=== PATIENT | male | born 1950 | race Caucasian/White ===

== ENCOUNTER 2020-01-09 01:41 | Emergency (ER) | payer BC, SELFPAY ==
[2020-01-09] VITALS (8 sets, daily range): BP systolic 124–134; BP diastolic 60–80; PULSE 80–91; RESP 13–21; TEMP 36.8; O2SAT 94–100
--- NOTE | ~2020-01-09 | CT_ITS ---
EXAMINATION: CTA chest PE protocol DATE: 01/09/2020 05:32 INDICATION: Chest pain. TECHNIQUE: Computed tomography angiography (CTA) of the chest was performed with 100 mL Omnipaque-350 intravenous contrast timed to evaluate the pulmonary arteries. Coronal maximum intensity projection 3D-reconstructions were created by the technologist. Automated exposure control and iterative reconst ruction technique were employed. The dose-length product was 1013.04 mGy-cm. COMPARISON: Chest 2 views 01/09/2012 FINDINGS: The lungs demonstrate mild atelectasis. Calcified bilateral lung nodules and calcified righ t hilar lymph nodes are consistent with old granulomatous disease. There are a few scattered pulmonar y nodules measuring up to 4 mm, likely benign. No pleural effusion. The heart size is normal. No bandar cardial effusion. There is a small sliding hiatal hernia. There is no pulmonary embolus. There are br idging endplate osteophytes at multiple levels in the spine, consistent with diffuse idiopathic skele guy hyperostosis (DISH). IMPRESSION: 1. No pulmonary embolus. Reviewed, dictated and finalized at location A. IMPRESSION: 1. No pulmonary embolus.
[2020-01-09] MEDS: ASPIRIN 81 MG CHEWABLE TABLET 324 MG PO (02:05)
--- NOTE | 2020-01-09 02:05 | ECG_ITS ---
Measurements Intervals [place] Rate: 89 P: 50 MT: 167 QRS: 13 QRSD: 104 T: 27 QT: 390 QTc: 476 Interpretive Statements SINUS RHYTHM SUPRAVENTRICULAR BIGEMINY INCOMPLETE RIGHT BUNDLE BRANCH BLOCK ABNORMAL ECG Electronically Signed On 01-09-2020 7:14:08 CDT by Zay Schrader D.O.
[2020-01-09 03:37] LABS: Basophils Absolute Auto 0.1 K/mm3 (0.0-0.1); Basophils Percent Auto 0.9 % (0.2-1.2); Eosinophils Absolute Auto 0.7 K/mm3 (0-0.3); Eosinophils Percent Auto 6.5 % (0-4.4); Hematocrit 48.8 % (42.0-52.0); Hemoglobin 16.4 g/dL (14.0-18.0); Immature Granulocyte Absolute 0.09 K/mm3 (0.00-0.031); Immature Granulocyte Percent A 0.9 % (0-0.5); Lymphocytes Absolute Auto 3.48 K/mm3 (0.9-3.2); Mean Corpuscular HGB Conc 33.6 g/dl (32-36); Mean Corpuscular Hemoglobin 30.5 pg (26-34); Mean Corpuscular Volume 90.7 fl (80-100); Mean Platelet Volume 9.5 fl (7.4-10.4); Monocytes Absolute Auto 0.9 K/mm3 (0.1-0.6); Monocytes Percent Auto 8.8 % (2.6-8.5); Neutrophils Percent Auto 48.9 % (45.5-73.1); Platelet Count Result 327 k/mm3 (150-375); Red Blood Count 5.38 M/mm3 (4.6-6.20); Red Cell Distribution Width 13.2 % (11.5-14.5); White Blood Count 10.3 K/mm3 (4.5-10.0)
[2020-01-09 03:38] LABS: INR 0.9; Partial Thromboplastin Time 27.1 SECONDS (22.3-36.8); Prothrombin Time 12.1 Seconds (11.1-14.7)
[2020-01-09 03:54] LABS: Blood Urea Nitrogen 10 mg/dL (9-20); Calcium 9.1 mg/dL (8.4-10.2); Carbon Dioxide 25 mmol/L (22-30); Chloride 106 mmol/L (98-107); Estimated Glomerular Filt Rate > 60; Glucose 113 mg/dL (75-110); NT Pro B Type Natriuretic Pept 25 PG/ML (5-100); Potassium 3.8 mmol/L (3.4-5.0); Sodium 138 mmol/L (137-145); Troponin I < 0.012 ng/mL (0.000-0.034)
[2020-01-09 05:54] LABS: Troponin I < 0.012 ng/mL (0.000-0.034)
[2020-01-09 06:44] LABS: Estimated Glomerular Filt Rate > 60
== END 2020-01-09 06:10 | disposition home or self-care (01) ==
PROVIDERS: Emergency Provider Emergency Medicine; PCP Physician Assistant
DX: R07.89 Other chest pain (principal); E11.9 Type 2 diabetes mellitus without complications; G47.33 Obstructive sleep apnea (adult) (pediatric); R91.8 Other nonspecific abnormal finding of lung field
CPT/HCPCS: 36415; 71275; 80048; 83880; 84484; 85025; 85610; 85730; 93005; 99284; A9270; Q9967

== ENCOUNTER 2020-06-15 07:25 | Outpatient (CLI) | payer BC, SELFPAY ==
[2020-06-15 19:02] LABS: SARS-CoV-2 RNA PCR Negative
== END 2020-06-15 07:26 | disposition home or self-care (01) ==
LOC: ANHCOVIDDT 07:26
PROVIDERS: PCP Family Medicine; Visit Provider Internal Medicine Gastroenterology
DX: Z01.812 Encounter for preprocedural laboratory examination (principal); Z20.828 Contact with and (suspected) exposure to other viral communicable diseases
CPT/HCPCS: 87635; C9803; U0003

== ENCOUNTER 2020-06-17 00:52 | Day surgery (SDC) | payer BC, SELFPAY ==
[2020-06-10 14:24] VITALS: BMI 39.2
[2020-06-17 06:48] VITALS: BP 133/76; PULSE 84; RESP 18; TEMP 36.2; O2SAT 96; BMI 38.5
[2020-06-17] MEDS: LACTATED RINGERS 1,000 ML 150 ML IV CONT (07:03)
[2020-06-17 07:08] LABS: Glucose Point of Care 99 (65-105)
--- NOTE | 2020-06-17 07:23 | WPDANESEPPF ---
Anes - Initial Pre Proc Eval Procedure: Operation Date: 06/17/20 08:00 Proposed Procedures p Screening Colonoscopy - Jus Milton MD Date/Time: 06/17/20 07:23 Surgeon: Jus Milton MD Pre Op Diagnosis: Neoplasm Screening/ Hx Colon Polyps Patient Data Age: 69 Gender: M Height: 6 ft 2 in Weight: 136.3 kg Last Vital Signs Temp 97.1 F L 06/17/20 06:48 Pulse 84 06/17/20 06:48 Resp 18 06/17/20 06:48 BP 133/76 06/17/20 06:48 Pulse Ox 96 06/17/20 06:48 Allergies Allergy/AdvReac Type Severity Reaction Status Date / Time ciprofloxacin Allergy Severe Anaphylaxis Verified 06/17/20 06:47 chlorpheniramine Allergy Unknown Unknown Verified 06/17/20 06:47 pseudoephedrine Allergy Unknown Unknown Verified 06/17/20 06:47 [From Deconamine] Home Medications Medication Instructions Recorded Confirmed Type dulaglutide 0.75 mg/0.5 mL 0.75 mg SUB-Q WEEKLY #2 ml 03/08/20 06/10/20 Rx subcutaneous pen injector canagliflozin 100 mg tablet 100 mg PO DAILY #30 tablet 05/20/20 06/10/20 Rx metformin 1,000 mg tablet 1,000 mg PO BID #180 tablet 05/20/20 06/10/20 Rx tobramycin 0.3 % eye drops See Rx Instructions EACH EYE Q4H 05/20/20 06/10/20 Rx #5 ml atorvastatin 20 mg tablet 20 mg PO DAILY #30 tablet 05/24/20 06/10/20 Rx aspirin [Adult Aspirin] 81 mg PO DAILY 06/10/20 06/10/20 History fluocinonide applic TOPICAL 06/10/20 History Laboratory Tests 06/17/20 06:55 POC Capillary Glucose 99 mg/dl mg/dl (65-105) Patient hx anesthesia problems: none Family hx anesthesia problems: none PMFSH Past Medical History Medical History (Updated 05/24/20 @ 08:18 by Will Daniel MD) Arthritis Diabetes Diabetic peripheral neuropathy associated with type 2 diabetes mellitus Elevated PSA, less than 10 ng/ml History of colon polyps Hordeolum externum of right lower eyelid Mixed hyperlipidemia Morbid obesity Nocturia FAHAD on CPAP Osteoarthritis of knees, bilateral Prostate cancer screening Psoriasis Right medial knee pain Sleep apnea Type 2 diabetes mellitus with hyperglycemia Surgical History Surgical History (Updated 09/09/19 @ 08:17 by Mohit Joseph [facility]) Hx of appendectomy Hx of bilateral mastectomy Family History Family History (Updated 09/09/19 @ 08:19 by Mohit Joseph [facility]) Mother Patient's mother is in good health Alzheimer disease Father Patient's father is , Onset Age: 73 Malignant neoplasm of prostate Sibling Malignant neoplasm of prostate Heart disease Social History Social History (Updated 09/09/19 @ 08:19 by Mohit Joseph [facility]) Smoking status: Never smoker Alcohol intake: never Substance use: never Substance use type: does not use Living arrangements: with family Gender identity (if verbalized by the patient): Male Spiritual care concerns: No Anes - Eval Final PreProcedure Day of Procedure 06/17/20 07:23 Patient weight: obese Heart: regular rate and rhythm Lungs: clear to auscultation Airway: Mallampati scale class II Neurological: alert and oriented Last oral intake: >/= 8 hours ASA classification: III Emergent: no Anesthetic plan: proceed Anesthesia type and monitoring: general GIVS and standard monitoring Informed Consent: The patient's anesthetic plan and its attendant risks and benefits were discussed with the patient/family/POA. Questions were solicited and answers provided to the satisfaction of the patient/family/POA.
--- NOTE | 2020-06-17 07:57 | WPDGICN ---
Assessment and Plan Assessment and plan (1) History of colon polyps: Code(s): Z86.010 - Personal history of colonic polyps Status: Acute Assessment and Plan: plan is for surveillance colonoscopy at this time. GI Consult Note Consult date/time: 06/17/20 07:57 HPI: Edson Christiansen is a 69 year old male Seen in evaluation at the request of Dr. Daniel. Patient has a history of colon polyps. Had an adenomatous colon polyp 10 years ago, hyperplastic polyp 5 years ago. Patient's current weight appetite bowel movements are normal. Patient denies abdominal pain. He has had no bleeding. His family history is noncontributory. Review of Systems Review of Systems: All systems reviewed & are unremarkable except as noted in HPI and below PMFSH Past Medical History Medical History (Updated 05/24/20 @ 08:18 by Will Daniel MD) Arthritis Diabetes Diabetic peripheral neuropathy associated with type 2 diabetes mellitus Elevated PSA, less than 10 ng/ml History of colon polyps Hordeolum externum of right lower eyelid Mixed hyperlipidemia Morbid obesity Nocturia FAHAD on CPAP Osteoarthritis of knees, bilateral Prostate cancer screening Psoriasis Right medial knee pain Sleep apnea Type 2 diabetes mellitus with hyperglycemia Surgical History Surgical History (Updated 09/09/19 @ 08:17 by Mohit Joseph CMA) Hx of appendectomy Hx of bilateral mastectomy Family History Family History (Updated 09/09/19 @ 08:19 by Mohit Joseph [employer]) Mother Patient's mother is in good health Alzheimer disease Father Patient's father is , Onset Age: 73 Malignant neoplasm of prostate Sibling Malignant neoplasm of prostate Heart disease Social History Social History (Updated 09/09/19 @ 08:19 by Mohit Joseph [facility]) Smoking status: Never smoker Alcohol intake: never Substance use: never Substance use type: does not use Living arrangements: with family Gender identity (if verbalized by the patient): Male Spiritual care concerns: No Meds Home Medications and Allergies Home Medications Medication Instructions Recorded Confirmed Type dulaglutide 0.75 mg/0.5 mL 0.75 mg SUB-Q WEEKLY #2 ml 03/08/20 06/10/20 Rx subcutaneous pen injector canagliflozin 100 mg tablet 100 mg PO DAILY #30 tablet 05/20/20 06/10/20 Rx metformin 1,000 mg tablet 1,000 mg PO BID #180 tablet 05/20/20 06/10/20 Rx tobramycin 0.3 % eye drops See Rx Instructions EACH EYE Q4H 05/20/20 06/10/20 Rx #5 ml atorvastatin 20 mg tablet 20 mg PO DAILY #30 tablet 05/24/20 06/10/20 Rx aspirin [Adult Aspirin] 81 mg PO DAILY 06/10/20 06/10/20 History fluocinonide applic TOPICAL 06/10/20 History Allergies Allergy/AdvReac Type Severity Reaction Status Date / Time ciprofloxacin Allergy Severe Anaphylaxis Verified 06/17/20 06:47 chlorpheniramine Allergy Unknown Unknown Verified 06/17/20 06:47 pseudoephedrine Allergy Unknown Unknown Verified 06/17/20 06:47 [From Deconamine] Vital Signs Vital Signs - 24 hr 06/17/20 06:48 Temperature 97.1 F L Pulse Rate 84 Respiratory Rate 18 Blood Pressure 133/76 Pulse Oximetry 96 Exam Narrative: Exam Narrative: Physical exam reveals patient to be alert. Vital signs stable. HEENT exam unremarkable. Patient is anicteric. Lungs are clear to auscultation and percussion. Heart is without murmur or extra sounds. Abdominal exam bowel sounds are present soft nontender with no organomegaly. Digital external rectal exam is normal
[2020-06-17 08:30] VITALS: BP 79/41; PULSE 77; RESP 20; O2SAT 95
[2020-06-17 08:40] VITALS: BP 106/74; PULSE 74; RESP 20; O2SAT 95
[2020-06-17 08:50] VITALS: BP 124/70; PULSE 76; RESP 20; O2SAT 96
== END 2020-06-17 09:12 | disposition home or self-care (01) ==
PROVIDERS: PCP Family Medicine; Visit Provider Internal Medicine Gastroenterology
PROC: 0DJD8ZZ Inspection of Lower Intestinal Tract, Via Natural or Artificial Opening Endoscopic (ICD-10-PCS; CPT 45378; principal; 2020-06-17 08:00)
DX: Z12.11 Encounter for screening for malignant neoplasm of colon (principal); K57.30 Diverticulosis of large intestine without perforation or abscess without bleeding; K64.8 Other hemorrhoids; Z86.010 Personal history of colon polyps; E11.42 Type 2 diabetes mellitus with diabetic polyneuropathy; E78.2 Mixed hyperlipidemia; G47.33 Obstructive sleep apnea (adult) (pediatric); Z79.84 Long term (current) use of oral hypoglycemic drugs; Z79.82 Long term (current) use of aspirin
CPT/HCPCS: 45378; J2704; J7120

== ENCOUNTER 2021-10-12 08:47 | Outpatient (CLI) | payer BC, SELFPAY ==
--- NOTE | 2021-10-12 11:15 | NEURO_ITS ---
Impression: # Complains of numbness of hands. # Bilateral Carpal Tunnel Syndrome. # Right ulnar neuropathy around the elbow. # Normal needle/EMG exam. Nerve Conduction Studies Anti Sensory Summary Table Stim Site NR Peak (ms) P-T Amp (?V) Site1 Site2 Delta-P (ms) Dist (cm) Gamal (m/s) Left Median Anti Sensory (2-3nd Digit) Wrist 4.3 12.2 Wrist 2-3nd Digit 4.3 14.0 33 Wrist 4.5 17.7 Wrist 2-3nd Digit 4.3 14.0 33 Right Median Anti Sensory (2-3nd Digit) Wrist 4.3 11.5 Wrist 2-3nd Digit 4.3 14.0 33 Wrist 4.8 9.1 Wrist 2-3nd Digit 4.3 14.0 33 Left Radial Anti Sensory (Base 1st Digit) Wrist 2.1 15.5 Wrist Base 1st Digit 2.1 0.0 Right Radial Anti Sensory (Base 1st Digit) Wrist 2.7 7.7 Wrist Base 1st Digit 2.7 0.0 Left Ulnar Anti Sensory (5th Digit) Wrist 3.0 25.6 Wrist 5th Digit 3.0 14.0 47 Right Ulnar Anti Sensory (5th Digit) Wrist 2.8 38.8 Wrist 5th Digit 2.8 14.0 50 Motor Summary Table Stim Site NR Onset (ms) O-P Amp (mV) Site1 Site2 Delta-0 (ms) Dist (cm) Gamal (m/s) Left Median Motor (Abd Poll Brev) Wrist 4.4 2.4 Elbow Wrist 5.5 28.0 51 Elbow 9.9 1.9 Right Median Motor (Abd Poll Brev) Wrist 4.5 2.7 Elbow Wrist 5.6 30.0 54 Elbow 10.1 2.4 Left Ulnar Motor (Abd Dig Minimi) Wrist 3.4 4.1 A Elbow Wrist 5.5 30.0 55 A Elbow 8.9 3.5 Right Ulnar Motor (Abd Dig Minimi) Wrist 3.4 3.4 A Elbow Wrist 6.1 31.0 51 A Elbow 9.5 2.1 B Elbow Wrist 4.2 24.0 57 B Elbow 7.6 2.3 F Wave Studies NR F-Lat (ms) L-R F-Lat (ms) Left Median (Mrkrs) (Abd Poll Brev) 33.38 0.41 Right Median (Mrkrs) (Abd Poll Brev) 32.97 0.41 Left Ulnar (Mrkrs) (Abd Dig Min) 32.87 1.27 Right Ulnar (Mrkrs) (Abd Dig Min) 34.14 1.27 EMG Side Muscle Nerve Root Ins Act Fibs Amp Dur Recrt Comment Right 1stDorInt Ulnar C8-T1 Nml Nml Nml Nml Nml Right Ext Indicis Radial (Post Int) C7-8 Nml Nml Nml Nml Nml Right Ext Digitorum Radial (Post Int) C7-8 Nml Nml Nml Nml Nml Right BrachioRad Radial C5-6 Nml Nml Nml Nml Nml Right PronatorTeres Median C6-7 Nml Nml Nml Nml Nml Right Abd Poll Brev Median C8-T1 Nml Nml Nml Nml Nml Left 1stDorInt Ulnar C8-T1 Nml Nml Nml Nml Nml Left Ext Indicis Radial (Post Int) C7-8 Nml Nml Nml Nml Nml Left Ext Digitorum Radial (Post Int) C7-8 Nml Nml Nml Nml Nml Left BrachioRad Radial C5-6 Nml Nml Nml Nml Nml Left PronatorTeres Median C6-7 Nml Nml Nml Nml Nml Left Abd Poll Brev Median C8-T1 Nml Nml Nml Nml Nml Right Add Pollicis Ulnar C8-T1 Nml Nml Nml Nml Nml Right Abd Poll Long Radial (Post Int) C7-8 Nml Nml Nml Nml Nml Left Add Pollicis Ulnar C8-T1 Nml Nml Nml Nml Nml Left Abd Poll Long Radial (Post Int) C7-8 Nml Nml Nml Nml Nml MTDD
== END 2021-10-12 08:48 | disposition home or self-care (01) ==
PROVIDERS: PCP Family Medicine; Visit Provider Family Medicine
DX: G56.03 Carpal tunnel syndrome, bilateral upper limbs (principal); G56.21 Lesion of ulnar nerve, right upper limb
CPT/HCPCS: 95886; 95911

== ENCOUNTER 2022-03-03 07:58 | Outpatient (CLI) | payer BC, SELFPAY ==
--- NOTE | ~2022-03-03 | CT_ITS ---
EXAMINATION: CT diagnostic chest wo con DATE: 03/03/2022 09:12 INDICATION: Lung nodule TECHNIQUE: Computed tomography (CT) of the chest was performed without intravenous contrast. The dose -length product (DLP) was 452.66 mGy-cm. Automated exposure control and iterative reconstruction tech COSMIC COLOR were employed. COMPARISON: 01/09/2020 FINDINGS: Again noted are scattered, stable pulmonary nodules which measure up to 4 mm. No new nodule s are identified. There is mild dependent atelectasis. The lungs are free of focal airspace opacities . No pleural effusion or pneumothorax. No pathologically enlarged thoracic lymph nodes are identified . The heart size is normal. There is calcified coronary artery atherosclerosis. Bilateral gynecomasti a is noted. Stones are present in the nondistended gallbladder. There are bridging osteophytes at mul tiple levels in the spine, consistent with diffuse idiopathic skeletal hyperostosis (DISH). IMPRESSION: 1. Stable small pulmonary nodules, consistent with old granulomatous disease. Reviewed, dictated and finalized at location B.
--- NOTE | 2022-03-03 15:08 | WPDPFTINT ---
PFT Procedure Performed PFT Procedure Performed Spirometry with Pre/Post Bronchodilator Plethysmography (Lung Vol) Diffusing Cap (DLCO) Flow Vol Loop PFT Interpretation This is a pulmonary function test with pre and post-bronchodilator spirometry, plethysmography and diffusing capacity. The test was performed and results interpreted in accordance with the 2019 and 2005 ATS/ERS Task Force guidelines respectively using the Global Lung Function Initiative-2012 reference equations. Patient demonstrated good effort and cooperation. Reproducibility criteria were met. The quality of the pre bronchodilator spirometry maneuver was Grade A and post bronchodilator spirometry maneuver was Grade A. Findings: Spirometry: The contour the inspiratory expiratory flow tracing are normal. The pre bronchodilator FVC is 4.67 L, 95% predicted. The pre bronchodilator FEV1 is 3.41 L, 95% predicted. The pre bronchodilator the pre bronchodilator FEV1: FVC ratio 73%. The post bronchodilator FVC is 4.56, representing a 2% decrease. The post bronchodilator FEV1 is 3.60, representing a 6% increase. The post bronchodilator FEV1: FVC ratio 79%. Plethysmography: The total lung capacity is 7.42 L, 95% predicted. The functional residual capacity is 4.29 L, 101% predicted. The residual volume is 2.73 L, 101% predicted. Diffusion capacity: Diffusing capacity unadjusted for hemoglobin and carboxyhemoglobin is 33.4, 121% predicted. The diffusing capacity adjusted for alveolar volume is 5.21, 142% predicted. Impression: The spirometry is normal without evidence of an obstructive abnormality. There is no significant improvement after inhaling a single dose of albuterol. The lung volumes are normal. The diffusing capacity unadjusted for hemoglobin and carboxyhemoglobin is normal and is increased when adjusted for alveolar volume. There are no prior studies for comparison
== END 2022-03-03 07:59 | disposition home or self-care (01) ==
PROVIDERS: PCP Family Medicine; Visit Provider Physician Assistant
DX: R91.1 Solitary pulmonary nodule (principal); R06.02 Shortness of breath; R91.8 Other nonspecific abnormal finding of lung field
CPT/HCPCS: 71250; 94060; 94726; 94729

== ENCOUNTER 2023-05-21 14:32 | Observation (INO) | payer BC, SELFPAY ==
[2023-05-21] VITALS (10 sets, daily range): BP systolic 109–141; BP diastolic 70–92; PULSE 83–120; RESP 15–25; TEMP 36.4–36.7; O2SAT 96–100; BMI 37.9
--- NOTE | ~2023-05-21 | XR_ITS ---
XR chest 2V 05/21/2023 15:30 Indication: Low blood pressure. Shortness of breath. Procedure: 2 view chest Comparison: 01/09/2012 Findings: Heart size normal. Subtle bibasilar infiltrates may represent atelectasis or developing pne umonia. No pleural effusion, edema or pneumothorax. No acute osseous abnormality. Impression: 1: Subtle bibasilar infiltrates may represent atelectasis or developing pneumonia. Reviewed, dictated and finalized at location B. Impression: 1: Subtle bibasilar infiltrates may represent atelectasis or developing pneumon ia.
--- NOTE | ~2023-05-21 | US_ITS ---
EXAMINATION: US abdomen limited DATE: 05/23/2023 18:39 INDICATION: Elevated bilirubin TECHNIQUE: Multiple grayscale and Doppler ultrasound images of the abdomen were obtained. COMPARISON: None available FINDINGS: The head and body of the pancreas are normal. The pancreatic tail is obscured by bowel gas. The liver is normal with normal echogenicity and echotexture. No surface nodularity. Normal hepatope guy flow in the main portal vein. Stones are present in the nondistended gallbladder. No gallbladder wall thickening or pericholecystic fluid. The normal common bile duct measures 4 mm. There was no son ographic Arias sign. IMPRESSION: 1. Cholelithiasis without additional findings of cholecystitis. Reviewed, dictated and finalized at location F.
--- NOTE | 2023-05-21 15:04 | ECG_ITS ---
Measurements Intervals [place] Rate: 105 P: 23 [place]: 120 QRS: 66 QRSD: 137 T: -5 QT: 345 QTc: 457 Interpretive Statements SINUS TACHYCARDIA RIGHT BUNDLE BRANCH BLOCK BASELINE ARTIFACT- I, II, III, AVR, AVL, AVF ABNORMAL ECG COMPARED TO ECG 01/09/2020 01:49:57 SINUS TACHYCARDIA NOW PRESENT RIGHT BUNDLE-BRANCH BLOCK NOW PRESENT Electronically Signed On 05-21-2023 18:44:33 CDT by Zay Schrader D.O.
[2023-05-21 15:20] LABS: Basophils Absolute Auto 0.1 K/mm3 (0.0-0.1); Basophils Percent Auto 0.9 % (0.2-1.2); Eosinophils Absolute Auto 0.4 K/mm3 (0-0.3); Eosinophils Percent Auto 2.6 % (0-4.4); Hematocrit 52.2 % (42.0-52.0); Hemoglobin 17.3 g/dL (14.0-18.0); Immature Granulocyte Absolute 0.24 K/mm3 (0.00-0.031); Immature Granulocyte Percent A 1.6 % (0-0.5); Lymphocytes Percent Auto 18.2 % (18.3-44.2); Mean Corpuscular HGB Conc 33.1 g/dl (32-36); Mean Corpuscular Hemoglobin 30.9 pg (26-34); Mean Corpuscular Volume 93.4 fl (80-100); Mean Platelet Volume 9.4 fl (7.4-10.4); Monocytes Absolute Auto 1.5 K/mm3 (0.1-0.6); Monocytes Percent Auto 9.8 % (2.6-8.5); Neutrophils Absolute Auto 9.9 K/mm3 (1.3-6.7); Neutrophils Percent Auto 66.9 % (45.5-73.1); Platelet Count Result 382 k/mm3 (150-375); Red Blood Count 5.59 M/mm3 (4.6-6.20); Red Cell Distribution Width 13.1 % (11.5-14.5); White Blood Count 14.9 K/mm3 (4.5-10.0)
[2023-05-21 15:29] LABS: Alanine Aminotransferase 24 U/L (6-50); Albumin Level 4.5 g/dL (3.5-5.1); Alkaline Phosphatase 92 U/L (38-126); Anion Gap 12 mmol/L (8-16); Aspartate Amino Transferase 24 U/L (17-59); Bilirubin,Total 1.4 mg/dL (0.2-1.3); Blood Urea Nitrogen 23 mg/dL (9-20); Calcium 9.3 mg/dL (8.4-10.2); Carbon Dioxide 22 mmol/L (22-30); Chloride 99 mmol/L (98-107); Estimated CRCL calculation 94 ml/min; Estimated Glomerular Filt Rate > 60; Glucose 133 mg/dL (65-110); Sodium 133 mmol/L (137-145)
[2023-05-21 18:28] LABS: Lactic Acid Reflex 1.3 mmol/L (0.7-2.0)
[2023-05-21 18:40] LABS: Appearance Urine Clear (Clear); Bilirubin Urine Negative (Negative); Blood Urine Negative (Negative); Color Urine Yellow (Yellow); Glucose Urine UA 3+ mg/dL (Negative); Ketones Urine Negative (Negative); Leukocyte Esterase Ur Negative LEU/UL (Negative); Nitrate Urine Negative (Negative); Protein Urine Negative (Negative); Urobilinogen Urine 0.2 mg/dL (<2.0)
[2023-05-21 18:44] LABS: SARS-CoV-2 RNA PCR Negative (Negative)
[2023-05-21 18:53] LABS: Specific Grav Ur 1.037 (1.001-1.035)
[2023-05-21 18:54] LABS: Add Urine Microscopic? NO
[2023-05-21 19:10] LABS: Magnesium 2.3 mg/dL (1.6-2.3)
--- NOTE | 2023-05-21 19:10 | ED.DIZZY ---
HPI - Dizziness General Chief Complaint: Dizziness Stated Complaint: dizziness Time Seen by Provider: 05/21/23 17:25 Source: patient and RN notes reviewed Mode of arrival: ambulatory Limitations: no limitations History of Present Illness HPI Narrative: This is a 72 year male with history of hyperlipidemia, DM, hypertension who presents for evaluation of dizziness. PAtient states yestesrday he developed dizziness . He states his dizziness is mostly with standing but he has felt dizzy at time with sitting. His family member checked his blood pressure and it was low in systolic 80s and heart rate 110s. He states he felt shows of breath at times. He denies chest pain, abdominal pain, nausea, vomiting. He reports chronic abdominal pain. He states he had intermittent pain behind his left eye that would last a minute. He denies pain now. He denies blurred vision. He did not take his lisinopril today and he drank gatorade which improved his blood pressure. Related Data Home Medications Medication Instructions Recorded Confirmed aspirin 81 mg chewable tablet 81 mg PO DAILY 06/10/20 05/21/23 cyanocobalamin (vitamin B-12) 1,000 mcg PO DAILY 09/01/21 05/21/23 1,000 mcg tablet isosorbide mononitrate 30 mg 30 mg PO QAM 09/25/22 05/21/23 tablet,extended release 24 hr ibuprofen 800 mg tablet 800 mg PO TID PRN Pain (Scale 05/21/23 05/21/23 Score 1-3) Allergies Allergy/AdvReac Type Severity Reaction Status Date / Time ciprofloxacin Allergy Severe Anaphylaxis Verified 05/21/23 15:58 chlorpheniramine Allergy Unknown Unknown Verified 05/21/23 15:58 pseudoephedrine Allergy Unknown Unknown Verified 05/21/23 15:58 [From Deconamine] Review of Systems Constitutional: Constitutional: Denies fever(s) and Denies weakness Eyes: Eyes: Denies change in vision and Denies photophobia ENT: Reports dizziness Cardiovascular: Cardiovascular: Denies syncope, Denies rapid heart rate, Denies irregular heart rhythm, Denies leg edema and Reports dyspnea Respiratory: Respiratory: Denies chest congestion, Denies hemoptysis, Denies excessive phlegm production and Reports dyspnea Gastrointestinal: Gastrointestinal: Denies abdominal pain, Denies hematochezia, Reports diarrhea (chronic) and Denies vomiting Genitourinary: Genitourinary: Denies hematuria, Denies dysuria, Denies penile discharge and Denies testicular pain Musculoskeletal: Musculoskeletal: Denies joint swelling, Denies loss of height and Denies muscle weakness Neurologic: Reports dizziness, Denies syncope, Denies focal weakness and Denies weakness PMFSH Past Medical History Medical History Acute non-recurrent maxillary sinusitis Arthritis Bilateral carpal tunnel syndrome (10/12/21) bilateral carpal tunnel syndrome documented on EMG and nerve conduction study 10/12/2021 BMI 38.0-38.9,adult BMI 39.0-39.9,adult Chest heaviness Chronic left shoulder pain COVID-19 (02/14/22) tested positive for COVID 02/18/2022. Diabetes Diabetic peripheral neuropathy associated with type 2 diabetes mellitus Dyspnea on exertion (~2021) Elevated PSA, less than 10 ng/ml PSA slightly elevated at 4.9 on 05/21/2020. PSA level of 4.92 on 09/27/2022. Essential hypertension History of colon polyps colonoscopy 2019 with recheck in 5 years Hordeolum externum of right lower eyelid Mixed hyperlipidemia total cholesterol 144, triglycerides 154, HDL 53 and LDL 67 on 08/31/2021. Total cholesterol 169, triglycerides 150, HDL 58 and LDL 86 on 01/31/2022. Total cholesterol 165, HDL 58, triglycerides 128, LDL 85 with ratio 2.4 on 04/07/2023. Morbid obesity Nocturia Obesity Obesity (BMI 30-39.9) FAHAD on CPAP 10 cm of water pressure with fullface mask. Osteoarthritis of knees, bilateral Paresthesia of upper limb (~05/2021) Polycythemia (09/27/22) hemoglobin slightly elevated at 17.3 on 09/27/2022. Hemoglobin 16.6 on 04/07/2023. Prostate cancer screening PSA 4
[2023-05-21] MEDS: SODIUM CHLORIDE 0.9% IV 1,000 ML 999 ML IV CONT (19:19)
[2023-05-21 19:23] LABS: NT Pro B Type Natriuretic Pept < 20 pg/mL (19.9-100); Troponin I < 0.012 ng/mL (0.000-0.034)
[2023-05-21 19:42] LABS: INR 0.9; Prothrombin Time 12.8 Seconds (11.1-14.7)
[2023-05-21 19:43] LABS: Partial Thromboplastin Time 24.9 SECONDS (22.3-36.8)
[2023-05-21 19:49] LABS: D Dimer 0.29 ug/mL (<0.48)
--- NOTE | 2023-05-21 20:21 | ECG_ITS ---
Measurements Intervals [place] Rate: 84 P: 39 RI: 142 QRS: 36 QRSD: 143 T: 2 QT: 391 QTc: 464 Interpretive Statements SINUS RHYTHM RIGHT BUNDLE BRANCH BLOCK ABNORMAL ECG COMPARED TO ECG 05/21/2023 15:06:02 SINUS RHYTHM NOW PRESENT Electronically Signed On 05-21-2023 21:48:25 CDT by Zay Schrader D.O.
--- NOTE | 2023-05-21 21:22 | PC.NURSE ---
Spoke with pt letting her know that pt is still awaiting a bed at [place].
[2023-05-21 21:41] LABS: Troponin I < 0.012 ng/mL (0.000-0.034)
[2023-05-21] MEDS: AZITHROMYCIN 500 MG/NS 250 ML 500 MG/250 ML BAG 250 MG IVPB (21:49)
--- NOTE | 2023-05-21 22:50 | ADMGEN ---
This patient, Edson Naylor, was admitted to Medical Room 248-. Patient/family oriented to hospital policies and general routines including ID bracelet, bed and alarms, visiting hours, pain management, procedures, bathroom and other care routines, personal items, smoking policy, room service/diet, and visiting hours. Information on how to activate the Rapid Response Team has been discussed. Patient/Family are encouraged to report perceived risks to care and to ask questions if they do not understand what they are told or what they should do.
[2023-05-21] MEDS: SODIUM CHLORIDE 0.9% IV 1,000 ML 125 ML IV CONT (23:55)
[2023-05-22] VITALS (13 sets, daily range): BP systolic 112–128; BP diastolic 63–68; PULSE 77–93; RESP 16–20; TEMP 36.3–37; O2SAT 93–100
[2023-05-22 06:20] LABS: Basophils Absolute Auto 0.1 K/mm3 (0.0-0.1); Basophils Percent Auto 1.2 % (0.2-1.2); Eosinophils Absolute Auto 0.5 K/mm3 (0-0.3); Eosinophils Percent Auto 3.9 % (0-4.4); Hematocrit 48.6 % (42.0-52.0); Hemoglobin 15.9 g/dL (14.0-18.0); Immature Granulocyte Absolute 0.27 K/mm3 (0.00-0.031); Immature Granulocyte Percent A 2.3 % (0-0.5); Lymphocytes Absolute Auto 2.53 K/mm3 (0.9-3.2); Lymphocytes Percent Auto 21.6 % (18.3-44.2); Mean Corpuscular HGB Conc 32.7 g/dl (32-36); Mean Corpuscular Hemoglobin 30.9 pg (26-34); Mean Corpuscular Volume 94.6 fl (80-100); Mean Platelet Volume 9.3 fl (7.4-10.4); Monocytes Absolute Auto 1.2 K/mm3 (0.1-0.6); Monocytes Percent Auto 10.2 % (2.6-8.5); Neutrophils Absolute Auto 7.1 K/mm3 (1.3-6.7); Neutrophils Percent Auto 60.8 % (45.5-73.1); Platelet Count Result 323 k/mm3 (150-375); Red Blood Count 5.14 M/mm3 (4.6-6.20); Red Cell Distribution Width 12.9 % (11.5-14.5); White Blood Count 11.7 K/mm3 (4.5-10.0)
[2023-05-22 06:31] LABS: Alanine Aminotransferase 20 U/L (6-50); Albumin Level 3.9 g/dL (3.5-5.1); Alkaline Phosphatase 85 U/L (38-126); Anion Gap 7 mmol/L (8-16); Aspartate Amino Transferase 20 U/L (17-59); Bilirubin,Total 1.6 mg/dL (0.2-1.3); Blood Urea Nitrogen 18 mg/dL (9-20); Calcium 8.5 mg/dL (8.4-10.2); Carbon Dioxide 29 mmol/L (22-30); Chloride 100 mmol/L (98-107); Estimated CRCL calculation 86 ml/min; Estimated Glomerular Filt Rate > 60; Glucose 89 mg/dL (65-110); Potassium 3.9 mmol/L (3.4-5.0); Sodium 136 mmol/L (137-145)
--- NOTE | 2023-05-22 07:19 | PM.IMHP ---
H&P: HPI History of Present Illness Date/Time: 05/22/23 07:19 Chief Complaint: Dizziness Narrative: This is a 72-year-old man with a past medical history diabetes, hyperlipidemia, hypertension, and chronic angina for which he follows with Dr. Kendall blackmon Cardiology. He came to the ER on 05/21 with complaints of dizziness. He says that on Sunday he was having some morning dizziness with position changes. He checked his blood glucose but was normal and he checked his blood pressure in found to be 85/69. He called his son who is a nurse practitioner who told him to drink some salt water and that improved his blood pressure to 109/60. The following day he again experienced dizziness and so his told him it was time to go to the hospital. He also has complaints of having a headache with left eye sharp pains lasting 1 minute or loss and occurring on and off all day on Sunday. He denies history of ocular migraine. He also is experiencing some inspiratory chest pain. He states that he chronically has left-sided chest heaviness for which he follows with his payable representative was started on Imdur. 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 The pain goes away with rest. He denies shortness of breath, cough, chills, fever, nausea, vomiting. He has chronic loose stools related to his metformin. He has been eating and drinking without difficulty. He also reports chronic knee pain. He recently saw his orthopedist on 05/07 for left knee pain. He received steroid injection to his left knee that same day but he states it was not helping like before. He contacted the orthopedist who prescribed him a Medrol Dosepak which he completed on Sunday. He also reports that his primary care doctor Dr. Daniel recently started him on lisinopril in the middle of March. He has been taking this nightly and up until this past weekend has had no issues with his blood pressure. In the ER his labs were essentially unremarkable slight leukocytosis of 14. Troponins have been trending and have all been negative. Chest x-ray shows a subtle bibasilar infiltrates which may represent atelectasis or pneumonia. Clinically though he has no cough, fatigue, malaise, fever, or chills that would indicate concerns for pneumonia. Blood cultures were drawn in the ER. Suspected his white count is slightly elevated from his recent steroids. He is being admitted for 23 hour observation. Will obtain echocardiogram and assess a.m. cortisol level. Continue to hold lisinopril while inpatient. Expect patient will likely be discharged tomorrow. Review of Systems Review of Systems: All systems reviewed & are unremarkable except as noted in HPI and below PMFSH Past Medical History Medical History (Updated 05/22/23 @ 15:25 by Dodie Andino, VIVIAN) Acute non-recurrent maxillary sinusitis Arthritis Bilateral carpal tunnel syndrome (10/12/21) bilateral carpal tunnel syndrome documented on EMG and nerve conduction study 10/12/2021 BMI 38.0-38.9,adult BMI 39.0-39.9,adult Chest heaviness Chronic left shoulder pain COVID-19 (02/14/22) tested positive for COVID 02/18/2022. Diabetes Diabetic peripheral neuropathy associated with type 2 diabetes mellitus Dyspnea on exertion (~2021) Elevated PSA, less than 10 ng/ml PSA slightly elevated at 4.9 on 05/21/2020. PSA level of 4.92 on 09/27/2022. Essential hypertension History of colon polyps colonoscopy 2019 with recheck in 5 years Hordeolum externum of right lower eyelid Mixed hyperlipidemia total cholesterol 144, triglycerides 154, HDL 53 and LDL 67 on 08/31/2021. Total cholesterol 169, triglycerides 150, HDL 58 and LDL 86 on 01/31/2022. Total cholesterol 165, HDL 58, triglycerides 128, LDL 85 with ratio 2.4 on 04/07/2023. Morbid obesity Nocturia Obesity Obesity (BMI 30-39.9) FAHAD on CPAP 10 cm of water pressure with fullface mask. Osteoarthritis of knees, bi
--- NOTE | 2023-05-22 07:39 | ECHO_ITS ---
Patient Info Name: Edson Naylor Age: 72 years : 1950 Gender: Male Ht: 74 in Wt: 305 lbs BSA: 2.74 m2 HR: 78 bpm BP: 128 / 66 mmHg Heart Rhythm: Sinus Rhythm Exam Date: 05/22/2023 2:50 PM Exam Location: [facility] Patient Status: Inpatient Admit Date: 05/21/2023 Staff Ordering Physician: Dodie Andino APRN Attending Provider: Annette Ledbetter DO Referring Physician: Sina MARION; Exam Type: CA echo doppler color flow Study Info Indications - chest pain Summary 1. Technically difficult study. Definity contrast administered. 2. Left ventricular chamber dimension is normal. 3. Left ventricular systolic function is normal, estimated at 65-70%. 4. There is no increased left ventricular wall thickness. 5. The left ventricular diastolic function is grade I diastolic dysfunction. 6. There is no aortic valve stenosis. 7. There is trace mitral valve regurgitation. 8. There is trace tricuspid valve regurgitation. 9. No pulmonary hypertension, estimated pulmonary arterial systolic pressure is 23 mmHg. Left Ventricle Left ventricular chamber dimension is normal. Left ventricular systolic function is normal, estimated at 65-70%. There is no increased left ventricular wall thickness. The left ventricular diastolic function is grade I diastolic dysfunction. Technically difficult study. Definity contrast administered. Right Ventricle Right ventricular chamber dimension is normal. Right ventricular systolic function is normal. Left Atria Left atrial chamber dimension is normal. Right Atria Right atrial chamber dimension is normal. Aortic Valve The aortic valve is not well visualized. There is no aortic valve stenosis. There is trace aortic valve regurgitation. Pulmonic Valve The pulmonic valve is not well visualized. There is trace pulmonic regurgitation. Mitral Valve The mitral valve has normal leaflets. There is trace mitral valve regurgitation. The mitral valve annulus is mildly calcified. Tricuspid Valve The tricuspid valve leaflets are normal. There is trace tricuspid valve regurgitation. No pulmonary hypertension, estimated pulmonary arterial systolic pressure is 23 mmHg. Pericardium/Pleural The pericardium appears normal. There is small pericardial effusion. Inferior Vena Cava Normal inferior vena cava with >50% collapse upon inspiration consistent with normal right atrial pressure, 5 mmHg. Aorta The aortic root size at the sinus of Valsalva is normal. There is mild aortic atherosclerosis. Left Ventricular Outflow Tract Name Value Normal LVOT 2D LVOT Diameter 2.0 cm LVOT Doppler LVOT Peak Gradient 3 mmHg LVOT Mean Gradient 2 mmHg LVOT VTI 20 cm LVOT VTI/AV VTI Ratio 0.8 LVOT Stroke Volume 66 ml LVOT CO 5.0 l/min LVOT CI 1.8 l/min/m2 Pulmonic Valve Name Value Normal
[2023-05-22 07:52] LABS: Glucose Point of Care 98 mg/dl (65-105)
[2023-05-22] MEDS: ASPIRIN 81 MG CHEWABLE TABLET PO (10:51)
[2023-05-22] MEDS: ENOXAPARIN 40 MG/0.4 ML SYRINGE SUB-Q (10:51)
[2023-05-22] MEDS: EMPAGLIFLOZIN 25 MG TABLET PO (10:51)
[2023-05-22] MEDS: ISOSORBIDE MONONITRATE 30 MG TAB.ER.24H PO (10:52)
[2023-05-22] MEDS: CYANOCOBALAMIN 1,000 MCG TABLET 1000 MCG PO (10:52)
[2023-05-22] MEDS: ATORVASTATIN 20 MG TABLET PO (10:52)
[2023-05-22 12:08] LABS: Glucose Point of Care 107 mg/dl (65-105)
[2023-05-22 13:28] LABS: Cortisol Random 5.04 ug/dL
[2023-05-22 13:42] LABS: Troponin I < 0.012 ng/mL (0.000-0.034)
--- NOTE | 2023-05-22 13:49 | PC.NURSE ---
On 05/22/23, the student, [Warner Etienne], provided care and completed [facility] documentation on this patient. I have reviewed the student's documentation and agree with the findings.
[2023-05-22] MEDS: PERFLUTREN LIPID MICROSPHERES 1.5 ML VIAL DILUTED TO 10 ML TOTAL VOLUME IV PUSH (16:00)
--- NOTE | 2023-05-22 16:40 | IVDEFINITY ---
Prior to administration of IV Definity the patient was educated on the risks and benefits of the imaging enhancing agent including potential adverse side effects. The patient verbalized understanding. Allergies were verified. No exclusion criteria were identified and at least one of the following inclusion criteria were met: 1) physician request, 2) patient technically difficult to image (per the [place] [employer]ocardi[employer] guidelines of two or more segments not discernable within the apical view), or 3) questionable left ventricular function. ?
[2023-05-22 16:43] LABS: Troponin I < 0.012 ng/mL (0.000-0.034)
[2023-05-22 17:23] LABS: Glucose Point of Care 122 mg/dl (65-105)
[2023-05-22] MEDS: ACETAMINOPHEN 325 MG TABLET 650 MG PO (19:32)
[2023-05-22] MEDS: AZITHROMYCIN 250 MG TABLET 500 MG PO (19:33)
[2023-05-22 19:50] LABS: Troponin I < 0.012 ng/mL (0.000-0.034)
[2023-05-22 20:54] LABS: Glucose Point of Care 121 mg/dl (65-105)
[2023-05-23] VITALS (12 sets, daily range): BP systolic 111–136; BP diastolic 75–78; PULSE 78–102; RESP 18–20; TEMP 36.1–36.7; O2SAT 95–98
[2023-05-23 06:45] LABS: Basophils Absolute Auto 0.1 K/mm3 (0.0-0.1); Basophils Percent Auto 1.1 % (0.2-1.2); Eosinophils Absolute Auto 0.4 K/mm3 (0-0.3); Eosinophils Percent Auto 4.3 % (0-4.4); Hematocrit 48.4 % (42.0-52.0); Hemoglobin 16.2 g/dL (14.0-18.0); Immature Granulocyte Absolute 0.19 K/mm3 (0.00-0.031); Immature Granulocyte Percent A 1.9 % (0-0.5); Lymphocytes Absolute Auto 2.39 K/mm3 (0.9-3.2); Lymphocytes Percent Auto 23.4 % (18.3-44.2); Mean Corpuscular HGB Conc 33.5 g/dl (32-36); Mean Corpuscular Hemoglobin 31.4 pg (26-34); Mean Corpuscular Volume 93.8 fl (80-100); Mean Platelet Volume 9.3 fl (7.4-10.4); Monocytes Percent Auto 9.7 % (2.6-8.5); Neutrophils Absolute Auto 6.1 K/mm3 (1.3-6.7); Neutrophils Percent Auto 59.6 % (45.5-73.1); Platelet Count Result 314 k/mm3 (150-375); Red Blood Count 5.16 M/mm3 (4.6-6.20); Red Cell Distribution Width 12.7 % (11.5-14.5); White Blood Count 10.2 K/mm3 (4.5-10.0)
[2023-05-23 06:54] LABS: Cholesterol 170 mg/dL (0-200); HDL Direct 51 mg/dL; Triglycerides 166 mg/dL (<150)
[2023-05-23 07:03] LABS: Alanine Aminotransferase 21 U/L (6-50); Albumin Level 4.1 g/dL (3.5-5.1); Alkaline Phosphatase 87 U/L (38-126); Anion Gap 5 mmol/L (8-16); Aspartate Amino Transferase 21 U/L (17-59); Bilirubin,Total 1.5 mg/dL (0.2-1.3); Blood Urea Nitrogen 15 mg/dL (9-20); Calcium 8.8 mg/dL (8.4-10.2); Carbon Dioxide 29 mmol/L (22-30); Chloride 100 mmol/L (98-107); Estimated CRCL calculation 86 ml/min; Estimated Glomerular Filt Rate > 60; Glucose 106 mg/dL (65-110); Potassium 4.1 mmol/L (3.4-5.0); Sodium 134 mmol/L (137-145)
[2023-05-23 07:05] LABS: LDL Cholesterol Direct 73 mg/dL
[2023-05-23 07:24] LABS: Cortisol Random 9.04 ug/dL
[2023-05-23 07:47] LABS: Hemoglobin A1C 6.2 % (<5.7)
[2023-05-23 08:35] LABS: Glucose Point of Care 110 mg/dl (65-105)
[2023-05-23] MEDS: ISOSORBIDE MONONITRATE 30 MG TAB.ER.24H PO (09:13)
[2023-05-23] MEDS: EMPAGLIFLOZIN 25 MG TABLET PO (09:13)
[2023-05-23] MEDS: ATORVASTATIN 20 MG TABLET PO (09:13)
[2023-05-23] MEDS: CYANOCOBALAMIN 1,000 MCG TABLET 1000 MCG PO (09:13)
[2023-05-23] MEDS: ASPIRIN 81 MG CHEWABLE TABLET PO (09:13)
[2023-05-23] MEDS: ENOXAPARIN 40 MG/0.4 ML SYRINGE SUB-Q (09:14)
[2023-05-23 12:15] LABS: Glucose Point of Care 158 mg/dl (65-105)
--- NOTE | 2023-05-23 15:41 | P.PNIM_ITS ---
Progress Note: A&P Assessment and Plan (1) Dizziness: Code(s): R42 - Dizziness and giddiness Status: Acute Assessment and Plan: Two episodes of dizziness at home related to position changes and documented low blood pressures at home. * Order orthostatics * Telemetry to monitor for arrhythmias * ECHO ordered and reveals EF of 65-70%, grade 1 diastolic dysfunction, no pulmonary hypertension trace valve disease * Troponin have been negative for CP. * No recurrence thus far * Recently finished steroids for his left knee pain. Check am cortisol (2) Acute dehydration: Code(s): E86.0 - Dehydration Status: Acute Assessment and Plan: Slightly dehydrated on labs although patient says he has been eating and drinking fine. * received IV fluids in the ED. * Labs normalizing * Heart healthy diet (3) Essential hypertension: Code(s): I10 - Essential (primary) hypertension Status: Acute Assessment and Plan: On home agents of lisinopril started 03/2023 * was taking nightly up until his last dose on Sunday * Continue to hold * Blood pressures reviewed (4) FAHAD on CPAP: Code(s): G47.33 - Obstructive sleep apnea (adult) (pediatric); Z99.89 - Dependence on other enabling machines and devices Status: Acute Assessment and Plan: FAHAD. Wears CPAP. Auto titrate home settings ordered. (5) Diabetes: Code(s): E11.9 - Type 2 diabetes mellitus without complications Status: Acute Assessment and Plan: Takes metformin 1000 mg BID, Empagliflozin 25 mg daily and Dulaglutide weekly * Continue empagliflozin, hold metformin * accu checks ac/hs with hypoglycemia protocol * Monitor blood glucose. No insulin order at this time. * Hgb A1c 6.2 (6) Mixed hyperlipidemia: Code(s): E78.2 - Mixed hyperlipidemia Status: Acute Assessment and Plan: On Atorvastatin 20 mg at home * continue here * lipid panel with elevated triglycerides (7) Pneumonia: Code(s): J18.9 - Pneumonia, unspecified organism Status: Acute Assessment and Plan: Chest xray shows subtle bibasilar infiltrates may represent atelectasis or developing pneumonia. * ED gave him rocephin and azithromycin * Clinically he has no complaints of cough, shortness of breath, runny nose, congestion, fatigue, or malaise to make me think he has pneumonia. His lungs are clear on exam. * He did have a slight WBC increase, however, the ED doc was not aware that he had just finished a medrol dose jose. I suspect the increase is related to this. I do not feel strongly about starting abx at this time. * 05/23 patient does not have any signs or symptoms of pneumonia and antibiotics will be discontinued at this time. (8) Hyperbilirubinemia: Code(s): E80.6 - Other disorders of bilirubin metabolism Status: Acute Assessment and Plan: Patient on presentation had a total bilirubin of 1.6. This decreased to 1.4 after fluid hydration and the next day it was back up to 1.5. * Patient does not have any history of liver disease. * Right upper quadrant ultrasound ordered. * A.m. labs ordered * Hepatitis panel ordered Subjective Date/time seen: 05/23/23 15:41 Interval history: patient doing well today and denies any symptoms of dizziness, lightheadedness, visual changes, nausea vomiting. Patient states he is getting around his room pretty well without any reoccurrence of his dizziness. Most likely patient's dizziness came from hypo
--- NOTE | 2023-05-23 15:41 | PM.IMPN ---
Progress Note: A&P Assessment and Plan (1) Dizziness: Code(s): R42 - Dizziness and giddiness Status: Acute Assessment and Plan: Two episodes of dizziness at home related to position changes and documented low blood pressures at home. Order orthostatics Telemetry to monitor for arrhythmias ECHO ordered and reveals EF of 65-70%, grade 1 diastolic dysfunction, no pulmonary hypertension trace valve disease Troponin have been negative for CP. No recurrence thus far Recently finished steroids for his left knee pain. Check am cortisol (2) Acute dehydration: Code(s): E86.0 - Dehydration Status: Acute Assessment and Plan: Slightly dehydrated on labs although patient says he has been eating and drinking fine. received IV fluids in the ED. Labs normalizing Heart healthy diet (3) Essential hypertension: Code(s): I10 - Essential (primary) hypertension Status: Acute Assessment and Plan: On home agents of lisinopril started 03/2023 was taking nightly up until his last dose on Sunday Continue to hold Blood pressures reviewed (4) FAHAD on CPAP: Code(s): G47.33 - Obstructive sleep apnea (adult) (pediatric); Z99.89 - Dependence on other enabling machines and devices Status: Acute Assessment and Plan: FAHAD. Wears CPAP. Auto titrate home settings ordered. (5) Diabetes: Code(s): E11.9 - Type 2 diabetes mellitus without complications Status: Acute Assessment and Plan: Takes metformin 1000 mg BID, Empagliflozin 25 mg daily and Dulaglutide weekly Continue empagliflozin, hold metformin accu checks ac/hs with hypoglycemia protocol Monitor blood glucose. No insulin order at this time. Hgb A1c 6.2 (6) Mixed hyperlipidemia: Code(s): E78.2 - Mixed hyperlipidemia Status: Acute Assessment and Plan: On Atorvastatin 20 mg at home continue here lipid panel with elevated triglycerides (7) Pneumonia: Code(s): J18.9 - Pneumonia, unspecified organism Status: Acute Assessment and Plan: Chest xray shows subtle bibasilar infiltrates may represent atelectasis or developing pneumonia. ED gave him rocephin and azithromycin Clinically he has no complaints of cough, shortness of breath, runny nose, congestion, fatigue, or malaise to make me think he has pneumonia. His lungs are clear on exam. He did have a slight WBC increase, however, the ED doc was not aware that he had just finished a medrol dose jose. I suspect the increase is related to this. I do not feel strongly about starting abx at this time. 05/23 patient does not have any signs or symptoms of pneumonia and antibiotics will be discontinued at this time. (8) Hyperbilirubinemia: Code(s): E80.6 - Other disorders of bilirubin metabolism Status: Acute Assessment and Plan: Patient on presentation had a total bilirubin of 1.6. This decreased to 1.4 after fluid hydration and the next day it was back up to 1.5. Patient does not have any history of liver disease. Right upper quadrant ultrasound ordered. A.m. labs ordered Hepatitis panel ordered Subjective Date/time seen: 05/23/23 15:41 Interval history: patient doing well today and denies any symptoms of dizziness, lightheadedness, visual changes, nausea vomiting. Patient states he is getting around his room pretty well without any reoccurrence of his dizziness. Most likely patient's dizziness came from hypotension. Recently started on lisinopril that is being held at this time. Working reason for patient's elevated bilirubin. Patient will likely be able to discharge tomorrow after right upper quadrant ultrasound performed and hepatic labs completed. No abdominal tenderness to palpation. Exam Narrative: GENERAL: Comfortable, no acute distress HENMT: moist mucous membranes EYES: EOM intact b/l NECK: no lymphadenopathy RESPIRATORY: clear t
[2023-05-23 16:44] LABS: Glucose Point of Care 110 mg/dl (65-105)
[2023-05-23 20:56] LABS: Glucose Point of Care 191 mg/dl (65-105)
[2023-05-24] VITALS: PULSE 92
[2023-05-24] MEDS: ACETAMINOPHEN 325 MG TABLET 650 MG PO (00:24)
[2023-05-24 04:00] VITALS: PULSE 83
[2023-05-24 05:35] LABS: Basophils Absolute Auto 0.1 K/mm3 (0.0-0.1); Basophils Percent Auto 0.9 % (0.2-1.2); Eosinophils Absolute Auto 0.4 K/mm3 (0-0.3); Eosinophils Percent Auto 3.7 % (0-4.4); Hematocrit 48.5 % (42.0-52.0); Hemoglobin 16.1 g/dL (14.0-18.0); Immature Granulocyte Absolute 0.14 K/mm3 (0.00-0.031); Immature Granulocyte Percent A 1.3 % (0-0.5); Lymphocytes Absolute Auto 2.73 K/mm3 (0.9-3.2); Lymphocytes Percent Auto 24.8 % (18.3-44.2); Mean Corpuscular HGB Conc 33.2 g/dl (32-36); Mean Corpuscular Hemoglobin 30.9 pg (26-34); Mean Corpuscular Volume 93.1 fl (80-100); Mean Platelet Volume 9.4 fl (7.4-10.4); Monocytes Percent Auto 8.6 % (2.6-8.5); Neutrophils Absolute Auto 6.7 K/mm3 (1.3-6.7); Neutrophils Percent Auto 60.7 % (45.5-73.1); Platelet Count Result 312 k/mm3 (150-375); Red Blood Count 5.21 M/mm3 (4.6-6.20); Red Cell Distribution Width 12.7 % (11.5-14.5)
[2023-05-24 05:48] LABS: Alanine Aminotransferase 24 U/L (6-50); Albumin Level 4.2 g/dL (3.5-5.1); Alkaline Phosphatase 89 U/L (38-126); Anion Gap 7 mmol/L (8-16); Aspartate Amino Transferase 26 U/L (17-59); Bilirubin,Total 1.4 mg/dL (0.2-1.3); Blood Urea Nitrogen 16 mg/dL (9-20); Carbon Dioxide 27 mmol/L (22-30); Chloride 101 mmol/L (98-107); Estimated CRCL calculation 86 ml/min; Estimated Glomerular Filt Rate > 60; Glucose 110 mg/dL (65-110); Sodium 135 mmol/L (137-145)
[2023-05-24 06:00] VITALS: BP 124/73; PULSE 87; RESP 18; TEMP 36.1; O2SAT 97
[2023-05-24 06:37] LABS: Hepatitis B Surface Antigen Negative (Negative)
[2023-05-24 06:43] LABS: HAV RESULT Negative (Negative); Hepatitis B Core IgM Result Negative (Negative)
[2023-05-24 06:55] LABS: Hepatitis C Virus Antibody Negative (Negative)
[2023-05-24 08:14] LABS: Glucose Point of Care 116 mg/dl (65-105)
[2023-05-24] MEDS: ATORVASTATIN 20 MG TABLET PO (08:21)
[2023-05-24] MEDS: ASPIRIN 81 MG CHEWABLE TABLET PO (08:21)
[2023-05-24] MEDS: ISOSORBIDE MONONITRATE 30 MG TAB.ER.24H PO (08:21)
[2023-05-24] MEDS: EMPAGLIFLOZIN 25 MG TABLET PO (08:21)
[2023-05-24] MEDS: CYANOCOBALAMIN 1,000 MCG TABLET 1000 MCG PO (08:22)
--- NOTE | 2023-05-24 10:59 | PM.DS ---
DS: Admitting Diagnosis Discharge Date 05/24/23 Admitting Diagnosis Dizziness DS: Discharge Diagnosis Discharge Diagnosis (1) Dizziness: Code(s): R42 - Dizziness and giddiness Status: Acute (2) Acute dehydration: Code(s): E86.0 - Dehydration Status: Acute (3) Essential hypertension: Code(s): I10 - Essential (primary) hypertension Status: Acute (4) FAHAD on CPAP: Code(s): G47.33 - Obstructive sleep apnea (adult) (pediatric); Z99.89 - Dependence on other enabling machines and devices Status: Acute (5) Diabetes: Code(s): E11.9 - Type 2 diabetes mellitus without complications Status: Acute (6) Mixed hyperlipidemia: Code(s): E78.2 - Mixed hyperlipidemia Status: Acute (7) Pneumonia: Code(s): J18.9 - Pneumonia, unspecified organism Status: Acute (8) Hyperbilirubinemia: Code(s): E80.6 - Other disorders of bilirubin metabolism Status: Acute DS: Summary Hospital Course Hospital Course: this is a 72-year-old male with past medical history of diabetes, hyperlipidemia, hypertension and 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 Patient was having some dizziness when he changed positions. He was checking his blood pressures which were found to be 85/69. After this was found he called his nurse practitioner and was advised to drink some salt water which improved his blood pressure to 100/60. His dizziness continued and he ended up being seen in the ED. he had recently been on steroids due to left knee pain. case found to have a slightly elevated white count of 14. Troponins were negative x3. Chest x-ray shows subtle infiltrates that may represent atelectasis or pneumonia although patient did not have any pneumonia symptoms including cough, fever or fatigue. Blood cultures were drawn but have remained negative. White count could of been slightly elevated due to recent steroids. Echocardiogram ordered. Head CT and MRI negative For acute intracranial finding. He was recently started on lisinopril which could contribute to his hypotension. Echocardiogram was non revealing. Patient's symptoms resolved. He was found to have a slightly elevated bilirubin that remained stable around 1.4. Right upper quadrant ultrasound revealed cholelithiasis. Advised him to have labs rechecked in approximately 1 week with a follow-up with his primary care provider. His labs and vital signs are stable and he is medically clear for discharge at this time. Time Spent with Patient Time attestation: Total time spent providing and/or coordinating discharge services: Exam Narrative: GENERAL: Comfortable, no acute distress HENMT: moist mucous membranes EYES: EOM intact b/l NECK: no lymphadenopathy RESPIRATORY: clear to auscultation CARDIO: RRR GI: soft, nontender, bowel sounds present SKIN: no rashes EXTREMITIES: no edema, redness or tenderness DS: Data Data Completed and Pending Labs on day of discharge: Labs from last 24 hours 05/24/23 05/24/23 05/23/23 08:11 05:10 20:54 WBC 11.0 H RBC 5.21 Hgb 16.1 Hct 48.5 MCV 93.1 MCH 30.9 MCHC 33.2 RDW 12.7 Plt Count 312 MPV 9.4 Immature Gran % (Auto) 1.3 H Neut % (Auto) 60.7 Lymph % (Auto) 24.8 [place] % (Auto) 8.6 H Eos % (Auto) 3.7 Baso % (Auto) 0.9 Lymph # (Auto) 2.73 [place] # (Auto) 1.0 H Eos # (Auto) 0.4 H Baso # (Auto) 0.1 Abs Immat Gran (auto) 0.14 H Absolute Neuts (auto) 6.7 Absolute Nucleated RBC 0.0 Nucleated RBC % 0.0 Sodium 135 L Potassium 4.0 Chloride 101 Carbon Dioxide 27 Anion Gap 7 L BUN 16 Creatinine 1.00 Estim Creat Clear Calc 86 Estimated GFR > 60 Glucose 110 POC Capillary Glucose 116 H 191 H Calcium 9.0 Total Bilirubin 1.4 H Direct Bilirubin 0.0 AST 26 ALT 24 Alkaline Laila
[2023-05-24 11:49] LABS: Glucose Point of Care 118 mg/dl (65-105)
--- NOTE | 2023-05-24 11:59 | PC.NURSE ---
On 05/24/23, the student, [Danika Naranjo], provided care and completed [facility] documentation on this patient. I have reviewed the student's documentation and agree with the findings.
== END 2023-05-24 12:25 | disposition home or self-care (01) ==
LOC: ANHED 17:25 → ANH2MED 22:33
PROVIDERS: Emergency Medicine; Nurse Practitioner Acute Care; Admitting Provider Internal Medicine; Emergency Provider General Practice; PCP Family Medicine; Visit Provider Internal Medicine Critical Care Medicine
DX: E86.0 Dehydration (principal); J18.9 Pneumonia, unspecified organism; Z20.822 Contact with and (suspected) exposure to COVID-19; E11.42 Type 2 diabetes mellitus with diabetic polyneuropathy; K80.20 Calculus of gallbladder without cholecystitis without obstruction; I11.9 Hypertensive heart disease without heart failure; E80.6 Other disorders of bilirubin metabolism; K52.1 Toxic gastroenteritis and colitis; T38.3X5A Adverse effect of insulin and oral hypoglycemic [antidiabetic] drugs, initial encounter; E66.01 Morbid (severe) obesity due to excess calories; Z68.37 Body mass index [BMI] 37.0-37.9, adult; D51.9 Vitamin B12 deficiency anemia, unspecified; E78.2 Mixed hyperlipidemia; G47.33 Obstructive sleep apnea (adult) (pediatric); R94.31 Abnormal electrocardiogram [ECG] [EKG]; Z99.89 Dependence on other enabling machines and devices; Z86.16 Personal history of COVID-19; Z79.84 Long term (current) use of oral hypoglycemic drugs; Z79.82 Long term (current) use of aspirin; Z79.1 Long term (current) use of non-steroidal anti-inflammatories (NSAID); Z79.85 Long-term (current) use of injectable non-insulin antidiabetic drugs; Z79.899 Other long term (current) drug therapy
CPT/HCPCS: 36415; 71046; 76705; 80053; 80061; 80074; 81003; 82248; 82533; 82948; 83036; 83605; 83735; 83880; 84443; 84484; 85025; 85380; 85610; 85730; 87040; 87635; 93005; 93306; 96361; 96365; 96366; 96367; 96372; 96375; 99285; A9270; G0378; J0456; J0696; J1650; J7030; Q9957

== ENCOUNTER 2023-06-27 09:13 | Outpatient (CLI) | payer BC, SELFPAY ==
--- NOTE | 2023-06-27 11:00 | NEURO_ITS ---
Impression: # Complains of pins and needle sensation in upper extremities. Diabetic for over 5 years. # Bilateral axonal neuropathy with prolonged F-waves,as well suggesting proximal involvement as well. # Superimposed Carpal Tunnel Syndrome bilaterally. # Needle/EMG exam abnormal with neurogenic change in first dorsal interossei bilaterally. Nerve Conduction Studies Anti Sensory Summary Table Stim Site NR Peak (ms) P-T Amp (?V) Site1 Site2 Delta-P (ms) Dist (cm) Gamal (m/s) Left Median Anti Sensory (2-3nd Digit) Wrist 4.9 22.5 Wrist 2-3nd Digit 4.9 14.0 29 Wrist 4.7 20.7 Wrist 2-3nd Digit 4.9 14.0 29 Right Median Anti Sensory (2-3nd Digit) Wrist 5.2 14.3 Wrist 2-3nd Digit 5.2 14.0 27 Wrist 5.3 19.5 Wrist 2-3nd Digit 5.2 14.0 27 Left Radial Anti Sensory (Base 1st Digit) Wrist 2.3 20.0 Wrist Base 1st Digit 2.3 0.0 Right Radial Anti Sensory (Base 1st Digit) Wrist 3.0 23.7 Wrist Base 1st Digit 3.0 0.0 Left Ulnar Anti Sensory (5th Digit) Wrist 3.3 40.3 Wrist 5th Digit 3.3 14.0 42 Right Ulnar Anti Sensory (5th Digit) Wrist 3.8 24.2 Wrist 5th Digit 3.8 14.0 37 Motor Summary Table Stim Site NR Onset (ms) O-P Amp (mV) Site1 Site2 Delta-0 (ms) Dist (cm) Gamal (m/s) Left Median Motor (Abd Poll Brev) Wrist 4.9 3.6 Elbow Wrist 6.1 30.0 49 Elbow 11.0 1.9 Right Median Motor (Abd Poll Brev) Wrist 5.1 3.8 Elbow Wrist 6.6 33.0 50 Elbow 11.7 4.0 Left Ulnar Motor (Abd Dig Minimi) Wrist 3.0 5.0 A Elbow Wrist 6.5 33.0 51 A Elbow 9.5 4.1 Right Ulnar Motor (Abd Dig Minimi) Wrist 3.0 4.1 A Elbow Wrist 6.4 33.0 52 A Elbow 9.4 3.4 F Wave Studies NR F-Lat (ms) L-R F-Lat (ms) Left Median (Mrkrs) (Abd Poll Brev) 36.32 0.64 Right Median (Mrkrs) (Abd Poll Brev) 36.96 0.64 Left Ulnar (Mrkrs) (Abd Dig Min) 37.19 1.11 Right Ulnar (Mrkrs) (Abd Dig Min) 38.30 1.11 EMG Side Muscle Nerve Root Ins Act Fibs Amp Dur Recrt Comment Right 1stDorInt Ulnar C8-T1 Nml Nml Nml >12ms Reduced Right Ext Indicis Radial (Post Int) C7-8 Nml Nml Nml Nml Nml Right Ext Digitorum Radial (Post Int) C7-8 Nml Nml Nml Nml Nml Right BrachioRad Radial C5-6 Nml Nml Nml Nml Nml Right PronatorTeres Median C6-7 Nml Nml Nml Nml Nml Right Abd Poll Brev Median C8-T1 Nml Nml Nml >12ms Nml Left 1stDorInt Ulnar C8-T1 Nml Nml Nml >12ms Reduced Left Ext Indicis Radial (Post Int) C7-8 Nml Nml Nml Nml Nml Left Ext Digitorum Radial (Post Int) C7-8 Nml Nml Nml Nml Nml Left BrachioRad Radial C5-6 Nml Nml Nml Nml Nml Left PronatorTeres Median C6-7 Nml Nml Nml Nml Nml Left Abd Poll Brev Median C8-T1 Nml Nml Nml >12ms Nml Right ABD Dig Min Ulnar C8-T1 Nml Nml Nml >12ms Nml Left ABD Dig Min Ulnar C8-T1 Nml Nml Nml >12ms Nml MTDD
== END 2023-06-27 09:14 | disposition home or self-care (01) ==
LOC: ANHNEURO 09:14
PROVIDERS: PCP Family Medicine; Visit Provider Family Medicine
DX: G56.20 Lesion of ulnar nerve, unspecified upper limb (principal); G56.03 Carpal tunnel syndrome, bilateral upper limbs
CPT/HCPCS: 95886; 95911

== ENCOUNTER 2024-01-18 03:18 | Emergency (ER) | payer BC, SELFPAY ==
[2024-01-18] VITALS (12 sets, daily range): BP systolic 108–151; BP diastolic 78–94; PULSE 79–87; RESP 12–23; TEMP 36.3; O2SAT 95–100
--- NOTE | ~2024-01-18 | XR_ITS ---
Portable chest x-ray Comparison: 05/21/2023 Clinical History: Chest pain Findings: Lungs are clear, without focal consolidation or pleural effusion. Cardiomediastinal silho uette is stable. Bones and soft tissues are unremarkable. Impression: Clear lungs. Reviewed, dictated and finalized at location . Impression: Clear lungs.
--- NOTE | 2024-01-18 03:19 | ECG_ITS ---
SEE SCANNED COPY FOR CONFIRMED REPORT MTDD
[2024-01-18] MEDS: ASPIRIN 81 MG CHEWABLE TABLET 324 MG PO (03:30)
--- NOTE | 2024-01-18 03:33 | PC.NURSE ---
Once patient was taken into room he states that he is in no more pain.
[2024-01-18 03:56] LABS: Basophils Absolute Auto 0.1 K/mm3 (0.0-0.1); Basophils Percent Auto 1.1 % (0.2-1.2); Eosinophils Absolute Auto 0.5 K/mm3 (0-0.3); Eosinophils Percent Auto 5.5 % (0-4.4); Hematocrit 48.5 % (42.0-52.0); Hemoglobin 16.3 g/dL (14.0-18.0); Immature Granulocyte Absolute 0.12 K/mm3 (0.00-0.031); Immature Granulocyte Percent A 1.2 % (0-0.5); Lymphocytes Absolute Auto 3.36 K/mm3 (0.9-3.2); Mean Corpuscular HGB Conc 33.6 g/dl (32-36); Mean Corpuscular Volume 92.4 fl (80-100); Mean Platelet Volume 9.7 fl (7.4-10.4); Monocytes Absolute Auto 0.8 K/mm3 (0.1-0.6); Monocytes Percent Auto 8.5 % (2.6-8.5); Neutrophils Absolute Auto 4.7 K/mm3 (1.3-6.7); Neutrophils Percent Auto 48.7 % (45.5-73.1); Platelet Count Result 321 k/mm3 (150-375); Red Blood Count 5.25 M/mm3 (4.6-6.20); Red Cell Distribution Width 13.1 % (11.5-14.5); White Blood Count 9.6 K/mm3 (4.5-10.0)
[2024-01-18 04:07] LABS: Alanine Aminotransferase 17 U/L (6-50); Albumin Level 4.2 g/dL (3.5-5.1); Alkaline Phosphatase 88 U/L (38-126); Anion Gap 10 mmol/L (4-12); Aspartate Amino Transferase 25 U/L (17-59); Bilirubin,Total 0.9 mg/dL (0.2-1.3); Blood Urea Nitrogen 15 mg/dL (9-20); Calcium 8.8 mg/dL (8.4-10.2); Carbon Dioxide 22 mmol/L (22-30); Chloride 108 mmol/L (98-107); Estimated CRCL calculation 95 ml/min; Estimated Glomerular Filt Rate > 60; Glucose 132 mg/dL (65-110); INR 0.9; Lipase 86 U/L (23-300); Potassium 3.8 mmol/L (3.4-5.0); Prothrombin Time 12.7 Seconds (11.1-14.7); Sodium 140 mmol/L (137-145)
[2024-01-18 04:08] LABS: Partial Thromboplastin Time 27.9 Seconds (22.3-36.8)
[2024-01-18 04:18] LABS: Troponin I < 0.012 ng/mL (0.000-0.034)
[2024-01-18] MEDS: SODIUM CHLORIDE 0.9% IV 1,000 ML 999 ML IV CONT (04:30)
[2024-01-18 04:45] LABS: NT Pro B Type Natriuretic Pept 68 pg/mL (19.9-100)
--- NOTE | 2024-01-18 05:28 | ED.GENADULT ---
HPI - General Adult General Chief complaint: Chest Pain Stated complaint: chest pain Time Seen by Provider: 01/18/24 03:37 History of Present Illness HPI narrative: This is a 73-year-old male presenting ED with chief complaint chest pain. Patient got up to use the restroom at 3:00 a.m.. When he got back to bed he started to feel a pressure in the center of his chest. It is nonradiating 8 out 10 intensity and resolved after approximately 1 hour without intervention. Patient says he has experienced chest pain in the past from anxiety although he states this is different Although he cannot explain why. No exacerbating or alleviating symptoms. Chest pain was associated with shortness of breath. There is no vomiting diaphoresis or exertional component. Patient is currently asymptomatic Related Data Home Medications Medication Instructions Recorded Confirmed aspirin 81 mg chewable tablet 81 mg PO DAILY 06/10/20 10/24/23 cyanocobalamin (vitamin B-12) 1,000 mcg PO DAILY 09/01/21 10/24/23 1,000 mcg tablet isosorbide mononitrate 30 mg 30 mg PO QAM 09/25/22 10/24/23 tablet,extended release 24 hr Allergies Allergy/AdvReac Type Severity Reaction Status Date / Time ciprofloxacin Allergy Severe Anaphylaxis Verified 09/05/23 10:08 chlorpheniramine Allergy Unknown Unknown Verified 09/05/23 10:08 pseudoephedrine Allergy Unknown Unknown Verified 09/05/23 10:08 [From Deconamine] [facility] Past Medical History Medical History Acute dehydration Acute non-recurrent maxillary sinusitis Arthritis Bilateral carpal tunnel syndrome (10/12/21) bilateral carpal tunnel syndrome documented on EMG and nerve conduction study 10/12/2021. EMG and nerve conduction study on 06/27/2023 with bilateral carpal tunnel syndrome as well as proximal neuropathy. BMI 38.0-38.9,adult BMI 39.0-39.9,adult Chest heaviness Cholelithiasis (05/21/23) cholelithiasis noted on ultrasound of the abdomen 05/21/2023 with no obstruction. Chronic left shoulder pain COVID-19 (02/14/22) tested positive for COVID 02/18/2022. Diabetic peripheral neuropathy associated with type 2 diabetes mellitus Diastolic dysfunction without heart failure (05/21/23) grade 1 diastolic dysfunction with ejection fraction 65-70%, trace mitral valve regurgitation, trace tricuspid valve regurgitation, no pulmonary hypertension on echo on 05/21/2023. Dizziness Dyspnea on exertion (~2021) Elevated PSA, less than 10 ng/ml PSA slightly elevated at 4.9 on 05/21/2020. PSA level of 4.92 on 09/27/2022. PSA 6.3 with 17% free PSA on 10/30/2023. Essential hypertension History of colon polyps colonoscopy 2019 with recheck in 5 years Hordeolum externum of right lower eyelid Hyperbilirubinemia Mixed hyperlipidemia total cholesterol 144, triglycerides 154, HDL 53 and LDL 67 on 08/31/2021. Total cholesterol 169, triglycerides 150, HDL 58 and LDL 86 on 01/31/2022. Total cholesterol 165, HDL 58, triglycerides 128, LDL 85 with ratio 2.4 on 04/07/2023. Cholesterol 193, triglycerides 140, HDL 55, LDL 113 with ratio 3.5 on 10/30/2023. Morbid obesity Nocturia Obesity Obesity (BMI 30-39.9) FAHAD on CPAP 10 cm of water pressure with fullface mask. Osteoarthritis of knees, bilateral Paresthesia of upper limb (~05/2021) Pneumonia Polycythemia (09/27/22) hemoglobin slightly elevated at 17.3 on 09/27/2022. Hemoglobin 16.6 on 04/07/2023. Hemoglobin normal at 16.0 on 10/30/2023. Prostate cancer screening PSA 4.9 on 10/21/2019. PSA 4.92 on 09/27/2022. Psoriasis Right medial knee pain Screening for diabetic retinopathy no diabetic retinopathy or macular degeneration on 05/30/2022. Shortness of breath PFT on 03/03/2022 was normal. Sleep apnea Type 2 diabetes mellitus with hyperglycemia fasting glucose 98 with hemoglobin A1c 6.2 on 08/31/2021 urine microalbumin ratio was 7. Glucose 91 with hemoglobin A1c 5.9 on 01/31/2022. Glucose 113 with hemoglobin A1c 6.3
--- NOTE | 2024-01-18 05:55 | ECG_ITS ---
SEE SCANNED COPY FOR CONFIRMED REPORT MTDD
[2024-01-18 06:33] LABS: Troponin I < 0.012 ng/mL (0.000-0.034)
== END 2024-01-18 06:48 | disposition home or self-care (01) ==
PROVIDERS: Emergency Provider Emergency Medicine; PCP Family Medicine
DX: R07.89 Other chest pain (principal); I11.9 Hypertensive heart disease without heart failure; E11.42 Type 2 diabetes mellitus with diabetic polyneuropathy; E78.2 Mixed hyperlipidemia; E66.9 Obesity, unspecified; Z68.39 Body mass index [BMI] 39.0-39.9, adult; G47.33 Obstructive sleep apnea (adult) (pediatric); L40.9 Psoriasis, unspecified; D51.9 Vitamin B12 deficiency anemia, unspecified; M17.0 Bilateral primary osteoarthritis of knee; F41.9 Anxiety disorder, unspecified; Z86.010 Personal history of colon polyps; Z87.01 Personal history of pneumonia (recurrent); Z86.16 Personal history of COVID-19; Z90.13 Acquired absence of bilateral breasts and nipples; Z77.22 Contact with and (suspected) exposure to environmental tobacco smoke (acute) (chronic); I45.10 Unspecified right bundle-branch block; Z79.82 Long term (current) use of aspirin; Z79.84 Long term (current) use of oral hypoglycemic drugs; Z79.85 Long-term (current) use of injectable non-insulin antidiabetic drugs
CPT/HCPCS: 36415; 71045; 80053; 83690; 83880; 84484; 85025; 85610; 85730; 93005; 99284; A9270; J7030

== ENCOUNTER 2024-01-18 08:27 | Outpatient (CLI) | payer BC, SELFPAY ==
--- NOTE | ~2024-01-18 | CT_ITS ---
CT of the Abdomen and Pelvis: Indication: Prostate cancer Technique: 2.5 mm axial scans were obtained through the abdomen and pelvis following intravenous adm inistration of 100 cc of Omnipaque 350. Dose reduction technique was used on this scan by utilizing a utomated exposure control and iterative reconstruction technique. The dose-length product (DLP) was 1 639.53 mGy-cm. Findings: Scans through the lung bases are unremarkable. The liver, spleen, pancreas, adrenals and kidneys are within normal limits. Multiple gallstones are p resent. No evidence of aortic aneurysm. No lymphadenopathy. No bowel obstruction or bowel wall thickening. There is no evidence to suggest acute appendicitis. Images through the pelvis were performed. Urinary bladder unremarkable. Questionable asymmetric promi nence at the left side of the prostate gland. No enlarged pelvic lymphadenopathy seen. No ascites. Sm all fat-containing left inguinal hernia noted. Impression: No definite evidence for metastatic disease. Consider PSMA PET scan to evaluate for subcentimeter nod al metastatic disease, as indicated. Questionable asymmetric prominence or mass at the left side of the prostate gland. Correlate with karri or workup given history of prostate cancer. Cholelithiasis. Reviewed, dictated and finalized at location . Impression: No definite evidence for metastatic disease. Consider PSMA PET scan to evaluate for subcentimeter sissy metastatic disease, as indicated. Questionable asymmetric prominence or mass at the left side of the prostate gla nd. Correlate with prior workup given history of prostate cancer. Cholelithiasis.
--- NOTE | ~2024-01-18 | NM_ITS ---
EXAMINATION: NM bone scan whole body DATE: 01/18/2024 12:19 INDICATION: Prostate cancer TECHNIQUE: 25 mCi Tc-99m HDP was administered intravenously. Delayed whole-body scintigrams were obt ained. COMPARISON: CT dated 01/18/2024 FINDINGS: Likely degenerative joint centered uptake most prominent at the medial compartment of the left knee w ith additional joints or uptake at the right knee, bilateral acromioclavicular joints and several cristina nts of the bilateral hands, wrists and feet. Additional likely degenerative uptake at the left-sided facet joints in the mid to upper cervical spine and discogenic uptake at the lower cervical spine. No other suspicious foci of abnormal bone uptake to suggest metastatic disease. IMPRESSION: 1. Typical pattern of scattered degenerative disc and joint centered uptake. No lesion suspicious for metastatic disease. Reviewed, dictated and finalized at location A.
== END 2024-01-18 08:28 | disposition home or self-care (01) ==
PROVIDERS: PCP Family Medicine; Visit Provider Urology
DX: C61 Malignant neoplasm of prostate (principal); M17.0 Bilateral primary osteoarthritis of knee; K80.20 Calculus of gallbladder without cholecystitis without obstruction
CPT/HCPCS: 74177; 78306; A9503; Q9967

== ENCOUNTER 2024-03-18 10:01 | Outpatient (CLI) | payer BC, SELFPAY ==
--- NOTE | ~2024-03-18 | XR_ITS ---
EXAMINATION: XR chest 2V 03/18/2024 11:34 INDICATION: Malignant neoplasm of the prostate gland PROCEDURE: 2 view chest COMPARISON: Comparison to multiple prior studies sequentially, with oldest reviewed study dated 07/28. FINDINGS: The lungs are clear. The cardiomediastinal silhouette is within normal limits. There are no pleural effusions. There is no pneumothorax suspected. IMPRESSION: 1: NO ACUTE CARDIOPULMONARY DISEASE. Reviewed, dictated and finalized at location B.
[2024-03-18 11:39] LABS: Basophils Absolute Auto 0.1 K/mm3 (0.0-0.1); Basophils Percent Auto 1.3 % (0.2-1.2); Eosinophils Absolute Auto 0.5 K/mm3 (0-0.3); Eosinophils Percent Auto 5.2 % (0-4.4); Hematocrit 52.1 % (42.0-52.0); Hemoglobin 16.9 g/dL (14.0-18.0); Immature Granulocyte Absolute 0.05 K/mm3 (0.00-0.031); Immature Granulocyte Percent A 0.6 % (0-0.5); Lymphocytes Absolute Auto 2.59 K/mm3 (0.9-3.2); Lymphocytes Percent Auto 29.4 % (18.3-44.2); Mean Corpuscular HGB Conc 32.4 g/dl (32-36); Mean Corpuscular Hemoglobin 30.6 pg (26-34); Mean Corpuscular Volume 94.4 fl (80-100); Mean Platelet Volume 9.5 fl (7.4-10.4); Monocytes Absolute Auto 0.7 K/mm3 (0.1-0.6); Monocytes Percent Auto 7.5 % (2.6-8.5); Neutrophils Absolute Auto 4.9 K/mm3 (1.3-6.7); Platelet Count Result 327 k/mm3 (150-375); Red Blood Count 5.52 M/mm3 (4.6-6.20); Red Cell Distribution Width 13.2 % (11.5-14.5); White Blood Count 8.8 K/mm3 (4.5-10.0)
[2024-03-18 11:45] LABS: Anion Gap 10 mmol/L (4-12); Blood Urea Nitrogen 13 mg/dL (9-20); Carbon Dioxide 26 mmol/L (22-30); Chloride 104 mmol/L (98-107); Sodium 140 mmol/L (137-145)
[2024-03-18 11:46] LABS: Alanine Aminotransferase 25 U/L (6-50); Albumin Level 4.7 g/dL (3.5-5.1); Alkaline Phosphatase 92 U/L (38-126); Aspartate Amino Transferase 25 U/L (17-59); Bilirubin,Total 1.3 mg/dL (0.2-1.3); Calcium 9.4 mg/dL (8.4-10.2); Estimated Glomerular Filt Rate > 60; Glucose 108 mg/dL (65-110)
[2024-03-18 11:54] LABS: Partial Thromboplastin Time 26.1 Seconds (22.3-36.8)
[2024-03-18 11:58] LABS: Appearance Urine Clear (Clear); Bilirubin Urine Negative (Negative); Blood Urine Negative (Negative); Color Urine Yellow (Yellow); Glucose Urine UA 3+ mg/dL (Negative); Ketones Urine Negative (Negative); Leukocyte Esterase Ur Negative LEU/UL (Negative); Nitrate Urine Negative (Negative); Protein Urine Negative (Negative); Specific Grav Ur 1.037 (1.001-1.035); Urobilinogen Urine 0.2 mg/dL (<2.0)
[2024-03-18 12:01] LABS: Add Urine Microscopic? NO
== END 2024-03-18 10:02 | disposition home or self-care (01) ==
LOC: ANHSURGERY 10:06
PROVIDERS: PCP Family Medicine; Visit Provider Urology
DX: C61 Malignant neoplasm of prostate (principal); Z01.818 Encounter for other preprocedural examination
CPT/HCPCS: 36415; 71046; 80053; 81003; 85025; 85610; 85730; 86850; 86900; 86901

== ENCOUNTER 2024-03-28 15:10 | Inpatient (IN) | payer BC, MEDICARE, SELFPAY ==
--- NOTE | 2024-03-11 07:41 | PM.IMHP ---
H&P: [facility] History of Present Illness Date/Time: 03/11/24 07:41 Chief Complaint: Prostate cancer Narrative: pleasant 73-year-old gentleman found in December 2023 to have a PSA of 5.7. Prostate biopsy revealed 7 of 12 cores ( including all cores from the left side) with Joe 4+3=7 adenocarcinoma. This represents an unfavorable intermediate risk prostate cancer. Prostate volume was 37.8 g. On biopsy there was evidence of neurovascular invasion but no extracapsular extension. His calculated risk of sissy involvement was 4%. Staging CT abd/pelvis w/ contrast and bone scan showed no evidence of metastatic disease. After careful discussion of options patient has elected for robotic prostatectomy with bilateral pelvic lymphadenectomy. He has prior erectile dysfunction. He is aware of the risk of this procedure including, but not limited to, adverse cardiopulmonary events, urinary incontinence, rectal injury, erectile dysfunction. Review of Systems Review of Systems: All systems reviewed & are unremarkable except as noted in HPI and below PMFSH Past Medical History Medical History Acute dehydration Acute non-recurrent maxillary sinusitis Arthritis Bilateral carpal tunnel syndrome (10/12/21) bilateral carpal tunnel syndrome documented on EMG and nerve conduction study 10/12/2021. EMG and nerve conduction study on 06/27/2023 with bilateral carpal tunnel syndrome as well as proximal neuropathy. BMI 38.0-38.9,adult BMI 39.0-39.9,adult Chest heaviness Cholelithiasis (05/21/23) cholelithiasis noted on ultrasound of the abdomen 05/21/2023 with no obstruction. Chronic left shoulder pain COVID-19 (02/14/22) tested positive for COVID 02/18/2022. Diabetic peripheral neuropathy associated with type 2 diabetes mellitus Diastolic dysfunction without heart failure (05/21/23) grade 1 diastolic dysfunction with ejection fraction 65-70%, trace mitral valve regurgitation, trace tricuspid valve regurgitation, no pulmonary hypertension on echo on 05/21/2023. Dizziness Dyspnea on exertion (~2021) Elevated PSA, less than 10 ng/ml PSA slightly elevated at 4.9 on 05/21/2020. PSA level of 4.92 on 09/27/2022. PSA 6.3 with 17% free PSA on 10/30/2023. Essential hypertension History of colon polyps colonoscopy 2019 with recheck in 5 years Hordeolum externum of right lower eyelid Hyperbilirubinemia Mixed hyperlipidemia total cholesterol 144, triglycerides 154, HDL 53 and LDL 67 on 08/31/2021. Total cholesterol 169, triglycerides 150, HDL 58 and LDL 86 on 01/31/2022. Total cholesterol 165, HDL 58, triglycerides 128, LDL 85 with ratio 2.4 on 04/07/2023. Cholesterol 193, triglycerides 140, HDL 55, LDL 113 with ratio 3.5 on 10/30/2023. Morbid obesity Nocturia Obesity Obesity (BMI 30-39.9) FAHAD on CPAP 10 cm of water pressure with fullface mask. Osteoarthritis of knees, bilateral Paresthesia of upper limb (~05/2021) Pneumonia Polycythemia (09/27/22) hemoglobin slightly elevated at 17.3 on 09/27/2022. Hemoglobin 16.6 on 04/07/2023. Hemoglobin normal at 16.0 on 10/30/2023. Prostate cancer screening PSA 4.9 on 10/21/2019. PSA 4.92 on 09/27/2022. Psoriasis Right medial knee pain Screening for diabetic retinopathy no diabetic retinopathy or macular degeneration on 05/30/2022. Shortness of breath PFT on 03/03/2022 was normal. Sleep apnea Type 2 diabetes mellitus with hyperglycemia fasting glucose 98 with hemoglobin A1c 6.2 on 08/31/2021 urine microalbumin ratio was 7. Glucose 91 with hemoglobin A1c 5.9 on 01/31/2022. Glucose 113 with hemoglobin A1c 6.3 on 09/27/2022. Glucose 105 with hemoglobin A1c 6.2 on 04/07/2023. Glucose 120 with hemoglobin A1c 6.4 and microalbumin ratio of 3 on 10/30/2023. Ulnar neuropathy at elbow of right upper extremity (10/12/21) documented on EMG and nerve conduction study 10/12/2021 Vitamin B12 deficiency anemia (08/31/21) level slightly low at 390 with goal greater than 400
[2024-03-18 10:11] VITALS: BMI 38.4
[2024-03-18 10:23] VITALS: BP 135/72; PULSE 80; RESP 16; TEMP 36.6; O2SAT 96
--- NOTE | 2024-03-18 10:44 | PC.NURSE ---
Report to the Outpatient Waiting Room, entrance under the green pavilion located off [facility], at time ____06:00am___ on date __03/27/24 . Planned Procedure Time: _07:30am . Time changes happen often and if your time is changed the preop area will call you the afternoon before. - You and your visitor will be asked to self-screen and do not enter if you have any COVID symptoms. - A mask is optional within the hospital at this time. Patients may have clear liquids (water, carbonated beverages, clear teas, apple juice) until 3 hours prior to surgery with a maximum of 20 ounces. - No food from midnight until time of surgery - Infants may have breast milk until 4 hours before surgery, infant formula 6 hours prior to surgery. Take the following medications with a SIP of water the morning of surgery: Isosorbide DO NOT STOP ANY OF YOUR OTHER PRESCRIPTION MEDICATIONS PRIOR TO SURGERY ?EXCEPT THE FOLLOWING Medications to discontinue per physician Hold all vitamins, supplements, NSAIDS and Aspirin [address] Contreras____ Date to take last dose 03/19/24 Please no make-up, nail kinyarwanda, hairspray, perfume, deodorant, or body powder the day of surgery. No jewelry (including any body piercings) or valuables the day of surgery, leave them at home. Please take a shower or bath the night before, or the morning of, surgery with an antibacterial soap. Wear comfortable, loose fitting clothing. - Jewelry must be removed prior to entering the operating room. Rings and piercings that are not removed may be cut off. - The hospital will not accept responsibility for valuables. - Please leave all valuables, including medications, at home the day of surgery. If you are going home after surgery, a licensed route relief driver must drive you home. - NO public transportation without another adult if you receive anesthesia. - We recommend that an adult stay with you for 24 hours following discharge. - We also recommend that you do not drive, make important decision, drink alcoholic beverages, or take any drugs that were not prescribed by your health care provider for at least 24 hours after your discharge time. Follow any additional instructions given to you from your surgeon.( Bowel Prep per DR Contreras) If you or anyone in your household have experienced Covid symptoms in the past week, please notify your surgeon or the nurse liaison at the phone number below for possible testing. Telephone instructions given to ___patient and asked if any additional questions and then verbalized understanding. Patient advised to call surgeon office or pre surgery nurse liaison [phone] if any additional questions.
[2024-03-27] VITALS (13 sets, daily range): BP systolic 106–154; BP diastolic 62–89; PULSE 77–112; RESP 10–17; TEMP 35.1–37.1; O2SAT 94–100
--- NOTE | 2024-03-27 05:32 | WPDHPUPDATE1 ---
History and Physical Update Update Date/Time: 03/27/24 05:32 History and Physical has been reviewed, including an updated exam of the patient. There are NO changes in the patient's condition. Risks, benefits, and alternatives have been discussed and questions answered. Patient agrees to proceed with procedure.
[2024-03-27] MEDS: LACTATED RINGERS 1,000 ML 30 ML IV CONT ×2 (06:45→11:47)
--- NOTE | 2024-03-27 07:02 | WPDANESEPPF ---
Anes - Initial Pre Proc Eval Procedure: Operation Date: 03/27/24 07:30 Proposed Procedures p Robotic Assisted Laparoscopic Radical Prostatectomy with Bilateral Pelvic Lymph Node Dissection - Terrance Contreras MD Date/Time: 03/27/24 07:02 Surgeon: Terrance Contreras MD Pre Op Diagnosis: prostate cancer Patient Data Age: 73 Gender: M Height: 1.88 m Weight: 135.8 kg Last Vital Signs Temp 36.6 C 03/18/24 10:23 Pulse 80 03/18/24 10:23 Resp 16 03/18/24 10:23 BP 135/72 03/18/24 10:23 Pulse Ox 96 03/18/24 10:23 O2 Del Method Room Air 03/18/24 10:23 Allergies Allergy/AdvReac Type Severity Reaction Status Date / Time ciprofloxacin Allergy Intermediate Anaphylaxis Verified 03/18/24 10:15 chlorpheniramine Allergy Unknown Confusion Verified 03/18/24 10:15 Home Medications Medication Instructions Recorded Confirmed Type cyanocobalamin (vitamin B-12) 1,000 mcg PO DAILY 09/01/21 03/18/24 History 1,000 mcg tablet isosorbide mononitrate 30 mg 30 mg PO QAM 09/25/22 03/18/24 History tablet,extended release 24 hr ibuprofen 800 mg tablet 800 mg PO TID PRN pain #90 tabs 05/31/23 03/18/24 Rx metformin 1,000 mg tablet 1,000 mg PO BID #180 tabs 08/07/23 03/18/24 Rx dulaglutide 0.75 mg/0.5 mL 0.75 mg (0.5 mL) subcut WEEKLY #2 02/12/24 03/18/24 Rx subcutaneous pen injector mL (Trulicity) empagliflozin 25 mg tablet 25 mg PO DAILY #90 tabs 03/17/24 03/18/24 Rx (Jardiance) aspirin 81 mg tablet,delayed 81 mg PO DAILY 03/18/24 03/18/24 History release (Adult Low Dose Aspirin) atorvastatin 40 mg tablet 40 mg PO DAILY 03/18/24 03/18/24 History lisinopril 10 mg tablet 10 mg PO QAM 03/18/24 03/18/24 History Patient hx anesthesia problems: none Family hx anesthesia problems: none Results Review: All pre-operative results and documents have been reviewed as part of the pre-operative evaluation. [facility] Past Medical History Medical History Acute dehydration Acute non-recurrent maxillary sinusitis Arthritis Bilateral carpal tunnel syndrome (10/12/21) bilateral carpal tunnel syndrome documented on EMG and nerve conduction study 10/12/2021. EMG and nerve conduction study on 06/27/2023 with bilateral carpal tunnel syndrome as well as proximal neuropathy. BMI 38.0-38.9,adult BMI 39.0-39.9,adult Chest heaviness Cholelithiasis (05/21/23) cholelithiasis noted on ultrasound of the abdomen 05/21/2023 with no obstruction. Chronic left shoulder pain COVID-19 (02/14/22) tested positive for COVID 02/18/2022. Diabetic peripheral neuropathy associated with type 2 diabetes mellitus Diastolic dysfunction without heart failure (05/21/23) grade 1 diastolic dysfunction with ejection fraction 65-70%, trace mitral valve regurgitation, trace tricuspid valve regurgitation, no pulmonary hypertension on echo on 05/21/2023. Dizziness Dyspnea on exertion (~2021) Elevated PSA, less than 10 ng/ml PSA slightly elevated at 4.9 on 05/21/2020. PSA level of 4.92 on 09/27/2022. PSA 6.3 with 17% free PSA on 10/30/2023. Essential hypertension History of colon polyps colonoscopy 2019 with recheck in 5 years Hordeolum externum of right lower eyelid Hyperbilirubinemia Mixed hyperlipidemia total cholesterol 144, triglycerides 154, HDL 53 and LDL 67 on 08/31/2021. Total cholesterol 169, triglycerides 150, HDL 58 and LDL 86 on 01/31/2022. Total cholesterol 165, HDL 58, triglycerides 128, LDL 85 with ratio 2.4 on 04/07/2023. Cholesterol 193, triglycerides 140, HDL 55, LDL 113 with ratio 3.5 on 10/30/2023. Morbid obesity Nocturia Obesity Obesity (BMI 30-39.9) FAHAD on CPAP 10 cm of water pressure with fullface mask. Osteoarthritis of knees, bilateral Paresthesia of upper limb (~05/2021) Pneumonia Polycythemia (09/27/22) hemoglobin slightly elevated at 17.3 on 09/27/2022. Hemoglobin 16.6 on 04/07/2023. Hemoglobin normal at 16.0 on 10/30/2023. Prostate cancer screening
[2024-03-27 07:03] LABS: Glucose Point of Care 122 mg/dl (65-105)
[2024-03-27] MEDS: ceFAZolin 3 GM/D5W 100 ML 100 ML IVPB (07:30)
--- NOTE | 2024-03-27 11:46 | W.PM.PROC2 ---
Procedure Note - Detailed Date of Procedure 03/27/24 Pre-op Diagnosis prostate cancer Post-op Diagnosis Same Procedure Performed Robotic assisted radical prostatectomy and bilateral pelvic lymphadenectomy Surgeon Terrance Contreras MD Anesthesia General Description of Procedure The patient was brought to the operative suite, where he was prepped and draped in routine sterile fashion while in a dorsal lithotomy, deep Trendelenburg position. A supraumbilical 10 mm trocar was placed after insufflation of the abdomen with a Veress needle. Three robotic ports were then placed under direct vision. Two of these were placed in the right lower quadrant - 10 cm and 20 cm lateral to, and in line with, the umbilicus. A third robotic trocar was placed 10 cm to the left of the umbilicus, and 20 cm to the left of the umbilicus, a 12 mm standard laparoscopic trocar was placed to be used as an psychiatric assistant port. Lastly, a 5 mm trocar was placed in the left upper quadrant midway between the umbilicus and the left robotic trocar. Attention was then turned to the prostatectomy. I opted for a posterior approach in this patient. An incision was made in the parietal peritoneum along the posterior bladder/posterior prostate about 2 cm above the reflection of the peritoneum over the anterior rectum. The seminal vesicles and vas deferens were immediately identified. Dissection is undertaken in a fashion so as to avoid electrocautery as much as possible, particularly near the tips of the seminal vesicles. Dissection was also carried out in the midline so as to avoid any encounters with the ureters. The vas deferens and the seminal vesicles were dissected in their entirety to the base of the prostate. The plane anterior to Denoviller's fascia, anterior to the rectum and posterior to the prostate was then developed. I then dropped the bladder by incising the anterior parietal peritoneum just lateral to the median umbilical ligaments bilaterally. The bladder was dropped from the anterior abdominal and pelvic wall. The endopelvic fascia was identified and incised bilaterally, allowing for dissection of the posterior-lateral aspect of the prostate. The puboprostatic ligaments were transected near their origin from the posterior pubic ramus. This posterior lateral dissection of the prostate is also undertaken in a fashion so as to avoid electrocautery as much as possible. The dorsal vein of the penis is then secured with an 0 -Vicryl ligature. Attention is then turned to the bladder neck. The anterior bladder neck is incised at the vesico-prostatic junction. The previously placed urethral catheter was drawn through the urethrotomy. A very small bladder neck was maintained throughout the remainder of this dissection. The posterior bladder neck was incised in a fashion so as to avoid any injury to the ureteral orifices. Again, the small aperture of the bladder neck was maintained. The previously dissected vas deferens and the seminal vesicles were brought through the posterior bladder neck incision. The lateral prostatic pedicles were then carefully dissected from the lateral aspect of the prostate bilaterally. The prostatic pedicles were secured with Weck clips and transected. The neurovascular bundles were carefully dissected from the posterior-lateral aspect of the prostate. The dorsal vein of the penis was incised with electrocautery. Using cold scissors, the urethra was incised. After withdrawing the previously placed urethral catheter, the posterior urethra was sharply incised, as was the rectalurethralis muscle. Attention was then turned to an extended bilateral pelvic lymphadenectomy. The limits of this dissection were similar bilaterally. Specifically, the limits were the bifurcation of the common iliac vein proximally, the inguinal ligament distally, the obturator nerve posteriorly and the anterior aspect to the external iliac artery laterally. This dissection was undert
[2024-03-27] MEDS: fentaNYL CITRATE INJ (*CRX) 100 MCG/2 ML VIAL 25 MCG IV PUSH ×4 (11:50→12:11)
[2024-03-27 12:06] LABS: Glucose Point of Care 174 mg/dl (65-105)
--- NOTE | 2024-03-27 12:19 | SUR.PHASEI ---
1218 - dr. dawson at bedside assessing pt.
[2024-03-27] MEDS: LACTATED RINGERS 1,000 ML 125 ML IV CONT (14:22)
[2024-03-27] MEDS: KETOROLAC 15 MG/ML VIAL (*BKC) IV PUSH ×2 (14:24→19:58)
[2024-03-27] MEDS: ceFAZolin 2 GM/D5W 50 ML 2 GM/50 ML BAG IVPB ×2 (14:33→23:38)
[2024-03-27 17:33] LABS: Glucose Point of Care 205 mg/dl (65-105)
[2024-03-27] MEDS: SODIUM CHLORIDE 0.9% IV 1000 ML BAG IVPB (17:59)
[2024-03-27] MEDS: INSULIN ASPART (*BKC) 100 UNITS/ML SUB-Q (18:00)
[2024-03-27 23:53] LABS: Glucose Point of Care 207 mg/dl (65-105)
[2024-03-28] VITALS (8 sets, daily range): BP systolic 92–138; BP diastolic 43–80; PULSE 94–110; RESP 16–18; TEMP 36.1–37.4; O2SAT 92–97
--- NOTE | ~2024-03-28 | XR_ITS ---
XR abdomen obstructive series 04/03/2024 08:12 Indication: Abdominal distention Procedure: Supine and upright views of abdomen Comparison: 03/31/2024 Findings: There is free intraperitoneal air beneath the right diaphragm. There is dilated small bowel and colon. Consider perforation in the appropriate clinical setting. No abnormal calcifications. Mod erate lumbar spondylosis. Impression: 1: Free intraperitoneal air, suspicious for bowel perforation. 2: Gas-filled dilated small bowel and colon, obstruction versus ileus. Reviewed, dictated and finalized at location B. Impression: 1: Free intraperitoneal air, suspicious for bowel perforation. 2: Gas-filled dilated small bowel and colon, obstruction versus ileus.
--- NOTE | ~2024-03-28 | XR_ITS ---
Supine and upright views of the abdomen Clinical history: Small bowel obstruction COMPARISON: 04/03/2024 Findings: NG tube in satisfactory position. Dilated small bowel loops are present. There is extensive subcutis emphysema at the left midabdomen to left lower quadrant. No definite pneumoperitoneum evide nt. No abnormal mass lesion or calcification is seen. Osseous structures are intact. Impression: Dilated small bowel loops suggest small bowel obstruction, versus ileus, with NG tube in place. Soft tissue emphysema at the left midabdomen and left lower quadrant. Correlate for recent surgery or other iatrogenic air. Reviewed, dictated and finalized at location . Impression: Dilated small bowel loops suggest small bowel obstruction, versus ileus, with N G tube in place. Soft tissue emphysema at the left midabdomen and left lower quadrant. Correlate for recent surgery or other iatrogenic air.
--- NOTE | ~2024-03-28 | CT_ITS ---
CT abdomen pelvis wo con Ordering provider: Terrance Contreras MD History: 73 years Male with . SHEA, n/v . Comparison: March 29, 2024 Technique: CT abdomen and pelvis without IV and without oral contrast. Automated exposure control and iterative reconstruction technique were employed. The dose-length product was 1959.68 mGy-cm. Findings: VISUALIZED LOWER CHEST: Bilateral basal atelectatic changes. Bilateral minimal effusion. Trace of per icardial effusion seen posteriorly. Calcified right hilar lymph nodes. UPPER ABDOMINAL ORGANS: Liver: Normal. Gallbladder: Cholelithiasis. Spleen: Normal. Stomach/duodenum: Small sliding hiatus hernia. Pancreas: Normal. Adrenals: Normal. Kidneys: Minimal fullness of the renal pelvis bilaterally. No definite ureteric stones. PELVIC ORGANS: The bladder is normal. BOWEL AND MESENTERY: Colon: Mild sigmoid diverticulosis without diverticulitis. Normal appendix. Small Bowel: Normal. No obstruction. Peritoneum/mesentery: Minimal free air seen anteriorly.. Moderate Free fluid seen around the liver an d paracolic gutters and also in the pelvis.. No mesenteric lymphadenopathy. RETROPERITONEUM: Mild atheromatous disease of the abdominal aorta. No retroperitoneal lymphadenopat hy. Small para-aortic lymph nodes are noted. MUSCULOSKELETAL: Superficial soft tissues: Air seen in the subcutaneous tissues of the abdominal wall and lower chest. Bilateral fat containing inguinal hernias. Otherwise, The superficial soft tissues are normal. Bones: Age appropriate degenerative changes of the spine. Dextroscoliosis. Bilateral sacroiliitis wit h fusion. IMPRESSION: 1. Bilateral mild fullness of the renal pelvis more on the right side. No definite ureteric stones. 2. Cholelithiasis. 3. Pneumoperitoneum and ascites. Perforation cannot be excluded although cannot be demonstrated spec ifically. Clinical correlation and Follow-up advised. 4. Air is seen in the abdominal wall. Clinical correlation advised. 5. Bilateral basal atelectatic changes with minimal effusion. 6. Small sliding hiatus hernia. Reviewed, dictated and finalized at location A. IMPRESSION: 1. Bilateral mild fullness of the renal pelvis more on the right side. No defi nite ureteric stones. 2. Cholelithiasis. 3. Pneumoperitoneum and ascites. Perforation cannot be excluded although canno t be demonstrated specifically. Clinical correlation and Follow-up advised. 4. Air is seen in the abdominal wall. Clinical correlation advised. 5. Bilateral basal atelectatic changes with minimal effusion. 6. Small sliding hiatus hernia.
--- NOTE | ~2024-03-28 | CT_ITS ---
EXAMINATION: CT drain retroperitoneal DATE: 04/04/2024 13:23 INDICATION: Urinoma. TECHNIQUE: The procedure including the risks, benefits, and alternatives was discussed with the patie nt. Risks discussed included bleeding and infection. The patient understood the risks and benefits an d agreed to proceed. The skin overlying the right abdomen was prepped and draped in usual sterile fa shion. Anesthetic was administered with 1% lidocaine subcutaneously. An 18 gauge trochar needle was inserted into the ascites with CT guidance. The needle was exchanged over a wire for 5 Welsh, 7 Fren ch, and 9 Welsh dilators and then for an 8.5 Welsh pigtail catheter. The catheter was stitched to t skin, and a sterile dressing was applied. Automated exposure control and iterative reconstruction technique were employed. The dose-length product was 166.02 mGy-cm. There were no immediate complicat ions. FINDINGS: CT images demonstrate the catheter within the urinoma. IMPRESSION: 1. Successful CT-guided abdominal urinoma drainage. Reviewed, dictated and finalized at location A.
--- NOTE | ~2024-03-28 | XR_ITS ---
Supine and upright views of the abdomen Clinical history: Postoperative nausea Findings: Probably distended large and small bowel loops. No definite free air seen. There is soft ti ssue emphysema at the right abdomen. No abnormal mass lesion or calcification is seen. Osseous struct ures are intact. Impression: Air distended large and small bowel loops, suggestive of ileus. Correlate for obstruction. Soft tissue emphysema at the right abdominal wall. Reviewed, dictated and finalized at location . Impression: Air distended large and small bowel loops, suggestive of ileus. Correlate for o bstruction. Soft tissue emphysema at the right abdominal wall.
--- NOTE | ~2024-03-28 | US_ITS ---
EXAMINATION: US venous doppler [facility] DATE: 04/08/2024 14:38 INDICATION: Lower limb swelling. TECHNIQUE: Grayscale ultrasound images without and with compression and Doppler ultrasound images of the bilateral lower extremity veins were obtained. COMPARISON: None. FINDINGS: The visualized portions of right common femoral vein, profunda (deep) femoral vein, femoral vein, pop liteal vein, peroneal veins, and greater saphenous vein outflow are patent. There is thrombus in righ t posterior tibial vein. The visualized portions of left common femoral vein, profunda femoral vein, femoral vein, popliteal v ein, peroneal veins, posterior tibial veins, and greater saphenous vein outflow are patent. IMPRESSION: 1. Deep vein thrombosis involving right posterior tibial vein. I called this result to Dodie Andino. Reviewed, dictated and finalized at location A. IMPRESSION: 1. Deep vein thrombosis involving right posterior tibial vein. I called this r esult to Dodie Andino.
--- NOTE | ~2024-03-28 | CT_ITS ---
EXAMINATION: CTA chest PE abdomen pel DATE: 04/07/2024 23:38 INDICATION: TACHYCARDIA, D-DIMER ELEVATION TECHNIQUE: Computed tomography angiography (CTA) of the chest was performed with 100 mL Omnipaque-350 intravenous contrast timed to evaluate the pulmonary arteries, followed by portal venous phase imagi ng of the abdomen and pelvis. Coronal maximum intensity projection 3D-reconstructions were created by the technologist. The dose-length product (DLP) was 2729.21 mGy-cm. Automated exposure control and i terative reconstruction technique were employed. COMPARISON: CTPA, same date; cystogram and CT abdomen pelvis 04/04/2024. FINDINGS: CHEST: Lung parenchyma and airways: Mild motion artifact. Minimal dependent atelectasis. The lungs are other wisdom clear. Patent airways. Pleura: Unremarkable. Thoracic inlet, axillae and chest wall: Right upper extremity PICC terminating in the SVC. Symmetric bilateral gynecomastia. Thoracic aorta: No significant dilation. No dissection. Mild arch calcification. Mediastinum: Calcified right hilar nodes. Small hiatal hernia. Heart and pericardium: Normal. Coronary artery calcifications: Mild. Thoracic bones: No acute osseous finding. Pulmonary arteries: Study quality: Mild motion artifact is present, the study is overall diagnostic. No pulmonary emboli detected. ABDOMEN/PELVIS: Liver: Enlarged. Biliary/Gallbladder: Gallbladder is contracted around several stones. There is mild surrounding fat s tranding. No bile duct dilation. Pancreas: Mild fatty atrophy. Spleen: Normal. Adrenals:No mass. Kidneys: No suspicious mass, obstructing stone, or hydronephrosis. GI tract: No small or large bowel dilation. Normal appendix. Diverticulosis without diverticulitis. Mesentery/Peritoneum: Decreased right paracolic gutter fluid. Irregular, multifocal fluid collections in the lower abdominal mesentery with mild rim enhancement. The largest collection measures 6.4 x 12 .7 x 11.3 cm and appears to be in communication with multiple additional smaller collections. Retroperitoneum: No mass. Atherosclerotic abdominal aortic and/or arterial calcifications. Pelvis: Salazar catheter in place. Contrast and gas in the mostly empty urinary bladder. Extravasation of contrast into the deep pelvis, likely from the prostatic urethra. Soft Tissues: Extensive subcutaneous gas over the lower anterior abdomen and right flank. Right-sided pigtail drain in the mid right paracolic gutter. Abdominopelvic bones: No acute osseous finding. IMPRESSION: No CT evidence of acute pulmonary embolus. No acute process detected in the chest. Hepatomegaly. Contracted gallbladder containing multiple stones, with mild surrounding fat stranding which may be r eactive, although early cholecystitis could appear similarly. Correlate with biliary labs and right u pper quadrant pain. Irregular rim-enhancing fluid collections in the lower abdominal mesentery, concerning for abscess. T he largest portion measures up to 12.7 cm and appears to be in communication with multiple additional smaller focal collections. Persistent, somewhat decreased anterior abdominal and right flank subcutaneous gas. Contrast extravasation at the prostatic urethra. Reviewed, dictated and finalized at location K. IMPRESSION: No CT evidence of acute pulmonary embolus. No acute process detected in the osorio st. Hepatomegaly. Contracted gallbladder containing multiple stones, with mild surrounding fat st randing which may be reactive, although early cholecystitis could appear simila rly. Correlate with biliary labs and right upper quadrant pain. Irregular rim-enhancing fluid collections in the lower abdominal mesentery, con cerning for abscess. The largest portion measures up to
--- NOTE | ~2024-03-28 | CT_ITS ---
EXAMINATION: CT abdomen pelvis wo con DATE: 03/29/2024 08:21 INDICATION: Postoperative lower abdominal pain. Recent prostatectomy. TECHNIQUE: Computed tomography (CT) of the abdomen and pelvis was performed without intravenous contr ast. Automated exposure control and iterative reconstruction technique were employed. The dose-length product was 1861.89 mGy-cm. COMPARISON: CT abdomen and pelvis 01/18/2024 FINDINGS: The visualized portions of the lung bases demonstrate small pleural effusions and dependent atelectasis. There is peripheral septal thickening bilaterally, consistent with mild chronic interst itial lung disease. Calcified right lung nodules and calcified right hilar lymph nodes are consistent with old granulomatous disease. There is left atrial enlargement of the heart. There are coronary ar gumaro calcifications. No pericardial effusion. The liver and spleen are normal. There are gallstones i n the gallbladder, which is distended. The pancreas and adrenal glands are normal. There is mild bila teral hydronephrosis. There is no urolithiasis. The bladder is decompressed by a Salazar catheter. Ther e are no dilated loops of bowel. The appendix is not visualized. There is a small volume of ascites p rimarily adjacent to the liver and spleen and in the right paracolic gutter. There are bilateral ingu inal hernias containing fat. There is a small sliding hiatal hernia. There are no pathologically enla rged lymph nodes. There is extensive subcutaneous gas bilaterally, consistent with recent surgery. Th ere is a small volume of intraperitoneal gas, consistent with recent surgery. There are bridging endp late osteophytes at multiple levels in the spine, consistent with diffuse idiopathic skeletal hyperos tosis (DISH). There is mild lumbar spondylosis. IMPRESSION: 1. Mild bilateral hydronephrosis. 2. Small volume of ascites. 3. Cholelithiasis. Gallbladder distention may be secondary to fasting. Correlate with physical exam t o exclude acute cholecystitis. Reviewed, dictated and finalized at location A. IMPRESSION: 1. Mild bilateral hydronephrosis. 2. Small volume of ascites. 3. Cholelithiasis. Gallbladder distention may be secondary to fasting. Correlat e with physical exam to exclude acute cholecystitis.
--- NOTE | ~2024-03-28 | XR_ITS ---
XR chest 1V portable DATE: 03/30/2024 17:38 INDICATION: Shortness of breath, acute renal insufficiency TECHNIQUE: Portable AP chest on 03/30/2024 at 1732 hours COMPARISON: 03/18/2024 PA and lateral chest FINDINGS: Small lung volumes compared to 03/18/2024. Heart size is likely within normal range but not optimally evaluated on AP projection because of magn ification. There is pulmonary vascular congestion. There are bilateral pulmonary infiltrates, primarily in the m id and lower lung zones, right greater than left. Small pleural effusions aren't excluded. No pneumot horax. Osteoarthritis of the glenohumeral joints. Degenerative spurring of the thoracic spine. IMPRESSION: Interval onset of pulmonary vascular congestion and mid and lower lung infiltrates, right greater than left, since 03/19/2024 Reviewed, dictated and finalized at location J. IMPRESSION: Interval onset of pulmonary vascular congestion and mid and lower l jarret infiltrates, right greater than left, since 03/19/2024
--- NOTE | ~2024-03-28 | NM_ITS ---
EXAMINATION: NM lung vent and perfusion DATE: 04/08/2024 14:11 INDICATION: Tachycardia and elevated d-dimer. Nondiagnostic CT for pulmonary embolism. TECHNIQUE: 8.9 mCi xenon-133 by inhalation and 1.5 mCi Tc-99m MAA by intravenous route. Scintigraphi c images of the chest were obtained. COMPARISON: Chest CT dated 04/07/2024 FINDINGS: There is homogeneous radiotracer activity throughout the lungs on the single breath ventilation seque nce. There is elevation of the right hemidiaphragm. A couple small perfusion defects along the basila r right lower lobe. Otherwise relatively homogeneous perfusion throughout the lungs. No discrete chioma tilation and perfusion mismatch is identified. IMPRESSION: 1. Low probability for pulmonary embolism. Reviewed, dictated and finalized at location A.
--- NOTE | ~2024-03-28 | XR_ITS ---
Upright portable view of the abdomen Clinical history: NG tube placement Findings: NG tube in satisfactory position. Dilated small bowel suggesting small bowel obstruction. N o definite free air. No abnormal mass lesion or calcification is seen. Osseous structures are intact. Impression: NG tube in satisfactory position. Suspected small bowel obstruction. Reviewed, dictated and finalized at location . Impression: NG tube in satisfactory position. Suspected small bowel obstruction.
--- NOTE | ~2024-03-28 | XR_ITS ---
XR chest 2V Ordering provider: MARLIN Rosa History: 73 years Male with . for lung scan . Comparison: April 04, 2024 FINDINGS: MEDIASTINUM: The cardiac silhouette is not enlarged. Right PICC line with the tip directed to the right IJV superiorly. Repositioning is advised. LUNGS: No effusions or pneumothorax. Prominent markings in the lower lobes more on the left suggestiv e of atelectasis versus pneumonia. OTHER: No free air under the diaphragm. IMPRESSION: Left basilar atelectasis versus pneumonia. Right PICC line needs to be repositioned. Reviewed, dictated and finalized at location A.
--- NOTE | ~2024-03-28 | XR_ITS ---
EXAMINATION: XR abdomen/kub 1V DATE: 04/07/2024 08:53 INDICATION: Small bowel obstruction TECHNIQUE: A supine view of the abdomen on 2 radiographs was obtained. COMPARISON: 04/06/2024 FINDINGS: Nonspecific bowel gas pattern with scattered gas within the colon and a few scattered nondilated loop s of small bowel. IMPRESSION: 1. Nonspecific bowel gas pattern which could be seen with an ileus. Reviewed, dictated and finalized at location A.
--- NOTE | ~2024-03-28 | US_ITS ---
Renal-Bladder ultrasound Clinical History: Mild bilateral hydronephrosis Technique: Real-time sonographic imaging of the kidneys and urinary bladder was performed. Findings: The right kidney obscured by bowel gas shadowing. The left kidney measures 14.9 cm. There i s no left hydronephrosis or left renal stone. Left renal cortical echogenicity is within normal limit s. No left renal mass lesion is identified. The urinary bladder is collapsed around a Salazar catheter. Impression: Unremarkable left kidney. Right kidney not visualized due to bowel gas shadowing/body habitus. Reviewed, dictated and finalized at location . Impression: Unremarkable left kidney. Right kidney not visualized due to bowel gas shadowing/body habitus.
--- NOTE | ~2024-03-28 | XR_ITS ---
XR chest 1V portable 04/04/2024 09:49 Indication: Shortness of breath Procedure: AP portable chest Comparison: Comparison to multiple prior studies sequentially, with oldest reviewed study dated 03/18. Findings: There is patchy bilateral airspace disease, compatible with pneumonia. PICC line tip in the SVC. NG tube in the stomach. Small right pleural effusion. No pneumothorax. Impression: 1: Patchy bilateral airspace disease, compatible with pneumonia. Reviewed, dictated and finalized at location B. Impression: 1: Patchy bilateral airspace disease, compatible with pneumonia.
--- NOTE | ~2024-03-28 | XR_ITS ---
EXAMINATION: XR abdomen/kub 1V DATE: 04/06/2024 08:31 INDICATION: Small bowel obstruction. TECHNIQUE: A supine view of the abdomen on 2 radiographs was obtained. COMPARISON: Abdomen radiograph 04/05/2024 FINDINGS: There are dilated loops of small bowel. The colon is normal in caliber. There is gas in the body wall from recent surgery. IMPRESSION: 1. Dilated small bowel, consistent with adynamic ileus. Reviewed, dictated and finalized at location E.
--- NOTE | ~2024-03-28 | XR_ITS ---
EXAMINATION: XR abdomen/kub 1V DATE: 04/05/2024 08:53 INDICATION: Small bowel obstruction. TECHNIQUE: A supine view of the abdomen on 3 radiographs was obtained. COMPARISON: CT abdomen and pelvis 04/04/2024 FINDINGS: The nasogastric tube tip is in the stomach. There are multiple dilated loops of small bowel . The colon is normal in caliber. There is mild atelectasis at right lung base. There is gas in the b sveta wall, consistent with recent surgery. IMPRESSION: 1. Dilated small bowel, likely adynamic ileus. Reviewed, dictated and finalized at location A.
--- NOTE | ~2024-03-28 | XR_ITS ---
EXAMINATION: XR chest 1V portable DATE: 04/03/2024 07:16 INDICATION: Shortness of breath. TECHNIQUE: A single frontal view of the chest was obtained. COMPARISON: Chest single view 03/30/2024, CT abdomen and pelvis 03/31/2024 FINDINGS: The lung volumes are small. There are stable airspace opacities in the lower lung zones. No pleural effusion or pneumothorax. The heart size is normal. Again seen is gas in the chest wall, con sistent with recent surgery. IMPRESSION: 1. Small lung volumes with airspace opacities in the lower lung zones, likely atelectasis. Reviewed, dictated and finalized at location A. IMPRESSION: 1. Small lung volumes with airspace opacities in the lower lung zones, likely a telectasis.
--- NOTE | ~2024-03-28 | XR_ITS ---
XR abdomen gastric tube insert Ordering provider: Arian Finley MD History: . NG tube placement . Comparison: None. FINDINGS: BOWEL: Nasogastric tube tip at the gastroesophageal junction. Advancement by about 5 cm is advised. Distended large bowel loops is seen. Follow-up advised. ORGANOMEGALY: None. SIGNIFICANT PATHOLOGIC CALCIFICATIONS: None. OTHER: No free air is seen under the diaphragm. IMPRESSION: NG tube to be advised. Distended large bowel loops. Follow-up advised. Reviewed, dictated and finalized at location A.
--- NOTE | ~2024-03-28 | CT_ITS ---
EXAMINATION: CTA chest PE protocol DATE: 04/07/2024 22:50 INDICATION: tachycardia, D-dimer elevation TECHNIQUE: Computed tomography angiography (CTA) of the chest was performed with 100 mL Omnipaque-350 intravenous contrast timed to evaluate the pulmonary arteries. Coronal maximum intensity projection 3D-reconstructions were created by the technologist. The dose-length product (DLP) was 867.91 mGy-cm. Automated exposure control and iterative reconstruction technique were employed. COMPARISON: None. FINDINGS: Motion artifact throughout the scan, severe at the level of the bilateral lower lobes. Lung parenchyma and airways: Clear, but evaluation limited by motion. Pleura: Unremarkable. Thoracic inlet, axillae and chest wall: Right upper extremity PICC terminating in the SVC. Symmetric bilateral gynecomastia. Thoracic aorta: No significant dilation. No dissection. Mediastinum: Calcified right hilar nodes. Small hiatal hernia. Heart and pericardium: Normal. Coronary artery calcifications: Mild. Upper abdomen: Cholelithiasis. Bones: No acute osseous finding. Pulmonary arteries: Study quality: Severe motion artifact obscures the bilateral lower lobe pulmonary arteries. No pulmonary emboli detected in the adequately visualized pulmonary arteries. IMPRESSION: Motion artifact prevents adequate visualization of the segmental and subsegmental pulmonary arterial branches of the bilateral lower lobes. No CT evidence of acute central, bilateral upper lobe, or right middle lobe pulmonary embolus. No acute process detected in the chest. Reviewed, dictated and finalized at location K. IMPRESSION: Motion artifact prevents adequate visualization of the segmental and subsegment al pulmonary arterial branches of the bilateral lower lobes. No CT evidence of acute central, bilateral upper lobe, or right middle lobe pul monary embolus. No acute process detected in the chest.
--- NOTE | ~2024-03-28 | XR_ITS ---
EXAMINATION: XR cystogram DATE: 04/04/2024 14:04 INDICATION: Prostate cancer status post prostatectomy. Ascites. TECHNIQUE: Water-soluble contrast was gravity-infused through the patient's Salazar catheter. Multiple fluoroscopic images were obtained. Fluoroscopy exposure time was 0.1 minutes. The total number of torres ges was 5. COMPARISON: CT abdomen and pelvis 04/04/2024 FINDINGS: Salazar catheter is in expected position. There is extraluminal leakage of contrast at the pr ostatic urethra. IMPRESSION: 1. Extraluminal leakage of contrast at the prostatic urethra. Reviewed, dictated and finalized at location A.
--- NOTE | ~2024-03-28 | XR_ITS ---
XR chest PICC line 04/03/2024 14:33 Indication: PICC line placed Procedure: AP portable chest Comparison: Comparison to multiple prior studies sequentially, with oldest reviewed study dated 01/17. Findings: Shallow inspiration. Bibasilar infiltrates. PICC line tip in the SVC. Cardiomegaly. Possibl e small right effusion. No pneumothorax. Impression: 1: Bibasilar airspace disease may represent pneumonia or atelectasis. Reviewed, dictated and finalized at location B. Impression: 1: Bibasilar airspace disease may represent pneumonia or atelectasis.
--- NOTE | ~2024-03-28 | CT_ITS ---
Non-contrast CT scan of the Abdomen and Pelvis Clinical indication: Acute kidney injury Technique: 2.5 mm axial scans were obtained through the abdomen and pelvis without intravenous or or al contrast. Dose reduction technique was used on this scan by utilizing automated exposure control a nd iterative reconstruction technique. The dose-length product (DLP) was 1874.45 mGy-cm. COMPARISON: 03/31/2024 Findings: Images through the lung bases reveal mild bibasilar atelectatic change and calcified right lower lobe granulomas. There is no evidence of renal or ureteral calculi. The kidneys and the ureters are nondilated. Questionable micronodular contour of the liver. No hepatic mass or biliary dilatation evident. Multip le calcified gallstones are present. The spleen, pancreas, and adrenals appear normal. There are athe rosclerotic calcifications of the aorta. . There is no evidence of bowel obstruction. There is extensive subcutaneous soft tissue emphysema. The re is tiny bubbles of pneumoperitoneum. Images through the pelvis were performed. There is moderate abdominopelvic ascites. Urinary bladder c ollapsed around a Salazar catheter. No pelvic mass evident. Possible fluid collections, less likely mas ses, in the pelvis, largest of these measuring approximately 4.7 cm in diameter (axial image 185). Impression: Extensive subcutaneous soft tissue emphysema with tiny bubbles of pneumoperitoneum. These findings co uld be postoperative/postprocedural nature. Correlate for any possibility of bowel perforation. Corre late with recent surgical/procedural history. Moderate abdominopelvic ascites. Possible loculated fluid collections or abscesses, less likely marcie s, in the pelvis, as detailed above. Consider contrast enhanced exam to better assess for abscesses, as indicated. Cholelithiasis. Questionable micronodular contour of liver. Correlate with LFTs and history related to cirrhosis. Reviewed, dictated and finalized at location . Impression: Extensive subcutaneous soft tissue emphysema with tiny bubbles of pneumoperiton eum. These findings could be postoperative/postprocedural nature. Correlate for any possibility of bowel perforation. Correlate with recent surgical/procedura l history. Moderate abdominopelvic ascites. Possible loculated fluid collections or absces ses, less likely masses, in the pelvis, as detailed above. Consider contrast en hanced exam to better assess for abscesses, as indicated. Cholelithiasis. Questionable micronodular contour of liver. Correlate with LFTs and history rel ated to cirrhosis.
[2024-03-28] MEDS: LACTATED RINGERS 1,000 ML 125 ML IV CONT ×3 (04:48→20:20)
[2024-03-28] MEDS: KETOROLAC 15 MG/ML VIAL (*BKC) IV PUSH (04:59)
--- NOTE | 2024-03-28 06:10 | WPDUROPN2 ---
Progress Note: A&P Assessment and Plan (1) Prostate cancer: Code(s): C61 - Malignant neoplasm of prostate Status: Acute Assessment and Plan: Urine output improved with fluid bolus overnight Increase diet/ambulation Subjective Subjective Date/Time Seen: 03/28/24 06:10 Interval history: Comfortable, no sig. complaints Review of Systems Cardiovascular: Cardiovascular: Denies chest pain, Denies lightheadedness, Denies palpitations and Denies dyspnea Respiratory: Respiratory: Denies dyspnea Gastrointestinal: Gastrointestinal: Denies diarrhea, Denies nausea and Denies vomiting Genitourinary: Genitourinary: Denies hematuria and Denies dysuria Endocrine: Endocrine: Denies palpitations Exam Const: General: no acute distress Resp: Effort & Inspection: normal respiratory effort GI: Inspection: non-distended GI Palp: No abdominal tenderness and No Guarding due to palpation present (GI) Auscultation: normal bowel sounds Other: Abd. soft, incisions clean and dry Urinary Catheter: Urinary Catheter: patent and draining and urine clear Objective Data Vital Signs Vital Signs: Vital Signs - 24 hr 03/27/24 07:56 03/27/24 11:47 03/27/24 12:00 Temperature 97.6 F 97.0 F L Pulse Rate 88 83 79 Respiratory Rate 16 10 L 12 Blood Pressure 106/72 130/83 133/89 Pulse Oximetry 95 99 100 Oxygen Delivery Room Air Simple Face Mask Simple Face Mask Oxygen Flow Rate 8 8 03/27/24 12:15 03/27/24 12:30 03/27/24 12:45 Temperature Pulse Rate 78 77 77 Respiratory Rate 12 12 12 Blood Pressure 133/89 131/85 137/81 Pulse Oximetry 95 95 95 Oxygen Delivery Room Air Room Air Room Air Oxygen Flow Rate 03/27/24 13:00 03/27/24 13:25 03/27/24 13:40 Temperature 97.5 F L 96.8 F L Pulse Rate 80 87 83 Respiratory Rate 14 16 17 Blood Pressure 140/83 112/83 118/62 Pulse Oximetry 95 100 98 Oxygen Delivery Room Air Oxygen Flow Rate 03/27/24 14:15 03/27/24 15:07 03/27/24 18:10 Temperature 95.1 F L 98.3 F 98.6 F Pulse Rate 92 90 110 H Respiratory Rate 17 16 16 Blood Pressure 154/87 H 128/79 129/68 Pulse Oximetry 98 94 95 Oxygen Delivery Oxygen Flow Rate 03/27/24 20:00 03/27/24 22:02 03/28/24 02:45 Temperature 98.7 F 97.7 F Pulse Rate 112 H 94 Respiratory Rate 16 16 Blood Pressure 119/64 138/80 Pulse Oximetry 96 97 Oxygen Delivery Room Air Oxygen Flow Rate 03/28/24 02:05 Temperature Pulse Rate 96 Respiratory Rate Blood Pressure Pulse Oximetry 96 Oxygen Delivery Oxygen Flow Rate Intake/Output Intake/Output: Intake & Output 03/25/24 03/26/24 03/27/24 03/28/24 23:59 23:59 23:59 23:59 Intake Total 1710 Output Total 60 Balance 1650 Meds/Results Medications: Active Medications Generic Name Dose Route Start Last Admin Trade Name Freq PRN Reason Stop Dose Admin Atorvastatin Calcium 40 mg 03/28/24 09:00 Atorvastatin 40 Mg Tablet PO DAILY RANDY Cyanocobalamin 1,000 mcg 03/28/24 09:00 Cyanocobalamin 1,000 Mcg Tablet PO DAILY RANDY Dextrose 12.5 gm 03/27/24 11:53 Dextrose 50% 25 Gm/50 Ml Syringe IV PUSH PRN PRN Hypoglycemia Protocol Fentanyl Citrate 25 mcg 03/27/24 07:15 03/27/24 12:11 Fentanyl Citrate Inj (*Crx) 100 Mcg/2 Ml Vial IV PUSH 25 mcg Q2M PRN Administration Pain Glucagon 1 mg 03/27/24 11:53 Glucagon For Inj 1 Mg Vial IM PRN PRN Hypoglycemia Protocol Glucose 15 gm 03/27/24 11:53 Glucose Oral Gel 15 Gm Of Glucse In 37.5 Gm Tube PO PRN PRN Hypoglycemia Protocol Hyoscyamine 0.125 mg 03/27/24 13:00 Hyoscyamine Sulfate 0.125 Mg Tablet SUBLINGUAL Q4H PRN Bladder Spasm Lactated Ringer's 1,000 mls @ 30 mls/hr 03/27/24 07:15 03/27/24 11:47 Lr - Lactated Ringers Iv IV CONT Infused .Q24H RANDY Infusion Lactated Ringer's 1,000 mls @ 30 mls/hr 03/27/24 07:15 03/27/24 13:00 Lr - Lactated Ringers I
[2024-03-28] MEDS: ceFAZolin 2 GM/D5W 50 ML 2 GM/50 ML BAG IVPB (06:21)
[2024-03-28 06:24] LABS: Basophils Absolute Auto 0.1 K/mm3 (0.0-0.1); Basophils Percent Auto 0.4 % (0.2-1.2); Eosinophils Percent Auto 0.2 % (0-4.4); Hematocrit 43.8 % (42.0-52.0); Hemoglobin 14.8 g/dL (14.0-18.0); Immature Granulocyte Absolute 0.06 K/mm3 (0.00-0.031); Immature Granulocyte Percent A 0.5 % (0-0.5); Lymphocytes Absolute Auto 1.39 K/mm3 (0.9-3.2); Lymphocytes Percent Auto 10.8 % (18.3-44.2); Mean Corpuscular HGB Conc 33.8 g/dl (32-36); Mean Corpuscular Hemoglobin 31.6 pg (26-34); Mean Corpuscular Volume 93.6 fl (80-100); Mean Platelet Volume 9.5 fl (7.4-10.4); Monocytes Absolute Auto 1.3 K/mm3 (0.1-0.6); Monocytes Percent Auto 10.3 % (2.6-8.5); Neutrophils Percent Auto 77.8 % (45.5-73.1); Platelet Count Result 275 k/mm3 (150-375); Red Blood Count 4.68 M/mm3 (4.6-6.20); Red Cell Distribution Width 13.2 % (11.5-14.5); White Blood Count 12.8 K/mm3 (4.5-10.0)
[2024-03-28 06:37] LABS: Anion Gap 10 mmol/L (4-12); Blood Urea Nitrogen 19 mg/dL (9-20); Carbon Dioxide 22 mmol/L (22-30); Chloride 101 mmol/L (98-107); Estimated CRCL calculation 51 ml/min; Estimated Glomerular Filt Rate 40; Glucose 151 mg/dL (65-110); Potassium 3.6 mmol/L (3.4-5.0); Sodium 133 mmol/L (137-145)
[2024-03-28] MEDS: CYANOCOBALAMIN 1,000 MCG TABLET 1000 MCG PO (08:06)
[2024-03-28] MEDS: ISOSORBIDE MONONITRATE 30 MG TAB.ER.24H PO (08:06)
[2024-03-28] MEDS: ATORVASTATIN 40 MG TABLET PO (08:06)
[2024-03-28] MEDS: lisinopriL 10 MG TABLET PO (08:06)
[2024-03-28 08:19] LABS: Glucose Point of Care 150 mg/dl (65-105)
--- NOTE | 2024-03-28 11:28 | P.PNAN_ITS ---
Anes - Prog Note Post-Op Date/Time: 03/28/24 11:28 Cardiovascular status: normal Respiratory status: normal Airway patency: baseline Mental status: baseline Post-Op hydration status: normal Vital Signs: Last Vital Signs Temp 37.3 C 03/28/24 08:56 Pulse 98 03/28/24 08:56 Resp 16 03/28/24 08:56 BP 120/59 L 03/28/24 08:56 Pulse Ox 96 03/28/24 08:56 O2 Del Method Room Air 03/28/24 08:00 O2 Flow Rate 8 03/27/24 12:00 Pain Score (VAS): 0 I/O: Intake & Output 03/27/24 03/28/24 03/28/24 23:59 07:59 15:59 Intake Total 1360 325 360 Output Total 550 Balance 1360 -225 360 Laboratory Tests 03/28/24 06:11 03/28/24 06:11 03/27/24 03/27/24 03/27/24 12:02 17:26 19:57 WBC RBC Hgb Hct MCV MCH MCHC RDW Plt Count MPV Immature Gran % (Auto) Neut % (Auto) Lymph % (Auto) [place] % (Auto) Eos % (Auto) Baso % (Auto) Lymph # (Auto) [place] # (Auto) Eos # (Auto) Baso # (Auto) Abs Immat Gran (auto) Absolute Neuts (auto) Absolute Nucleated RBC Nucleated RBC % Sodium Potassium Chloride Carbon Dioxide Anion Gap BUN Creatinine Estim Creat Clear Calc Estimated GFR Glucose POC Capillary Glucose 174 H 205 H 207 H Calcium 03/28/24 03/28/24 06:11 07:59 WBC 12.8 H RBC 4.68 Hgb 14.8 Hct 43.8 MCV 93.6 MCH 31.6 MCHC 33.8 RDW 13.2 Plt Count 275 MPV 9.5 Immature Gran % (Auto) 0.5 Neut % (Auto) 77.8 H Lymph % (Auto) 10.8 L [place] % (Auto) 10.3 H Eos % (Auto) 0.2 Baso % (Auto) 0.4 Lymph # (Auto) 1.39 [place] # (Auto) 1.3 H Eos # (Auto) 0.0 Baso # (Auto) 0.1 Abs Immat Gran (auto) 0.06 H Absolute Neuts (auto) 10.0 H Absolute Nucleated RBC 0.000 Nucleated RBC % 0.0 Sodium 133 L Potassium 3.6 Chloride 101 Carbon Dioxide 22 Anion Gap 10 BUN 19 Creatinine 1.70 H Estim Creat Clear Calc 51 Estimated GFR 40 L Glucose 151 H POC Capillary Glucose 150 H Calcium 8.0 L Post-procedural complaints: none Patient Feedback: Patient satisfied with anesthetic care.
[2024-03-28 11:55] LABS: Glucose Point of Care 182 mg/dl (65-105)
[2024-03-28] MEDS: ONDANSETRON INJ 4 MG/2 ML VIAL IV PUSH (11:58)
[2024-03-28] MEDS: HYDROcodone/acetaminophen (*CRX) 5-325 MG TABLET 1 TAB PO ×2 (14:10→20:17)
[2024-03-28 16:52] LABS: Glucose Point of Care 184 mg/dl (65-105)
[2024-03-28 18:42] LABS: Anion Gap 8 mmol/L (4-12); Blood Urea Nitrogen 21 mg/dL (9-20); Calcium 8.2 mg/dL (8.4-10.2); Carbon Dioxide 25 mmol/L (22-30); Chloride 98 mmol/L (98-107); Estimated CRCL calculation 37 ml/min; Estimated Glomerular Filt Rate 27; Glucose 162 mg/dL (65-110); Potassium 3.9 mmol/L (3.4-5.0); Sodium 131 mmol/L (137-145)
[2024-03-28 20:13] LABS: Glucose Point of Care 175 mg/dl (65-105)
[2024-03-28 21:06] LABS: Hematocrit 41.9 % (42.0-52.0); Hemoglobin 14.2 g/dL (14.0-18.0); Mean Corpuscular HGB Conc 33.9 g/dl (32-36); Mean Corpuscular Hemoglobin 31.3 pg (26-34); Mean Corpuscular Volume 92.5 fl (80-100); Mean Platelet Volume 9.3 fl (7.4-10.4); Platelet Count Result 252 k/mm3 (150-375); Red Blood Count 4.53 M/mm3 (4.6-6.20); Red Cell Distribution Width 13.4 % (11.5-14.5)
[2024-03-28 21:20] LABS: Anion Gap 11 mmol/L (4-12); Blood Urea Nitrogen 22 mg/dL (9-20); Carbon Dioxide 21 mmol/L (22-30); Chloride 98 mmol/L (98-107); Estimated CRCL calculation 35 ml/min; Estimated Glomerular Filt Rate 25; Glucose 160 mg/dL (65-110); Potassium 3.6 mmol/L (3.4-5.0); Sodium 130 mmol/L (137-145)
[2024-03-29] MEDS: traMADol HCL (*CRX) 50 MG TABLET PO (04:34)
[2024-03-29] MEDS: LACTATED RINGERS 1,000 ML 125 ML IV CONT (04:43)
[2024-03-29 06:00] VITALS: BP 109/68; PULSE 101; RESP 18; TEMP 36.3; O2SAT 95
[2024-03-29 06:04] LABS: Hematocrit 40.8 % (42.0-52.0); Hemoglobin 13.8 g/dL (14.0-18.0); Mean Corpuscular HGB Conc 33.8 g/dl (32-36); Mean Corpuscular Hemoglobin 31.2 pg (26-34); Mean Corpuscular Volume 92.1 fl (80-100); Mean Platelet Volume 9.3 fl (7.4-10.4); Platelet Count Result 250 k/mm3 (150-375); Red Blood Count 4.43 M/mm3 (4.6-6.20); Red Cell Distribution Width 13.4 % (11.5-14.5); White Blood Count 13.6 K/mm3 (4.5-10.0)
[2024-03-29 06:16] LABS: Anion Gap 9 mmol/L (4-12); Blood Urea Nitrogen 24 mg/dL (9-20); Calcium 8.1 mg/dL (8.4-10.2); Carbon Dioxide 24 mmol/L (22-30); Chloride 97 mmol/L (98-107); Estimated CRCL calculation 34 ml/min; Estimated Glomerular Filt Rate 24; Glucose 144 mg/dL (65-110); Potassium 3.7 mmol/L (3.4-5.0); Sodium 130 mmol/L (137-145)
[2024-03-29 06:50] LABS: Sodium Urine Random 11 meq/L
[2024-03-29] MEDS: SODIUM CHLORIDE 0.9% IV 1,000 ML 125 ML IV CONT ×3 (06:53→20:20)
[2024-03-29 07:02] LABS: Creatinine Urine 104.4 mg/dL
[2024-03-29] MEDS: ATORVASTATIN 40 MG TABLET PO (08:26)
[2024-03-29] MEDS: CYANOCOBALAMIN 1,000 MCG TABLET 1000 MCG PO (08:26)
[2024-03-29 08:34] LABS: Glucose Point of Care 144 mg/dl (65-105)
--- NOTE | 2024-03-29 08:46 | WPDUROPN2 ---
Progress Note: A&P Assessment and Plan (1) Prostate cancer: Code(s): C61 - Malignant neoplasm of prostate Status: Acute Assessment and Plan: Post-op SHEA appears to be pre-renal. Fractional extrecton Na+ c/w dehydration. CT-abd/pelvis without apparent pelvic urine leak or ureteral obstructon. Scant bilat. hydro. likely d/t catheter balloon on traction in trigone (traction released). Will support supportive hydration pending improved po intake. Subjective Subjective Date/Time Seen: 03/29/24 08:46 Interval history: Mild abd. discomfort, tolerting diet today Review of Systems Cardiovascular: Cardiovascular: Denies chest pain, Denies lightheadedness, Denies palpitations and Denies dyspnea Respiratory: Respiratory: Denies dyspnea Gastrointestinal: Gastrointestinal: Denies diarrhea, Denies nausea and Denies vomiting Genitourinary: Genitourinary: Denies hematuria and Denies dysuria Endocrine: Endocrine: Denies palpitations Exam Const: General: no acute distress Resp: Effort & Inspection: normal respiratory effort GI: Inspection: non-distended GI Palp: No abdominal tenderness and No Guarding due to palpation present (GI) Auscultation: normal bowel sounds Urinary Catheter: Urinary Catheter: patent and draining and urine clear Objective Data Vital Signs Vital Signs: Vital Signs - 24 hr 03/28/24 08:56 03/28/24 12:30 03/28/24 17:35 Temperature 99.2 F 99.3 F 97.0 F L Pulse Rate 98 106 H 103 H Respiratory Rate 16 16 17 Blood Pressure 120/59 L 117/63 92/54 L Pulse Oximetry 96 93 94 Oxygen Delivery 03/28/24 18:48 03/28/24 20:45 03/28/24 20:00 Temperature 97.1 F L Pulse Rate 110 H 108 H Respiratory Rate 18 Blood Pressure 99/43 L 93/54 L Pulse Oximetry 92 Oxygen Delivery Room Air 03/29/24 06:00 Temperature 97.4 F L Pulse Rate 101 H Respiratory Rate 18 Blood Pressure 109/68 Pulse Oximetry 95 Oxygen Delivery Intake/Output Intake/Output: Intake & Output 03/26/24 03/27/24 03/28/24 03/29/24 23:59 23:59 23:59 23:59 Intake Total 1710 3050.8 1240 Output Total 60 800 400 Balance 1650 2250.8 840 Meds/Results Medications: Active Medications Generic Name Dose Route Start Last Admin Trade Name Freq PRN Reason Stop Dose Admin Acetaminophen 650 mg 03/28/24 13:09 Acetaminophen 325 Mg Tablet PO Q4H PRN Mild pain 1-3 Hydrocodone Bitart/Acetaminophen 1 tab 03/28/24 13:09 03/28/24 20:17 Hydrocodone/Acetaminophen (*Crx) 5-325 Mg Tablet PO 1 tab Q6H PRN Administration Pain Rated 4-6 Atorvastatin Calcium 40 mg 03/28/24 09:00 03/29/24 08:26 Atorvastatin 40 Mg Tablet PO 40 mg DAILY RANDY Administration Cyanocobalamin 1,000 mcg 03/28/24 09:00 03/29/24 08:26 Cyanocobalamin 1,000 Mcg Tablet PO 1,000 mcg DAILY RANDY Administration Dextrose 12.5 gm 03/27/24 11:53 Dextrose 50% 25 Gm/50 Ml Syringe IV PUSH PRN PRN Hypoglycemia Protocol Glucagon 1 mg 03/27/24 11:53 Glucagon For Inj 1 Mg Vial IM PRN PRN Hypoglycemia Protocol Glucose 15 gm 03/27/24 11:53 Glucose Oral Gel 15 Gm Of Glucse In 37.5 Gm Tube PO PRN PRN Hypoglycemia Protocol Hyoscyamine 0.125 mg 03/27/24 13:00 Hyoscyamine Sulfate 0.125 Mg Tablet SUBLINGUAL Q4H PRN Bladder Spasm Dextrose 1,000 mls @ 100 mls/hr 03/27/24 11:53 Dextrose 5% 1,000 Ml IVPB PRN PRN Hypoglycemia Protocol Sodium Chloride 1,000 mls @ 125 mls/hr 03/29/24 06:50 03/29/24 06:53 Normal Saline Iv IV CONT 125 mls/hr .Q8H RANDY Administration Insulin Aspart 2 - 5 units 03/27/24 12:00 03/29/24 08:26 Insulin Aspart (*Bkc) 100 Units/Ml SUB-Q Not Given TIDWM [facility] Protocol Isosorbide Mononitrate 30 mg 03/28/24 09:00 03/28/24 08:06 Isosorbide Mononitrate 30 Mg Tab.Er.24h PO 30 mg QAM RANDY Administration Lisinopril 10 mg 03/28/24 09:00 03/28/24 08:06 Phoebe
[2024-03-29 08:59] VITALS: O2SAT 94
[2024-03-29 11:46] LABS: Glucose Point of Care 154 mg/dl (65-105)
[2024-03-29] MEDS: HYDROcodone/acetaminophen (*CRX) 5-325 MG TABLET 1 TAB PO ×2 (11:54→20:19)
[2024-03-29 14:00] VITALS: BP 123/65; PULSE 103; RESP 18; TEMP 36.8; O2SAT 94
[2024-03-29 17:00] LABS: Glucose Point of Care 143 mg/dl (65-105)
[2024-03-29 20:00] VITALS: O2SAT 95
[2024-03-29 20:29] LABS: Glucose Point of Care 159 mg/dl (65-105)
[2024-03-29 20:51] VITALS: BP 117/52; PULSE 107; RESP 18; TEMP 36.9; O2SAT 93
[2024-03-29 22:25] VITALS: PULSE 104; O2SAT 93
[2024-03-30] MEDS: HYDROcodone/acetaminophen (*CRX) 5-325 MG TABLET 1 TAB PO ×2 (01:49→10:34)
[2024-03-30 05:54] VITALS: BP 127/60; PULSE 94; RESP 20; TEMP 36.3; O2SAT 93
[2024-03-30 06:07] LABS: Basophils Absolute Auto 0.1 K/mm3 (0.0-0.1); Basophils Percent Auto 0.5 % (0.2-1.2); Eosinophils Absolute Auto 0.1 K/mm3 (0-0.3); Eosinophils Percent Auto 0.5 % (0-4.4); Hematocrit 42.5 % (42.0-52.0); Immature Granulocyte Absolute 0.14 K/mm3 (0.00-0.031); Immature Granulocyte Percent A 1.1 % (0-0.5); Lymphocytes Absolute Auto 0.95 K/mm3 (0.9-3.2); Lymphocytes Percent Auto 7.2 % (18.3-44.2); Mean Corpuscular HGB Conc 32.9 g/dl (32-36); Mean Corpuscular Volume 94.2 fl (80-100); Mean Platelet Volume 9.9 fl (7.4-10.4); Monocytes Absolute Auto 1.4 K/mm3 (0.1-0.6); Monocytes Percent Auto 10.5 % (2.6-8.5); Neutrophils Absolute Auto 10.6 K/mm3 (1.3-6.7); Neutrophils Percent Auto 80.2 % (45.5-73.1); Platelet Count Result 262 k/mm3 (150-375); Red Blood Count 4.51 M/mm3 (4.6-6.20); Red Cell Distribution Width 13.6 % (11.5-14.5); White Blood Count 13.2 K/mm3 (4.5-10.0)
[2024-03-30 06:23] LABS: Anion Gap 10 mmol/L (4-12); Blood Urea Nitrogen 31 mg/dL (9-20); Calcium 7.9 mg/dL (8.4-10.2); Carbon Dioxide 20 mmol/L (22-30); Chloride 99 mmol/L (98-107); Estimated CRCL calculation 25 ml/min; Estimated Glomerular Filt Rate 17; Glucose 145 mg/dL (65-110); Potassium 3.8 mmol/L (3.4-5.0); Sodium 129 mmol/L (137-145)
[2024-03-30 07:39] LABS: Glucose Point of Care 129 mg/dl (65-105)
[2024-03-30 08:00] VITALS: PULSE 94; RESP 20; O2SAT 93
[2024-03-30] MEDS: ATORVASTATIN 40 MG TABLET PO (08:18)
[2024-03-30] MEDS: SODIUM CHLORIDE 0.9% IV 1,000 ML 500 ML IV CONT (08:18)
[2024-03-30] MEDS: CYANOCOBALAMIN 1,000 MCG TABLET 1000 MCG PO (08:18)
--- NOTE | 2024-03-30 08:21 | WPDUROPN2 ---
Progress Note: A&P Assessment and Plan (1) Prostate cancer: Code(s): C61 - Malignant neoplasm of prostate Status: Acute Assessment and Plan: Maintain catheter Regular diet Postop pain control with PRNs Ambulate TID BALDEV/SCD ppx (2) SHEA (acute kidney injury): Code(s): N17.9 - Acute kidney failure, unspecified Status: Acute Assessment and Plan: Suspect ATN, Consult nephrology. Subjective Subjective Date/Time Seen: 03/30/24 08:21 Interval history: NAEO, SCr has worsened to 3.60 from 2.60 mg/dL, with some slight hyponatremia, suspect postop ATN. Will consult Nephrology. Denies significant pain and reports nausea from yesterday has resolved. Exam Narrative: NAD, A&Ox3 RRR eWOB S/NT/ND, obese, incisions c/d, midline incision with slight separation of wound edges, remain port sites intact, no sign of infection or oozing/bleeding. Catheter in place with clear yellow urine draining. Urinary Catheter: Urinary Catheter: patent and draining and urine clear Objective Data Vital Signs Vital Signs: Vital Signs - 24 hr 03/29/24 08:59 03/29/24 14:00 03/29/24 20:51 Temperature 98.2 F 98.4 F Pulse Rate 103 H 107 H Respiratory Rate 18 18 Blood Pressure 123/65 117/52 L Pulse Oximetry 94 94 93 Oxygen Delivery Room Air Oxygen Flow Rate 03/29/24 20:00 03/29/24 22:25 03/30/24 05:54 Temperature 97.3 F L Pulse Rate 104 H 94 Respiratory Rate 20 Blood Pressure 127/60 Pulse Oximetry 95 93 93 Oxygen Delivery Nasal Cannula Oxygen Flow Rate 2 Intake/Output Intake/Output: Intake & Output 03/27/24 03/28/24 03/29/24 03/30/24 23:59 23:59 23:59 23:59 Intake Total 1710 3050.8 3619.2 1240 Output Total 60 800 1000 300 Balance 1650 2250.8 2619.2 940 Meds/Results Medications: Active Medications Generic Name Dose Route Start Last Admin Trade Name Freq PRN Reason Stop Dose Admin Acetaminophen 650 mg 03/28/24 13:09 Acetaminophen 325 Mg Tablet PO Q4H PRN Mild pain 1-3 Hydrocodone Bitart/Acetaminophen 1 tab 03/28/24 13:09 03/30/24 01:49 Hydrocodone/Acetaminophen (*Crx) 5-325 Mg Tablet PO 1 tab Q6H PRN Administration Pain Rated 4-6 Atorvastatin Calcium 40 mg 03/28/24 09:00 03/30/24 08:18 Atorvastatin 40 Mg Tablet PO 40 mg DAILY RANDY Administration Cyanocobalamin 1,000 mcg 03/28/24 09:00 03/30/24 08:18 Cyanocobalamin 1,000 Mcg Tablet PO 1,000 mcg DAILY RANDY Administration Dextrose 12.5 gm 03/27/24 11:53 Dextrose 50% 25 Gm/50 Ml Syringe IV PUSH PRN PRN Hypoglycemia Protocol Glucagon 1 mg 03/27/24 11:53 Glucagon For Inj 1 Mg Vial IM PRN PRN Hypoglycemia Protocol Glucose 15 gm 03/27/24 11:53 Glucose Oral Gel 15 Gm Of Glucse In 37.5 Gm Tube PO PRN PRN Hypoglycemia Protocol Hyoscyamine 0.125 mg 03/27/24 13:00 Hyoscyamine Sulfate 0.125 Mg Tablet SUBLINGUAL Q4H PRN Bladder Spasm Dextrose 1,000 mls @ 100 mls/hr 03/27/24 11:53 Dextrose 5% 1,000 Ml IVPB PRN PRN Hypoglycemia Protocol Sodium Chloride 1,000 mls @ 125 mls/hr 03/29/24 06:50 03/30/24 04:20 Normal Saline Iv IV CONT Infused .Q8H RANDY Infusion Sodium Chloride 1,000 mls @ 500 mls/hr 03/30/24 07:31 03/30/24 08:18 Normal Saline Iv IV CONT 03/30/24 09:30 500 mls/hr .Q2H ONE Administration Insulin Aspart 2 - 5 units 03/27/24 12:00 03/29/24 17:16 Insulin Aspart (*Bkc) 100 Units/Ml SUB-Q Not Given TIDWM RANDY Protocol Isosorbide Mononitrate 30 mg 03/28/24 09:00 03/28/24 08:06 Isosorbide Mononitrate 30 Mg Tab.Er.24h PO 30 mg QAM RANDY Administration Lisinopril 10 mg 03/28/24 09:00 03/28/24 08:06 Lisinopril 10 Mg Tablet PO 10 mg QAM RANDY Administration Morphine Sulfate 1 mg 03/27/24 13:00 Morphine Sulfate (*Crx) 2 Mg/Ml Inj IV PUSH Q2H PRN Pain Rated 7-10 Naloxone HCl 0.1 mg 03/27/24 1
[2024-03-30 11:47] LABS: Glucose Point of Care 152 mg/dl (65-105)
[2024-03-30 12:37] LABS: Add Urine Microscopic? YES; Appearance Urine Cloudy (Clear); Bacteria Urine None Seen /hpf; Bilirubin Urine Negative (Negative); Blood Urine 3+ (Negative); Color Urine Yellow (Yellow); Glucose Urine UA Negative (Negative); Ketones Urine Trace mg/dL (Negative); Leukocyte Esterase Ur 2+ LEU/UL (Negative); Nitrate Urine Negative (Negative); Non Pathogenic Casts 0-2; Protein Urine 2+ mg/dL (Negative); RBC Urine 21-50 /hpf (0-2); Specific Grav Ur 1.013 (1.001-1.035); Squamous Epithelial Cell Urine Occasional /hpf (Few); WBC Urine 21-50 /hpf (0-3); pH Urine 5.5 (5.0-9.0)
[2024-03-30] MEDS: SIMETHICONE 125 MG CHEW TAB PO ×2 (12:48→17:42)
[2024-03-30] MEDS: BISACODYL 5 MG TABLET EC 10 MG PO (12:48)
[2024-03-30] MEDS: SODIUM CHLORIDE 0.9% IV 1,000 ML 125 ML IV CONT ×2 (12:50→17:42)
[2024-03-30 14:00] VITALS: BP 114/65; PULSE 104; RESP 16; TEMP 36.2; O2SAT 94
--- NOTE | 2024-03-30 15:09 | PM.CNNEP ---
Assessment and Plan Assessment and plan (1) SHEA (acute kidney injury): Code(s): N17.9 - Acute kidney failure, unspecified Status: Acute Assessment and Plan: etiology not entirely clear due to relative hypotension? did have intra-operative hypotension briefly (80s systolic) evaluation to date noted: mild hydro by CT of abd/pelvis however, renal ultrasound negative urine electrolytes pre-renal making some urine check UA, further urine studies, and CPK cautious IVFs follow trend of repeat labs and UOP (2) Prostate cancer: Code(s): C61 - Malignant neoplasm of prostate Status: Acute Assessment and Plan: s/p robotic assisted prostatectomy with bilateral pelvic lymphadenectomy Urology following (3) Hypertension: Code(s): I10 - Essential (primary) hypertension Status: Chronic Assessment and Plan: well controlled holding BRITTANY- I and BP medications give #1 follow trend of hemodynamics (4) Diabetes: Code(s): E11.9 - Type 2 diabetes mellitus without complications Status: Inactive Assessment and Plan: follow accu-cheks on SSI I will continue follow the patient with you while he remains hospitalized and make further recommendations as deemed necessary. Thank you for allowing me to participate in care of this patient. History of Present Illness Reason for Consult Consult date: 03/30/24 Reason for consult: acute renal failure Chief Complaint Chief complaint: prostate cancer History of Present Illness Narrative: The patient is a 73-year-old male with a past medical history as outlined below who was admitted to the hospital following his recent surgical procedure regarding his known history of prostate cancer. Patient was noted to have an elevated PSA in December of this year. Subsequent prostate biopsy demonstrated evidence of prostate adenocarcinoma. By prostate biopsy, there was evidence of neurovascular invasion but no extracapsular extension/involvement. Subsequent CT scan of the abdomen pelvis along with bone scan showed no evidence of metastatic disease. After careful discussion with regard to the options in terms of treatment, the patient elected to proceed with robotic prostatectomy and bilateral pelvic lymphadenectomy. The patient presented to the [facility] on 03/27/2024 and underwent the aforementioned procedure of robotic prostatectomy and bilateral pelvic lymphadenectomy. He tolerated the procedure reasonably well and was subsequently admitted to the hospital post procedure. Unfortunately, since his surgical intervention, his renal function has been steadily worsening. On postop day 1, his creatinine was up to 1.7 mg/dL and a progressively increased over the next few days until it is most current rating of 3.6 mg/dL. Imaging done during this hospitalization included a CT scan of his abdomen pelvis which did demonstrate mild hydronephrosis but no other intra-abdominal pathology. Urine testing suggested prerenal azotemia and he was been initiated on IV fluids in an attempt to get his kidney function back to baseline. Renal consultation was requested due to his acute kidney injury/acute renal failure. As mentioned, the patient's kidney function at baseline is well within normal limits. His renal function has been deteriorating since his operative intervention and throughout this hospitalization. He does appear to be making some urine but seems to fluctuate since his initiation on IV fluids. His major complaint has been the fact he feels that his abdomen is distended and is related to the air that was placed during his surgical intervention. He does also report some mild shortness of breath and has been on off supplemental oxygen given this complaint. In spite of his rising creatinine, he has no critical electrolyte abnormalities aside from mild hyponatremia. His blood pressure has been running a little bit on the so
[2024-03-30 16:39] LABS: Glucose Point of Care 146 mg/dl (65-105)
--- NOTE | 2024-03-30 18:10 | PC.NURSE ---
JEREMÍAS Stopped iv Fluids per Dr. Church
[2024-03-30 18:25] LABS: Eosinophil Urine None Seen % (None Seen); Urine Eos QC 2nd Tech Confirmed
[2024-03-30] MEDS: ONDANSETRON INJ 4 MG/2 ML VIAL IV PUSH (20:27)
[2024-03-30] MEDS: MAGNESIUM CITRATE 300 ML BTL 150 ML PO (20:28)
[2024-03-30 20:34] LABS: Glucose Point of Care 161 mg/dl (65-105)
[2024-03-30 21:06] VITALS: BP 132/69; PULSE 111; RESP 22; TEMP 36.9; O2SAT 96
[2024-03-30 23:00] VITALS: PULSE 97; O2SAT 94
[2024-03-31] MEDS: ONDANSETRON INJ 4 MG/2 ML VIAL IV PUSH ×2 (00:40→12:36)
[2024-03-31 05:44] VITALS: BP 125/69; PULSE 112; RESP 22; TEMP 36.6; O2SAT 96
[2024-03-31 06:00] LABS: Basophils Absolute Auto 0.1 K/mm3 (0.0-0.1); Basophils Percent Auto 0.4 % (0.2-1.2); Eosinophils Percent Auto 0.1 % (0-4.4); Hematocrit 42.1 % (42.0-52.0); Hemoglobin 14.2 g/dL (14.0-18.0); Immature Granulocyte Absolute 0.21 K/mm3 (0.00-0.031); Immature Granulocyte Percent A 1.5 % (0-0.5); Lymphocytes Absolute Auto 0.64 K/mm3 (0.9-3.2); Lymphocytes Percent Auto 4.6 % (18.3-44.2); Mean Corpuscular HGB Conc 33.7 g/dl (32-36); Mean Corpuscular Hemoglobin 31.2 pg (26-34); Mean Corpuscular Volume 92.5 fl (80-100); Mean Platelet Volume 9.8 fl (7.4-10.4); Monocytes Absolute Auto 1.6 K/mm3 (0.1-0.6); Neutrophils Absolute Auto 11.6 K/mm3 (1.3-6.7); Neutrophils Percent Auto 82.4 % (45.5-73.1); Platelet Count Result 349 k/mm3 (150-375); Red Blood Count 4.55 M/mm3 (4.6-6.20); Red Cell Distribution Width 13.6 % (11.5-14.5); White Blood Count 14.1 K/mm3 (4.5-10.0)
--- NOTE | 2024-03-31 06:04 | WPDUROPN2 ---
Progress Note: A&P Assessment and Plan (1) Prostate cancer: Code(s): C61 - Malignant neoplasm of prostate Status: Acute (2) SHEA (acute kidney injury): Code(s): N17.9 - Acute kidney failure, unspecified Status: Acute (3) Adynamic ileus: Code(s): K56.0 - Paralytic ileus Status: Acute Assessment and Plan: N/V overnight / abd. films c/w adynamic ileus U/O remains good / await morning labs. Appreciate Dr. Church's input Renal u/s yesterday: left kidney: normal / no hydronephrosis right kidney: not well visualized d/t bowel gas Subjective Subjective Date/Time Seen: 03/31/24 06:04 Interval history: n/v overnight, resting now Review of Systems Cardiovascular: Cardiovascular: Denies chest pain, Denies lightheadedness, Denies palpitations and Denies dyspnea Respiratory: Respiratory: Denies dyspnea Gastrointestinal: Gastrointestinal: Denies diarrhea, Reports nausea, Reports vomiting and Reports other Genitourinary: Genitourinary: Denies hematuria and Denies dysuria Endocrine: Endocrine: Denies palpitations Exam Const: General: no acute distress Resp: Effort & Inspection: normal respiratory effort GI: Inspection: distended GI Palp: No abdominal tenderness and No Guarding due to palpation present (GI) Percussion: Yes normal to percussion Auscultation: normal bowel sounds and Hypoactive bowel sounds present Urinary Catheter: Urinary Catheter: patent and draining and urine clear Objective Data Vital Signs Vital Signs: Vital Signs - 24 hr 03/30/24 08:00 03/30/24 14:00 03/30/24 21:06 Temperature 97.1 F L 98.5 F Pulse Rate 94 104 H 111 H Respiratory Rate 20 16 22 H Blood Pressure 114/65 132/69 Pulse Oximetry 93 94 96 Oxygen Delivery Room Air 03/31/24 05:44 Temperature 97.9 F Pulse Rate 112 H Respiratory Rate 22 H Blood Pressure 125/69 Pulse Oximetry 96 Oxygen Delivery Intake/Output Intake/Output: Intake & Output 03/28/24 03/29/24 03/30/24 03/31/24 23:59 23:59 23:59 23:59 Intake Total 3050.8 3619.2 3064.2 300 Output Total 800 8353 590 4440 Balance 2250.8 2619.2 2714.2 -1950 Meds/Results Medications: Active Medications Generic Name Dose Route Start Last Admin Trade Name Freq PRN Reason Stop Dose Admin Acetaminophen 650 mg 03/28/24 13:09 Acetaminophen 325 Mg Tablet PO Q4H PRN Mild pain 1-3 Hydrocodone Bitart/Acetaminophen 1 tab 03/28/24 13:09 03/30/24 10:34 Hydrocodone/Acetaminophen (*Crx) 5-325 Mg Tablet PO 1 tab Q6H PRN Administration Pain Rated 4-6 Atorvastatin Calcium 40 mg 03/28/24 09:00 03/30/24 08:18 Atorvastatin 40 Mg Tablet PO 40 mg DAILY RANDY Administration Cyanocobalamin 1,000 mcg 03/28/24 09:00 03/30/24 08:18 Cyanocobalamin 1,000 Mcg Tablet PO 1,000 mcg DAILY RANDY Administration Dextrose 12.5 gm 03/27/24 11:53 Dextrose 50% 25 Gm/50 Ml Syringe IV PUSH PRN PRN Hypoglycemia Protocol Glucagon 1 mg 03/27/24 11:53 Glucagon For Inj 1 Mg Vial IM PRN PRN Hypoglycemia Protocol Glucose 15 gm 03/27/24 11:53 Glucose Oral Gel 15 Gm Of Glucse In 37.5 Gm Tube PO PRN PRN Hypoglycemia Protocol Hyoscyamine 0.125 mg 03/27/24 13:00 Hyoscyamine Sulfate 0.125 Mg Tablet SUBLINGUAL Q4H PRN Bladder Spasm Dextrose 1,000 mls @ 100 mls/hr 03/27/24 11:53 Dextrose 5% 1,000 Ml IVPB PRN PRN Hypoglycemia Protocol Sodium Chloride 1,000 mls @ 75 mls/hr 03/29/24 06:50 03/30/24 18:29 Normal Saline Iv IV CONT 0 mls/hr .[id number] RANDY Infusion Insulin Aspart 2 - 5 units 03/27/24 12:00 03/30/24 17:15 Insulin Aspart (*Bkc) 100 Units/Ml SUB-Q Not Given TIDWM RANDY Protocol Isosorbide Mononitrate 30 mg 03/28/24 09:00 03/28/24 08:06 Isosorbide Mononitrate 30 Mg Tab.Er.24h PO 30 mg QAM RANDY Administration Lisinopril 10 mg 03/28/24 09:00 03/28/24 08:06 Lisinop
[2024-03-31 06:11] LABS: Anion Gap 15 mmol/L (4-12); Blood Urea Nitrogen 42 mg/dL (9-20); Calcium 8.1 mg/dL (8.4-10.2); Carbon Dioxide 18 mmol/L (22-30); Chloride 96 mmol/L (98-107); Creatine Kinase 243 U/L (55-170); Estimated CRCL calculation 20 ml/min; Estimated Glomerular Filt Rate 13; Glucose 168 mg/dL (65-110); Potassium 3.6 mmol/L (3.4-5.0); Sodium 129 mmol/L (137-145)
[2024-03-31] MEDS: PHENOL/SOD PHENO SPRAY CHERRY (*BKC) 1 SPRAY MUCOUS MEM (06:30)
[2024-03-31 08:31] LABS: Glucose Point of Care 170 mg/dl (65-105)
[2024-03-31 09:00] VITALS: O2SAT 98
--- NOTE | 2024-03-31 11:26 | P.PNNP_ITS ---
Progress Note: A&P Assessment and Plan (1) SHEA (acute kidney injury): Code(s): N17.9 - Acute kidney failure, unspecified Status: Acute Assessment and Plan: * etiology not entirely clear * due to relative hypotension? * did have intra-operative hypotension briefly (80s systolic) * evaluation to date noted: * mild hydro by CT of abd/pelvis * however, renal ultrasound negative * urine electrolytes pre-renal * UA noted * urine eosinophils negative * CPK mildly elevated (but not enought to affect kidney function) * making some urine * holding IVFs due to pulmonary edema * follow trend of repeat labs and UOP (2) Prostate cancer: Code(s): C61 - Malignant neoplasm of prostate Status: Acute Assessment and Plan: * s/p robotic assisted prostatectomy with bilateral pelvic lymphadenectomy * Urology following (3) Hypertension: Code(s): I10 - Essential (primary) hypertension Status: Chronic Assessment and Plan: * well controlled * holding BRITTAYN- I and BP medications give #1 * follow trend of hemodynamics (4) Diabetes: Code(s): E11.9 - Type 2 diabetes mellitus without complications Status: Inactive Assessment and Plan: * follow accu-cheks * on SSI Long and extensive discussion (> 20 minutes) with patient regarding his worsening renal dysfunction. I voiced my concerns that if his renal function contineus to deteriorate or if he runs into volume overload unresponsive to diuretics, hyperkalemia, refractory acidosis, or uremia, he may require renl replacement therapy/dialysis. The patient appeared to voice understanding. Will continue to follow. Subjective Date/time seen: 03/31/24 11:26 Interval history: Follow-up for acute kidney injury/acute renal failure. Events noted overnight -- persistent nausea and vomiting; abdominal x-ray suggestive of ileus/SBO so NG tube placed for decompression (however, CT scan of abdomen without evidence of small bowel obstruction); IVFs discontinued due to increased work of breathing along with CXR findings of pulmonary vascular congestion; renal function/creatinine worse today but still appears to be making urine. Exam Narrative: General: elderly but WD/WN male in NAD Heart: tachycardic, normal S1 and S2; no rub Lungs: coarse and decreased at bases Abdomen: mild distension noted; hypoactive bowel sounds Extremities: no cyanosis or clubbing; no edema Skin: warm and dry Objective Data Vital Signs Vital Signs: Vital Signs Temp Pulse Resp BP Pulse Ox 03/31/24 05:44 97.9 F 112 H 22 H 125/69 96 03/30/24 21:06 98.5 F 111 H 22 H 132/69 96 03/30/24 14:00 97.1 F L 104 H 16 114/65 94 Intake/Output Intake/Output: Intake & Output 03/28/24 03/29/24 03/30/24 03/31/24 23:59 23:59 23:59 23:59 Intake Total 3050.8 3619.2 3064.2 300 Output Total 800 6064 557 9621 Balance 2250.8 2619.2 2714.2 -1950 Meds/Results Medications: Active Medications Generic Name Dose Route Start Last Admin Trade Name Freq PRN Reason Stop Dose Admin Acetaminophen 650 mg 03/28/24 13:09 Acetaminophen 325 Mg Tablet PO Q4H PRN Mild pain 1-3 Hydrocodone B
--- NOTE | 2024-03-31 11:26 | PM.PNNEP ---
Progress Note: A&P Assessment and Plan (1) SHEA (acute kidney injury): Code(s): N17.9 - Acute kidney failure, unspecified Status: Acute Assessment and Plan: etiology not entirely clear due to relative hypotension? did have intra-operative hypotension briefly (80s systolic) evaluation to date noted: mild hydro by CT of abd/pelvis however, renal ultrasound negative urine electrolytes pre-renal UA noted urine eosinophils negative CPK mildly elevated (but not enought to affect kidney function) making some urine holding IVFs due to pulmonary edema follow trend of repeat labs and UOP (2) Prostate cancer: Code(s): C61 - Malignant neoplasm of prostate Status: Acute Assessment and Plan: s/p robotic assisted prostatectomy with bilateral pelvic lymphadenectomy Urology following (3) Hypertension: Code(s): I10 - Essential (primary) hypertension Status: Chronic Assessment and Plan: well controlled holding BRITTANY- I and BP medications give #1 follow trend of hemodynamics (4) Diabetes: Code(s): E11.9 - Type 2 diabetes mellitus without complications Status: Inactive Assessment and Plan: follow accu-cheks on SSI Long and extensive discussion (> 20 minutes) with patient regarding his worsening renal dysfunction. I voiced my concerns that if his renal function contineus to deteriorate or if he runs into volume overload unresponsive to diuretics, hyperkalemia, refractory acidosis, or uremia, he may require renl replacement therapy/dialysis. The patient appeared to voice understanding. Will continue to follow. Subjective Date/time seen: 03/31/24 11:26 Interval history: Follow-up for acute kidney injury/acute renal failure. Events noted overnight -- persistent nausea and vomiting; abdominal x-ray suggestive of ileus/SBO so NG tube placed for decompression (however, CT scan of abdomen without evidence of small bowel obstruction); IVFs discontinued due to increased work of breathing along with CXR findings of pulmonary vascular congestion; renal function/creatinine worse today but still appears to be making urine. Exam Narrative: General: elderly but WD/WN male in NAD Heart: tachycardic, normal S1 and S2; no rub Lungs: coarse and decreased at bases Abdomen: mild distension noted; hypoactive bowel sounds Extremities: no cyanosis or clubbing; no edema Skin: warm and dry Objective Data Vital Signs Vital Signs: Vital Signs Temp Pulse Resp BP Pulse Ox 03/31/24 05:44 97.9 F 112 H 22 H 125/69 96 03/30/24 21:06 98.5 F 111 H 22 H 132/69 96 03/30/24 14:00 97.1 F L 104 H 16 114/65 94 Intake/Output Intake/Output: Intake & Output 03/28/24 03/29/24 03/30/24 03/31/24 23:59 23:59 23:59 23:59 Intake Total 3050.8 3619.2 3064.2 300 Output Total 800 4980 355 0419 Balance 2250.8 2619.2 2714.2 -1950 Meds/Results Medications: Active Medications Generic Name Dose Route Start Last Admin Trade Name Freq PRN Reason Stop Dose Admin Acetaminophen 650 mg 03/28/24 13:09 Acetaminophen 325 Mg Tablet PO Q4H PRN Mild pain 1-3 Hydrocodone Bitart/Acetaminophen 1 tab 03/28/24 13:09 03/30/24 10:34 Hydrocodone/Acetaminophen (*Crx) 5-325 Mg Tablet PO 1 tab Q6H PRN Administration Pain Rated 4-6 Atorvastatin Calcium 40 mg 03/28/24 09:00 03/31/24 09:02 Atorvastatin 40 Mg Tablet PO Not Given DAILY R[facility]Y Cyanocobalamin 1,000 mcg 03/28/24 09:00 03/31/24 09:02 Cyanocobalamin 1,000 Mcg Tablet PO Not Given DAILY [facility]Y Dextrose 12.5 gm 03/27/24 11:53 Dextrose 50% 25 Gm/50 Ml Syringe IV PUSH PRN PRN Hypoglycemia Protocol Glucagon 1 mg 03/27/24 11:53 Glucagon For Inj 1 Mg Vial IM PRN PRN Hypoglycemia Protocol Glucose 15 gm 03/27/24 11:53 Glucose Oral Gel 15 Gm Of Glucse In 37.5 Gm Tube PO PRN PRN Hypog
[2024-03-31 11:46] LABS: Glucose Point of Care 148 mg/dl (65-105)
[2024-03-31 14:00] VITALS: BP 128/71; PULSE 105; RESP 20; TEMP 36.1; O2SAT 98
[2024-03-31 16:46] LABS: Glucose Point of Care 138 mg/dl (65-105)
[2024-03-31 20:01] LABS: Glucose Point of Care 137 mg/dl (65-105)
[2024-03-31 20:23] VITALS: BP 119/72; PULSE 106; RESP 22; TEMP 36.6; O2SAT 96
[2024-04-01 05:37] VITALS: BP 143/62; PULSE 99; RESP 22; TEMP 36.1; O2SAT 95
--- NOTE | 2024-04-01 06:19 | WPDUROPN2 ---
Progress Note: A&P Assessment and Plan (1) Adynamic ileus: Code(s): K56.0 - Paralytic ileus Status: Acute Assessment and Plan: Bowel sounds present but still hypoactive Pt. regularly passing flatus Will take NG off suction (straight drainage) (2) SHEA (acute kidney injury): Code(s): N17.9 - Acute kidney failure, unspecified Status: Acute Assessment and Plan: Excellent u/o last 24-hours. Await morning labs No significant findings on repeat CT-abd./pelvis yesterday (3) Prostate cancer: Code(s): C61 - Malignant neoplasm of prostate Status: Acute Assessment and Plan: Pathology: pT3a with focal extracapsular extension / neg. margins, nodes and seminal vesicle involvement Subjective Subjective Date/Time Seen: 04/01/24 06:19 Interval history: No complaints, no acute events overnight Review of Systems Review of Systems: All systems reviewed & are unremarkable except as noted in HPI and below Exam Const: General: no acute distress Resp: Effort & Inspection: normal respiratory effort GI: Inspection: normal to inspection (1cm superficial midline incision seperation) and non-distended GI Palp: No abdominal tenderness and No Guarding due to palpation present (GI) Percussion: Yes normal to percussion Auscultation: Hypoactive bowel sounds present and other (passing flatus regularly) Urinary Catheter: Urinary Catheter: patent and draining and urine clear Objective Data Vital Signs Vital Signs: Vital Signs - 24 hr 03/31/24 09:00 03/31/24 14:00 03/31/24 20:23 Temperature 96.9 F L 97.8 F Pulse Rate 105 H 106 H Respiratory Rate 20 22 H Blood Pressure 128/71 119/72 Pulse Oximetry 98 98 96 Oxygen Delivery Room Air 04/01/24 05:37 Temperature 97.0 F L Pulse Rate 99 Respiratory Rate 22 H Blood Pressure 143/62 H Pulse Oximetry 95 Oxygen Delivery Intake/Output Intake/Output: Intake & Output 03/29/24 03/30/24 03/31/24 04/01/24 23:59 23:59 23:59 23:59 Intake Total 3619.2 3064.2 300 Output Total 0572 246 6200 675 Balance 2619.2 2714.2 -6298 -585 Meds/Results Medications: Active Medications Generic Name Dose Route Start Last Admin Trade Name Freq PRN Reason Stop Dose Admin Acetaminophen 650 mg 03/28/24 13:09 Acetaminophen 325 Mg Tablet PO Q4H PRN Mild pain 1-3 Hydrocodone Bitart/Acetaminophen 1 tab 03/28/24 13:09 03/30/24 10:34 Hydrocodone/Acetaminophen (*Crx) 5-325 Mg Tablet PO 1 tab Q6H PRN Administration Pain Rated 4-6 Atorvastatin Calcium 40 mg 03/28/24 09:00 03/31/24 09:02 Atorvastatin 40 Mg Tablet PO Not Given DAILY RANDY Cyanocobalamin 1,000 mcg 03/28/24 09:00 03/31/24 09:02 Cyanocobalamin 1,000 Mcg Tablet PO Not Given DAILY R[facility]Y Dextrose 12.5 gm 03/27/24 11:53 Dextrose 50% 25 Gm/50 Ml Syringe IV PUSH PRN PRN Hypoglycemia Protocol Glucagon 1 mg 03/27/24 11:53 Glucagon For Inj 1 Mg Vial IM PRN PRN Hypoglycemia Protocol Glucose 15 gm 03/27/24 11:53 Glucose Oral Gel 15 Gm Of Glucse In 37.5 Gm Tube PO PRN PRN Hypoglycemia Protocol Hyoscyamine 0.125 mg 03/27/24 13:00 Hyoscyamine Sulfate 0.125 Mg Tablet SUBLINGUAL Q4H PRN Bladder Spasm Dextrose 1,000 mls @ 100 mls/hr 03/27/24 11:53 Dextrose 5% 1,000 Ml IVPB PRN PRN Hypoglycemia Protocol Sodium Chloride 1,000 mls @ 75 mls/hr 03/29/24 06:50 03/30/24 18:29 Normal Saline Iv IV CONT 0 mls/hr .[id number] [facility] Infusion Insulin Aspart 2 - 5 units 03/27/24 12:00 03/31/24 12:23 Insulin Aspart (*Bkc) 100 Units/Ml SUB-Q Not Given TIDWM [facility] Protocol Isosorbide Mononitrate 30 mg 03/28/24 09:00 03/28/24 08:06 Isosorbide Mononitrate 30 Mg Tab.Er.24h PO 30 mg QAM RANDY Administration Lisinopril 10 mg 03/28/24 09:00 03/28/24 08:06 Lisinopril 10 Mg Tablet PO 10 mg QAM [facility] Administratio
[2024-04-01 06:25] LABS: Basophils Absolute Auto 0.1 K/mm3 (0.0-0.1); Basophils Percent Auto 0.6 % (0.2-1.2); Eosinophils Absolute Auto 0.4 K/mm3 (0-0.3); Eosinophils Percent Auto 3.5 % (0-4.4); Hematocrit 42.8 % (42.0-52.0); Hemoglobin 13.8 g/dL (14.0-18.0); Immature Granulocyte Absolute 0.13 K/mm3 (0.00-0.031); Immature Granulocyte Percent A 1.1 % (0-0.5); Lymphocytes Absolute Auto 0.91 K/mm3 (0.9-3.2); Lymphocytes Percent Auto 7.8 % (18.3-44.2); Mean Corpuscular HGB Conc 32.2 g/dl (32-36); Mean Corpuscular Hemoglobin 30.3 pg (26-34); Mean Corpuscular Volume 94.1 fl (80-100); Mean Platelet Volume 9.5 fl (7.4-10.4); Monocytes Absolute Auto 1.6 K/mm3 (0.1-0.6); Monocytes Percent Auto 14.1 % (2.6-8.5); Neutrophils Absolute Auto 8.4 K/mm3 (1.3-6.7); Neutrophils Percent Auto 72.9 % (45.5-73.1); Platelet Count Result 381 k/mm3 (150-375); Red Blood Count 4.55 M/mm3 (4.6-6.20); Red Cell Distribution Width 13.9 % (11.5-14.5); White Blood Count 11.6 K/mm3 (4.5-10.0)
[2024-04-01 06:49] LABS: Anion Gap 11 mmol/L (4-12); Blood Urea Nitrogen 55 mg/dL (9-20); Calcium 8.6 mg/dL (8.4-10.2); Carbon Dioxide 25 mmol/L (22-30); Chloride 96 mmol/L (98-107); Estimated CRCL calculation 19 ml/min; Estimated Glomerular Filt Rate 12; Glucose 135 mg/dL (65-110); Potassium 4.2 mmol/L (3.4-5.0); Sodium 132 mmol/L (137-145)
[2024-04-01 08:11] LABS: Glucose Point of Care 117 mg/dl (65-105)
--- NOTE | 2024-04-01 11:17 | PM.PNNEP ---
Progress Note: A&P Assessment and Plan (1) SHEA (acute kidney injury): Code(s): N17.9 - Acute kidney failure, unspecified Status: Acute Assessment and Plan: etiology not entirely clear due to relative hypotension? did have intra-operative hypotension briefly (80s systolic) evaluation to date noted: mild hydro by CT of abd/pelvis however, renal ultrasound negative urine electrolytes pre-renal UA noted urine eosinophils negative CPK mildly elevated (but not enough to affect kidney function) making some urine creatinine rising but rate of rise has lessened holding IVFs due to pulmonary edema follow trend of repeat labs and UOP (2) Prostate cancer: Code(s): C61 - Malignant neoplasm of prostate Status: Acute Assessment and Plan: s/p robotic assisted prostatectomy with bilateral pelvic lymphadenectomy Urology following (3) Hypertension: Code(s): I10 - Essential (primary) hypertension Status: Chronic Assessment and Plan: well controlled holding BRITTANY- I and BP medications given #1 follow trend of hemodynamics (4) Diabetes: Code(s): E11.9 - Type 2 diabetes mellitus without complications Status: Inactive Assessment and Plan: follow accu-cheks on SSI Will continue to follow. Subjective Date/time seen: 04/01/24 11:17 Interval history: Follow-up for acute kidney injury/acute renal failure. States that he feels somewhat better at the time of my visit; renal function/creatinine a bit worse but continues to make reasonable urine output; NG tube still in place and is hopeful that he might be able to drink something; no other issues/events overnight. Exam Narrative: General: elderly but WD/WN male in NAD Heart: tachycardic, normal S1 and S2; no rub Lungs: coarse and decreased at bases Abdomen: mild distension noted; hypoactive bowel sounds Extremities: no cyanosis or clubbing; no edema Skin: warm and intact Objective Data Vital Signs Vital Signs: Vital Signs Temp Pulse Resp BP Pulse Ox 04/01/24 05:37 97.0 F L 99 22 H 143/62 H 95 03/31/24 20:23 97.8 F 106 H 22 H 119/72 96 Intake/Output Intake/Output: Intake & Output 03/29/24 03/30/24 03/31/24 04/01/24 23:59 23:59 23:59 23:59 Intake Total 3619.2 3064.2 300 120 Output Total 9235 097 3308 2825 Balance 2619.2 2714.2 -8910 -3301 Meds/Results Medications: Active Medications Generic Name Dose Route Start Last Admin Trade Name Freq PRN Reason Stop Dose Admin Acetaminophen 650 mg 03/28/24 13:09 Acetaminophen 325 Mg Tablet PO Q4H PRN Mild pain 1-3 Hydrocodone Bitart/Acetaminophen 1 tab 03/28/24 13:09 03/30/24 10:34 Hydrocodone/Acetaminophen (*Crx) 5-325 Mg Tablet PO 1 tab Q6H PRN Administration Pain Rated 4-6 Atorvastatin Calcium 40 mg 03/28/24 09:00 04/01/24 09:22 Atorvastatin 40 Mg Tablet PO Not Given DAILY RANDY Cyanocobalamin 1,000 mcg 03/28/24 09:00 04/01/24 09:22 Cyanocobalamin 1,000 Mcg Tablet PO Not Given DAILY RANDY Dextrose 12.5 gm 03/27/24 11:53 Dextrose 50% 25 Gm/50 Ml Syringe IV PUSH PRN PRN Hypoglycemia Protocol Glucagon 1 mg 03/27/24 11:53 Glucagon For Inj 1 Mg Vial IM PRN PRN Hypoglycemia Protocol Glucose 15 gm 03/27/24 11:53 Glucose Oral Gel 15 Gm Of Glucse In 37.5 Gm Tube PO PRN PRN Hypoglycemia Protocol Hyoscyamine 0.125 mg 03/27/24 13:00 Hyoscyamine Sulfate 0.125 Mg Tablet SUBLINGUAL Q4H PRN Bladder Spasm Dextrose 1,000 mls @ 100 mls/hr 03/27/24 11:53 Dextrose 5% 1,000 Ml IVPB PRN PRN Hypoglycemia Protocol Sodium Chloride 1,000 mls @ 75 mls/hr 03/29/24 06:50 03/30/24 18:29 Normal Saline Iv IV CONT 0 mls/hr .[id number] [facility] Infusion Insulin Aspart 2 - 5 units 03/27/24 12:00 04/01/24 12:00 Insulin Aspart (*Bkc) 100 Units/Ml [facility]ODRIGUE[facility]
--- NOTE | 2024-04-01 11:17 | P.PNNP_ITS ---
Progress Note: A&P Assessment and Plan (1) SHEA (acute kidney injury): Code(s): N17.9 - Acute kidney failure, unspecified Status: Acute Assessment and Plan: * etiology not entirely clear * due to relative hypotension? * did have intra-operative hypotension briefly (80s systolic) * evaluation to date noted: * mild hydro by CT of abd/pelvis * however, renal ultrasound negative * urine electrolytes pre-renal * UA noted * urine eosinophils negative * CPK mildly elevated (but not enough to affect kidney function) * making some urine * creatinine rising but rate of rise has lessened * holding IVFs due to pulmonary edema * follow trend of repeat labs and UOP (2) Prostate cancer: Code(s): C61 - Malignant neoplasm of prostate Status: Acute Assessment and Plan: * s/p robotic assisted prostatectomy with bilateral pelvic lymphadenectomy * Urology following (3) Hypertension: Code(s): I10 - Essential (primary) hypertension Status: Chronic Assessment and Plan: * well controlled * holding BRITTANY- I and BP medications given #1 * follow trend of hemodynamics (4) Diabetes: Code(s): E11.9 - Type 2 diabetes mellitus without complications Status: Inactive Assessment and Plan: * follow accu-cheks * on SSI Will continue to follow. Subjective Date/time seen: 04/01/24 11:17 Interval history: Follow-up for acute kidney injury/acute renal failure. States that he feels somewhat better at the time of my visit; renal function/creatinine a bit worse but continues to make reasonable urine output; NG tube still in place and is hopeful that he might be able to drink something; no other issues/events overnight. Exam Narrative: General: elderly but WD/WN male in NAD Heart: tachycardic, normal S1 and S2; no rub Lungs: coarse and decreased at bases Abdomen: mild distension noted; hypoactive bowel sounds Extremities: no cyanosis or clubbing; no edema Skin: warm and intact Objective Data Vital Signs Vital Signs: Vital Signs Temp Pulse Resp BP Pulse Ox 04/01/24 05:37 97.0 F L 99 22 H 143/62 H 95 03/31/24 20:23 97.8 F 106 H 22 H 119/72 96 Intake/Output Intake/Output: Intake & Output 03/29/24 03/30/24 03/31/24 04/01/24 23:59 23:59 23:59 23:59 Intake Total 3619.2 3064.2 300 120 Output Total 8110 463 0958 9080 Balance 2619.2 4304.2 -7380 -7988 Meds/Results Medications: Active Medications Generic Name Dose Route Start Last Admin Trade Name Freq PRN Reason Stop Dose Admin Acetaminophen 650 mg 03/28/24 13:09 Acetaminophen 325 Mg Tablet PO Q4H PRN Mild pain 1-3 Hydrocodone Bitart/Acetaminophen 1 tab 03/28/24 13:09 03/30/24 10:34 Hydrocodone/Acetaminophen (*Crx) 5-325 Mg Tablet PO 1 tab Q6H PRN Administration Pain Rated 4-6 Atorvastatin Calcium 40 mg 03/28/24 09:00 04/01/24 09:22 Atorvastatin 40 Mg Tablet PO Not Given DAILY RANDY Cyanocobalamin 1,000 mcg 03/28/24 09:00 04/01/24 09:22 Cyanocobalamin 1,000 Mcg Tablet PO Not Given DAILY RANDY Dextrose 12.5 gm 03/27/24 11:
[2024-04-01 12:09] LABS: Glucose Point of Care 131 mg/dl (65-105)
--- NOTE | 2024-04-01 12:30 | PC.NURSE ---
This RN spoke with . States the patient is okay to have some ice chips and sips of water at this time. states that he will be up shortly to speak to the patient.
[2024-04-01 14:55] VITALS: BP 130/73; PULSE 98; RESP 12; TEMP 36.2; O2SAT 97
[2024-04-01 17:01] LABS: Glucose Point of Care 133 mg/dl (65-105)
[2024-04-01] MEDS: SIMETHICONE 125 MG CHEW TAB PO (18:10)
[2024-04-01 20:00] VITALS: O2SAT 97
[2024-04-01] MEDS: HYDROcodone/acetaminophen (*CRX) 5-325 MG TABLET 1 TAB PO (21:23)
[2024-04-01 21:42] VITALS: BP 120/67; PULSE 100; RESP 22; TEMP 36.8; O2SAT 97
[2024-04-02 00:55] LABS: Glucose Point of Care 158 mg/dl (65-105)
[2024-04-02 06:00] VITALS: BP 129/71; PULSE 93; RESP 20; TEMP 37; O2SAT 99
[2024-04-02 06:22] LABS: Basophils Absolute Auto 0.1 K/mm3 (0.0-0.1); Basophils Percent Auto 0.7 % (0.2-1.2); Eosinophils Absolute Auto 0.7 K/mm3 (0-0.3); Eosinophils Percent Auto 5.9 % (0-4.4); Hematocrit 42.5 % (42.0-52.0); Hemoglobin 13.8 g/dL (14.0-18.0); Immature Granulocyte Absolute 0.21 K/mm3 (0.00-0.031); Immature Granulocyte Percent A 1.8 % (0-0.5); Lymphocytes Percent Auto 5.9 % (18.3-44.2); Mean Corpuscular HGB Conc 32.5 g/dl (32-36); Mean Corpuscular Hemoglobin 31.2 pg (26-34); Mean Corpuscular Volume 95.9 fl (80-100); Mean Platelet Volume 9.4 fl (7.4-10.4); Monocytes Absolute Auto 1.6 K/mm3 (0.1-0.6); Monocytes Percent Auto 13.2 % (2.6-8.5); Neutrophils Absolute Auto 8.6 K/mm3 (1.3-6.7); Neutrophils Percent Auto 72.5 % (45.5-73.1); Platelet Count Result 392 k/mm3 (150-375); Red Blood Count 4.43 M/mm3 (4.6-6.20); Red Cell Distribution Width 14.1 % (11.5-14.5); White Blood Count 11.8 K/mm3 (4.5-10.0)
--- NOTE | 2024-04-02 06:37 | WPDUROPN2 ---
Progress Note: A&P Assessment and Plan (1) SHEA (acute kidney injury): Code(s): N17.9 - Acute kidney failure, unspecified Status: Acute Assessment and Plan: U/O remains good. Tolerating clear liquids. Off IV fluids. Await morning labs. (2) Prostate cancer: Code(s): C61 - Malignant neoplasm of prostate Status: Acute (3) Adynamic ileus: Code(s): K56.0 - Paralytic ileus Status: Acute Assessment and Plan: No n/v following NG removal / moderate flatus continues Subjective Subjective Date/Time Seen: 04/02/24 06:37 Interval history: Comfortable, no n/v after NG removal Review of Systems Review of Systems: All systems reviewed & are unremarkable except as noted in HPI and below Gastrointestinal: Gastrointestinal: Reports abdominal pain (mild), Denies belching, Denies bloating and Denies vomiting Exam Const: General: no acute distress Resp: Effort & Inspection: normal respiratory effort GI: Inspection: normal to inspection (1cm superficial midline incision seperation) and non-distended GI Palp: No abdominal tenderness and No Guarding due to palpation present (GI) Percussion: Yes normal to percussion Auscultation: Hypoactive bowel sounds present and other (passing flatus regularly) Urinary Catheter: Urinary Catheter: patent and draining and urine clear Objective Data Vital Signs Vital Signs: Vital Signs - 24 hr 04/01/24 14:55 04/01/24 21:42 04/01/24 20:00 Temperature 97.1 F L 98.2 F Pulse Rate 98 100 Respiratory Rate 12 22 H Blood Pressure 130/73 120/67 Pulse Oximetry 97 97 97 Oxygen Delivery Nasal Cannula Oxygen Flow Rate 2 04/02/24 06:00 Temperature 98.6 F Pulse Rate 93 Respiratory Rate 20 Blood Pressure 129/71 Pulse Oximetry 99 Oxygen Delivery Oxygen Flow Rate Intake/Output Intake/Output: Intake & Output 03/30/24 03/31/24 04/01/24 04/02/24 23:59 23:59 23:59 23:59 Intake Total 3064.2 255 530 1186 Output Total 350 3150 2825 850 Balance 2714.2 -5231 -0325 150 Meds/Results Medications: Active Medications Generic Name Dose Route Start Last Admin Trade Name Freq PRN Reason Stop Dose Admin Acetaminophen 650 mg 03/28/24 13:09 Acetaminophen 325 Mg Tablet PO Q4H PRN Mild pain 1-3 Hydrocodone Bitart/Acetaminophen 1 tab 03/28/24 13:09 04/01/24 21:23 Hydrocodone/Acetaminophen (*Crx) 5-325 Mg Tablet PO 1 tab Q6H PRN Administration Pain Rated 4-6 Atorvastatin Calcium 40 mg 03/28/24 09:00 04/01/24 09:22 Atorvastatin 40 Mg Tablet PO Not Given DAILY RANDY Cyanocobalamin 1,000 mcg 03/28/24 09:00 04/01/24 09:22 Cyanocobalamin 1,000 Mcg Tablet PO Not Given DAILY RANDY Dextrose 12.5 gm 03/27/24 11:53 Dextrose 50% 25 Gm/50 Ml Syringe IV PUSH PRN PRN Hypoglycemia Protocol Glucagon 1 mg 03/27/24 11:53 Glucagon For Inj 1 Mg Vial IM PRN PRN Hypoglycemia Protocol Glucose 15 gm 03/27/24 11:53 Glucose Oral Gel 15 Gm Of Glucse In 37.5 Gm Tube PO PRN PRN Hypoglycemia Protocol Hyoscyamine 0.125 mg 03/27/24 13:00 Hyoscyamine Sulfate 0.125 Mg Tablet SUBLINGUAL Q4H PRN Bladder Spasm Dextrose 1,000 mls @ 100 mls/hr 03/27/24 11:53 Dextrose 5% 1,000 Ml IVPB PRN PRN Hypoglycemia Protocol Sodium Chloride 1,000 mls @ 75 mls/hr 03/29/24 06:50 03/30/24 18:29 Normal Saline Iv IV CONT 0 mls/hr .[id number] [facility] Infusion Insulin Aspart 2 - 5 units 03/27/24 12:00 04/01/24 18:09 Insulin Aspart (*Bkc) 100 Units/Ml SUB-Q Not Given TIDWM [facility] Protocol Isosorbide Mononitrate 30 mg 03/28/24 09:00 03/28/24 08:06 Isosorbide Mononitrate 30 Mg Tab.Er.24h PO 30 mg QAM [facility] Administration Lisinopril 10 mg 03/28/24 09:00 03/28/24 08:06 Lisinopril 10 Mg Tablet PO 10 mg QAM [facility] Administration Morphine Sulfate 1 mg 03/27/24 13:00 Morphine Sulfate (*Crx) 2
[2024-04-02 06:40] LABS: Anion Gap 12 mmol/L (4-12); Blood Urea Nitrogen 63 mg/dL (9-20); Calcium 8.3 mg/dL (8.4-10.2); Carbon Dioxide 26 mmol/L (22-30); Chloride 94 mmol/L (98-107); Estimated CRCL calculation 19 ml/min; Estimated Glomerular Filt Rate 12; Glucose 148 mg/dL (65-110); Potassium 3.7 mmol/L (3.4-5.0); Sodium 132 mmol/L (137-145)
[2024-04-02 08:05] LABS: Glucose Point of Care 140 mg/dl (65-105)
[2024-04-02 09:25] VITALS: O2SAT 92
[2024-04-02] MEDS: ATORVASTATIN 40 MG TABLET PO (09:28)
[2024-04-02] MEDS: CYANOCOBALAMIN 1,000 MCG TABLET 1000 MCG PO (09:28)
[2024-04-02] MEDS: BISACODYL 10 MG SUPPOSITORY RECTAL (09:28)
[2024-04-02] MEDS: SIMETHICONE 125 MG CHEW TAB PO ×2 (09:28→16:48)
[2024-04-02 11:23] VITALS: O2SAT 91
[2024-04-02 12:07] LABS: Glucose Point of Care 153 mg/dl (65-105)
--- NOTE | 2024-04-02 13:24 | PM.PNNEP ---
Progress Note: A&P Assessment and Plan (1) SHEA (acute kidney injury): Code(s): N17.9 - Acute kidney failure, unspecified Status: Acute Assessment and Plan: etiology not entirely clear suspect due to relative hypotension?) did have intra-operative hypotension briefly (80s systolic) evaluation to date noted: mild hydro by CT of abd/pelvis however, renal ultrasound negative urine electrolytes pre-renal UA noted urine eosinophils negative CPK mildly elevated (but not enough to affect kidney function) better urine output noted possible plateau/creatinine at 4.8mg/dl... holding IVFs due to pulmonary edema by last CXR -- will recheck since still requiring on/off oxygen follow trend of repeat labs and UOP (2) Prostate cancer: Code(s): C61 - Malignant neoplasm of prostate Status: Acute Assessment and Plan: s/p robotic assisted prostatectomy with bilateral pelvic lymphadenectomy Urology following (3) Hypertension: Code(s): I10 - Essential (primary) hypertension Status: Chronic Assessment and Plan: well controlled holding BRITTANY- I and BP medications given #1 follow trend of hemodynamics (4) Diabetes: Code(s): E11.9 - Type 2 diabetes mellitus without complications Status: Inactive Assessment and Plan: follow accu-cheks on SSI Will continue to follow. Subjective Date/time seen: 04/02/24 13:24 Interval history: Follow-up for acute kidney injury/acute renal failure. Renal function/creatinine slightly better by recent labs in association with better urine output in the last 24 hours; he is happy the NG tube is out; still not eating and drinking very much per family at bedside. Exam Narrative: General: elderly but WD/WN male in NAD Heart: tachycardic, normal S1 and S2; no rub Lungs: coarse and decreased at bases Abdomen: mild distension noted; hypoactive bowel sounds Extremities: no cyanosis or clubbing; no edema Skin: no rash Objective Data Vital Signs Vital Signs: Vital Signs Temp Pulse Resp BP Pulse Ox O2 Del Method O2 Flow Rate 04/02/24 13:10 97.7 F 107 H 20 144/75 H 98 04/02/24 11:23 91 Nasal Cannula 2 04/02/24 09:25 92 Nasal Cannula 2 04/02/24 06:00 98.6 F 93 20 129/71 99 04/01/24 20:00 97 Nasal Cannula 2 04/01/24 21:42 98.2 F 100 22 H 120/67 97 Intake/Output Intake/Output: Intake & Output 03/30/24 03/31/24 04/01/24 04/02/24 23:59 23:59 23:59 23:59 Intake Total 3064.2 454 746 0233 Output Total 350 3150 6095 850 Balance 7364.5 -5572 -5879 504 Meds/Results Medications: Active Medications Generic Name Dose Route Start Last Admin Trade Name Freq PRN Reason Stop Dose Admin Acetaminophen 650 mg 03/28/24 13:09 Acetaminophen 325 Mg Tablet PO Q4H PRN Mild pain 1-3 Hydrocodone Bitart/Acetaminophen 1 tab 03/28/24 13:09 04/01/24 21:23 Hydrocodone/Acetaminophen (*Crx) 5-325 Mg Tablet PO 1 tab Q6H PRN Administration Pain Rated 4-6 Atorvastatin Calcium 40 mg 03/28/24 09:00 04/02/24 09:28 Atorvastatin 40 Mg Tablet PO 40 mg DAILY RANDY Administration Cyanocobalamin 1,000 mcg 03/28/24 09:00 04/02/24 09:28 Cyanocobalamin 1,000 Mcg Tablet PO 1,000 mcg DAILY RANDY Administration Dextrose 12.5 gm 03/27/24 11:53 Dextrose 50% 25 Gm/50 Ml Syringe IV PUSH PRN PRN Hypoglycemia Protocol Glucagon 1 mg 03/27/24 11:53 Glucagon For Inj 1 Mg Vial IM PRN PRN Hypoglycemia Protocol Glucose 15 gm 03/27/24 11:53 Glucose Oral Gel 15 Gm Of Glucse In 37.5 Gm Tube PO PRN PRN Hypoglycemia Protocol Hyoscyamine 0.125 mg 03/27/24 13:00 Hyoscyamine Sulfate 0.125 Mg Tablet SUBLINGUAL Q4H PRN Bladder Spasm Dextrose 1,000 mls @ 100 mls/hr 03/27/24 11:53 Dextrose 5% 1,000 Ml IVPB PRN PRN Hypoglycemia Protocol
--- NOTE | 2024-04-02 13:24 | P.PNNP_ITS ---
Progress Note: A&P Assessment and Plan (1) SHEA (acute kidney injury): Code(s): N17.9 - Acute kidney failure, unspecified Status: Acute Assessment and Plan: * etiology not entirely clear * suspect due to relative hypotension?) * did have intra-operative hypotension briefly (80s systolic) * evaluation to date noted: * mild hydro by CT of abd/pelvis * however, renal ultrasound negative * urine electrolytes pre-renal * UA noted * urine eosinophils negative * CPK mildly elevated (but not enough to affect kidney function) * better urine output noted * possible plateau/creatinine at 4.8mg/dl... * holding IVFs due to pulmonary edema by last CXR -- will recheck since still requiring on/off oxygen * follow trend of repeat labs and UOP (2) Prostate cancer: Code(s): C61 - Malignant neoplasm of prostate Status: Acute Assessment and Plan: * s/p robotic assisted prostatectomy with bilateral pelvic lymphadenectomy * Urology following (3) Hypertension: Code(s): I10 - Essential (primary) hypertension Status: Chronic Assessment and Plan: * well controlled * holding BRITTANY- I and BP medications given #1 * follow trend of hemodynamics (4) Diabetes: Code(s): E11.9 - Type 2 diabetes mellitus without complications Status: Inactive Assessment and Plan: * follow accu-cheks * on SSI Will continue to follow. Subjective Date/time seen: 04/02/24 13:24 Interval history: Follow-up for acute kidney injury/acute renal failure. Renal function/creatinine slightly better by recent labs in association with better urine output in the last 24 hours; he is happy the NG tube is out; still not eating and drinking very much per family at bedside. Exam Narrative: General: elderly but WD/WN male in NAD Heart: tachycardic, normal S1 and S2; no rub Lungs: coarse and decreased at bases Abdomen: mild distension noted; hypoactive bowel sounds Extremities: no cyanosis or clubbing; no edema Skin: no rash Objective Data Vital Signs Vital Signs: Vital Signs Temp Pulse Resp BP Pulse Ox O2 Del Method O2 Flow Rate 04/02/24 13:10 97.7 F 107 H 20 144/75 H 98 04/02/24 11:23 91 Nasal Cannula 2 04/02/24 09:25 92 Nasal Cannula 2 04/02/24 06:00 98.6 F 93 20 129/71 99 04/01/24 20:00 97 Nasal Cannula 2 04/01/24 21:42 98.2 F 100 22 H 120/67 97 Intake/Output Intake/Output: Intake & Output 03/30/24 03/31/24 04/01/24 04/02/24 23:59 23:59 23:59 23:59 Intake Total 3064.2 489 589 4731 Output Total 350 3150 2095 850 Balance 3544.2 -6902 -7166 504 Meds/Results Medications: Active Medications Generic Name Dose Route Start Last Admin Trade Name Freq PRN Reason Stop Dose Admin Acetaminophen 650 mg 03/28/24 13:09 Acetaminophen 325 Mg Tablet PO Q4H PRN Mild pain 1-3 Hydrocodone Bitart/Acetaminophen 1 tab 03/28/24 13:09 04/01/24 21:23 Hydrocodone/Acetaminophen (*Crx) 5-325 Mg Tablet PO 1 tab Q6H PRN Administration Pain Rated 4-6 Atorvastatin Calcium 40 mg 03/28/24 09:00 04/02/24 09:28 Ator
[2024-04-02 14:00] VITALS: BP 144/75; PULSE 107; RESP 20; TEMP 36.5; O2SAT 98
[2024-04-02 16:34] LABS: Glucose Point of Care 185 mg/dl (65-105)
[2024-04-02 19:47] LABS: Glucose Point of Care 158 mg/dl (65-105)
[2024-04-02 19:50] VITALS: BP 135/73; PULSE 108; RESP 22; TEMP 36.9; O2SAT 93
[2024-04-03 03:00] VITALS: PULSE 100; O2SAT 95
[2024-04-03 06:00] VITALS: BP 118/65; PULSE 108; RESP 22; TEMP 36.5; O2SAT 97
[2024-04-03 06:31] LABS: Basophils Absolute Auto 0.1 K/mm3 (0.0-0.1); Basophils Percent Auto 1.1 % (0.2-1.2); Eosinophils Absolute Auto 0.2 K/mm3 (0-0.3); Eosinophils Percent Auto 1.3 % (0-4.4); Hematocrit 43.6 % (42.0-52.0); Hemoglobin 14.2 g/dL (14.0-18.0); Immature Granulocyte Absolute 0.46 K/mm3 (0.00-0.031); Immature Granulocyte Percent A 3.8 % (0-0.5); Lymphocytes Absolute Auto 0.73 K/mm3 (0.9-3.2); Mean Corpuscular HGB Conc 32.6 g/dl (32-36); Mean Corpuscular Hemoglobin 30.5 pg (26-34); Mean Corpuscular Volume 93.6 fl (80-100); Mean Platelet Volume 9.5 fl (7.4-10.4); Monocytes Absolute Auto 1.2 K/mm3 (0.1-0.6); Neutrophils Absolute Auto 9.5 K/mm3 (1.3-6.7); Neutrophils Percent Auto 77.8 % (45.5-73.1); Platelet Count Result 467 k/mm3 (150-375); Red Blood Count 4.66 M/mm3 (4.6-6.20); Red Cell Distribution Width 14.3 % (11.5-14.5); White Blood Count 12.2 K/mm3 (4.5-10.0)
[2024-04-03 06:48] LABS: Anion Gap 15 mmol/L (4-12); Blood Urea Nitrogen 76 mg/dL (9-20); Calcium 8.1 mg/dL (8.4-10.2); Carbon Dioxide 21 mmol/L (22-30); Chloride 92 mmol/L (98-107); Estimated CRCL calculation 15 ml/min; Estimated Glomerular Filt Rate 10; Glucose 168 mg/dL (65-110); Potassium 3.9 mmol/L (3.4-5.0); Sodium 128 mmol/L (137-145)
--- NOTE | 2024-04-03 07:15 | WPDUROPN2 ---
Progress Note: A&P Assessment and Plan (1) Adynamic ileus: Code(s): K56.0 - Paralytic ileus Status: Acute (2) SHEA (acute kidney injury): Code(s): N17.9 - Acute kidney failure, unspecified Status: Acute (3) Prostate cancer: Code(s): C61 - Malignant neoplasm of prostate Status: Acute Assessment and Plan: Persistent ileus although seems to be improving slowly. U/O remains good but creat. regressed this morning. Will leave decsion re: IV fluids to Dr. Church. Subjective Subjective Date/Time Seen: 04/03/24 07:15 Interval history: Small bowel movement yesterday and persistent flatus but abdominal bloating and distension persist. No n/v. Review of Systems Cardiovascular: Cardiovascular: Denies chest pain, Denies lightheadedness, Denies palpitations and Denies dyspnea Respiratory: Respiratory: Denies dyspnea Gastrointestinal: Gastrointestinal: Reports bloating, Denies diarrhea, Denies nausea and Denies vomiting Genitourinary: Genitourinary: Denies hematuria and Denies dysuria Endocrine: Endocrine: Denies palpitations Exam Const: General: no acute distress Resp: Effort & Inspection: normal respiratory effort GI: Inspection: non-distended GI Palp: No abdominal tenderness and No Guarding due to palpation present (GI) Auscultation: normal bowel sounds and Hypoactive bowel sounds present (bowel sounds slightly improved today) Objective Data Vital Signs Vital Signs: Vital Signs - 24 hr 04/02/24 09:25 04/02/24 11:23 04/02/24 14:00 Temperature 97.7 F Pulse Rate 107 H Respiratory Rate 20 Blood Pressure 144/75 H Pulse Oximetry 92 91 98 Oxygen Delivery Nasal Cannula Nasal Cannula Oxygen Flow Rate 2 2 04/02/24 19:50 04/03/24 03:00 04/03/24 06:00 Temperature 98.5 F 97.7 F Pulse Rate 108 H 100 108 H Respiratory Rate 22 H 22 H Blood Pressure 135/73 118/65 Pulse Oximetry 93 95 97 Oxygen Delivery Oxygen Flow Rate Intake/Output Intake/Output: Intake & Output 03/31/24 04/01/24 04/02/24 04/03/24 23:59 23:59 23:59 23:59 Intake Total 892 118 4070 1240 Output Total 3155 3883 1000 Balance -3364 -0414 354 1240 Meds/Results Medications: Active Medications Generic Name Dose Route Start Last Admin Trade Name Freq PRN Reason Stop Dose Admin Acetaminophen 650 mg 03/28/24 13:09 Acetaminophen 325 Mg Tablet PO Q4H PRN Mild pain 1-3 Hydrocodone Bitart/Acetaminophen 1 tab 03/28/24 13:09 04/01/24 21:23 Hydrocodone/Acetaminophen (*Crx) 5-325 Mg Tablet PO 1 tab Q6H PRN Administration Pain Rated 4-6 Atorvastatin Calcium 40 mg 03/28/24 09:00 04/02/24 09:28 Atorvastatin 40 Mg Tablet PO 40 mg DAILY RANDY Administration Cyanocobalamin 1,000 mcg 03/28/24 09:00 04/02/24 09:28 Cyanocobalamin 1,000 Mcg Tablet PO 1,000 mcg DAILY RANDY Administration Dextrose 12.5 gm 03/27/24 11:53 Dextrose 50% 25 Gm/50 Ml Syringe IV PUSH PRN PRN Hypoglycemia Protocol Glucagon 1 mg 03/27/24 11:53 Glucagon For Inj 1 Mg Vial IM PRN PRN Hypoglycemia Protocol Glucose 15 gm 03/27/24 11:53 Glucose Oral Gel 15 Gm Of Glucse In 37.5 Gm Tube PO PRN PRN Hypoglycemia Protocol Hyoscyamine 0.125 mg 03/27/24 13:00 Hyoscyamine Sulfate 0.125 Mg Tablet SUBLINGUAL Q4H PRN Bladder Spasm Dextrose 1,000 mls @ 100 mls/hr 03/27/24 11:53 Dextrose 5% 1,000 Ml IVPB PRN PRN Hypoglycemia Protocol Sodium Chloride 1,000 mls @ 75 mls/hr 03/29/24 06:50 03/30/24 18:29 Normal Saline Iv IV CONT 0 mls/hr .[id number] RANDY Infusion Insulin Aspart 2 - 5 units 03/27/24 12:00 04/02/24 17:10 Insulin Aspart (*Bkc) 100 Units/Ml SUB-Q Not Given TIDWM [facility] Protocol Isosorbide Mononitrate 30 mg 03/28/24 09:00 03/28/24 08:06 Isosorbide Mononitrate 30 Mg Tab.Er.24h PO 30 mg QAM RANDY Administration Lisinopril 10 mg 0
[2024-04-03 08:16] LABS: Glucose Point of Care 234 mg/dl (65-105)
[2024-04-03 08:49] VITALS: O2SAT 94
[2024-04-03 09:20] VITALS: O2SAT 94
[2024-04-03] MEDS: ATORVASTATIN 40 MG TABLET PO (09:20)
[2024-04-03] MEDS: SIMETHICONE 125 MG CHEW TAB PO (09:20)
[2024-04-03] MEDS: CYANOCOBALAMIN 1,000 MCG TABLET 1000 MCG PO (09:20)
[2024-04-03] MEDS: INSULIN ASPART (*BKC) 100 UNITS/ML SUB-Q ×2 (09:20→17:47)
[2024-04-03] MEDS: SODIUM CHLORIDE 0.9% IV 1,000 ML 100 ML IV CONT (09:21)
--- NOTE | 2024-04-03 10:50 | PM.CNGS ---
Assessment and Plan Assessment and plan (1) Adynamic ileus: Code(s): K56.0 - Paralytic ileus Status: Acute Assessment and Plan: Patient appears to most likely have a prolonged ileus following robotic assisted radical prostatectomy, less likely a small bowel obstruction. He has been passing flatus and had one small BM. He continues to have persistent abdominal distention with very hypoactive bowel sounds. No peritoneal signs on exam. We would recommend replacing the NG tube for decompression and making him NPO. Will order a PICC line and start TPN for nutrition. Will continue to monitor with serial abdominal exams. Once he starts improving, could also consider some bowel stimulation. Thank you for allowing us to see the patient in consultation and we will continue to follow along with you. 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 Finley. History of Present Illness Consult details Consult date: 04/03/24 Reason for consult: other (Small-bowel obstruction versus ileus) Requesting physician: Terrance Contreras MD Narrative: This is a 73-year-old man with prostate cancer who presented for robotic assisted radical prostatectomy and bilateral pelvic lymphadenectomy on 03/27/2024. His postoperative hospitalization has been complicated by acute kidney injury and an ileus. Nephrology has been consulted in his creatinine has been climbing up to 5.8 today with low urine output. He has also had progressive abdominal distension. He has had 2 CT scans of the abdomen and pelvis since his surgery, on 03/29/2024 and 03/31/2024. His for CT scan showed mild bilateral hydronephrosis, small volume ascites, and cholelithiasis with gallbladder distension that may be secondary to fasting. He was complaining of some lower abdominal pain, but never any upper abdominal pain. He had a KUB due to nausea on 03/31/2024 that showed air distended large and small bowel loops suggestive of an ileus. He then had a Repeat CT scan abdomen pelvis on 03/31 that showed again cholelithiasis, bilateral basal atelectatic changes with minimal effusion, small sliding hiatal hernia, and pneumoperitoneum and ascites with minimal free air seen anteriorly and moderate free fluid seen around the liver and pericolic gutters. He had an NG tube placed that was removed within the next day or 2. He had been passing flatus, but bowel function still had not returned. He reports intermittent nausea, but no vomiting. His abdomen has become more distended and he had an obstructive series today that showed free intraperitoneal air, and gas-filled dilated small bowel and colon, c/w obstruction vs ileus. Our service has been consulted for ileus vs SBO. He is now seen on the medical floor. He is on 2 liters O2 and visibly tachypneic. He states he cannot take in good deep breaths due to his abdominal distention. He does not feel this is improving at all, but instead worse. He did take in some clear liquids and has not been vomiting, but still has some nausea. He has not been getting up and walking much due to his shortness of breath and abdominal distention. He was up to the bedside commode today and had one liquid BM, and reports this was his first bowel movement since clemente
[2024-04-03 12:17] LABS: Glucose Point of Care 175 mg/dl (65-105)
[2024-04-03 13:14] VITALS: BMI 38.5
--- NOTE | 2024-04-03 13:45 | PM.PNNEP ---
Progress Note: A&P Assessment and Plan (1) SHEA (acute kidney injury): Code(s): N17.9 - Acute kidney failure, unspecified Status: Acute Assessment and Plan: etiology not entirely clear suspect due to relative hypotension?) did have intra-operative hypotension briefly (80s systolic) evaluation to date noted: mild hydro by CT of abd/pelvis however, renal ultrasound negative urine electrolytes pre-renal UA noted urine eosinophils negative CPK mildly elevated (but not enough to affect kidney function) better urine output noted HOWEVER, creatinine much worse today(!) recheck UA and urine electrolytes given poor oral intake, restart IVFs Surgery considering parenteral nutrition follow trend of repeat labs and UOP (2) Adynamic ileus: Code(s): K56.0 - Paralytic ileus Status: Acute Assessment and Plan: persistent General Surgery recommendations noted continue supportive therapy (3) Prostate cancer: Code(s): C61 - Malignant neoplasm of prostate Status: Acute Assessment and Plan: s/p robotic assisted prostatectomy with bilateral pelvic lymphadenectomy Urology following (4) Hypertension: Code(s): I10 - Essential (primary) hypertension Status: Chronic Assessment and Plan: well controlled holding BRITTANY- I and BP medications given #1 follow trend of hemodynamics (5) Diabetes: Code(s): E11.9 - Type 2 diabetes mellitus without complications Status: Inactive Assessment and Plan: follow accu-cheks on SSI Will continue to follow. Subjective Date/time seen: 04/03/24 13:45 Interval history: Follow-up for acute kidney injury/acute renal failure. Renal function/creatinine has worsened as noted by recent labs; starting to have worsening abdominal distension again in association with poor oral intake; Surgery consulted with recommendations noted; started back on IVFs. Exam Narrative: General: elderly but WD/WN male in NAD Heart: tachycardic, normal S1 and S2; no rub Lungs: coarse and decreased at bases Abdomen: mild distension noted; hypoactive bowel sounds Extremities: no cyanosis or clubbing; no edema Skin: no nodules Objective Data Vital Signs Vital Signs: Vital Signs Temp Pulse Resp BP Pulse Ox O2 Del Method O2 Flow Rate 04/03/24 13:00 97.7 F 105 H 20 105/69 97 04/03/24 09:20 94 Nasal Cannula 2 04/03/24 08:49 94 Nasal Cannula 2 04/03/24 06:00 97.7 F 108 H 22 H 118/65 97 04/03/24 03:00 100 95 04/02/24 19:50 98.5 F 108 H 22 H 135/73 93 Intake/Output Intake/Output: Intake & Output 03/31/24 04/01/24 04/02/24 04/03/24 23:59 23:59 23:59 23:59 Intake Total 067 996 7029 1358 Output Total 3150 5085 1000 Balance -2850 -2465 354 1358 Meds/Results Medications: Active Medications Generic Name Dose Route Start Last Admin Trade Name Freq PRN Reason Stop Dose Admin Acetaminophen 650 mg 03/28/24 13:09 Acetaminophen 325 Mg Tablet PO Q4H PRN Mild pain 1-3 Hydrocodone Bitart/Acetaminophen 1 tab 03/28/24 13:09 04/01/24 21:23 Hydrocodone/Acetaminophen (*Crx) 5-325 Mg Tablet PO 1 tab Q6H PRN Administration Pain Rated 4-6 Atorvastatin Calcium 40 mg 03/28/24 09:00 04/03/24 09:20 Atorvastatin 40 Mg Tablet PO 40 mg DAILY RANDY Administration Cyanocobalamin 1,000 mcg 03/28/24 09:00 04/03/24 09:20 Cyanocobalamin 1,000 Mcg Tablet PO 1,000 mcg DAILY RANDY Administration Dextrose 12.5 gm 03/27/24 11:53 Dextrose 50% 25 Gm/50 Ml Syringe IV PUSH PRN PRN Hypoglycemia Protocol Glucagon 1 mg 03/27/24 11:53 Glucagon For Inj 1 Mg Vial IM PRN PRN Hypoglycemia Protocol Glucose 15 gm 03/27/24 11:53 Glucose Oral Gel 15 Gm Of Glucse In 37.5 Gm Tube PO PRN PRN Hypoglycemia Protocol Hyoscyamine 0.125 mg 03/27/24 13:00
--- NOTE | 2024-04-03 13:45 | P.PNNP_ITS ---
Progress Note: A&P Assessment and Plan (1) SHEA (acute kidney injury): Code(s): N17.9 - Acute kidney failure, unspecified Status: Acute Assessment and Plan: * etiology not entirely clear * suspect due to relative hypotension?) * did have intra-operative hypotension briefly (80s systolic) * evaluation to date noted: * mild hydro by CT of abd/pelvis * however, renal ultrasound negative * urine electrolytes pre-renal * UA noted * urine eosinophils negative * CPK mildly elevated (but not enough to affect kidney function) * better urine output noted * HOWEVER, creatinine much worse today(!) * recheck UA and urine electrolytes * given poor oral intake, restart IVFs * Surgery considering parenteral nutrition * follow trend of repeat labs and UOP (2) Adynamic ileus: Code(s): K56.0 - Paralytic ileus Status: Acute Assessment and Plan: * persistent * General Surgery recommendations noted * continue supportive therapy (3) Prostate cancer: Code(s): C61 - Malignant neoplasm of prostate Status: Acute Assessment and Plan: * s/p robotic assisted prostatectomy with bilateral pelvic lymphadenectomy * Urology following (4) Hypertension: Code(s): I10 - Essential (primary) hypertension Status: Chronic Assessment and Plan: * well controlled * holding BRITTANY- I and BP medications given #1 * follow trend of hemodynamics (5) Diabetes: Code(s): E11.9 - Type 2 diabetes mellitus without complications Status: Inactive Assessment and Plan: * follow accu-cheks * on SSI Will continue to follow. Subjective Date/time seen: 04/03/24 13:45 Interval history: Follow-up for acute kidney injury/acute renal failure. Renal function/creatinine has worsened as noted by recent labs; starting to have worsening abdominal distension again in association with poor oral intake; Surgery consulted with recommendations noted; started back on IVFs. Exam Narrative: General: elderly but WD/WN male in NAD Heart: tachycardic, normal S1 and S2; no rub Lungs: coarse and decreased at bases Abdomen: mild distension noted; hypoactive bowel sounds Extremities: no cyanosis or clubbing; no edema Skin: no nodules Objective Data Vital Signs Vital Signs: Vital Signs Temp Pulse Resp BP Pulse Ox O2 Del Method O2 Flow Rate 04/03/24 13:00 97.7 F 105 H 20 105/69 97 08/08/24 09:20 94 Nasal Cannula 2 04/03/24 08:49 94 Nasal Cannula 2 04/03/24 06:00 97.7 F 108 H 22 H 118/65 97 04/03/24 03:00 100 95 04/02/24 19:50 98.5 F 108 H 22 H 135/73 93 Intake/Output Intake/Output: Intake & Output 03/31/24 04/01/24 04/02/24 04/03/24 23:59 23:59 23:59 23:59 Intake Total 304 679 8397 1358 Output Total 3150 2825 1000 Balance -2850 -1715 354 1358 Meds/Results Medications: Active Medications Generic Name Dose Route Start Last Admin Trade Name Freq PRN Reason Stop Dose Admin Acetaminophen 650 mg 03/28/24 13:09 Acetaminophen 325 Mg Tablet PO Q4H PRN Mild pain 1-3 Hydrocodone Bitart/Acetaminophen 1 tab
[2024-04-03 13:49] LABS: Partial Thromboplastin Time 28.2 Seconds (22.3-36.8)
[2024-04-03 14:00] VITALS: BP 105/69; PULSE 105; RESP 20; TEMP 36.5; O2SAT 97
[2024-04-03] MEDS: LIDOCAINE HCL 1% PF INJ 5 ML VIAL INFILTRATE (14:38)
[2024-04-03 14:52] LABS: Transferrin 129 mg/dL (206-381)
[2024-04-03] MEDS: FAT EMULSIONS IV 20% 250 ML 20.83 ML IVPB (15:21)
[2024-04-03] MEDS: AMINO ACIDS 5%/DEXTROSE 15% 2,000 ML with MULTIVITAMINS-12 INJ VIAL 1 2.5 ML, MULTIVITA... 40 ML IV CONT (15:22)
[2024-04-03] MEDS: LORazepam INJ (*CRX) 2 MG/ML VIAL 1 MG IV PUSH (16:40)
[2024-04-03 16:42] LABS: Glucose Point of Care 204 mg/dl (65-105)
[2024-04-03] MEDS: AMINO ACIDS 5%/D15W/E-LYTES/CA 2,000 ML with MULTIVITAMINS-12 INJ VIAL 1 2.5 ML, MULTIV... 40 ML IV CONT (17:44)
[2024-04-03] MEDS: ENOXAPARIN 30 MG/0.3 ML SYRINGE SUB-Q (18:02)
[2024-04-03 18:25] LABS: Anion Gap 14 mmol/L (4-12); Blood Urea Nitrogen 82 mg/dL (9-20); Calcium 8.1 mg/dL (8.4-10.2); Carbon Dioxide 23 mmol/L (22-30); Chloride 91 mmol/L (98-107); Estimated CRCL calculation 15 ml/min; Estimated Glomerular Filt Rate 9; Glucose 185 mg/dL (65-110); Potassium 3.9 mmol/L (3.4-5.0); Sodium 128 mmol/L (137-145)
--- NOTE | 2024-04-03 18:45 | PC.NURSE ---
On 04/03/24, the OUTPATIENT FACILITY PHYSICAL THERAPIST, Alyssa Solares, provided care and completed [facility] documentation on this patient. I have reviewed the OUTPATIENT FACILITY PHYSICAL THERAPIST's documentation and agree with the findings.
[2024-04-03 20:00] VITALS: BP 120/70; PULSE 107; RESP 20; TEMP 36.4; O2SAT 97
[2024-04-03 20:19] LABS: Glucose Point of Care 188 mg/dl (65-105)
[2024-04-03] MEDS: CENTRAL LINE FLUSH 10 ML IV PUSH (21:13)
[2024-04-03 23:22] LABS: Add Urine Microscopic? YES; Appearance Urine Cloudy (Clear); Bacteria Urine None Seen /hpf; Bilirubin Urine 2+ (Negative); Blood Urine 3+ (Negative); Color Urine Dark Yellow (Yellow); Glucose Urine UA 1+ mg/dL (Negative); Ketones Urine Negative (Negative); Leukocyte Esterase Ur 2+ LEU/UL (Negative); Nitrate Urine Negative (Negative); Non Pathogenic Casts 0-2; Protein Urine 4+ mg/dL (Negative); RBC Urine >100 /hpf (0-2); Specific Grav Ur 1.017 (1.001-1.035); Squamous Epithelial Cell Urine None Seen /hpf (Few); WBC Urine >100 /hpf (0-3)
[2024-04-03 23:56] LABS: Creatinine Urine 68.4 mg/dL
[2024-04-04] VITALS (9 sets, daily range): BP systolic 92–130; BP diastolic 49–78; PULSE 99–120; RESP 14–22; TEMP 36.1–36.8; O2SAT 94–98
[2024-04-04 00:44] LABS: Total Protein Urine Random > 600 mg/dL; Ur Ttl Prot Creatinine Ratio > 8.77 mg/mg (0-0.20)
--- NOTE | 2024-04-04 00:54 | PC.NURSE ---
Notified Dr Hinds earlier in this shift, due to pt popping up as a sepsis bulls eye on [employer]. Pt has elevated creatine level of 6. Pt has had a slight elevation of HR. No new orders at this time. Will continue to monitor for any changes.
[2024-04-04 01:04] LABS: Urea Random Urine 509 MG/DL
[2024-04-04 01:10] LABS: Sodium Urine Random 102 meq/L
[2024-04-04 01:21] LABS: Total Protein Urine Random > 600 mg/dL
[2024-04-04] MEDS: CENTRAL LINE FLUSH 10 ML IV PUSH ×2 (05:30→14:55)
[2024-04-04 06:36] LABS: Albumin Level 2.8 g/dL (3.5-5.1); Anion Gap 10 mmol/L (4-12); Blood Urea Nitrogen 75 mg/dL (9-20); Calcium 7.4 mg/dL (8.4-10.2); Carbon Dioxide 26 mmol/L (22-30); Chloride 95 mmol/L (98-107); Estimated CRCL calculation 21 ml/min; Estimated Glomerular Filt Rate 14; Glucose 179 mg/dL (65-110); Phosphorus 3.5 mg/dL (2.5-4.5); Potassium 3.3 mmol/L (3.4-5.0); Sodium 131 mmol/L (137-145)
[2024-04-04 06:56] LABS: Basophils Absolute Auto 0.1 K/mm3 (0.0-0.1); Basophils Percent Auto 0.5 % (0.2-1.2); Eosinophils Absolute Auto 0.3 K/mm3 (0-0.3); Eosinophils Percent Auto 2.6 % (0-4.4); Hematocrit 38.1 % (42.0-52.0); Hemoglobin 12.8 g/dL (14.0-18.0); Immature Granulocyte Absolute 0.76 K/mm3 (0.00-0.031); Immature Granulocyte Percent A 5.9 % (0-0.5); Lymphocytes Absolute Auto 0.72 K/mm3 (0.9-3.2); Lymphocytes Percent Auto 5.6 % (18.3-44.2); Mean Corpuscular HGB Conc 33.6 g/dl (32-36); Mean Corpuscular Hemoglobin 30.8 pg (26-34); Mean Corpuscular Volume 91.6 fl (80-100); Mean Platelet Volume 9.7 fl (7.4-10.4); Monocytes Absolute Auto 1.1 K/mm3 (0.1-0.6); Monocytes Percent Auto 8.6 % (2.6-8.5); Neutrophils Percent Auto 76.8 % (45.5-73.1); Platelet Count Result 430 k/mm3 (150-375); Red Blood Count 4.16 M/mm3 (4.6-6.20); Red Cell Distribution Width 14.2 % (11.5-14.5)
[2024-04-04 07:21] LABS: Glucose Point of Care 202 mg/dl (65-105)
--- NOTE | 2024-04-04 08:04 | WPDUROPN2 ---
Progress Note: A&P Assessment and Plan (1) Prostate cancer: Code(s): C61 - Malignant neoplasm of prostate Status: Acute (2) SHEA (acute kidney injury): Code(s): N17.9 - Acute kidney failure, unspecified Status: Acute (3) Adynamic ileus: Code(s): K56.0 - Paralytic ileus Status: Acute Assessment and Plan: Appreciate Bonnie Webb, SANDBLASTING SUPERVISOR and Dr. Finley regarding ileus and management of TPN. Abd. less distended and abd. films today improved (by my review) Serum creat. imporved this morning. Fluid support via TPN. Will start Ancef (renal dose) for possible UTI. Subjective Subjective Date/Time Seen: 04/04/24 08:04 Interval history: Fatigued, abd. less bloated and no n/v Review of Systems Cardiovascular: Cardiovascular: Denies chest pain, Denies lightheadedness, Denies palpitations and Denies dyspnea Respiratory: Respiratory: Denies dyspnea Gastrointestinal: Gastrointestinal: Denies diarrhea, Denies nausea (abd. less bloated ) and Denies vomiting Genitourinary: Genitourinary: Denies hematuria and Denies dysuria Endocrine: Endocrine: Denies palpitations Objective Data Vital Signs Vital Signs: Vital Signs - 24 hr 04/03/24 08:49 04/03/24 09:20 04/03/24 14:00 Temperature 97.7 F Pulse Rate 105 H Respiratory Rate 20 Blood Pressure 105/69 Pulse Oximetry 94 94 97 Oxygen Delivery Nasal Cannula Nasal Cannula Oxygen Flow Rate 2 2 Fraction of Inspired Oxygen 28 04/03/24 20:00 04/03/24 20:00 04/04/24 06:00 Temperature 97.5 F L 98.1 F Pulse Rate 107 H 110 H Respiratory Rate 20 22 H Blood Pressure 120/70 130/66 Pulse Oximetry 97 97 97 Oxygen Delivery Nasal Cannula Oxygen Flow Rate 2 Fraction of Inspired Oxygen Intake/Output Intake/Output: Intake & Output 04/01/24 04/02/24 04/03/24 04/04/24 23:59 23:59 23:59 23:59 Intake Total 360 1354 1358 240 Output Total 2825 1000 1000 2100 Balance -2465 354 358 -1860 Meds/Results Medications: Active Medications Generic Name Dose Route Start Last Admin Trade Name Freq PRN Reason Stop Dose Admin Acetaminophen 650 mg 03/28/24 13:09 Acetaminophen 325 Mg Tablet PO Q4H PRN Mild pain 1-3 Hydrocodone Bitart/Acetaminophen 1 tab 03/28/24 13:09 04/01/24 21:23 Hydrocodone/Acetaminophen (*Crx) 5-325 Mg Tablet PO 1 tab Q6H PRN Administration Pain Rated 4-6 Atorvastatin Calcium 40 mg 03/28/24 09:00 04/03/24 09:20 Atorvastatin 40 Mg Tablet PO 40 mg DAILY RANDY Administration Cyanocobalamin 1,000 mcg 03/28/24 09:00 04/03/24 09:20 Cyanocobalamin 1,000 Mcg Tablet PO 1,000 mcg DAILY RANDY Administration Dextrose 12.5 gm 03/27/24 11:53 Dextrose 50% 25 Gm/50 Ml Syringe IV PUSH PRN PRN Hypoglycemia Protocol Enoxaparin Sodium 30 mg 04/04/24 09:00 Enoxaparin 30 Mg/0.3 Ml Syringe SUB-Q DAILY RANDY Glucagon 1 mg 03/27/24 11:53 Glucagon For Inj 1 Mg Vial IM PRN PRN Hypoglycemia Protocol Glucose 15 gm 03/27/24 11:53 Glucose Oral Gel 15 Gm Of Glucse In 37.5 Gm Tube PO PRN PRN Hypoglycemia Protocol Hyoscyamine 0.125 mg 03/27/24 13:00 Hyoscyamine Sulfate 0.125 Mg Tablet SUBLINGUAL Q4H PRN Bladder Spasm Dextrose 1,000 mls @ 100 mls/hr 03/27/24 11:53 Dextrose 5% 1,000 Ml IVPB PRN PRN Hypoglycemia Protocol Sodium Chloride 1,000 mls @ 60 mls/hr 04/03/24 09:00 04/03/24 21:13 Normal Saline Iv IV CONT Not Given .[id number] RANDY Dextrose 1,000 mls @ 50 mls/hr 04/03/24 12:55 Dextrose 10% IV CONT .Q20H PRN if PN is interrupted Fat Emulsion Intravenous 250 mls @ 20.833 mls/hr 04/03/24 12:55 04/03/24 15:21 Lipids 20% IVPB 20.83 mls/hr Q24H RANDY Administration Multivitamins 2.5 ml/ 2,005 mls @ 40 mls/hr 04/03/24 16:15 04/03/24 17:44 Multivitamins 2.5 ml/ Amino IV CONT 40 mls/hr Acids/Electrolytes/Dextrose .Q24H RANDY Administra
--- NOTE | 2024-04-04 08:13 | P.PNNP_ITS ---
Progress Note: A&P Assessment and Plan (1) SHEA (acute kidney injury): Code(s): N17.9 - Acute kidney failure, unspecified Status: Acute Assessment and Plan: * etiology not entirely clear * suspect due to relative hypotension?) * did have intra-operative hypotension briefly (80s systolic) * there is a question of leakage of urine into the belly. Discussed with Dr. Contreras. * however CT of the abdomen does not show much peritoneal fluid. So I doubt this. it does not show hydronephrosis. A * evaluation to date noted: * urine electrolytes pre-renal * UA noted * urine eosinophils negative * CPK mildly elevated (but not enough to affect kidney function) * better urine output noted * creatinine is improved today. * Urine does show white cells. He has started ancef. * cxr shows possible pneumonia. he is a little sob. * will have hospitalists see to help with the lungs. * pt is getting TPN so doesn't need more fluids. he has slight edema but cxr does not show fluid so he will not need diuretics at this point. he may be thirds spacing. * follow trend of repeat labs and UOP (2) Adynamic ileus: Code(s): K56.0 - Paralytic ileus Status: Acute Assessment and Plan: * persistent * General Surgery recommendations noted * continue supportive therapy (3) Prostate cancer: Code(s): C61 - Malignant neoplasm of prostate Status: Acute Assessment and Plan: * s/p robotic assisted prostatectomy with bilateral pelvic lymphadenectomy * Urology following (4) Hypertension: Code(s): I10 - Essential (primary) hypertension Status: Chronic Assessment and Plan: * well controlled * holding BRITTANY- I and BP medications given #1 * follow trend of hemodynamics (5) Diabetes: Code(s): E11.9 - Type 2 diabetes mellitus without complications Status: Inactive Assessment and Plan: * follow accu-cheks * on SSI Will continue to follow. Subjective Date/time seen: 04/04/24 08:13 Interval history: patient is lying in bed. He was about to go to CT scan when I visited him. His NG tube is in place and attached to wall suction. Exam Narrative: General: elderly but WD/WN male in NAD Heart: tachycardic, normal S1 and S2; no rub Or gallop Lungs: coarse and decreased at bases Abdomen: mild distension noted; hypoactive bowel sounds . Mild discomfort. Extremities: no cyanosis or clubbing; no edema Skin: no nodules Objective Data Vital Signs Vital Signs: Vital Signs - 24 hr 04/03/24 08:49 04/03/24 09:20 04/03/24 14:00 Temperature 97.7 F Pulse Rate 105 H Respiratory Rate 20 Blood Pressure 105/69 Pulse Oximetry 94 94 97 Oxygen Delivery Nasal Cannula Nasal Cannula Oxygen Flow Rate 2 2 Fraction of Inspired Oxygen 28 04/03/24 20:00 04/03/24 20:00 04/04/24 06:00 Temperature 97.5 F L 98.1 F Pulse Rate 107 H 110 H Respiratory Rate 20 22 H Blood Pressure 120/70 130/66 Pulse Oximetry 97 97 97 Oxygen Delivery Nasal Cannula Oxygen Flow Rate 2 Fraction of Inspired Oxygen Intake/Output Intake/Output: Intake & Output 04/01/24 04/02/24 04/03/24
--- NOTE | 2024-04-04 08:13 | PM.PNNEP ---
Progress Note: A&P Assessment and Plan (1) SHEA (acute kidney injury): Code(s): N17.9 - Acute kidney failure, unspecified Status: Acute Assessment and Plan: etiology not entirely clear suspect due to relative hypotension?) did have intra-operative hypotension briefly (80s systolic) there is a question of leakage of urine into the belly. Discussed with Dr. Contreras. however CT of the abdomen does not show much peritoneal fluid. So I doubt this. it does not show hydronephrosis. A evaluation to date noted: urine electrolytes pre-renal UA noted urine eosinophils negative CPK mildly elevated (but not enough to affect kidney function) better urine output noted creatinine is improved today. Urine does show white cells. He has started ancef. cxr shows possible pneumonia. he is a little sob. will have hospitalists see to help with the lungs. pt is getting TPN so doesn't need more fluids. he has slight edema but cxr does not show fluid so he will not need diuretics at this point. he may be thirds spacing. follow trend of repeat labs and UOP (2) Adynamic ileus: Code(s): K56.0 - Paralytic ileus Status: Acute Assessment and Plan: persistent General Surgery recommendations noted continue supportive therapy (3) Prostate cancer: Code(s): C61 - Malignant neoplasm of prostate Status: Acute Assessment and Plan: s/p robotic assisted prostatectomy with bilateral pelvic lymphadenectomy Urology following (4) Hypertension: Code(s): I10 - Essential (primary) hypertension Status: Chronic Assessment and Plan: well controlled holding BRITTANY- I and BP medications given #1 follow trend of hemodynamics (5) Diabetes: Code(s): E11.9 - Type 2 diabetes mellitus without complications Status: Inactive Assessment and Plan: follow accu-cheks on SSI Will continue to follow. Subjective Date/time seen: 04/04/24 08:13 Interval history: patient is lying in bed. He was about to go to CT scan when I visited him. His NG tube is in place and attached to wall suction. Exam Narrative: General: elderly but WD/WN male in NAD Heart: tachycardic, normal S1 and S2; no rub Or gallop Lungs: coarse and decreased at bases Abdomen: mild distension noted; hypoactive bowel sounds . Mild discomfort. Extremities: no cyanosis or clubbing; no edema Skin: no nodules Objective Data Vital Signs Vital Signs: Vital Signs - 24 hr 04/03/24 08:49 04/03/24 09:20 04/03/24 14:00 Temperature 97.7 F Pulse Rate 105 H Respiratory Rate 20 Blood Pressure 105/69 Pulse Oximetry 94 94 97 Oxygen Delivery Nasal Cannula Nasal Cannula Oxygen Flow Rate 2 2 Fraction of Inspired Oxygen 28 04/03/24 20:00 04/03/24 20:00 04/04/24 06:00 Temperature 97.5 F L 98.1 F Pulse Rate 107 H 110 H Respiratory Rate 20 22 H Blood Pressure 120/70 130/66 Pulse Oximetry 97 97 97 Oxygen Delivery Nasal Cannula Oxygen Flow Rate 2 Fraction of Inspired Oxygen Intake/Output Intake/Output: Intake & Output 04/01/24 04/02/24 04/03/24 04/04/24 23:59 23:59 23:59 23:59 Intake Total 360 1354 1358 240 Output Total 2825 1000 1000 2100 Balance -2465 354 358 1860 Meds/Results Medications: Active Medications Generic Name Dose Route Start Last Admin Trade Name Freq PRN Reason Stop Dose Admin Acetaminophen 650 mg 03/28/24 13:09 Acetaminophen 325 Mg Tablet PO Q4H PRN Mild pain 1-3 Hydrocodone Bitart/Acetaminophen 1 tab 03/28/24 13:09 04/01/24 21:23 Hydrocodone/Acetaminophen (*Crx) 5-325 Mg Tablet PO 1 tab Q6H PRN Administration Pain Rated 4-6 Atorvastatin Calcium 40 mg 03/28/24 09:00 04/03/24 09:20 Atorvastatin 40 Mg Tablet PO 40 mg DAILY RANDY Administration Cyanocobalamin 1,000 mcg 03/28/24 09:00 04/03/24 09:20 Cyanocobalamin 1,000 Mcg Tablet PO
[2024-04-04] MEDS: INSULIN ASPART (*BKC) 100 UNITS/ML SUB-Q ×2 (09:21→18:47)
[2024-04-04] MEDS: ENOXAPARIN 30 MG/0.3 ML SYRINGE SUB-Q (09:21)
[2024-04-04] MEDS: ISOSORBIDE MONONITRATE 30 MG TAB.ER.24H PO (09:21)
[2024-04-04] MEDS: CYANOCOBALAMIN 1,000 MCG TABLET 1000 MCG PO (09:21)
[2024-04-04] MEDS: ATORVASTATIN 40 MG TABLET PO (09:21)
[2024-04-04 09:27] LABS: Alanine Aminotransferase 24 U/L (6-50); Albumin Level 2.8 g/dL (3.5-5.1); Alkaline Phosphatase 203 U/L (38-126); Aspartate Amino Transferase 58 U/L (17-59); Bilirubin,Total 3.4 mg/dL (0.2-1.3); Triglycerides 115 mg/dL (<150)
--- NOTE | 2024-04-04 09:29 | PCNFU ---
Nutrition Follow-Up Complete: Inadequate energy intake related to inability to meet estimated needs PO as evidenced by need for partial PN Goal: Meet estimated nutrition needs - Meeting about 50% EER with TPN Pt current nutrition is TPN Clinmix 5/15 plain, @ 40 ml/h: 1182 kcal, 48 g protein, 1210 ml total volume. Nutrition recommendation: Continue TPN at current rate per MD. Discontinue TPN when pt able to meet about 50% estimated needs with PO diet. Replenish electrolytes rather than switch to E formula Last recorded weight is 135.9 kg. Bowel Motility: Last BM 04/03/24 Labs Reviewed: Hgb 12.8, Hct 38.1, Alb 2.8, K+ 3.3, BUN 75, Cre 4.3, Glu 202 Meds Noted: Lovenox, Zofran, Novolog Skin: No skin issues Additional Notes: Cre down from 5.8 yesterday. Potassium dropped but still recommending plain formula because of high mag. Agree with current orders. Monitoring labs, weights, intakes, TPN tolerance, plan of care Follow up Tuesdays and Fridays
--- NOTE | 2024-04-04 10:13 | PM.PNGS ---
Progress Note: A&P Assessment and Plan (1) Adynamic ileus: Code(s): K56.0 - Paralytic ileus Status: Acute Assessment and Plan: slowly improving, cont NG decompression, bowel rest, TPN, encourage OOB/IS Subjective Subjective Date/Time Seen: 04/04/24 10:13 Interval history: feels a little better today, no N/V, +flatus Review of Systems Review of Systems: All systems reviewed & are unremarkable except as noted in HPI and below Exam Const: General: cooperative, no acute distress, ill appearing and uncomfortable Resp: Auscultation: diminished lung sounds Cardio: Rate: regular rate Rhythm: regular rhythm GI: Inspection: normal to inspection, distended and incision GI Palp: No abdominal tenderness, Yes Soft to palpation, No Tenderness to palpation present (GI), No Guarding due to palpation present (GI) and No Rigid due to palpation Objective Data Vital Signs Vital Signs: Vital Signs - 24 hr 04/03/24 14:00 04/03/24 20:00 04/03/24 20:00 Temperature 36.5 C 36.4 C L Pulse Rate 105 H 107 H Respiratory Rate 20 20 Blood Pressure 105/69 120/70 Pulse Oximetry 97 97 97 Oxygen Delivery Nasal Cannula Oxygen Flow Rate 2 04/04/24 06:00 Temperature 36.7 C Pulse Rate 110 H Respiratory Rate 22 H Blood Pressure 130/66 Pulse Oximetry 97 Oxygen Delivery Oxygen Flow Rate Intake/Output Intake/Output: Intake & Output 04/01/24 04/02/24 04/03/24 04/04/24 23:59 23:59 23:59 23:59 Intake Total 360 1354 1358 490 Output Total 2825 1000 1000 2100 Balance -2465 354 358 -1610 Meds/Results Medications: Active Medications Generic Name Dose Route Start Last Admin Trade Name Freq PRN Reason Stop Dose Admin Acetaminophen 650 mg 03/28/24 13:09 Acetaminophen 325 Mg Tablet PO Q4H PRN Mild pain 1-3 Hydrocodone Bitart/Acetaminophen 1 tab 03/28/24 13:09 04/01/24 21:23 Hydrocodone/Acetaminophen (*Crx) 5-325 Mg Tablet PO 1 tab Q6H PRN Administration Pain Rated 4-6 Atorvastatin Calcium 40 mg 03/28/24 09:00 04/04/24 09:21 Atorvastatin 40 Mg Tablet PO 40 mg DAILY RANDY Administration Cyanocobalamin 1,000 mcg 03/28/24 09:00 04/04/24 09:21 Cyanocobalamin 1,000 Mcg Tablet PO 1,000 mcg DAILY RANDY Administration Dextrose 12.5 gm 03/27/24 11:53 Dextrose 50% 25 Gm/50 Ml Syringe IV PUSH PRN PRN Hypoglycemia Protocol Enoxaparin Sodium 30 mg 04/04/24 09:00 04/04/24 09:21 Enoxaparin 30 Mg/0.3 Ml Syringe SUB-Q 30 mg DAILY RANDY Administration Glucagon 1 mg 03/27/24 11:53 Glucagon For Inj 1 Mg Vial IM PRN PRN Hypoglycemia Protocol Glucose 15 gm 03/27/24 11:53 Glucose Oral Gel 15 Gm Of Glucse In 37.5 Gm Tube PO PRN PRN Hypoglycemia Protocol Hyoscyamine 0.125 mg 03/27/24 13:00 Hyoscyamine Sulfate 0.125 Mg Tablet SUBLINGUAL Q4H PRN Bladder Spasm Dextrose 1,000 mls @ 100 mls/hr 03/27/24 11:53 Dextrose 5% 1,000 Ml IVPB PRN PRN Hypoglycemia Protocol Sodium Chloride 1,000 mls @ 60 mls/hr 04/03/24 09:00 04/04/24 09:33 Normal Saline Iv IV CONT 60 mls/hr .[id number] RANDY Infusion Dextrose 1,000 mls @ 50 mls/hr 04/03/24 12:55 Dextrose 10% IV CONT .Q20H PRN if PN is interrupted Fat Emulsion Intravenous 250 mls @ 20.833 mls/hr 04/03/24 12:55 04/04/24 07:00 Lipids 20% IVPB Infused Q24H RANDY Infusion Multivitamins 2.5 ml/ 2,005 mls @ 40 mls/hr 04/03/24 16:15 04/03/24 17:44 Multivitamins 2.5 ml/ Amino IV CONT 40 mls/hr Acids/Electrolytes/Dextrose .Q24H RANDY Administration Protocol Cefazolin Sodium 500 mg/ 50 mls @ 100 mls/hr 04/04/24 10:00 Dextrose IVPB Q24H RANDY Insulin Aspart 2 - 5 units 03/27/24 12:00 04/04/24 09:21 Insulin Aspart (*Bkc) 100 Units/Ml SUB-Q 2 units TIDWM RANDY Administration Protocol Isosorbide Mononitrate 30 mg 03/28/24 09:00 04/04/24 09:21 Isosorbide Mononitr
[2024-04-04] MEDS: ceFAZolin 500 MG in DEXTROSE 5% IN WATER 50 ML 100 MG IVPB (10:49)
[2024-04-04] MEDS: ONDANSETRON INJ 4 MG/2 ML VIAL IV PUSH (11:03)
[2024-04-04 11:06] LABS: INR 1.1; Prothrombin Time 14.9 Seconds (11.1-14.7)
[2024-04-04 11:07] LABS: Partial Thromboplastin Time 32.5 Seconds (22.3-36.8)
[2024-04-04 11:32] LABS: Glucose Point of Care 200 mg/dl (65-105)
--- NOTE | 2024-04-04 13:09 | PM.IMCN ---
Assessment and Plan Assessment and plan (1) Pneumonia: Qualifiers: Laterality: bilateral Lung location: lower lobe of lung Pneumonia type: due to unspecified organism Qualified Code(s): J18.9 - Pneumonia, unspecified organism Code(s): J18.9 - Pneumonia, unspecified organism Status: Acute Assessment and Plan: - CXR: patchy bilateral airspace disease compatible with pneumonia - start HAP coverage, discussed case with ID pharmacist given significant SHEA and concurrent UTI. Based off discussion, Ancef discontinued. Patient started on cefepime and linezolid. If MRSA screening is negative, linezolid may be discontinued. - MRSA PCR and sputum culture if obtainable - new supplemental O2 requirement starting on 04/01, wean as tolerated - supportive care (2) SHEA (acute kidney injury): Code(s): N17.9 - Acute kidney failure, unspecified Status: Acute Assessment and Plan: - nephrology on case - suspected to be secondary to relative hypotension intraoperatively, however etiology remains unclear - current plan to recheck UA and urine electrolytes, fluid support via TPN. - trend renal function, monitor urine output, and monitor I&Os (3) Adynamic ileus: Code(s): K56.0 - Paralytic ileus Status: Acute Assessment and Plan: - developed adynamic ileus postop from robotic prostatectomy done on 03/27 - general surgery consulted, recommended PICC line and TPN initiation - per chart review, abdominal distension decreased and films improved post-TPN initiation - monitor I&Os (4) Prostate cancer: Code(s): C61 - Malignant neoplasm of prostate Status: Acute Assessment and Plan: - robotic prostatectomy done on 03/27 - urology following - plan for cystogram and retroperitoneal drain today (5) Type 2 diabetes mellitus with hyperglycemia: Qualifiers: Diabetes mellitus jail insulin use: without long term care phlebotomist use Qualified Code(s): E11.65 - Type 2 diabetes mellitus with hyperglycemia Code(s): E11.65 - Type 2 diabetes mellitus with hyperglycemia Status: Acute Assessment and Plan: - hypoglycemia protocol - POC blood glucose ACHS - home medication: Trulicity, metformin, Jardiance held - correct regimen ordered - low dose TIDWM (6) FAHAD on CPAP: Code(s): G47.33 - Obstructive sleep apnea (adult) (pediatric); Z99.89 - Dependence on other enabling machines and devices Status: Acute Assessment and Plan: - continue home CPAP (7) Hypertension: Code(s): I10 - Essential (primary) hypertension Status: Chronic Assessment and Plan: - chronic, currently 130/66 - home medications: Lisinopril 10 mg held given current SHEA - monitor Plan Patient is s/p robotic prostatectomy for prostate cancer. Subsequently developed SHEA and adynamic ileus. Nephrology and General surgery consulted. Patient now on TPN/NG tube placed with improvement in abdominal distension. Plan for cystogram and retroperitoneal drain placement today. New supplemental O2 requirement over the past few days, CXR concerning for pneumonia. Placed on Ancef today for possible UTI. After discussion with ID pharmacist, opted to discontinue Ancef and start cefepime and linezolid. If MRSA is negative, low nasal it may be discontinued. Diet: NPO GI Prophylaxis: Not currently indicated DVT Prophylaxis: Lovenox Lines: Peripheral Code Status: Full code HPI Date of Consult Consult date: 04/04/24 Requesting Physician: Terrance Contreras MD Primary Care Provider: Will Daniel MD Consult Narrative Reason for consult: Medical management, pneumonia Narrative: Edson Naylor is a 73 year old male who originally presented to [place] on 03/27/24 for a robotic assisted radical prostatectomy and bilateral pelvic lymphadenectomy. Surgical management did not present any immediate complications. Developed pos
[2024-04-04] MEDS: SODIUM CHLORIDE 0.9% IV 1,000 ML 60 ML IV CONT (15:04)
[2024-04-04] MEDS: CEFEPIME 1 GM/NS 50 ML 1 GM/50 ML BAG IVPB (15:05)
[2024-04-04] MEDS: LINEZOLID 600 MG/300 ML 600 MG/300 ML SOLN 300 MG IVPB (16:12)
[2024-04-04] MEDS: FAT EMULSIONS IV 20% 250 ML 20.83 ML IVPB (16:22)
[2024-04-04] MEDS: AMINO ACIDS 5%/D15W/E-LYTES/CA 2,000 ML with MULTIVITAMINS-12 INJ VIAL 1 2.5 ML, MULTIV... 40 ML IV CONT (16:25)
[2024-04-04 16:27] LABS: MRSA (PCR) NOT DETECTED (NOT DETECTE)
[2024-04-04 16:50] LABS: Glucose Point of Care 196 mg/dl (65-105)
[2024-04-04 18:26] LABS: Glucose Point of Care 211 mg/dl (65-105)
[2024-04-04] MEDS: HYDROmorphone HCL INJ (*CRX) 1 MG/ML SYR 0.5 MG IV PUSH (20:28)
[2024-04-04 23:50] LABS: Glucose Point of Care 188 mg/dl (65-105)
[2024-04-05] MEDS: HYDROmorphone HCL INJ (*CRX) 1 MG/ML SYR 0.5 MG IV PUSH ×2 (00:10→05:05)
[2024-04-05] MEDS: CEFEPIME 1 GM/NS 50 ML 1 GM/50 ML BAG IVPB ×3 (00:11→23:19)
[2024-04-05] MEDS: CENTRAL LINE FLUSH 10 ML IV PUSH ×4 (00:11→23:19)
[2024-04-05] MEDS: LINEZOLID 600 MG/300 ML 600 MG/300 ML SOLN 300 MG IVPB ×3 (02:11→23:20)
[2024-04-05 05:28] LABS: Glucose Point of Care 211 mg/dl (65-105)
[2024-04-05 05:42] VITALS: BP 108/58; PULSE 108; RESP 16; TEMP 36.1; O2SAT 98
[2024-04-05 05:59] LABS: Hematocrit 41.6 % (42.0-52.0); Hemoglobin 13.8 g/dL (14.0-18.0); Mean Corpuscular HGB Conc 33.2 g/dl (32-36); Mean Corpuscular Hemoglobin 31.4 pg (26-34); Mean Corpuscular Volume 94.5 fl (80-100); Mean Platelet Volume 9.4 fl (7.4-10.4); Platelet Count Result 426 k/mm3 (150-375); Red Cell Distribution Width 14.2 % (11.5-14.5)
[2024-04-05 06:15] LABS: Alanine Aminotransferase 23 U/L (6-50); Alkaline Phosphatase 209 U/L (38-126); Anion Gap 7 mmol/L (4-12); Aspartate Amino Transferase 63 U/L (17-59); Bilirubin,Total 3.1 mg/dL (0.2-1.3); Blood Urea Nitrogen 70 mg/dL (9-20); Calcium 7.6 mg/dL (8.4-10.2); Carbon Dioxide 27 mmol/L (22-30); Chloride 93 mmol/L (98-107); Estimated CRCL calculation 30 ml/min; Estimated Glomerular Filt Rate 21; Glucose 211 mg/dL (65-110); Potassium 4.1 mmol/L (3.4-5.0); Sodium 127 mmol/L (137-145)
--- NOTE | 2024-04-05 07:42 | WPDUROPN2 ---
Progress Note: A&P Assessment and Plan (1) SHEA (acute kidney injury): Code(s): N17.9 - Acute kidney failure, unspecified Status: Acute (2) Prostate cancer: Code(s): C61 - Malignant neoplasm of prostate Status: Acute (3) Adynamic ileus: Code(s): K56.0 - Paralytic ileus Status: Acute Assessment and Plan: Repeat CT-abd/pelvis showed moderate increase in abdominal fluid. Drain placement shows fluid, at least in part, urine (creat. 13) Cystogram: urine leak at bladder neck -> not unusual following radical prostatectomy and should heal with ongoing catheter drainage. I suspect the urinary ascites was contributing significantly to SHEA and adynamic ileus. Renal function much better today. GI mgmt. per general surgery. Subjective Subjective Date/Time Seen: 04/05/24 07:42 Interval history: Subjectively better following drainage abdominal fluid Review of Systems Cardiovascular: Cardiovascular: Denies chest pain, Denies lightheadedness, Denies palpitations and Denies dyspnea Respiratory: Respiratory: Denies dyspnea Gastrointestinal: Gastrointestinal: Denies diarrhea, Denies nausea and Denies vomiting Genitourinary: Genitourinary: Denies hematuria and Denies dysuria Endocrine: Endocrine: Denies palpitations Exam Const: General: no acute distress Resp: Effort & Inspection: normal respiratory effort GI: Inspection: non-distended GI Palp: No abdominal tenderness and No Guarding due to palpation present (GI) Auscultation: normal bowel sounds Objective Data Vital Signs Vital Signs: Vital Signs - 24 hr 04/04/24 08:15 04/04/24 14:00 04/04/24 14:40 Temperature 98.2 F 97.1 F L Pulse Rate 99 107 H Respiratory Rate 18 22 H Blood Pressure 107/66 123/73 Pulse Oximetry 97 98 94 Oxygen Delivery Nasal Cannula Oxygen Flow Rate 2 Fraction of Inspired Oxygen 04/04/24 13:19 04/04/24 18:26 04/04/24 21:19 Temperature 98.2 F 98.1 F Pulse Rate 102 H 120 H Respiratory Rate 20 14 Blood Pressure 126/78 118/58 L 92/49 L Pulse Oximetry 95 94 Oxygen Delivery Oxygen Flow Rate Fraction of Inspired Oxygen 04/04/24 20:00 04/04/24 22:30 04/05/24 05:42 Temperature 97.0 F L 96.9 F L Pulse Rate 120 H 104 H 108 H Respiratory Rate 14 19 16 Blood Pressure 120/59 L 108/58 L Pulse Oximetry 94 95 98 Oxygen Delivery Nasal Cannula Oxygen Flow Rate 2 Fraction of Inspired Oxygen 28 Intake/Output Intake/Output: Intake & Output 04/02/24 04/03/24 04/04/24 04/05/24 23:59 23:59 23:59 23:59 Intake Total 1354 1358 2946.7 350 Output Total 1000 1000 7575 900 Balance 354 358 -4628.3 -550 Meds/Results Medications: Active Medications Generic Name Dose Route Start Last Admin Trade Name Freq PRN Reason Stop Dose Admin Acetaminophen 650 mg 03/28/24 13:09 Acetaminophen 325 Mg Tablet PO Q4H PRN Mild pain 1-3 Hydrocodone Bitart/Acetaminophen 1 tab 03/28/24 13:09 04/01/24 21:23 Hydrocodone/Acetaminophen (*Crx) 5-325 Mg Tablet PO 1 tab Q6H PRN Administration Pain Rated 4-6 Atorvastatin Calcium 40 mg 03/28/24 09:00 04/04/24 09:21 Atorvastatin 40 Mg Tablet PO 40 mg DAILY RANDY Administration Cyanocobalamin 1,000 mcg 03/28/24 09:00 04/04/24 09:21 Cyanocobalamin 1,000 Mcg Tablet PO 1,000 mcg DAILY RANDY Administration Dextrose 12.5 gm 03/27/24 11:53 Dextrose 50% 25 Gm/50 Ml Syringe IV PUSH PRN PRN Hypoglycemia Protocol Enoxaparin Sodium 30 mg 04/04/24 09:00 04/04/24 09:21 Enoxaparin 30 Mg/0.3 Ml Syringe SUB-Q 30 mg DAILY RANDY Administration Glucagon 1 mg 03/27/24 11:53 Glucagon For Inj 1 Mg Vial IM PRN PRN Hypoglycemia Protocol Glucose 15 gm 03/27/24 11:53 Glucose Oral Gel 15 Gm Of Glucse In 37.5 Gm Tube PO PRN PRN Hypoglycemia Protocol Hydromorphone HCl 0.25 mg 04/04/24 13:52 Hydromorphone Hcl Inj (*Crx) 1 Mg/Ml Syr
[2024-04-05 08:00] VITALS: PULSE 108; RESP 16; O2SAT 94
[2024-04-05 08:13] VITALS: O2SAT 92
--- NOTE | 2024-04-05 08:54 | PM.PNGS ---
Progress Note: A&P Assessment and Plan (1) Adynamic ileus: Code(s): K56.0 - Paralytic ileus Status: Acute Assessment and Plan: improving, will clamp NG and hopefully remove later today, start clears once NG out, dc TPN, encourage OOB/IS (2) SHEA (acute kidney injury): Code(s): N17.9 - Acute kidney failure, unspecified Status: Acute Assessment and Plan: markedly improved, cont to follow closely (3) Prostate cancer: Code(s): C61 - Malignant neoplasm of prostate Status: Acute Assessment and Plan: cont routine postop care/drain per urology Subjective Subjective Date/Time Seen: 04/05/24 08:54 Interval history: feels better today, +bowel fxn Review of Systems Review of Systems: All systems reviewed & are unremarkable except as noted in HPI and below Exam Const: General: cooperative, comfortable and no acute distress Resp: Auscultation: diminished lung sounds Cardio: Rate: regular rate Rhythm: regular rhythm GI: Inspection: normal to inspection and distended GI Palp: Yes abdominal tenderness, Yes Soft to palpation, Yes Tenderness to palpation present (GI), No Guarding due to palpation present (GI) and No Rigid due to palpation Objective Data Vital Signs Vital Signs: Vital Signs - 24 hr 04/04/24 14:00 04/04/24 14:40 04/04/24 13:19 Temperature 36.8 C 36.2 C L Pulse Rate 99 107 H Respiratory Rate 18 22 H Blood Pressure 107/66 123/73 126/78 Pulse Oximetry 98 94 Oxygen Delivery Oxygen Flow Rate Fraction of Inspired Oxygen 04/04/24 18:26 04/04/24 21:19 04/04/24 20:00 Temperature 36.8 C 36.7 C Pulse Rate 102 H 120 H 120 H Respiratory Rate 20 14 14 Blood Pressure 118/58 L 92/49 L Pulse Oximetry 95 94 94 Oxygen Delivery Nasal Cannula Oxygen Flow Rate 2 Fraction of Inspired Oxygen 28 04/04/24 22:30 04/05/24 05:42 04/05/24 08:13 Temperature 36.1 C L 36.1 C L Pulse Rate 104 H 108 H Respiratory Rate 19 16 Blood Pressure 120/59 L 108/58 L Pulse Oximetry 95 98 92 Oxygen Delivery Room Air Oxygen Flow Rate Fraction of Inspired Oxygen 21 Intake/Output Intake/Output: Intake & Output 04/02/24 04/03/24 04/04/24 04/05/24 23:59 23:59 23:59 23:59 Intake Total 1354 1358 2946.7 350 Output Total 1000 1000 7575 900 Balance 354 358 -4628.3 -550 Meds/Results Medications: Active Medications Generic Name Dose Route Start Last Admin Trade Name Freq PRN Reason Stop Dose Admin Acetaminophen 650 mg 03/28/24 13:09 Acetaminophen 325 Mg Tablet PO Q4H PRN Mild pain 1-3 Hydrocodone Bitart/Acetaminophen 1 tab 03/28/24 13:09 04/01/24 21:23 Hydrocodone/Acetaminophen (*Crx) 5-325 Mg Tablet PO 1 tab Q6H PRN Administration Pain Rated 4-6 Atorvastatin Calcium 40 mg 03/28/24 09:00 04/04/24 09:21 Atorvastatin 40 Mg Tablet PO 40 mg DAILY RANDY Administration Cyanocobalamin 1,000 mcg 03/28/24 09:00 04/04/24 09:21 Cyanocobalamin 1,000 Mcg Tablet PO 1,000 mcg DAILY RANDY Administration Dextrose 12.5 gm 03/27/24 11:53 Dextrose 50% 25 Gm/50 Ml Syringe IV PUSH PRN PRN Hypoglycemia Protocol Enoxaparin Sodium 30 mg 04/04/24 09:00 04/04/24 09:21 Enoxaparin 30 Mg/0.3 Ml Syringe SUB-Q 30 mg DAILY RANDY Administration Glucagon 1 mg 03/27/24 11:53 Glucagon For Inj 1 Mg Vial IM PRN PRN Hypoglycemia Protocol Glucose 15 gm 03/27/24 11:53 Glucose Oral Gel 15 Gm Of Glucse In 37.5 Gm Tube PO PRN PRN Hypoglycemia Protocol Hydromorphone HCl 0.25 mg 04/04/24 13:52 Hydromorphone Hcl Inj (*Crx) 1 Mg/Ml Syr IV PUSH Q3H PRN Pain Rated 4-6 Hydromorphone HCl 0.5 mg 04/04/24 13:52 04/05/24 05:05 Hydromorphone Hcl Inj (*Crx) 1 Mg/Ml Syr IV PUSH 0.5 mg Q3H PRN Administration Pain Rated 7-10 Hyoscyamine 0.125 mg 03/27/24 13:00 Hyoscyamine Sulfate 0.125 Mg Tablet SUBLINGUAL Q4H PRN
--- NOTE | 2024-04-05 09:05 | P.PNNP_ITS ---
Progress Note: A&P Assessment and Plan (1) SHEA (acute kidney injury): Code(s): N17.9 - Acute kidney failure, unspecified Status: Acute Assessment and Plan: * etiology not entirely clear * suspect due to relative hypotension?) * did have intra-operative hypotension briefly (80s systolic) * there is a question of leakage of urine into the belly. Discussed with Dr. Contreras. * however CT of the abdomen does not show much peritoneal fluid. So I doubt this. it does not show hydronephrosis. A * evaluation to date noted: * urine electrolytes pre-renal * UA noted * urine eosinophils negative * CPK mildly elevated (but not enough to affect kidney function) * Drain placed into fluid pocket in the peritoneal cavity. * The fluid obtained showed a creatinine value of 13. (this was labeled as urine but actually was FER drainage) * Discussed with Dr. Johnston. It is likely the has a transient leak in this anastomosis of the ureter which will heal itself. * creatinine is improved today again. * Urine does show white cells. Urine culture was negative. * cxr shows possible pneumonia. He was short of breath yesterday but is better today. He is getting cefepime * Hospitalists on board. * pt is getting TPN * Will reassess tomorrow (2) Adynamic ileus: Code(s): K56.0 - Paralytic ileus Status: Acute Assessment and Plan: * Bowel sounds a little more active and he had a bowel movement yesterday. * General Surgery following * continue supportive therapy (3) Prostate cancer: Code(s): C61 - Malignant neoplasm of prostate Status: Acute Assessment and Plan: * s/p robotic assisted prostatectomy with bilateral pelvic lymphadenectomy * Urology following (4) Hypertension: Code(s): I10 - Essential (primary) hypertension Status: Chronic Assessment and Plan: * well controlled * Blood pressure ranging from 92-123. 108/58 this morning (5) Diabetes: Code(s): E11.9 - Type 2 diabetes mellitus without complications Status: Inactive Assessment and Plan: * follow accu-cheks * on SSI Subjective Date/time seen: 04/05/24 09:05 Interval history: Patient feels better today. He had a small bowel movement yesterday. He is passing a little bit of gas Exam Narrative: General: elderly but WD/WN male in NAD Heart: tachycardic, normal S1 and S2; no rub or gallop Lungs: coarse and decreased at bases Abdomen: mild distension. Her bowel sounds are hypoactive but seem a little bit better than yesterday. Extremities:no edema Skin: no nodules or rash Objective Data Vital Signs Vital Signs: Vital Signs - 24 hr 04/04/24 14:00 04/04/24 14:40 04/04/24 13:19 Temperature 98.2 F 97.1 F L Pulse Rate 99 107 H Respiratory Rate 18 22 H Blood Pressure 107/66 123/73 126/78 Pulse Oximetry 98 94 Oxygen Delivery Oxygen Flow Rate Fraction of Inspired Oxygen 04/04/24 18:26 04/04/24 21:19 04/04/24 20:00 Temperature 98.2 F 98.1 F Pulse Rate 102 H 120 H 120 H Respiratory Rate 20 14 14 Blood Pressure 118/58 L 92/49 L Pulse Oximetry 95 94 94 Oxygen Delivery Nasal Cannula Oxygen Flow Rate 2 Fraction of Inspired Oxygen 28
--- NOTE | 2024-04-05 09:05 | PM.PNNEP ---
Progress Note: A&P Assessment and Plan (1) SHEA (acute kidney injury): Code(s): N17.9 - Acute kidney failure, unspecified Status: Acute Assessment and Plan: etiology not entirely clear suspect due to relative hypotension?) did have intra-operative hypotension briefly (80s systolic) there is a question of leakage of urine into the belly. Discussed with Dr. Contreras. however CT of the abdomen does not show much peritoneal fluid. So I doubt this. it does not show hydronephrosis. A evaluation to date noted: urine electrolytes pre-renal UA noted urine eosinophils negative CPK mildly elevated (but not enough to affect kidney function) Drain placed into fluid pocket in the peritoneal cavity. The fluid obtained showed a creatinine value of 13. (this was labeled as urine but actually was FER drainage) Discussed with Dr. Johnston. It is likely the has a transient leak in this anastomosis of the ureter which will heal itself. creatinine is improved today again. Urine does show white cells. Urine culture was negative. cxr shows possible pneumonia. He was short of breath yesterday but is better today. He is getting cefepime Hospitalists on board. pt is getting TPN Will reassess tomorrow (2) Adynamic ileus: Code(s): K56.0 - Paralytic ileus Status: Acute Assessment and Plan: Bowel sounds a little more active and he had a bowel movement yesterday. General Surgery following continue supportive therapy (3) Prostate cancer: Code(s): C61 - Malignant neoplasm of prostate Status: Acute Assessment and Plan: s/p robotic assisted prostatectomy with bilateral pelvic lymphadenectomy Urology following (4) Hypertension: Code(s): I10 - Essential (primary) hypertension Status: Chronic Assessment and Plan: well controlled Blood pressure ranging from 92-123. 108/58 this morning (5) Diabetes: Code(s): E11.9 - Type 2 diabetes mellitus without complications Status: Inactive Assessment and Plan: follow accu-cheks on SSI Subjective Date/time seen: 04/05/24 09:05 Interval history: Patient feels better today. He had a small bowel movement yesterday. He is passing a little bit of gas Exam Narrative: General: elderly but WD/WN male in NAD Heart: tachycardic, normal S1 and S2; no rub or gallop Lungs: coarse and decreased at bases Abdomen: mild distension. Her bowel sounds are hypoactive but seem a little bit better than yesterday. Extremities:no edema Skin: no nodules or rash Objective Data Vital Signs Vital Signs: Vital Signs - 24 hr 04/04/24 14:00 04/04/24 14:40 04/04/24 13:19 Temperature 98.2 F 97.1 F L Pulse Rate 99 107 H Respiratory Rate 18 22 H Blood Pressure 107/66 123/73 126/78 Pulse Oximetry 98 94 Oxygen Delivery Oxygen Flow Rate Fraction of Inspired Oxygen 04/04/24 18:26 04/04/24 21:19 04/04/24 20:00 Temperature 98.2 F 98.1 F Pulse Rate 102 H 120 H 120 H Respiratory Rate 20 14 14 Blood Pressure 118/58 L 92/49 L Pulse Oximetry 95 94 94 Oxygen Delivery Nasal Cannula Oxygen Flow Rate 2 Fraction of Inspired Oxygen 28 04/04/24 22:30 04/05/24 05:42 04/05/24 08:13 Temperature 97.0 F L 96.9 F L Pulse Rate 104 H 108 H Respiratory Rate 19 16 Blood Pressure 120/59 L 108/58 L Pulse Oximetry 95 98 92 Oxygen Delivery Room Air Oxygen Flow Rate Fraction of Inspired Oxygen 21 Intake/Output Intake/Output: Intake & Output 04/02/24 04/03/24 04/04/24 04/05/24 23:59 23:59 23:59 23:59 Intake Total 1354 1358 2946.7 350 Output Total 1000 1000 7575 900 Balance 354 358 -4628.3 -550 Meds/Results Medications: Active Medications Generic Name Dose Route Start Last Admin Trade Name Freq PRN Reason Stop Dose Admin Acetaminophen 650 mg 03/28/24 13:09 Acetaminophen 325 Mg Tablet PO Q4H PRN Mild pain 1-3 H
[2024-04-05 09:11] VITALS: BP 132/66; RESP 16; O2SAT 94
[2024-04-05] MEDS: ISOSORBIDE MONONITRATE 30 MG TAB.ER.24H PO (09:14)
[2024-04-05] MEDS: CYANOCOBALAMIN 1,000 MCG TABLET 1000 MCG PO (09:15)
[2024-04-05] MEDS: ATORVASTATIN 40 MG TABLET PO (09:15)
[2024-04-05] MEDS: ENOXAPARIN 30 MG/0.3 ML SYRINGE SUB-Q (09:15)
--- NOTE | 2024-04-05 10:55 | PM.IMPN ---
Progress Note: A&P Assessment and Plan (1) Adynamic ileus: Code(s): K56.0 - Paralytic ileus Status: Acute Assessment and Plan: - developed adynamic ileus postop from robotic prostatectomy done on 03/27 - general surgery following. - TPN discontinued and to be tried on clears later today per surgery team. - N-G tube intact to R. nare. - Continue mgt per surgery team. - Continue to monitor I&Os closely. (2) SHEA (acute kidney injury): Code(s): N17.9 - Acute kidney failure, unspecified Status: Acute Assessment and Plan: - etiology remains unclear - nephrology following. - Patient had intra-operative hypotension briefly (80s systolic) - Continue mgt per quality control lab tech. - Continue to monitor renal panel closely. - Avoid nephrotoxins. - Strict I&O's monitoring. (3) HAP (hospital-acquired pneumonia): Code(s): J18.9 - Pneumonia, unspecified organism; Y95 - Nosocomial condition Status: Acute Assessment and Plan: CXR 04/04; Patchy bilateral airspace disease, compatible with pneumonia - Currently on Ancef, linezolid and cefepime. - Preliminary blood cultures negative. - No coughs or SOB. - Currently good O2 sats > 90 % on RA. - Continue to follow cultures. (4) Prostate cancer: Code(s): C61 - Malignant neoplasm of prostate Status: Acute Assessment and Plan: - s/p robotic prostatectomy on 03/27 and cystogram 04/04. - s/p successful CT-guided urinoma drainage. - urology following. - Drain to Right-lower abdomen with large amounts of tea colored drainage. - Further mgt per urology. 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 use: without halfway use Qualified Code(s): E11.65 - Type 2 diabetes mellitus with hyperglycemia Code(s): E11.65 - Type 2 diabetes mellitus with hyperglycemia Status: Acute Assessment and Plan: - hypoglycemia protocol - POC blood glucose ACHS - home medication: Trulicity, metformin, Jardiance held - continue low dose SSI TIDWM (6) FAHAD on CPAP: Code(s): G47.33 - Obstructive sleep apnea (adult) (pediatric); Z99.89 - Dependence on other enabling machines and devices Status: Acute Assessment and Plan: - continue home CPAP (7) Hypertension: Code(s): I10 - Essential (primary) hypertension Status: Chronic Assessment and Plan: - Appears well controlled. - home Lisinopril held given current SHEA Plan Patient is s/p robotic prostatectomy for prostate cancer. Subsequently developed SHEA and adynamic ileus. Nephrology and General surgery following. TPN discontinued and patient to be tried on clears. Cystogram done yesterday and showed Extraluminal leakage of contrast at the prostatic urethra, s/p successful CT-guided abdominal urinoma drainage. Pt currently with drain to Right-lower abdomen, modearate tea-colored drainage. CXR concerning for pneumonia and pt continued on Linelozid and Cefepime. Preliminary blood-cultures negative. Possible UTI covered by Cefepime and Linezolid. If MRSA is negative, Linezolid may be discontinued. Diet: NPO GI Prophylaxis: Protonix. DVT Prophylaxis: Lovenox Lines: Peripheral Code Status: Full code Subjective Date/time seen: 04/05/24 10:05 Interval history: Patient is s/p Robotic assisted prostatectomy with bilateral pelvic lymphadenectomy complicated by adynamic ileus. Patient currently NPO on TPN for nutrition and N-G tube to LIS. Patient currently calm on bedrest and denies any acute distress. Review of Systems Review of Systems: All systems reviewed & are unremarkable except as noted in HPI and below Exam Const: General: comfortable and no acute distress Other: male, comfortable, nontoxic appearance HENMT: Face/Nose/Sinus: Normal nares present Mouth: Yes moist mucous membranes Other: NG tube to Right nare intact. Eyes
[2024-04-05 12:00] LABS: Glucose Point of Care 202 mg/dl (65-105)
[2024-04-05] MEDS: INSULIN ASPART (*BKC) 100 UNITS/ML SUB-Q (13:14)
[2024-04-05 14:00] VITALS: BP 130/68; PULSE 100; RESP 16; TEMP 36.5; O2SAT 95
[2024-04-05 18:43] LABS: Glucose Point of Care 166 mg/dl (65-105)
[2024-04-05 20:28] LABS: Glucose Point of Care 172 mg/dl (65-105)
[2024-04-05 21:08] VITALS: BP 100/68; PULSE 116; RESP 16; TEMP 36.4; O2SAT 93
[2024-04-06] MEDS: CENTRAL LINE FLUSH 10 ML IV PUSH ×3 (05:04→21:00)
[2024-04-06 05:19] LABS: Hematocrit 38.5 % (42.0-52.0); Hemoglobin 12.7 g/dL (14.0-18.0); Mean Corpuscular Hemoglobin 30.8 pg (26-34); Mean Corpuscular Volume 93.2 fl (80-100); Mean Platelet Volume 9.5 fl (7.4-10.4); Platelet Count Result 445 k/mm3 (150-375); Red Blood Count 4.13 M/mm3 (4.6-6.20); Red Cell Distribution Width 13.9 % (11.5-14.5); White Blood Count 13.6 K/mm3 (4.5-10.0)
[2024-04-06 05:24] VITALS: BP 105/66; PULSE 101; RESP 17; TEMP 36.2; O2SAT 95
[2024-04-06 05:42] LABS: Alanine Aminotransferase 24 U/L (6-50); Albumin Level 2.7 g/dL (3.5-5.1); Alkaline Phosphatase 214 U/L (38-126); Anion Gap 5 mmol/L (4-12); Aspartate Amino Transferase 67 U/L (17-59); Bilirubin,Total 1.9 mg/dL (0.2-1.3); Blood Urea Nitrogen 51 mg/dL (9-20); Calcium 7.5 mg/dL (8.4-10.2); Carbon Dioxide 33 mmol/L (22-30); Chloride 92 mmol/L (98-107); Estimated CRCL calculation 54 ml/min; Estimated Glomerular Filt Rate 43; Glucose 165 mg/dL (65-110); Phosphorus 3.1 mg/dL (2.5-4.5); Potassium 3.6 mmol/L (3.4-5.0); Sodium 130 mmol/L (137-145)
[2024-04-06 07:32] LABS: Glucose Point of Care 162 mg/dl (65-105)
[2024-04-06 08:00] VITALS: O2SAT 95
--- NOTE | 2024-04-06 08:35 | PM.PNGS ---
Progress Note: A&P Assessment and Plan (1) Adynamic ileus: Code(s): K56.0 - Paralytic ileus Status: Acute Assessment and Plan: resolving, will advance to diabetic diet, encourage OOB/IS Subjective Subjective Date/Time Seen: 04/06/24 08:35 Interval history: feels much better today, chela clears, +bowel fxn Review of Systems Review of Systems: All systems reviewed & are unremarkable except as noted in HPI and below Exam Const: General: cooperative, comfortable and no acute distress Resp: Auscultation: diminished lung sounds Cardio: Rate: regular rate Rhythm: regular rhythm GI: Inspection: normal to inspection and distended GI Palp: Yes abdominal tenderness, Yes Soft to palpation, Yes Tenderness to palpation present (GI), No Guarding due to palpation present (GI) and No Rigid due to palpation Objective Data Vital Signs Vital Signs: Vital Signs - 24 hr 04/05/24 09:11 04/05/24 14:00 04/05/24 21:08 Temperature 36.5 C 36.4 C Pulse Rate 100 116 H Respiratory Rate 16 16 16 Blood Pressure 132/66 130/68 100/68 Pulse Oximetry 94 95 93 Oxygen Delivery 04/05/24 21:00 04/06/24 05:24 Temperature 36.2 C L Pulse Rate 101 H Respiratory Rate 17 Blood Pressure 105/66 Pulse Oximetry 95 Oxygen Delivery Room Air Intake/Output Intake/Output: Intake & Output 04/03/24 04/04/24 04/05/24 04/06/24 23:59 23:59 23:59 23:59 Intake Total 1358 2946.7 1235 300 Output Total 1000 7575 2950 1050 Balance 453 -4512.3 -1712 -386 Meds/Results Medications: Active Medications Generic Name Dose Route Start Last Admin Trade Name Freq PRN Reason Stop Dose Admin Acetaminophen 650 mg 03/28/24 13:09 Acetaminophen 325 Mg Tablet PO Q4H PRN Mild pain 1-3 Hydrocodone Bitart/Acetaminophen 1 tab 03/28/24 13:09 04/01/24 21:23 Hydrocodone/Acetaminophen (*Crx) 5-325 Mg Tablet PO 1 tab Q6H PRN Administration Pain Rated 4-6 Atorvastatin Calcium 40 mg 03/28/24 09:00 04/05/24 09:15 Atorvastatin 40 Mg Tablet PO 40 mg DAILY RANDY Administration Cyanocobalamin 1,000 mcg 03/28/24 09:00 04/05/24 09:15 Cyanocobalamin 1,000 Mcg Tablet PO 1,000 mcg DAILY RANDY Administration Dextrose 12.5 gm 03/27/24 11:53 Dextrose 50% 25 Gm/50 Ml Syringe IV PUSH PRN PRN Hypoglycemia Protocol Enoxaparin Sodium 40 mg 04/06/24 09:00 Enoxaparin 40 Mg/0.4 Ml Syringe SUB-Q DAILY RANDY Glucagon 1 mg 03/27/24 11:53 Glucagon For Inj 1 Mg Vial IM PRN PRN Hypoglycemia Protocol Glucose 15 gm 03/27/24 11:53 Glucose Oral Gel 15 Gm Of Glucse In 37.5 Gm Tube PO PRN PRN Hypoglycemia Protocol Hydromorphone HCl 0.25 mg 04/04/24 13:52 Hydromorphone Hcl Inj (*Crx) 1 Mg/Ml Syr IV PUSH Q3H PRN Pain Rated 4-6 Hydromorphone HCl 0.5 mg 04/04/24 13:52 04/05/24 05:05 Hydromorphone Hcl Inj (*Crx) 1 Mg/Ml Syr IV PUSH 0.5 mg Q3H PRN Administration Pain Rated 7-10 Hyoscyamine 0.125 mg 03/27/24 13:00 Hyoscyamine Sulfate 0.125 Mg Tablet SUBLINGUAL Q4H PRN Bladder Spasm Dextrose 1,000 mls @ 100 mls/hr 03/27/24 11:53 Dextrose 5% 1,000 Ml IVPB PRN PRN Hypoglycemia Protocol Dextrose 1,000 mls @ 50 mls/hr 04/03/24 12:55 Dextrose 10% IV CONT .Q20H PRN if PN is interrupted Cefepime HCl 1 gm in 50 mls @ 100 mls/hr 04/04/24 14:00 04/05/24 23:53 Maxipime 1 Gm/Ns 50 Ml IVPB Infused BID@1200,0000 [facility] Infusion Linezolid 600 mg in 300 mls @ 300 mls/hr 04/04/24 14:00 04/05/24 23:53 Zyvox IVPB 300 mls/hr BID@1200,0000 [facility] Infusion Insulin Aspart 2 - 5 units 03/27/24 12:00 04/05/24 17:43 Insulin Aspart (*Bkc) 100 Units/Ml SUB-Q Not Given TIDWM [facility] Protocol Isosorbide Mononitrate 30 mg 03/28/24 09:00 04/05/24 09:14 Isosorbide Mononitrate 30 Mg Tab.Er.24h PO 30 mg QAM RANDY Administration Lisinopril 10 mg
--- NOTE | 2024-04-06 08:49 | P.PNNP_ITS ---
Progress Note: A&P Assessment and Plan (1) SHEA (acute kidney injury): Code(s): N17.9 - Acute kidney failure, unspecified Status: Acute Assessment and Plan: * etiology not entirely clear * suspect due to relative hypotension?) * did have intra-operative hypotension briefly (80s systolic) * there is a question of leakage of urine into the belly. Discussed with Dr. Contreras. * however CT of the abdomen does not show much peritoneal fluid. So I doubt this. it does not show hydronephrosis. A * evaluation to date noted: * urine electrolytes pre-renal * UA noted * urine eosinophils negative * CPK mildly elevated (but not enough to affect kidney function) * Drain placed into fluid pocket in the peritoneal cavity. * The fluid obtained showed a creatinine value of 13. (this was labeled as urine but actually was FER drainage) * Discussed with Dr. Johnston. It is likely the has a transient leak in this anastomosis of the ureter which will heal itself. * creatinine is improved today again, it has fallen from 6 to 4.3 to 3 to 1.6 today. * Urine does show white cells. Urine culture was negative. * cxr shows possible pneumonia. He was short of breath yesterday but is better today. He is getting cefepime * Hospitalists on board. * pt is getting TPN * Electrolytes look okay. (2) Adynamic ileus: Code(s): K56.0 - Paralytic ileus Status: Acute Assessment and Plan: * Bowel sounds a little more active and he had a bowel movement yesterday. * General Surgery following * Improved. NG out. Tolerating clear liquids. (3) Prostate cancer: Code(s): C61 - Malignant neoplasm of prostate Status: Acute Assessment and Plan: * s/p robotic assisted prostatectomy with bilateral pelvic lymphadenectomy * Urology following (4) Hypertension: Code(s): I10 - Essential (primary) hypertension Status: Chronic Assessment and Plan: * well controlled * Blood pressure ranging from 100-132 (5) Diabetes: Code(s): E11.9 - Type 2 diabetes mellitus without complications Status: Inactive Assessment and Plan: * follow accu-cheks * on SSI Subjective Date/time seen: 04/06/24 08:49 Interval history: Edson is feeling better today. NG tube is out. He is passing gas and had another bowel movement yesterday. He is taking clear liquids in. He is tolerating this well. He is excited about advancing the diet whenever it happens. Exam Narrative: General: elderly but WD/WN male in NAD Heart: tachycardic, normal S1 and S2; no rub or gallop Lungs: Breath sounds fairly clear Abdomen: mild distension. His bowel sounds are improved. Extremities:no edema or cyanosis Skin: no rash Objective Data Vital Signs Vital Signs: Vital Signs - 24 hr 04/05/24 09:11 04/05/24 14:00 04/05/24 21:08 Temperature 97.7 F 97.6 F Pulse Rate 100 116 H Respiratory Rate 16 16 16 Blood Pressure 132/66 130/68 100/68 Pulse Oximetry 94 95 93 Oxygen Delivery 04/05/24 21:00 04/06/24 05:24 Temperature 97.1 F L Pulse Rate 101 H Respiratory Rate 17 Blood Pressure 105/66 Pulse Oximetry 95 Oxygen Delivery Room Air Intake/Output Intake/Output:
--- NOTE | 2024-04-06 08:49 | PM.PNNEP ---
Progress Note: A&P Assessment and Plan (1) SHEA (acute kidney injury): Code(s): N17.9 - Acute kidney failure, unspecified Status: Acute Assessment and Plan: etiology not entirely clear suspect due to relative hypotension?) did have intra-operative hypotension briefly (80s systolic) there is a question of leakage of urine into the belly. Discussed with Dr. Contreras. however CT of the abdomen does not show much peritoneal fluid. So I doubt this. it does not show hydronephrosis. A evaluation to date noted: urine electrolytes pre-renal UA noted urine eosinophils negative CPK mildly elevated (but not enough to affect kidney function) Drain placed into fluid pocket in the peritoneal cavity. The fluid obtained showed a creatinine value of 13. (this was labeled as urine but actually was FER drainage) Discussed with Dr. Johnston. It is likely the has a transient leak in this anastomosis of the ureter which will heal itself. creatinine is improved today again, it has fallen from 6 to 4.3 to 3 to 1.6 today. Urine does show white cells. Urine culture was negative. cxr shows possible pneumonia. He was short of breath yesterday but is better today. He is getting cefepime Hospitalists on board. pt is getting TPN Electrolytes look okay. (2) Adynamic ileus: Code(s): K56.0 - Paralytic ileus Status: Acute Assessment and Plan: Bowel sounds a little more active and he had a bowel movement yesterday. General Surgery following Improved. NG out. Tolerating clear liquids. (3) Prostate cancer: Code(s): C61 - Malignant neoplasm of prostate Status: Acute Assessment and Plan: s/p robotic assisted prostatectomy with bilateral pelvic lymphadenectomy Urology following (4) Hypertension: Code(s): I10 - Essential (primary) hypertension Status: Chronic Assessment and Plan: well controlled Blood pressure ranging from 100-132 (5) Diabetes: Code(s): E11.9 - Type 2 diabetes mellitus without complications Status: Inactive Assessment and Plan: follow accu-cheks on SSI Subjective Date/time seen: 04/06/24 08:49 Interval history: Edson is feeling better today. NG tube is out. He is passing gas and had another bowel movement yesterday. He is taking clear liquids in. He is tolerating this well. He is excited about advancing the diet whenever it happens. Exam Narrative: General: elderly but WD/WN male in NAD Heart: tachycardic, normal S1 and S2; no rub or gallop Lungs: Breath sounds fairly clear Abdomen: mild distension. His bowel sounds are improved. Extremities:no edema or cyanosis Skin: no rash Objective Data Vital Signs Vital Signs: Vital Signs - 24 hr 04/05/24 09:11 04/05/24 14:00 04/05/24 21:08 Temperature 97.7 F 97.6 F Pulse Rate 100 116 H Respiratory Rate 16 16 16 Blood Pressure 132/66 130/68 100/68 Pulse Oximetry 94 95 93 Oxygen Delivery 04/05/24 21:00 04/06/24 05:24 Temperature 97.1 F L Pulse Rate 101 H Respiratory Rate 17 Blood Pressure 105/66 Pulse Oximetry 95 Oxygen Delivery Room Air Intake/Output Intake/Output: Intake & Output 04/03/24 04/04/24 04/05/24 04/06/24 23:59 23:59 23:59 23:59 Intake Total 1358 2946.7 1235 300 Output Total 1000 7575 2950 1050 Balance 358 -4628.3 -1715 -750 Meds/Results Medications: Active Medications Generic Name Dose Route Start Last Admin Trade Name Freq PRN Reason Stop Dose Admin Acetaminophen 650 mg 03/28/24 13:09 Acetaminophen 325 Mg Tablet PO Q4H PRN Mild pain 1-3 Hydrocodone Bitart/Acetaminophen 1 tab 03/28/24 13:09 04/01/24 21:23 Hydrocodone/Acetaminophen (*Crx) 5-325 Mg Tablet PO 1 tab Q6H PRN Administration Pain Rated 4-6 Atorvastatin Calcium 40 mg 03/28/24 09:00 04/05/24 09:15 Atorvastatin 40 Mg Tablet PO 40 mg DAILY RANDY Administra
--- NOTE | 2024-04-06 08:50 | PM.IMPN ---
Progress Note: A&P Assessment and Plan (1) Adynamic ileus: Code(s): K56.0 - Paralytic ileus Status: Acute Assessment and Plan: - developed adynamic ileus postop from robotic prostatectomy done on 03/27 - general surgery following. - TPN discontinued and to be tried on clears later today per surgery team. - N-G tube intact to R. nare. - Continue mgt per surgery team. - Continue to monitor I&Os closely. 04/06- resolving- advanced ot diabetic diet today per surgery (2) SHEA (acute kidney injury): Code(s): N17.9 - Acute kidney failure, unspecified Status: Acute Assessment and Plan: - etiology remains unclear - nephrology following. - Patient had intra-operative hypotension briefly (80s systolic) - Continue mgt per news editor. - Continue to monitor renal panel closely. - Avoid nephrotoxins. - Strict I&O's monitoring. 04/06- nephrology and urology following (3) HAP (hospital-acquired pneumonia): Code(s): J18.9 - Pneumonia, unspecified organism; Y95 - Nosocomial condition Status: Acute Assessment and Plan: CXR 04/04; Patchy bilateral airspace disease, compatible with pneumonia - Currently on Ancef, linezolid and cefepime. - Preliminary blood cultures negative. - No coughs or SOB. - Currently good O2 sats > 90 % on RA. - Continue to follow cultures. (4) Prostate cancer: Code(s): C61 - Malignant neoplasm of prostate Status: Acute Assessment and Plan: - s/p robotic prostatectomy on 03/27 and cystogram 04/04. - s/p successful CT-guided urinoma drainage. - urology following. - Drain to Right-lower abdomen with large amounts of tea colored drainage. - Further mgt per urology. (5) Type 2 diabetes mellitus with hyperglycemia: Qualifiers: Diabetes mellitus ferry terminal agent insulin use: without ferry terminal agent use Qualified Code(s): E11.65 - Type 2 diabetes mellitus with hyperglycemia Code(s): E11.65 - Type 2 diabetes mellitus with hyperglycemia Status: Acute Assessment and Plan: - hypoglycemia protocol - POC blood glucose ACHS - home medication: Trulicity, metformin, Jardiance held - continue low dose SSI TIDWM (6) FAHAD on CPAP: Code(s): G47.33 - Obstructive sleep apnea (adult) (pediatric); Z99.89 - Dependence on other enabling machines and devices Status: Acute Assessment and Plan: - continue home CPAP (7) Hypertension: Code(s): I10 - Essential (primary) hypertension Status: Chronic Assessment and Plan: - Appears well controlled. - home Lisinopril held given current SHEA Plan Patient is s/p robotic prostatectomy for prostate cancer. Subsequently developed SHEA and adynamic ileus. Nephrology and General surgery following. TPN discontinued and patient to be tried on clears. Cystogram done yesterday and showed Extraluminal leakage of contrast at the prostatic urethra, s/p successful CT-guided abdominal urinoma drainage. Pt currently with drain to Right-lower abdomen, modearate tea-colored drainage. CXR concerning for pneumonia and pt continued on Linelozid and Cefepime. Preliminary blood-cultures negative. Possible UTI covered by Cefepime and Linezolid. If MRSA is negative, Linezolid may be discontinued. Diet: NPO GI Prophylaxis: Protonix. DVT Prophylaxis: Lovenox Lines: Peripheral Code Status: Full code Time Spent With Patient Time with patient: Greater than 35 minutes Subjective Date/time seen: 04/06/24 08:50 Interval history: Patient is s/p Robotic assisted prostatectomy with bilateral pelvic lymphadenectomy complicated by adynamic ileus. Patient was on TPN for nutrition and N-G tube to LIS. 04/06- tolerated clear liquid well- will be advanced to diabetic diet per general surgery, encourage OOB/IS. Reports some bloating but overall feeling well. Passing gas, ambulating in the room. Review of Systems Review of Systems: All systems reviewed & are unremarkable exce
--- NOTE | 2024-04-06 09:11 | WPDUROPN2 ---
Progress Note: A&P Assessment and Plan (1) SHEA (acute kidney injury): Code(s): N17.9 - Acute kidney failure, unspecified Status: Acute Assessment and Plan: suspect likely due to urine leak with urinary absorption, creatinine down trending (2) Prostate cancer: Code(s): C61 - Malignant neoplasm of prostate Status: Acute (3) Adynamic ileus: Code(s): K56.0 - Paralytic ileus Status: Acute Assessment and Plan: Repeat CT-abd/pelvis showed moderate increase in abdominal fluid. Drain placement shows fluid, at least in part, urine (creat. 13) Cystogram: urine leak at bladder neck -> not unusual following radical prostatectomy and should heal with ongoing catheter drainage. I suspect the urinary ascites was contributing significantly to SHEA and adynamic ileus. seems to be improving, creatinine is better today 11, tolerating diet Renal function continues to improve after drain placement GI mgmt. per general surgery, okay to advance diet as tolerated Subjective Subjective Date/Time Seen: 04/06/24 09:11 Interval history: Patient is s/p Robotic assisted prostatectomy with bilateral pelvic lymphadenectomy complicated by adynamic ileus. Patient was on TPN for nutrition and N-G tube to LIS. 04/06- Patient states he is feeling somewhat better today, had consistent flatus and small bowel movement yesterday, was to a commode, but otherwise not much ambulation yesterday, tolerating clear liquids with some early satiety, but no nausea, no vomiting. Salazar and drain continued to put out, creatinine continues to downtrend Review of Systems Review of Systems: All systems reviewed & are unremarkable except as noted in HPI and below Cardiovascular: Cardiovascular: Denies chest pain, Denies lightheadedness, Denies palpitations and Denies dyspnea Respiratory: Respiratory: Denies dyspnea Gastrointestinal: Gastrointestinal: Reports abdominal pain (mild), Denies belching, Reports bloating, Denies diarrhea, Denies nausea, Denies vomiting and Reports other Genitourinary: Genitourinary: Denies hematuria and Denies dysuria Endocrine: Endocrine: Denies palpitations Exam Narrative: NAD, A&Ox3 RRR eWOB S/NT/ND, obese, incisions c/d, midline incision with slight separation of wound edges, remain port sites intact, no sign of infection or oozing/bleeding. Catheter in place with clear yellow urine draining. right lower quadrant drain with serous yellow fluid Const: General: no acute distress Resp: Effort & Inspection: normal respiratory effort GI: Inspection: normal to inspection (1cm superficial midline incision seperation) and non-distended Auscultation: normal bowel sounds, Hypoactive bowel sounds present (bowel sounds slightly improved today) and other (passing flatus regularly) Other: Abd. soft, incisions clean and dry Urinary Catheter: Urinary Catheter: patent and draining and urine clear Objective Data Vital Signs Vital Signs: Vital Signs - 24 hr 04/05/24 14:00 04/05/24 21:08 04/05/24 21:00 Temperature 36.5 C 36.4 C Pulse Rate 100 116 H Respiratory Rate 16 16 Blood Pressure 130/68 100/68 Pulse Oximetry 95 93 Oxygen Delivery Room Air 04/06/24 05:24 Temperature 36.2 C L Pulse Rate 101 H Respiratory Rate 17 Blood Pressure 105/66 Pulse Oximetry 95 Oxygen Delivery Intake/Output Intake/Output: Intake & Output 04/03/24 04/04/24 04/05/24 04/06/24 23:59 23:59 23:59 23:59 Intake Total 1358 2946.7 1235 300 Output Total 1000 7575 2950 1050 Balance 432 -9428.3 -1715 -750 Meds/Results Medications: Active Medications Generic Name Dose Route Start Last Admin Trade Name Freq PRN Reason Stop Dose Admin Acetaminophen 650 mg 03/28/24 13:09 Acetaminophen 325 Mg Tablet PO Q4H PRN Mild pain 1-3 Hydrocodone Bitart/Acetaminophen 1 tab 03/28/24 13:09 04/01/24 21:23 Hydrocodone/Acetaminophen (*Crx) 5-325 Mg Tablet PO 1 tab
[2024-04-06] MEDS: PANTOPRAZOLE 40 MG TABLET PO (09:40)
[2024-04-06] MEDS: ISOSORBIDE MONONITRATE 30 MG TAB.ER.24H PO (09:40)
[2024-04-06] MEDS: CYANOCOBALAMIN 1,000 MCG TABLET 1000 MCG PO (09:40)
[2024-04-06] MEDS: ATORVASTATIN 40 MG TABLET PO (09:40)
[2024-04-06] MEDS: SIMETHICONE 80 MG TAB.CHEW PO ×2 (09:42→20:55)
[2024-04-06 11:24] LABS: Triglycerides 102 mg/dL (<150)
[2024-04-06 11:24] LABS: Glucose Point of Care 137 mg/dl (65-105)
[2024-04-06] MEDS: ENOXAPARIN 40 MG/0.4 ML SYRINGE SUB-Q (13:19)
[2024-04-06] MEDS: LINEZOLID 600 MG/300 ML 600 MG/300 ML SOLN 300 MG IVPB ×2 (13:19→20:57)
[2024-04-06] MEDS: CEFEPIME 1 GM/NS 50 ML 1 GM/50 ML BAG IVPB ×2 (13:19→20:59)
--- NOTE | 2024-04-06 13:42 | PC.NURSE ---
Pt c/o discomfort and bloating in upper abdomen. Does not feel firm or distended. Last PO intake was over an hour ago. Simethicone given with minimal relief. Pt states he is not passing gas. FINANCE OFFICER Jelly El and MD Milligan notified of this, Srini advised to decrease diet back to clear liquids. Will continue to monitor.
[2024-04-06 13:59] VITALS: BP 106/62; PULSE 100; RESP 18; TEMP 36.3; O2SAT 96
[2024-04-06 16:23] LABS: Glucose Point of Care 187 mg/dl (65-105)
[2024-04-06 20:30] VITALS: BP 137/68; PULSE 104; RESP 20; TEMP 37.1; O2SAT 96
[2024-04-06 20:44] LABS: Glucose Point of Care 148 mg/dl (65-105)
[2024-04-06 23:45] VITALS: PULSE 101; O2SAT 96
[2024-04-07] VITALS (8 sets, daily range): BP systolic 91–129; BP diastolic 51–71; PULSE 99–140; RESP 15–20; TEMP 36.2–37.3; O2SAT 94–99
[2024-04-07] MEDS: CENTRAL LINE FLUSH 10 ML IV PUSH ×3 (05:02→20:30)
[2024-04-07 05:19] LABS: Basophils Absolute Auto 0.1 K/mm3 (0.0-0.1); Basophils Percent Auto 0.8 % (0.2-1.2); Eosinophils Absolute Auto 0.7 K/mm3 (0-0.3); Eosinophils Percent Auto 5.8 % (0-4.4); Hematocrit 37.7 % (42.0-52.0); Hemoglobin 12.6 g/dL (14.0-18.0); Immature Granulocyte Absolute 0.66 K/mm3 (0.00-0.031); Immature Granulocyte Percent A 5.3 % (0-0.5); Lymphocytes Absolute Auto 1.07 K/mm3 (0.9-3.2); Lymphocytes Percent Auto 8.6 % (18.3-44.2); Mean Corpuscular HGB Conc 33.4 g/dl (32-36); Mean Corpuscular Hemoglobin 31.2 pg (26-34); Mean Corpuscular Volume 93.3 fl (80-100); Mean Platelet Volume 9.4 fl (7.4-10.4); Monocytes Absolute Auto 1.1 K/mm3 (0.1-0.6); Monocytes Percent Auto 9.1 % (2.6-8.5); Neutrophils Absolute Auto 8.8 K/mm3 (1.3-6.7); Neutrophils Percent Auto 70.4 % (45.5-73.1); Platelet Count Result 453 k/mm3 (150-375); Red Blood Count 4.04 M/mm3 (4.6-6.20); Red Cell Distribution Width 13.7 % (11.5-14.5); White Blood Count 12.5 K/mm3 (4.5-10.0)
[2024-04-07 05:25] LABS: INR 1.1; Prothrombin Time 14.5 Seconds (11.1-14.7)
[2024-04-07 05:26] LABS: Partial Thromboplastin Time 33.7 Seconds (22.3-36.8)
[2024-04-07 05:41] LABS: Alanine Aminotransferase 30 U/L (6-50); Albumin Level 2.6 g/dL (3.5-5.1); Alkaline Phosphatase 200 U/L (38-126); Anion Gap 6 mmol/L (4-12); Aspartate Amino Transferase 77 U/L (17-59); Bilirubin,Total 1.3 mg/dL (0.2-1.3); Blood Urea Nitrogen 31 mg/dL (9-20); Calcium 7.4 mg/dL (8.4-10.2); Carbon Dioxide 30 mmol/L (22-30); Chloride 94 mmol/L (98-107); Estimated CRCL calculation 82 ml/min; Estimated Glomerular Filt Rate > 60; Glucose 161 mg/dL (65-110); Magnesium 2.3 mg/dL (1.6-2.3); Phosphorus 2.8 mg/dL (2.5-4.5); Potassium 3.2 mmol/L (3.4-5.0); Sodium 130 mmol/L (137-145)
[2024-04-07 05:48] LABS: Transferrin 88 mg/dL (206-381)
[2024-04-07 08:19] LABS: Glucose Point of Care 142 mg/dl (65-105)
[2024-04-07] MEDS: CYANOCOBALAMIN 1,000 MCG TABLET 1000 MCG PO (08:27)
[2024-04-07] MEDS: ATORVASTATIN 40 MG TABLET PO (08:27)
[2024-04-07] MEDS: PANTOPRAZOLE 40 MG TABLET PO (08:27)
[2024-04-07] MEDS: ISOSORBIDE MONONITRATE 30 MG TAB.ER.24H PO (08:27)
[2024-04-07] MEDS: ENOXAPARIN 40 MG/0.4 ML SYRINGE SUB-Q (08:27)
[2024-04-07] MEDS: SIMETHICONE 80 MG TAB.CHEW PO (08:30)
--- NOTE | 2024-04-07 09:25 | WPDUROPN2 ---
Progress Note: A&P Assessment and Plan (1) SHEA (acute kidney injury): Code(s): N17.9 - Acute kidney failure, unspecified Status: Acute Assessment and Plan: suspect likely due to urine leak with urinary absorption. Creatinine has normalized, 1.1 today (2) Prostate cancer: Code(s): C61 - Malignant neoplasm of prostate Status: Acute (3) Adynamic ileus: Code(s): K56.0 - Paralytic ileus Status: Acute Assessment and Plan: Repeat CT-abd/pelvis 04/04/24 showed moderate increase in abdominal fluid. Drain placement shows fluid, at least in part, urine (creat. 13) Cystogram 04/04/24: urine leak at bladder neck -> not unusual following radical prostatectomy and should heal with ongoing catheter drainage. Will plan for repeat cystogram 04/11/2024 I suspect the urinary ascites was contributing significantly to SHEA and adynamic ileus. This is greatly improved. Creatinine has normalized following drain placement. He is tolerating his diet. KUB with overall improvement Will advance to diabetic diet per General surgery recommendations Continue to encourage ambulation/walking in halls today Being treated for pneumonia; appreciate hospitalist recommendations regarding p.o. regimen following discharge Hopeful discharge tomorrow if continued improvement. Home with drain and Salazar Subjective Subjective Date/Time Seen: 04/07/24 09:25 Interval history: Edson is feeling better today. Reports abdominal pain has resolved. He is passing flatus. Had bowel movement yesterday. He is tolerating his liquid diet. He has been able to ambulate to and from the commode. Will work on walking the halls today. He is tolerating his Salazar catheter without difficulty which is draining clear thaddeus urine. Denies hematuria. Denies nausea or vomiting. Review of Systems Review of Systems: All systems reviewed & are unremarkable except as noted in HPI and below Exam Narrative: General: Awake, alert, comfortable, no acute distress HEENT: Normocephalic, atraumatic, sclerae anicteric Respiratory: Normal respiratory effort, no accessory muscle use Abdomen: Nondistended, soft, nontender : Salazar catheter draining clear thaddeus urine Skin: Normal coloration, warm and dry Neurologic: No focal neuro deficits noted Psychiatric: Appropriate mood and affect, judgment and insight intact Objective Data Vital Signs Vital Signs: Vital Signs - 24 hr 04/06/24 13:59 04/06/24 13:59 04/06/24 21:00 Temperature 97.3 F L Pulse Rate 100 Respiratory Rate 18 Blood Pressure 106/62 Pulse Oximetry 96 Oxygen Delivery Room Air Room Air 04/06/24 20:30 04/06/24 23:45 04/07/24 04:35 Temperature 98.8 F 99.2 F Pulse Rate 104 H 101 H 99 Respiratory Rate 20 20 Blood Pressure 137/68 95/53 L Pulse Oximetry 96 96 94 Oxygen Delivery Intake/Output Intake/Output: Intake & Output 04/04/24 04/05/24 04/06/24 04/07/24 23:59 23:59 23:59 23:59 Intake Total 2946.7 1235 2341.7 263 Output Total 7575 2950 2250 1420 [facility] -4628.3 -1715 91.7 -1157 Meds/Results Medications: Active Medications Generic Name Dose Route Start Last Admin Trade Name Freq PRN Reason Stop Dose Admin Acetaminophen 650 mg 03/28/24 13:09 Acetaminophen 325 Mg Tablet PO Q4H PRN Mild pain 1-3 Hydrocodone Bitart/Acetaminophen 1 tab 03/28/24 13:09 04/01/24 21:23 Hydrocodone/Acetaminophen (*Crx) 5-325 Mg Tablet PO 1 tab Q6H PRN Administration Pain Rated 4-6 Atorvastatin Calcium 40 mg 03/28/24 09:00 04/07/24 08:27 Atorvastatin 40 Mg Tablet PO 40 mg DAILY RANDY Administration Cyanocobalamin 1,000 mcg 03/28/24 09:00 04/07/24 08:27 Cyanocobalamin 1,000 Mcg Tablet PO 1,000 mcg DAILY RANDY Administration Dextrose 12.5 gm 03/27/24 11:53 Dextrose 50% 25 Gm/50 Ml Syringe IV PUSH PRN PRN Hypoglycemia Protocol Enoxaparin Sodium 40 mg 04/06/24 09:00 04/07
--- NOTE | 2024-04-07 11:28 | P.PNNP_ITS ---
Progress Note: A&P Assessment and Plan (1) SHEA (acute kidney injury): Code(s): N17.9 - Acute kidney failure, unspecified Status: Acute Assessment and Plan: * improvement noted * suspect due to relative hypotension?) * did have intra-operative hypotension briefly (80s systolic) * there is a question of leakage of urine into the belly. Discussed with Dr. Contreras. * however CT of the abdomen does not show much peritoneal fluid. So I doubt this. it does not show hydronephrosis. A * evaluation to date noted: * urine electrolytes pre-renal * UA noted * urine eosinophils negative * CPK mildly elevated (but not enough to affect kidney function) * drain placed into fluid pocket in the peritoneal cavity. * he fluid obtained showed a creatinine value of 13. (this was labeled as urine but actually was FER drainage) * he likely had a transient leak in this anastomosis of the ureter which will heal itself * follow trend of repeat labs and UOP (2) Adynamic ileus: Code(s): K56.0 - Paralytic ileus Status: Acute Assessment and Plan: * bowel sounds are more active and he had a bowel movements * General Surgery following * diet being slowly advanced (3) Prostate cancer: Code(s): C61 - Malignant neoplasm of prostate Status: Acute Assessment and Plan: * s/p robotic assisted prostatectomy with bilateral pelvic lymphadenectomy * Urology following (4) Hypertension: Code(s): I10 - Essential (primary) hypertension Status: Chronic Assessment and Plan: * well controlled * follow trend of hemodynamics (5) Diabetes: Code(s): E11.9 - Type 2 diabetes mellitus without complications Status: Inactive Assessment and Plan: * follow accu-cheks * on SSI Not much else to add -- will continue to follow from a distance Subjective Date/time seen: 04/07/24 11:28 Interval history: Follow-up for acute kidney injury/acute renal failure. Chart reviewed since I last saw him -- renal function/creatinine has continued to improve over the last few days and appears back to baseline; he is eating/ drinking okay and ambulating reasonably well in his room; abdomen is less distended as well; overall, he feels reasonably well at the time of my visit. Exam Narrative: General: elderly but WD/WN male in NAD Heart: tachycardic, normal S1 and S2; no rub Lungs: clear to ausculation Abdomen: mild distension. His bowel sounds are improved. Extremities:no edema or cyanosis Skin: no nodules Objective Data Vital Signs Vital Signs: Vital Signs Temp Pulse Resp BP Pulse Ox O2 Del Method FiO2 04/07/24 09:32 96 Room Air 21 04/07/24 04:35 99.2 F 99 20 95/53 L 94 04/06/24 23:45 101 H 96 04/06/24 20:30 98.8 F 104 H 20 137/68 96 04/06/24 21:00 Room Air 04/06/24 13:59 97.3 F L 100 18 106/62 96 04/06/24 13:59 Room Air Intake/Output Intake/Output: Intake & Output 04/04/24 04/05/24 04/06/24 04/07/24 23:59 23:59 23:59 23:59 Intake Total 2946.7 1235 2341.7 263 Output Total 7575 2950 2250 1420 Balance -4628.3 -1715 91.7 -1157 Meds/Results Medications:
--- NOTE | 2024-04-07 11:28 | PM.PNNEP ---
Progress Note: A&P Assessment and Plan (1) SHEA (acute kidney injury): Code(s): N17.9 - Acute kidney failure, unspecified Status: Acute Assessment and Plan: improvement noted suspect due to relative hypotension?) did have intra-operative hypotension briefly (80s systolic) there is a question of leakage of urine into the belly. Discussed with Dr. Contreras. however CT of the abdomen does not show much peritoneal fluid. So I doubt this. it does not show hydronephrosis. A evaluation to date noted: urine electrolytes pre-renal UA noted urine eosinophils negative CPK mildly elevated (but not enough to affect kidney function) drain placed into fluid pocket in the peritoneal cavity. he fluid obtained showed a creatinine value of 13. (this was labeled as urine but actually was FER drainage) he likely had a transient leak in this anastomosis of the ureter which will heal itself follow trend of repeat labs and UOP (2) Adynamic ileus: Code(s): K56.0 - Paralytic ileus Status: Acute Assessment and Plan: bowel sounds are more active and he had a bowel movements General Surgery following diet being slowly advanced (3) Prostate cancer: Code(s): C61 - Malignant neoplasm of prostate Status: Acute Assessment and Plan: s/p robotic assisted prostatectomy with bilateral pelvic lymphadenectomy Urology following (4) Hypertension: Code(s): I10 - Essential (primary) hypertension Status: Chronic Assessment and Plan: well controlled follow trend of hemodynamics (5) Diabetes: Code(s): E11.9 - Type 2 diabetes mellitus without complications Status: Inactive Assessment and Plan: follow accu-cheks on SSI Not much else to add -- will continue to follow from a distance Subjective Date/time seen: 04/07/24 11:28 Interval history: Follow-up for acute kidney injury/acute renal failure. Chart reviewed since I last saw him -- renal function/creatinine has continued to improve over the last few days and appears back to baseline; he is eating/drinking okay and ambulating reasonably well in his room; abdomen is less distended as well; overall, he feels reasonably well at the time of my visit. Exam Narrative: General: elderly but WD/WN male in NAD Heart: tachycardic, normal S1 and S2; no rub Lungs: clear to ausculation Abdomen: mild distension. His bowel sounds are improved. Extremities:no edema or cyanosis Skin: no nodules Objective Data Vital Signs Vital Signs: Vital Signs Temp Pulse Resp BP Pulse Ox O2 Del Method FiO2 04/07/24 09:32 96 Room Air 21 04/07/24 04:35 99.2 F 99 20 95/53 L 94 04/06/24 23:45 101 H 96 04/06/24 20:30 98.8 F 104 H 20 137/68 96 04/06/24 21:00 Room Air 04/06/24 13:59 97.3 F L 100 18 106/62 96 04/06/24 13:59 Room Air Intake/Output Intake/Output: Intake & Output 04/04/24 04/05/24 04/06/24 04/07/24 23:59 23:59 23:59 23:59 Intake Total 2946.7 1235 2341.7 263 Output Total 7575 2950 2250 1420 Balance -4628.3 -1715 91.7 -1157 Meds/Results Medications: Active Medications Generic Name Dose Route Start Last Admin Trade Name Freq PRN Reason Stop Dose Admin Acetaminophen 650 mg 03/28/24 13:09 Acetaminophen 325 Mg Tablet PO Q4H PRN Mild pain 1-3 Hydrocodone Bitart/Acetaminophen 1 tab 03/28/24 13:09 04/01/24 21:23 Hydrocodone/Acetaminophen (*Crx) 5-325 Mg Tablet PO 1 tab Q6H PRN Administration Pain Rated 4-6 Atorvastatin Calcium 40 mg 03/28/24 09:00 04/07/24 08:27 Atorvastatin 40 Mg Tablet PO 40 mg DAILY RANDY Administration Cyanocobalamin 1,000 mcg 03/28/24 09:00 04/07/24 08:27 Cyanocobalamin 1,000 Mcg Tablet PO 1,000 mcg DAILY RANDY Administration Dextrose 12.5 gm 03/27/24 11:53 Dextrose 50% 25 Gm/50 Ml Syringe IV PUSH PRN PRN H
[2024-04-07 11:54] LABS: Glucose Point of Care 141 mg/dl (65-105)
--- NOTE | 2024-04-07 12:09 | PM.PNGS ---
Progress Note: A&P Assessment and Plan (1) Adynamic ileus: Code(s): K56.0 - Paralytic ileus Status: Acute Assessment and Plan: much improved, ADAT, cont to encourage OOB/IS Subjective Subjective Date/Time Seen: 04/07/24 12:09 Interval history: feels better this am, having bowel fxn, chela clears Review of Systems Review of Systems: All systems reviewed & are unremarkable except as noted in HPI and below Exam Const: General: cooperative, comfortable, no acute distress and ill appearing Resp: Auscultation: diminished lung sounds Cardio: Rate: regular rate Rhythm: regular rhythm GI: Inspection: normal to inspection, distended and incision GI Palp: Yes abdominal tenderness, Yes Soft to palpation and Yes Tenderness to palpation present (GI) Objective Data Vital Signs Vital Signs: Vital Signs - 24 hr 04/06/24 13:59 04/06/24 13:59 04/06/24 21:00 Temperature 36.3 C L Pulse Rate 100 Respiratory Rate 18 Blood Pressure 106/62 Pulse Oximetry 96 Oxygen Delivery Room Air Room Air Fraction of Inspired Oxygen 04/06/24 20:30 04/06/24 23:45 04/07/24 04:35 Temperature 37.1 C 37.3 C Pulse Rate 104 H 101 H 99 Respiratory Rate 20 20 Blood Pressure 137/68 95/53 L Pulse Oximetry 96 96 94 Oxygen Delivery Fraction of Inspired Oxygen 04/07/24 09:32 Temperature Pulse Rate Respiratory Rate Blood Pressure Pulse Oximetry 96 Oxygen Delivery Room Air Fraction of Inspired Oxygen 21 Intake/Output Intake/Output: Intake & Output 04/04/24 04/05/24 04/06/24 04/07/24 23:59 23:59 23:59 23:59 Intake Total 2946.7 1235 2341.7 263 Output Total 7575 2950 2250 1420 [facility] -4628.3 -1715 91.7 -7197 Meds/Results Medications: Active Medications Generic Name Dose Route Start Last Admin Trade Name Freq PRN Reason Stop Dose Admin Acetaminophen 650 mg 03/28/24 13:09 Acetaminophen 325 Mg Tablet PO Q4H PRN Mild pain 1-3 Hydrocodone Bitart/Acetaminophen 1 tab 03/28/24 13:09 04/01/24 21:23 Hydrocodone/Acetaminophen (*Crx) 5-325 Mg Tablet PO 1 tab Q6H PRN Administration Pain Rated 4-6 Atorvastatin Calcium 40 mg 03/28/24 09:00 04/07/24 08:27 Atorvastatin 40 Mg Tablet PO 40 mg DAILY RANDY Administration Cyanocobalamin 1,000 mcg 03/28/24 09:00 04/07/24 08:27 Cyanocobalamin 1,000 Mcg Tablet PO 1,000 mcg DAILY RANDY Administration Dextrose 12.5 gm 03/27/24 11:53 Dextrose 50% 25 Gm/50 Ml Syringe IV PUSH PRN PRN Hypoglycemia Protocol Enoxaparin Sodium 40 mg 04/06/24 09:00 04/07/24 08:27 Enoxaparin 40 Mg/0.4 Ml Syringe SUB-Q 40 mg DAILY RANDY Administration Glucagon 1 mg 03/27/24 11:53 Glucagon For Inj 1 Mg Vial IM PRN PRN Hypoglycemia Protocol Glucose 15 gm 03/27/24 11:53 Glucose Oral Gel 15 Gm Of Glucse In 37.5 Gm Tube PO PRN PRN Hypoglycemia Protocol Hydromorphone HCl 0.25 mg 04/04/24 13:52 Hydromorphone Hcl Inj (*Crx) 1 Mg/Ml Syr IV PUSH Q3H PRN Pain Rated 4-6 Hydromorphone HCl 0.5 mg 04/04/24 13:52 04/05/24 05:05 Hydromorphone Hcl Inj (*Crx) 1 Mg/Ml Syr IV PUSH 0.5 mg Q3H PRN Administration Pain Rated 7-10 Hyoscyamine 0.125 mg 03/27/24 13:00 Hyoscyamine Sulfate 0.125 Mg Tablet SUBLINGUAL Q4H PRN Bladder Spasm Dextrose 1,000 mls @ 100 mls/hr 03/27/24 11:53 Dextrose 5% 1,000 Ml IVPB PRN PRN Hypoglycemia Protocol Dextrose 1,000 mls @ 50 mls/hr 04/03/24 12:55 Dextrose 10% IV CONT .Q20H PRN if PN is interrupted Cefepime HCl 1 gm in 50 mls @ 100 mls/hr 04/04/24 14:00 04/06/24 21:00 Maxipime 1 Gm/Ns 50 Ml IVPB 0 mls/hr BID@1200,0000 RANDY Infusion Linezolid 600 mg in 300 mls @ 300 mls/hr 04/04/24 14:00 04/06/24 20:58 Zyvox IVPB 0 mls/hr BID@1200,0000 RANDY Infusion Insulin Aspart 2 - 5 units 03/27/24 12:00 04/07/24 12:07 Insulin Aspart (*[facility])
[2024-04-07] MEDS: CEFEPIME 1 GM/NS 50 ML 1 GM/50 ML BAG IVPB (12:30)
[2024-04-07] MEDS: LINEZOLID 600 MG/300 ML 600 MG/300 ML SOLN 300 MG IVPB (13:11)
--- NOTE | 2024-04-07 15:09 | P.CONIM_ITS ---
Assessment and Plan Assessment and plan (1) SHEA (acute kidney injury): Code(s): N17.9 - Acute kidney failure, unspecified Status: Acute Assessment and Plan: 04/07/24: * Noted to be resolving. * Urology and Nephrology following. * CR and BUN today are 1.10/32 with GFR of >60. * Continue to monitor with daily labs. (2) Prostate cancer: Code(s): C61 - Malignant neoplasm of prostate Status: Acute Assessment and Plan: 04/07/24: * Urology coverage continues. (3) Adynamic ileus: Code(s): K56.0 - Paralytic ileus Status: Acute Assessment and Plan: * Repeat CT-abd/pelvis 04/04/24 showed moderate increase in abdominal fluid. Drain placement shows fluid, at least in part, urine (creat. 13) * Cystogram 04/04/24: urine leak at bladder neck -> not unusual following radical prostatectomy and should heal with ongoing catheter drainage. Will plan for repeat cystogram 04/11/2024 * I suspect the urinary ascites was contributing significantly to SHEA and adynamic ileus. This is greatly improved. Creatinine has normalized following drain placement. He is tolerating his diet. KUB with overall improvement * Will advance to diabetic diet per General surgery recommendations * Continue to encourage ambulation/walking in halls today * Being treated for pneumonia; appreciate hospitalist recommendations regarding p.o. regimen following discharge * Hopeful discharge tomorrow if continued improvement. Home with drain and Fol ey 04/07/24: * Pt with inability to tolerate diet yesterday and his diet was discontinued. * Started again on solids today without difficulty and he was able to keep food down. * Suspect Ileus has resolved. Gen Sgy continuing to co-manage. (4) Type 2 diabetes mellitus with hyperglycemia: Qualifiers: Diabetes mellitus fdc insulin use: without fdc use Qualified Code(s): E11.65 - Type 2 diabetes mellitus with hyperglycemia Code(s): E11.65 - Type 2 diabetes mellitus with hyperglycemia Status: Acute Assessment and Plan: * Continue Hypoglycemic protocol * Continue to check AC and HS and PRN * Continue Home meds of trulicity, and metformin. * Jardiance being held * Continue SSI low dose with meals. (5) FAHAD on CPAP: Code(s): G47.33 - Obstructive sleep apnea (adult) (pediatric); Z99.89 - Dependence on other enabling machines and devices Status: Acute Assessment and Plan: * Continue home CPAP. (6) Essential hypertension: Code(s): I10 - Essential (primary) hypertension Status: Acute Assessment and Plan: * Home Lisinopril being held given SHEA. HPI Date of Consult Consult date: 04/07/24 Requesting Physician: Terrance Contreras MD Primary Care Provider: Will Daniel MD Consult Narrative Narrative: Edson Naylor is a 73 year old male whom hospitalist service has been consulted on for Medical Management during his hospitalization for PNA, SHEA, Adynamic Ileus, Prostate CA, DM, FAHAD and HTN. Pt is being co-managed by Nephrology/urology, Gen Sgy. His overall status is improving and he has no acute complaints today and has started tolerating solid food today as he was not able to yesterday. With regards to his PNA, I spoke with ID Pharmacist today and his Cefepime has been changed to Augmentin and both his Zyvox and his Augmentin are scheduled to run until 04/10/24. Pt has no acute complaints and no new symptoms to report. He feels well overall without complaints. Review of Systems Review of [employer]
--- NOTE | 2024-04-07 15:09 | PM.IMCN ---
Assessment and Plan Assessment and plan (1) SHEA (acute kidney injury): Code(s): N17.9 - Acute kidney failure, unspecified Status: Acute Assessment and Plan: 04/07/24: Noted to be resolving. Urology and Nephrology following. CR and BUN today are 1.10/32 with GFR of >60. Continue to monitor with daily labs. (2) Prostate cancer: Code(s): C61 - Malignant neoplasm of prostate Status: Acute Assessment and Plan: 04/07/24: Urology coverage continues. (3) Adynamic ileus: Code(s): K56.0 - Paralytic ileus Status: Acute Assessment and Plan: Repeat CT-abd/pelvis 04/04/24 showed moderate increase in abdominal fluid. Drain placement shows fluid, at least in part, urine (creat. 13) Cystogram 04/04/24: urine leak at bladder neck -> not unusual following radical prostatectomy and should heal with ongoing catheter drainage. Will plan for repeat cystogram 04/11/2024 I suspect the urinary ascites was contributing significantly to SHEA and adynamic ileus. This is greatly improved. Creatinine has normalized following drain placement. He is tolerating his diet. KUB with overall improvement Will advance to diabetic diet per General surgery recommendations Continue to encourage ambulation/walking in halls today Being treated for pneumonia; appreciate hospitalist recommendations regarding p.o. regimen following discharge Hopeful discharge tomorrow if continued improvement. Home with drain and Salazar 04/07/24: Pt with inability to tolerate diet yesterday and his diet was discontinued. Started again on solids today without difficulty and he was able to keep food down. Suspect Ileus has resolved. Gen Sgy continuing to co-manage. (4) Type 2 diabetes mellitus with hyperglycemia: Qualifiers: Diabetes mellitus technician terminal and repeater insulin use: without mcfp use Qualified Code(s): E11.65 - Type 2 diabetes mellitus with hyperglycemia Code(s): E11.65 - Type 2 diabetes mellitus with hyperglycemia Status: Acute Assessment and Plan: Continue Hypoglycemic protocol Continue to check AC and HS and PRN Continue Home meds of trulicity, and metformin. Jardiance being held Continue SSI low dose with meals. (5) FAHAD on CPAP: Code(s): G47.33 - Obstructive sleep apnea (adult) (pediatric); Z99.89 - Dependence on other enabling machines and devices Status: Acute Assessment and Plan: Continue home CPAP. (6) Essential hypertension: Code(s): I10 - Essential (primary) hypertension Status: Acute Assessment and Plan: Home Lisinopril being held given SHEA. HPI Date of Consult Consult date: 04/07/24 Requesting Physician: Terrance Contreras MD Primary Care Provider: Will Daniel MD Consult Narrative Narrative: Edson Naylor is a 73 year old male whom hospitalist service has been consulted on for Medical Management during his hospitalization for PNA, SHEA, Adynamic Ileus, Prostate CA, DM, FAHAD and HTN. Pt is being co-managed by Nephrology/urology, Gen Sgy. His overall status is improving and he has no acute complaints today and has started tolerating solid food today as he was not able to yesterday. With regards to his PNA, I spoke with ID Pharmacist today and his Cefepime has been changed to Augmentin and both his Zyvox and his Augmentin are scheduled to run until 04/10/24. Pt has no acute complaints and no new symptoms to report. He feels well overall without complaints. Review of Systems Review of Systems: All systems reviewed & are unremarkable except as noted in HPI and below PMFSH Past Medical History Medical History Arthritis Bilateral carpal tunnel syndrome (10/12/21) bilateral carpal tunnel syndrome documented on EMG and nerve conduction study 10/12/2021. EMG and nerve conduction study on 06/27/2023 with bilateral carpal tunnel syndrome as well as proximal neur
[2024-04-07 16:56] LABS: Glucose Point of Care 164 mg/dl (65-105)
--- NOTE | 2024-04-07 20:27 | ECG_ITS ---
Test Date: 2024-04-07 20:39:23 Measurements Intervals [place] Rate: 139 P: 47 AL: 91 QRS: 132 QRSD: 141 T: 172 QT: 337 QTc: 513 Interpretive Statements SINUS TACHYCARDIA WITH SHORT AL INTERVAL MARKED RIGHT AXIS DEVIATION [QRS AXIS > 100] RIGHT BUNDLE BRANCH BLOCK [120+ ms QRS DURATION, UPRIGHT V1, 40+ ms S IN I/aVL/V4/V5/V6] MARKED T-WAVE ABNORMALITY, CONSIDER ANTEROLATERAL ISCHEMIA [-0.5+ mV T WAVE IN I/aVL/V3-V6] No previous ECG available for comparison Electronically Signed On 04-08-2024 08:53:44 CDT by Alicia Fitzgerald M.D.
[2024-04-07] MEDS: LINEZOLID 600 MG TABLET PO (20:30)
[2024-04-07] MEDS: AMOXICILLIN/CLAVULANATE K 875-125 MG TAB 1 TABLET PO (20:30)
[2024-04-07 20:36] LABS: Glucose Point of Care 150 mg/dl (65-105)
--- NOTE | 2024-04-07 20:58 | PM.EVENT ---
Event Note Event Note Event Note: I was called to bedside by nursing staff to discovered patient had significant tachycardia with a rate of 140. Telemetry was applied showing wide complex tachycardia alarming as ventricular tachycardia. EKG obtained showing sinus tachycardia with right bundle-branch block rate of 139, short MA interval and 91, QRS duration 141, QTC 513, QRS axis marked right axis deviation 132, no STEMI but there is T-wave abnormality noted wave inversion in V3 V4 lead 1 lead 2 and aVL per my interpretation. Labs ordered including D-dimer, troponin, lactic acid, chemistry panel and CBC. Blood cultures also drawn from peripheral sticks. Upon initial called to the room patient asymptomatic heart rate around 140. Prior to any intervention, heart rate down to 101. Labs significant for continued leukocytosis currently 13.8 stable hemoglobin and hematocrit, stable elevated platelet count 458 significantly elevated D-dimer at 5.99 stable hyponatremia at 1:31 a.m., potassium 3.4, much improved renal function with a BUN of 22 creatinine 1.1 estimated GFR greater than 68 estimated creatinine clearance 82, stable low calcium at 7.5 and normal magnesium at 2.2. IV potassium replacement ordered through right upper extremity PICC line. Due to elevated D-dimer ordered CTA of the chest to assess for PE and Doppler bilateral lower extremity to assess for DVT. CTA obtained but there was significant motion artifact especially at the segmental and subsegmental levels in the bilateral lower lobes. Will defer Lovenox dosing to daytime team but based on patient weight I would recommend Q12HR dosing 40 mg for VTE prophylaxis or 150 mg Q12HR for treatment dose Lovenox if positive venous Doppler or moderate/high probability on VQ scan ordered for tomorrow.
[2024-04-07 21:04] LABS: Basophils Absolute Auto 0.1 K/mm3 (0.0-0.1); Basophils Percent Auto 0.7 % (0.2-1.2); Eosinophils Absolute Auto 0.6 K/mm3 (0-0.3); Eosinophils Percent Auto 4.6 % (0-4.4); Hematocrit 38.1 % (42.0-52.0); Hemoglobin 12.7 g/dL (14.0-18.0); Immature Granulocyte Absolute 0.55 K/mm3 (0.00-0.031); Lymphocytes Absolute Auto 1.56 K/mm3 (0.9-3.2); Lymphocytes Percent Auto 11.3 % (18.3-44.2); Mean Corpuscular HGB Conc 33.3 g/dl (32-36); Mean Corpuscular Hemoglobin 31.1 pg (26-34); Mean Corpuscular Volume 93.2 fl (80-100); Mean Platelet Volume 9.3 fl (7.4-10.4); Monocytes Absolute Auto 1.2 K/mm3 (0.1-0.6); Monocytes Percent Auto 8.4 % (2.6-8.5); Neutrophils Absolute Auto 9.8 K/mm3 (1.3-6.7); Platelet Count Result 458 k/mm3 (150-375); Red Blood Count 4.09 M/mm3 (4.6-6.20); Red Cell Distribution Width 13.5 % (11.5-14.5); White Blood Count 13.8 K/mm3 (4.5-10.0)
[2024-04-07 21:17] LABS: Lactic Acid Reflex 1.8 mmol/L (0.7-2.0)
[2024-04-07 21:30] LABS: D Dimer 5.99 ug/mL (<0.48)
[2024-04-07 21:50] LABS: Alanine Aminotransferase 34 U/L (6-50); Albumin Level 2.7 g/dL (3.5-5.1); Alkaline Phosphatase 203 U/L (38-126); Anion Gap 6 mmol/L (4-12); Aspartate Amino Transferase 82 U/L (17-59); Blood Urea Nitrogen 22 mg/dL (9-20); Calcium 7.5 mg/dL (8.4-10.2); Carbon Dioxide 29 mmol/L (22-30); Chloride 96 mmol/L (98-107); Estimated CRCL calculation 82 ml/min; Estimated Glomerular Filt Rate > 60; Glucose 150 mg/dL (65-110); Magnesium 2.2 mg/dL (1.6-2.3); Potassium 3.4 mmol/L (3.4-5.0); Sodium 131 mmol/L (137-145)
[2024-04-07 21:56] LABS: Troponin I < 0.012 ng/mL (0.000-0.034)
[2024-04-07] MEDS: KCL 40 MEQ/WATER 100 ML 100 ML 25 ML IVPB (23:48)
[2024-04-07] MEDS: ENOXAPARIN 40 MG/0.4 ML SYRINGE 150 MG SUB-Q (23:53)
[2024-04-08] VITALS (16 sets, daily range): BP systolic 110–124; BP diastolic 57–70; PULSE 87–140; RESP 13–20; TEMP 36.3–37.1; O2SAT 96–98
[2024-04-08 00:55] LABS: Troponin I < 0.012 ng/mL (0.000-0.034)
[2024-04-08] MEDS: CENTRAL LINE FLUSH 10 ML IV PUSH ×3 (05:05→20:12)
[2024-04-08 05:35] LABS: Alanine Aminotransferase 33 U/L (6-50); Albumin Level 2.6 g/dL (3.5-5.1); Alkaline Phosphatase 193 U/L (38-126); Anion Gap 2 mmol/L (4-12); Anion Gap 4 mmol/L (4-12); Aspartate Amino Transferase 72 U/L (17-59); Blood Urea Nitrogen 17 mg/dL (9-20); Blood Urea Nitrogen 18 mg/dL (9-20); Calcium 7.2 mg/dL (8.4-10.2); Calcium 7.3 mg/dL (8.4-10.2); Carbon Dioxide 30 mmol/L (22-30); Carbon Dioxide 31 mmol/L (22-30); Chloride 98 mmol/L (98-107); Estimated CRCL calculation 99 ml/min; Estimated Glomerular Filt Rate > 60; Glucose 136 mg/dL (65-110); Phosphorus 2.7 mg/dL (2.5-4.5); Potassium 3.8 mmol/L (3.4-5.0); Potassium 5.5 mmol/L (3.4-5.0); Sodium 130 mmol/L (137-145); Sodium 133 mmol/L (137-145)
[2024-04-08 05:48] LABS: Troponin I < 0.012 ng/mL (0.000-0.034)
--- NOTE | 2024-04-08 07:08 | WPDUROPN2 ---
Progress Note: A&P Assessment and Plan (1) Prostate cancer: Code(s): C61 - Malignant neoplasm of prostate Status: Acute (2) SHEA (acute kidney injury): Code(s): N17.9 - Acute kidney failure, unspecified Status: Acute Assessment and Plan: suspect likely due to urine leak with urinary absorption. Creatinine has normalized, 1.1 today (3) Adynamic ileus: Code(s): K56.0 - Paralytic ileus Status: Acute Assessment and Plan: Repeat CT-abd/pelvis 04/04/24 showed moderate increase in abdominal fluid. Drain placement shows fluid, at least in part, urine (creat. 13) Cystogram 04/04/24: urine leak at bladder neck -> not unusual following radical prostatectomy and should heal with ongoing catheter drainage. Will plan for repeat cystogram 04/11/2024 I suspect the urinary ascites was contributing significantly to SHEA and adynamic ileus. This is greatly improved. Creatinine has normalized following drain placement. He is tolerating his diet. KUB with overall improvement Will advance to diabetic diet per General surgery recommendations Continue to encourage ambulation/walking in halls today Being treated for pneumonia; appreciate hospitalist recommendations regarding p.o. regimen following discharge Hopeful discharge tomorrow if continued improvement. Home with drain and Salazar 04/08/2024 Transient tachycardia last night - appreciate flap maker evaluaiton. CTA-chest negative for PE. Non-diagnositic EKG changes Tolerating diet / ileus resolved. SHEA resolved with placement abdominal drain. When medically stable will discharge with both abdominal drain and Salazar catheter. Plan for cystogram Sunday04/14/24. Subjective Subjective Date/Time Seen: 04/08/24 07:08 Interval history: Episode of tachycardia last night - EKG changes noted. CTA-chest negative. Feeling well this morning, no complaints. Review of Systems Cardiovascular: Cardiovascular: Denies chest pain, Denies lightheadedness, Denies palpitations and Denies dyspnea Respiratory: Respiratory: Denies dyspnea Gastrointestinal: Gastrointestinal: Denies diarrhea, Denies nausea and Denies vomiting Genitourinary: Genitourinary: Denies hematuria and Denies dysuria Endocrine: Endocrine: Denies palpitations Objective Data Vital Signs Vital Signs: Vital Signs - 24 hr 04/07/24 09:32 04/07/24 08:00 04/07/24 15:42 Temperature 97.6 F Pulse Rate 99 Respiratory Rate 16 Blood Pressure 91/51 L Pulse Oximetry 96 97 Oxygen Delivery Room Air Room Air Oxygen Flow Rate Fraction of Inspired Oxygen 21 04/07/24 20:50 04/07/24 22:25 04/07/24 20:00 Temperature 97.1 F L 97.1 F L Pulse Rate 140 H 101 H Respiratory Rate 18 16 Blood Pressure 102/70 121/71 Pulse Oximetry 96 99 Oxygen Delivery Room Air Oxygen Flow Rate Fraction of Inspired Oxygen 04/07/24 23:25 04/08/24 00:00 04/07/24 20:40 Temperature 97.2 F L Pulse Rate 102 H 97 Respiratory Rate 15 Blood Pressure 129/61 Pulse Oximetry 96 96 Oxygen Delivery Nasal Cannula Oxygen Flow Rate 2 Fraction of Inspired Oxygen 04/07/24 22:10 04/08/24 03:12 04/08/24 04:00 Temperature 97.3 F L Pulse Rate 102 H 101 H 87 Respiratory Rate 13 Blood Pressure 120/68 Pulse Oximetry 98 96 Oxygen Delivery Oxygen Flow Rate Fraction of Inspired Oxygen Intake/Output Intake/Output: Intake & Output 04/05/24 04/06/24 04/07/24 04/08/24 23:59 23:59 23:59 23:59 Intake Total 1235 2341.7 893 500 Output Total 2950 2250 2470 1000 Balance -3245 91.7 -1573 -500 Meds/Results Medications: Active Medications Generic Name Dose Route Start Last Admin Trade Name Freq PRN Reason Stop Dose Admin Acetaminophen 650 mg 03/28/24 13:09 Acetaminophen 325 Mg Tablet PO Q4H PRN Mild pain 1-3 Hydrocodone Bitart/Acetaminophen 1 tab 03/28/24 13:09 04/01/24 21:23 Hydrocodone/Acetaminophen (*Crx) 5-325 Mg Tabl
[2024-04-08] MEDS: ALBUTEROL SULFATE NEB 2.5 MG/3 ML INH INHALATION (07:15)
[2024-04-08 07:59] LABS: Glucose Point of Care 124 mg/dl (65-105)
[2024-04-08] MEDS: SODIUM ZIRCONIUM CYCLOSILICATE 10 GM POWD.PACK PO (08:06)
[2024-04-08] MEDS: DEXTROSE 50% 25 GM/50 ML SYRINGE IV PUSH (08:08)
[2024-04-08] MEDS: CYANOCOBALAMIN 1,000 MCG TABLET 1000 MCG PO (08:08)
[2024-04-08] MEDS: ATORVASTATIN 40 MG TABLET PO (08:09)
[2024-04-08] MEDS: PANTOPRAZOLE 40 MG TABLET PO (08:09)
[2024-04-08] MEDS: LINEZOLID 600 MG TABLET PO ×2 (08:09→20:12)
[2024-04-08] MEDS: AMOXICILLIN/CLAVULANATE K 875-125 MG TAB 1 TABLET PO ×2 (08:09→20:12)
[2024-04-08] MEDS: SODIUM CHLORIDE 0.9% IV 1,000 ML 999 ML IV CONT (08:10)
[2024-04-08] MEDS: INSULIN HUMAN REGULAR (*BKC) 100 UNITS/ML 10 UNITS IV PUSH (08:10)
--- NOTE | 2024-04-08 10:51 | PCNFU ---
Nutrition Follow-Up Complete: Inadequate energy intake related to inability to meet estimated needs PO as evidenced by need for partial PN Goal:Meet estimated nutrition needs Pt meeting goal via PO intake Pt current nutrition is diabetic consistent carb. Nutrition recommendation: Continue with current plan of care Last recorded weight is 148.4 kg. Bowel Motility: +04/07 Labs Reviewed: NA:130, K:5.5, Cr:1, Glu:150 Meds Noted: lovnox, zofran, novolog Skin: WNL Additional Notes: pt no longer on TPN, diet advanced to diabetic consistent carb, pt is tolerating diet today, intake 50-100%. Continue with current plan of care. Agree with orders. Monitoring labs, weights, intakes, plan of care Follow up in 5 days.
[2024-04-08] MEDS: ENOXAPARIN 40 MG/0.4 ML SYRINGE 150 MG SUB-Q (10:59)
--- NOTE | 2024-04-08 11:22 | P.PNIM_ITS ---
Progress Note: A&P Assessment and Plan (1) SHEA (acute kidney injury): Code(s): N17.9 - Acute kidney failure, unspecified Status: Acute Assessment and Plan: 04/07/24: * Noted to be resolving. * Urology and Nephrology following. * CR and BUN today are 1.10/32 with GFR of >60. * Continue to monitor with daily labs. 04/08/24: * Resolved with normal renal function today. * Per Urology, they will discharge when ready with both abdominal drain and kelsey catheter. He will have a cystogram on Sunday04/14/24. (2) Prostate cancer: Code(s): C61 - Malignant neoplasm of prostate Status: Acute Assessment and Plan: 04/07/24: * Urology coverage continues. 04/08/24: * See Urology notes. (3) Adynamic ileus: Code(s): K56.0 - Paralytic ileus Status: Acute Assessment and Plan: * Repeat CT-abd/pelvis 04/04/24 showed moderate increase in abdominal fluid. Drain placement shows fluid, at least in part, urine (creat. 13) * Cystogram 04/04/24: urine leak at bladder neck -> not unusual following radical prostatectomy and should heal with ongoing catheter drainage. Will plan for repeat cystogram 04/11/2024 * I suspect the urinary ascites was contributing significantly to SHEA and adynamic ileus. This is greatly improved. Creatinine has normalized following drain placement. He is tolerating his diet. KUB with overall improvement * Will advance to diabetic diet per General surgery recommendations * Continue to encourage ambulation/walking in halls today * Being treated for pneumonia; appreciate hospitalist recommendations regarding p.o. regimen following discharge * Hopeful discharge tomorrow if continued improvement. Home with drain and Kelsey 04/07/24: * Pt with inability to tolerate diet yesterday and his diet was discontinued. * Started again on solids today without difficulty and he was able to keep food down. * Suspect Ileus has resolved. Gen Sgy continuing to co-manage. 04/08/24: * Pt tolerating diet without difficulty. * Resolution of ileus * Continue to follow Gen. Sgy recs. (4) Type 2 diabetes mellitus with hyperglycemia: Qualifiers: Diabetes mellitus group home insulin use: without group home use Qualified Code(s): E11.65 - Type 2 diabetes mellitus with hyperglycemia Code(s): E11.65 - Type 2 diabetes mellitus with hyperglycemia Status: Acute Assessment and Plan: * Continue Hypoglycemic protocol * Continue to check AC and HS and PRN * Continue Home meds of trulicity, and metformin. * Jardiance being held * Continue SSI low dose with meals. 04/08/24: * Glucose 136 this AM demonstrating good control * Continue current regimen. * Continue to monitor. (5) FAHAD on CPAP: Code(s): G47.33 - Obstructive sleep apnea (adult) (pediatric); Z99.89 - Dependence on other enabling machines and devices Status: Acute Assessment and Plan: * Continue home CPAP. (6) Essential hypertension: Code(s): I10 - Essential (primary) hypertension Status: Acute Assessment and Plan: * Home Lisinopril being held given SHEA. 04/08/24: * Given pt's Renal function has returned to normal, will restart Lisinopril 10 mg QAM today. (7) Tachycardia: Code(s): R00.0 - Tachycardia, unspecified Status: Acute Assessment and Plan: * Episode of tachycardia last evening as noted in HPI for today. * Continue Telemetry * Follow results of Venous dopper and VQ scan. * Continue Therapeutic lovenox for now pending results of
--- NOTE | 2024-04-08 11:22 | PM.IMPN ---
Progress Note: A&P Assessment and Plan (1) SHEA (acute kidney injury): Code(s): N17.9 - Acute kidney failure, unspecified Status: Acute Assessment and Plan: 04/07/24: Noted to be resolving. Urology and Nephrology following. CR and BUN today are 1.10/32 with GFR of >60. Continue to monitor with daily labs. 04/08/24: Resolved with normal renal function today. Per Urology, they will discharge when ready with both abdominal drain and kelsey catheter. He will have a cystogram on Sunday04/14/24. (2) Prostate cancer: Code(s): C61 - Malignant neoplasm of prostate Status: Acute Assessment and Plan: 04/07/24: Urology coverage continues. 04/08/24: See Urology notes. (3) Adynamic ileus: Code(s): K56.0 - Paralytic ileus Status: Acute Assessment and Plan: Repeat CT-abd/pelvis 04/04/24 showed moderate increase in abdominal fluid. Drain placement shows fluid, at least in part, urine (creat. 13) Cystogram 04/04/24: urine leak at bladder neck -> not unusual following radical prostatectomy and should heal with ongoing catheter drainage. Will plan for repeat cystogram 04/11/2024 I suspect the urinary ascites was contributing significantly to SHEA and adynamic ileus. This is greatly improved. Creatinine has normalized following drain placement. He is tolerating his diet. KUB with overall improvement Will advance to diabetic diet per General surgery recommendations Continue to encourage ambulation/walking in halls today Being treated for pneumonia; appreciate hospitalist recommendations regarding p.o. regimen following discharge Hopeful discharge tomorrow if continued improvement. Home with drain and Kelsey 04/07/24: Pt with inability to tolerate diet yesterday and his diet was discontinued. Started again on solids today without difficulty and he was able to keep food down. Suspect Ileus has resolved. Gen Sgy continuing to co-manage. 04/08/24: Pt tolerating diet without difficulty. Resolution of ileus Continue to follow Gen. Sgy recs. 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 Jardiance being held Continue SSI low dose with meals. 04/08/24: Glucose 136 this AM demonstrating good control Continue current regimen. Continue to monitor. (5) FAHAD on CPAP: Code(s): G47.33 - Obstructive sleep apnea (adult) (pediatric); Z99.89 - Dependence on other enabling machines and devices Status: Acute Assessment and Plan: Continue home CPAP. (6) Essential hypertension: Code(s): I10 - Essential (primary) hypertension Status: Acute Assessment and Plan: Home Lisinopril being held given SHEA. 04/08/24: Given pt's Renal function has returned to normal, will restart Lisinopril 10 mg QAM today. (7) Tachycardia: Code(s): R00.0 - Tachycardia, unspecified Status: Acute Assessment and Plan: Episode of tachycardia last evening as noted in HPI for today. Continue Telemetry Follow results of Venous dopper and VQ scan. Continue Therapeutic lovenox for now pending results of VQ scan. Magnesium is stable. If VQ scan is negative, discontinue therapeutic dosing of Lovenox and order 40 mEq SC. Time Spent With Patient Time with patient: Greater than 35 minutes Subjective Date/time seen: 04/08/24 1020 Interval history: This pt was examined at the bedside today in interval assessment. Overnight the pt had an episode of ST to the 140s-150s. Testing was done including three negative troponins, elevated dimer, normal lactic acid and
[2024-04-08 11:26] LABS: Anion Gap 8 mmol/L (4-12); Blood Urea Nitrogen 15 mg/dL (9-20); Calcium 7.3 mg/dL (8.4-10.2); Carbon Dioxide 27 mmol/L (22-30); Chloride 97 mmol/L (98-107); Estimated CRCL calculation 99 ml/min; Estimated Glomerular Filt Rate > 60; Glucose 191 mg/dL (65-110); Potassium 3.3 mmol/L (3.4-5.0); Sodium 132 mmol/L (137-145)
[2024-04-08 11:36] LABS: Glucose Point of Care 165 mg/dl (65-105)
[2024-04-08 12:25] LABS: Triglycerides 126 mg/dL (<150)
--- NOTE | 2024-04-08 13:13 | PM.PNGS ---
Progress Note: A&P Assessment and Plan (1) Adynamic ileus: Code(s): K56.0 - Paralytic ileus Status: Acute Assessment and Plan: resolved, exam benign, chela diet and having normal bowel fxn, no acute surgical issues, will sign off, call with questions or issues Subjective Subjective Date/Time Seen: 04/08/24 13:13 Interval history: feels better today, chela diet and having bowel fxn Review of Systems Review of Systems: All systems reviewed & are unremarkable except as noted in HPI and below Exam Const: General: cooperative, comfortable and no acute distress Resp: Auscultation: clear to auscultation bilaterally Cardio: Rate: tachycardic Rhythm: regular rhythm GI: Inspection: normal to inspection, distended and incision GI Palp: No abdominal tenderness and Yes Soft to palpation Objective Data Vital Signs Vital Signs: Vital Signs - 24 hr 04/07/24 15:42 04/07/24 20:50 04/07/24 22:25 Temperature 36.4 C 36.2 C L 36.2 C L Pulse Rate 99 140 H 101 H Respiratory Rate 16 18 16 Blood Pressure 91/51 L 102/70 121/71 Pulse Oximetry 97 96 99 Oxygen Delivery Oxygen Flow Rate Fraction of Inspired Oxygen 04/07/24 20:00 04/07/24 23:25 04/08/24 00:00 Temperature 36.2 C L Pulse Rate 102 H 97 Respiratory Rate 15 Blood Pressure 129/61 Pulse Oximetry 96 Oxygen Delivery Room Air Oxygen Flow Rate Fraction of Inspired Oxygen 04/07/24 20:40 04/07/24 22:10 04/08/24 03:12 Temperature 36.3 C L Pulse Rate 102 H 101 H Respiratory Rate 13 Blood Pressure 120/68 Pulse Oximetry 96 98 96 Oxygen Delivery Nasal Cannula Oxygen Flow Rate 2 Fraction of Inspired Oxygen 04/08/24 04:00 04/08/24 07:15 04/08/24 07:15 Temperature Pulse Rate 87 91 Respiratory Rate 18 Blood Pressure Pulse Oximetry 96 Oxygen Delivery Nasal Cannula Oxygen Flow Rate 2 Fraction of Inspired Oxygen 28 04/08/24 07:27 04/08/24 07:25 04/08/24 08:00 Temperature 36.3 C L Pulse Rate 94 140 H 101 H Respiratory Rate 18 18 Blood Pressure 110/70 Pulse Oximetry 97 Oxygen Delivery Oxygen Flow Rate Fraction of Inspired Oxygen 04/08/24 08:00 04/08/24 10:21 04/08/24 12:00 Temperature Pulse Rate 104 H Respiratory Rate Blood Pressure Pulse Oximetry 97 96 Oxygen Delivery Room Air Room Air Oxygen Flow Rate Fraction of Inspired Oxygen 04/08/24 13:09 Temperature 37.1 C Pulse Rate 138 H Respiratory Rate 20 Blood Pressure 114/67 Pulse Oximetry 96 Oxygen Delivery Oxygen Flow Rate Fraction of Inspired Oxygen Intake/Output Intake/Output: Intake & Output 04/05/24 04/06/24 04/07/24 04/08/24 23:59 23:59 23:59 23:59 Intake Total 1235 2341.7 893 1980 Output Total 2950 2250 2470 1070 Balance -1715 91.7 -1577 910 Meds/Results Medications: Active Medications Generic Name Dose Route Start Last Admin Trade Name Freq PRN Reason Stop Dose Admin Acetaminophen 650 mg 03/28/24 13:09 Acetaminophen 325 Mg Tablet PO Q4H PRN Mild pain 1-3 Hydrocodone Bitart/Acetaminophen 1 tab 03/28/24 13:09 04/01/24 21:23 Hydrocodone/Acetaminophen (*Crx) 5-325 Mg Tablet PO 1 tab Q6H PRN Administration Pain Rated 4-6 Amoxicillin/Clavulanate Potassium 1 tablet 04/07/24 21:00 04/08/24 08:09 Amoxicillin/Clavulanate K 875-125 Mg Tab PO 04/10/24 23:59 1 tablet Q12HR RANDY Administration Atorvastatin Calcium 40 mg 03/28/24 09:00 04/08/24 08:09 Atorvastatin 40 Mg Tablet PO 40 mg DAILY RANDY Administration Cyanocobalamin 1,000 mcg 03/28/24 09:00 04/08/24 08:08 Cyanocobalamin 1,000 Mcg Tablet PO 1,000 mcg DAILY RANDY Administration Dextrose 12.5 gm 03/27/24 11:53 Dextrose 50% 25 Gm/50 Ml Syringe IV PUSH PRN PRN Hypoglycemia Protocol Enoxaparin Sodium 150 mg 04/08/24 00:00 04/08/24 10:59 Enoxaparin 40 Mg/0.4 Ml Syringe SUB-Q 150 mg Q12H RANDY Administration Glucag
[2024-04-08] MEDS: METOPROLOL SUCCINATE EXT REL 25 MG TABCR PO (14:20)
[2024-04-08] MEDS: METOPROLOL TARTRATE INJ 5 MG/5 ML VIAL IV PUSH (14:20)
[2024-04-08 16:45] LABS: Glucose Point of Care 161 mg/dl (65-105)
[2024-04-08 20:53] LABS: Glucose Point of Care 182 mg/dl (65-105)
[2024-04-08] MEDS: ENOXAPARIN 120 MG/0.8 ML SYRINGE SUB-Q (23:08)
[2024-04-08] MEDS: ENOXAPARIN 30 MG/0.3 ML SYRINGE SUB-Q (23:08)
[2024-04-09] VITALS: PULSE 107
[2024-04-09 04:00] VITALS: PULSE 88
--- NOTE | 2024-04-09 06:09 | PC.NURSE ---
This RN was notified by PCTAlissa, that the patient had a decrease in output overnight. This RN went to bedside to assess the kelsey and found it out of the patient. The balloon was deflated and catheter was out of the patient. PCT Alissa bladder scanned the patient and got 269. Pt states that he does not have to pee at this time. This RN talked to Dr. Contreras at the nurses station and reported to pt bedside. Dr. Contreras placed new kelsey. Will continue care.
[2024-04-09 06:22] LABS: Anion Gap 5 mmol/L (4-12); Blood Urea Nitrogen 12 mg/dL (9-20); Calcium 7.3 mg/dL (8.4-10.2); Carbon Dioxide 27 mmol/L (22-30); Chloride 101 mmol/L (98-107); Estimated CRCL calculation 99 ml/min; Estimated Glomerular Filt Rate > 60; Glucose 117 mg/dL (65-110); Phosphorus 2.8 mg/dL (2.5-4.5); Potassium 3.4 mmol/L (3.4-5.0); Sodium 133 mmol/L (137-145)
--- NOTE | 2024-04-09 06:26 | WPDUROPN2 ---
Progress Note: A&P Assessment and Plan (1) Prostate cancer: Code(s): C61 - Malignant neoplasm of prostate Status: Acute (2) SHEA (acute kidney injury): Code(s): N17.9 - Acute kidney failure, unspecified Status: Acute (3) DVT (deep venous thrombosis): Code(s): I82.409 - Acute embolism and thrombosis of unspecified deep veins of unspecified lower extremity Status: Acute Assessment and Plan: Catheter spontaneously fell out early this morning - replaced easily. I'm encouraged by bladder volume 400cc without increase in abd. drain output -> suggest anastomotic leak may have healed. Will still plan catheter and drain until early next week. DVT (post. tibial v.) without apparent PE on CTA or VQ scan. Anticoag. decision per hospitalists. Tachycardia improved with B-elana adjusment. Appreciate Aby Vicente [employer] assistance. Home when medically stable. Subjective Subjective Date/Time Seen: 04/09/24 06:26 Interval history: Salazar catheter spontaneously fell out this morning - noted by nurses just as I arrived ~0600. Review of Systems Cardiovascular: Cardiovascular: Denies chest pain, Denies lightheadedness, Denies palpitations and Denies dyspnea Respiratory: Respiratory: Denies dyspnea Gastrointestinal: Gastrointestinal: Denies diarrhea, Denies nausea and Denies vomiting Genitourinary: Genitourinary: Denies hematuria and Denies dysuria Endocrine: Endocrine: Denies palpitations Exam Const: General: no acute distress Resp: Effort & Inspection: normal respiratory effort GI: Inspection: non-distended GI Palp: No abdominal tenderness and No Guarding due to palpation present (GI) Auscultation: normal bowel sounds Objective Data Vital Signs Vital Signs: Vital Signs - 24 hr 04/08/24 07:15 04/08/24 07:15 04/08/24 07:27 Temperature Pulse Rate 91 94 Respiratory Rate 18 18 Blood Pressure Pulse Oximetry 96 Oxygen Delivery Nasal Cannula Oxygen Flow Rate 2 Fraction of Inspired Oxygen 28 04/08/24 07:25 04/08/24 08:00 04/08/24 08:00 Temperature 97.3 F L Pulse Rate 140 H 101 H Respiratory Rate 18 Blood Pressure 110/70 Pulse Oximetry 97 97 Oxygen Delivery Room Air Oxygen Flow Rate Fraction of Inspired Oxygen 04/08/24 10:21 04/08/24 12:00 04/08/24 13:09 Temperature 98.7 F Pulse Rate 104 H 138 H Respiratory Rate 20 Blood Pressure 114/67 Pulse Oximetry 96 96 Oxygen Delivery Room Air Oxygen Flow Rate Fraction of Inspired Oxygen 21 04/08/24 14:20 04/08/24 14:20 04/08/24 16:00 Temperature Pulse Rate 105 H 105 H 96 Respiratory Rate Blood Pressure Pulse Oximetry Oxygen Delivery Oxygen Flow Rate Fraction of Inspired Oxygen 04/08/24 18:05 04/08/24 19:25 04/08/24 23:17 Temperature 97.5 F L 97.4 F L 97.3 F L Pulse Rate 95 93 91 Respiratory Rate 16 14 16 Blood Pressure 124/57 L 116/60 117/63 Pulse Oximetry 98 98 97 Oxygen Delivery Oxygen Flow Rate Fraction of Inspired Oxygen 04/08/24 20:00 04/09/24 00:00 04/09/24 04:00 Temperature Pulse Rate 95 107 H 88 Respiratory Rate Blood Pressure Pulse Oximetry Oxygen Delivery Oxygen Flow Rate Fraction of Inspired Oxygen Intake/Output Intake/Output: Intake & Output 04/06/24 04/07/24 04/08/24 04/09/24 23:59 23:59 23:59 23:59 Intake Total 2341.7 893 2450 1200 Output Total 2250 2470 2330 50 Balance 91.7 -1768 638 8365 Meds/Results Medications: Active Medications Generic Name Dose Route Start Last Admin Trade Name Freq PRN Reason Stop Dose Admin Acetaminophen 650 mg 03/28/24 13:09 Acetaminophen 325 Mg Tablet PO Q4H PRN Mild pain 1-3 Hydrocodone Bitart/Acetaminophen 1 tab 03/28/24 13:09 04/01/24 21:23 Hydrocodone/Acetaminophen (*Crx) 5-325 Mg Tablet PO 1 tab Q6H PRN Administration Pain Rated 4-6 Amoxicillin/Clavulanate Potassium 1 tablet 04/07/24 2
[2024-04-09] MEDS: CENTRAL LINE FLUSH 10 ML IV PUSH ×2 (07:07→13:30)
[2024-04-09] MEDS: WATER FOR IRRIGATION, STERILE 1,000 ML BOTTLE 1000 ML (07:07)
[2024-04-09 07:45] LABS: Glucose Point of Care 122 mg/dl (65-105)
[2024-04-09 08:00] VITALS: BP 99/58; PULSE 93; PULSE 94; PULSE 96; RESP 20; TEMP 36; O2SAT 98
[2024-04-09 08:38] VITALS: BP 110/70
[2024-04-09 08:44] VITALS: PULSE 94
[2024-04-09] MEDS: METOPROLOL SUCCINATE EXT REL 25 MG TABCR PO (08:44)
[2024-04-09] MEDS: LINEZOLID 600 MG TABLET PO (08:44)
[2024-04-09] MEDS: CYANOCOBALAMIN 1,000 MCG TABLET 1000 MCG PO (08:44)
[2024-04-09] MEDS: lisinopriL 10 MG TABLET PO (08:44)
[2024-04-09] MEDS: AMOXICILLIN/CLAVULANATE K 875-125 MG TAB 1 TABLET PO (08:44)
[2024-04-09] MEDS: PANTOPRAZOLE 40 MG TABLET PO (08:44)
[2024-04-09] MEDS: ATORVASTATIN 40 MG TABLET PO (08:44)
[2024-04-09] MEDS: APIXABAN 5 MG TABLET 10 MG PO (11:08)
[2024-04-09 11:59] LABS: Glucose Point of Care 174 mg/dl (65-105)
[2024-04-09 12:00] VITALS: BP 114/56; PULSE 94; PULSE 97; RESP 20; TEMP 36.4; O2SAT 97
[2024-04-09] MEDS: HYOSCYAMINE SULFATE 0.125 MG TABLET SUBLINGUAL (13:43)
--- NOTE | 2024-04-09 15:00 | P.PNIM_ITS ---
Progress Note: A&P Assessment and Plan (1) SHEA (acute kidney injury): Code(s): N17.9 - Acute kidney failure, unspecified Status: Acute Assessment and Plan: 04/09/24:Resolved. 04/08/24: * Resolved with normal renal function today. * Scheduled for cystogram on Sunday04/14/24. (2) Prostate cancer: Code(s): C61 - Malignant neoplasm of prostate Status: Acute Assessment and Plan: s/p Robotic assisted radical prostatectomy and bilateral pelvic lymphadenectomy. Continue to f/u with urologist outpatient. (3) DVT (deep venous thrombosis): Code(s): I82.409 - Acute embolism and thrombosis of unspecified deep veins of unspecified lower extremity Status: Acute Assessment and Plan: - Started on Eliquis. - Educated on bleeding symptoms to monitor. (4) Adynamic ileus: Code(s): K56.0 - Paralytic ileus Status: Acute Assessment and Plan: * Repeat CT-abd/pelvis 04/04/24 showed moderate increase in abdominal fluid. Drain placement shows fluid, at least in part, urine (creat. 13) * Cystogram 04/04/24: urine leak at bladder neck -> not unusual following radical prostatectomy and should heal with ongoing catheter drainage. Will plan for repeat cystogram 04/11/2024 * I suspect the urinary ascites was contributing significantly to SHEA and adynamic ileus. This is greatly improved. Creatinine has normalized following drain placement. He is tolerating his diet. KUB with overall improvement * Will advance to diabetic diet per General surgery recommendations * Continue to encourage ambulation/walking in halls today * Being treated for pneumonia; appreciate hospitalist recommendations regarding p.o. regimen following discharge * Hopeful discharge tomorrow if continued improvement. Home with drain and Salazar 04/07/24: * Pt with inability to tolerate diet yesterday and his diet was discontinued. * Started again on solids today without difficulty and he was able to keep food down. * Suspect Ileus has resolved. Gen Sgy continuing to co-manage. 04/08/24: * Pt tolerating diet without difficulty. * Resolution of ileus * Continue to follow Gen. Sgy recs. 04/09/24: Resolved and tolerating PO intake well without GI symptoms. (5) Type 2 diabetes mellitus with hyperglycemia: Qualifiers: Diabetes mellitus snf insulin use: without terminal superintendent use Q ualified Code(s): E11.65 - Type 2 diabetes mellitus with hyperglycemia Code(s): E11.65 - Type 2 diabetes mellitus with hyperglycemia Status: Acute Assessment and Plan: * Continue Hypoglycemic protocol * Continue to check AC and HS and PRN * Continue Home meds of trulicity, and metformin. * Jardiance being held * Continue SSI low dose with meals. 04/08/24: * Glucose 136 this AM demonstrating good control * Continue current regimen. * Continue to monitor. * 04/09/24: - Well controlled. - Continue current insulin regimen. (6) FAHAD on CPAP: Code(s): G47.33 - Obstructive sleep apnea (adult) (pediatric); Z99.89 - Dependence on other enabling machines and devices Status: Acute Assessment and Plan: * Continue home CPAP. (7) Essential hypertension: Code(s): I10 - Essential (primary) hypertension Status: Acute Assessment and Plan: * Home Lisinopril being held given SEHA. 04/08/24: * Given pt's Renal function has returned to normal, will restart Lisinopril 10 mg QAM today. * - BP well controlled. - Continue Lisinopril. (8) Tachycardia:
--- NOTE | 2024-04-09 15:00 | PM.IMPN ---
Progress Note: A&P Assessment and Plan (1) SHEA (acute kidney injury): Code(s): N17.9 - Acute kidney failure, unspecified Status: Acute Assessment and Plan: 04/09/24:Resolved. 04/08/24: Resolved with normal renal function today. Scheduled for cystogram on Sunday04/14/24. (2) Prostate cancer: Code(s): C61 - Malignant neoplasm of prostate Status: Acute Assessment and Plan: s/p Robotic assisted radical prostatectomy and bilateral pelvic lymphadenectomy. Continue to f/u with urologist outpatient. (3) DVT (deep venous thrombosis): Code(s): I82.409 - Acute embolism and thrombosis of unspecified deep veins of unspecified lower extremity Status: Acute Assessment and Plan: - Started on Eliquis. - Educated on bleeding symptoms to monitor. (4) Adynamic ileus: Code(s): K56.0 - Paralytic ileus Status: Acute Assessment and Plan: Repeat CT-abd/pelvis 04/04/24 showed moderate increase in abdominal fluid. Drain placement shows fluid, at least in part, urine (creat. 13) Cystogram 04/04/24: urine leak at bladder neck -> not unusual following radical prostatectomy and should heal with ongoing catheter drainage. Will plan for repeat cystogram 04/11/2024 I suspect the urinary ascites was contributing significantly to SHEA and adynamic ileus. This is greatly improved. Creatinine has normalized following drain placement. He is tolerating his diet. KUB with overall improvement Will advance to diabetic diet per General surgery recommendations Continue to encourage ambulation/walking in halls today Being treated for pneumonia; appreciate hospitalist recommendations regarding p.o. regimen following discharge Hopeful discharge tomorrow if continued improvement. Home with drain and Salazar 04/07/24: Pt with inability to tolerate diet yesterday and his diet was discontinued. Started again on solids today without difficulty and he was able to keep food down. Suspect Ileus has resolved. Gen Sgy continuing to co-manage. 04/08/24: Pt tolerating diet without difficulty. Resolution of ileus Continue to follow Gen. Sgy recs. 04/09/24: Resolved and tolerating PO intake well without GI symptoms. (5) Type 2 diabetes mellitus with hyperglycemia: Qualifiers: Diabetes mellitus usp insulin use: without usp use Qualified Code(s): E11.65 - Type 2 diabetes mellitus with hyperglycemia Code(s): E11.65 - Type 2 diabetes mellitus with hyperglycemia Status: Acute Assessment and Plan: Continue Hypoglycemic protocol Continue to check AC and HS and PRN Continue Home meds of trulicity, and metformin. Jardiance being held Continue SSI low dose with meals. 04/08/24: Glucose 136 this AM demonstrating good control Continue current regimen. Continue to monitor. 04/09/24: - Well controlled. - Continue current insulin regimen. (6) FAHAD on CPAP: Code(s): G47.33 - Obstructive sleep apnea (adult) (pediatric); Z99.89 - Dependence on other enabling machines and devices Status: Acute Assessment and Plan: Continue home CPAP. (7) Essential hypertension: Code(s): I10 - Essential (primary) hypertension Status: Acute Assessment and Plan: Home Lisinopril being held given SHEA. 04/08/24: Given pt's Renal function has returned to normal, will restart Lisinopril 10 mg QAM today. - BP well controlled. - Continue Lisinopril. (8) Tachycardia: Code(s): R00.0 - Tachycardia, unspecified Status: Acute Assessment and Plan: Episode of tachycardia inpatient. Resolved with Metoprolol. Plan Patient cleared for discharge per urology and general surgery. Patient will f/u with urologist outpatient. No signs/symptoms of distress noted prior to discharge. Time Spent With Patient Time with patient: 25 - 35 minutes Subjective Date/time seen: 04/09/24 10:00 Interval history: Patient
--- NOTE | 2024-04-09 15:41 | PM.DS ---
DS: Admitting Diagnosis Discharge Date 04/09/24 Admitting Diagnosis Prostate cancer DS: Discharge Diagnosis Discharge Diagnosis (1) Prostate cancer: Code(s): C61 - Malignant neoplasm of prostate Status: Acute (2) SHEA (acute kidney injury): Code(s): N17.9 - Acute kidney failure, unspecified Status: Acute (3) DVT (deep venous thrombosis): Code(s): I82.409 - Acute embolism and thrombosis of unspecified deep veins of unspecified lower extremity Status: Acute (4) Tachycardia: Code(s): R00.0 - Tachycardia, unspecified Status: Acute (5) Pneumonia: Qualifiers: Laterality: bilateral Lung location: lower lobe of lung Pneumonia type: due to unspecified organism Qualified Code(s): J18.9 - Pneumonia, unspecified organism Code(s): J18.9 - Pneumonia, unspecified organism Status: Acute (6) Adynamic ileus: Code(s): K56.0 - Paralytic ileus Status: Acute DS: Summary Hospital Course Hospital Course: Date of admission: 03/27/24 Date of discharge: 04/09/24 Edson Naylor is a 73 year old male with prostate cancer who presented to [facility] on 03/27/24 to undergo scheduled robotic assisted radical prostatectomy and bilateral pelvic lymphadenectomy. Surgery went as expected and he tolerated the procedure well. He had a somewhat complicated postoperative course. He did develop postoperative SHEA that was felt to be prerenal and improved with IV fluids. He was evaluated by nephrology during admission and creatinine normalized, 0.9 at time of discharge. He developed urinoma and had IR drainage on 04/04/24. He will continue drain on discharge until follow up with Dr. Contreras. He will also continue kelsey catheter on discharge until follow up after outpatient cystogram. He developed postoperative ileus. He required NG tube decompression. This slowly resolved and he was able to advance his diet and was tolerating a regular diet at the time of discharge. Bowel function returned. He was evaluated by general surgery during admission. He was evaluated by the hospitalist during admission and treated for pneumonia which has resolved. He was found to have a DVT (PE ruled out on CTA) and was started on Eliquis. He received education regarding chronic anticoagulation. He also developed tachycardia and was started on metoprolol. His postoperative issues had resolved and he was feeling greatly improved, eager for discharge home. As noted, he will continue drain and kelsey until outpatient follow up with Dr. Contreras in 1 week. He felt comfortable with plans for discharge home and was educated on his medications. Discussed worrisome signs and symptoms for which to seek care. Status at Discharge Functional status at discharge: independent ambulation Overall status at discharge: patient is progressing back to baseline Time Spent with Patient Time attestation: Total time spent providing and/or coordinating discharge services: 50 minutes Time spent: Greater than 30 minutes Exam Narrative: General: Awake, alert, comfortable, no acute distress HEENT: Normocephalic, atraumatic, sclerae anicteric Respiratory: Normal respiratory effort, no accessory muscle use Abdomen: Nondistended, soft, nontender : Kelsey catheter draining clear thaddeus urine Skin: Normal coloration, warm and dry Neurologic: No focal neuro deficits noted Psychiatric: Appropriate mood and affect, judgment and insight intact DS: Data Data Completed and Pending Completed studies during hospitalization: Pending at discharge 03/27/24 09:11 Surgical [PTH] Routine Labs on day of discharge: Labs from last 24 hours 04/09/24 04/09/24 04/09/24 11:42 07:36 05:59 Sodium 133 L Potassium 3.4 Chloride 101 Carbon Dioxide 27 Anion Gap 5 BUN 12 Creatinine 0.90 Estim Creat Clear Calc 99 Estimated GFR > 60 Glucose 117 H POC Capillary Glucose 174 H 122 H Calcium 7.3 L P
== END 2024-04-09 16:15 | disposition home or self-care (01) | DRG 707 ==
LOC: ANHSURGERY 15:29 → ANH3MEDSUR 15:29
PROVIDERS: Internal Medicine; Internal Medicine Nephrology; Nurse Practitioner; Nurse Practitioner Adult Health; Nurse Practitioner Family; Student in an Organized Health Care Education/Training Program; Surgery; Urology; Admitting Provider Urology; PCP Family Medicine; Visit Provider Physician Assistant
PROC: 0VT04ZZ Resection of Prostate, Percutaneous Endoscopic Approach (ICD-10-PCS; CPT 55867; principal; 2024-03-27 07:30)
DX: C61 Malignant neoplasm of prostate (principal); J18.9 Pneumonia, unspecified organism; K56.0 Paralytic ileus; K91.89 Other postprocedural complications and disorders of digestive system; Z68.41 Body mass index [BMI] 40.0-44.9, adult; I82.441 Acute embolism and thrombosis of right tibial vein; Y95 Nosocomial condition; N99.0 Postprocedural (acute) (chronic) kidney failure; M19.90 Unspecified osteoarthritis, unspecified site; E66.01 Morbid (severe) obesity due to excess calories; I10 Essential (primary) hypertension; I95.89 Other hypotension; E78.2 Mixed hyperlipidemia; N99.89 Other postprocedural complications and disorders of genitourinary system; G47.33 Obstructive sleep apnea (adult) (pediatric); R00.0 Tachycardia, unspecified; L40.9 Psoriasis, unspecified; E11.65 Type 2 diabetes mellitus with hyperglycemia; Z86.16 Personal history of COVID-19; Z90.49 Acquired absence of other specified parts of digestive tract; Z79.82 Long term (current) use of aspirin
CPT/HCPCS: 36415; 36569; 49406; 51600; 71045; 71046; 71275; 74018; 74019; 74176; 74177; 74430; 76775; 78582; 80048; 80053; 80069; 80076; 81001; 81050; 82550; 82570; 82948; 83605; 83735; 84100; 84156; 84300; 84466; 84478; 84484; 84540; 85025; 85027; 85380; 85610; 85730; 85999; 87040; 87086; 87641; 88305; 88309; 93005; 93970; 94640; 97110; 97116; 97161; 97530; A9270; A9540; A9558; C1729; C1769; G0378; J0690; J0692; J1100; J1170; J1650; J1815; J1885; J2020; J2060; J2405; J2704; J3010; J3480; J7030; J7120; Q9967; Q9968

== ENCOUNTER 2024-04-14 11:02 | Outpatient (CLI) | payer BC, SELFPAY ==
--- NOTE | ~2024-04-14 | XR_ITS ---
EXAMINATION: XR cystogram DATE: 04/14/2024 11:35 INDICATION: Prostate cancer. TECHNIQUE: Water-soluble contrast was gravity-infused through the patient's Salazar catheter. Multiple fluoroscopic images were obtained. Fluoroscopy exposure time was 0.4 minutes. The total number of torres ges was 9. COMPARISON: Cystogram 04/04/2024 FINDINGS: There is a Salazar catheter in expected position. There is extraluminal leakage of contrast a t the prostatic urethra. IMPRESSION: 1. Extraluminal leakage of contrast at the prostatic urethra. Reviewed, dictated and finalized at location A.
== END 2024-04-14 11:03 | disposition home or self-care (01) ==
LOC: ANHIMG 11:04
PROVIDERS: PCP Family Medicine; Visit Provider Urology
DX: C61 Malignant neoplasm of prostate (principal)
CPT/HCPCS: 51600; 74430; Q9967

== ENCOUNTER 2024-04-21 10:00 | Outpatient (CLI) | payer BC, SELFPAY ==
--- NOTE | ~2024-04-21 | XR_ITS ---
EXAMINATION: CYSTOGRAM DATE: 04/21/2024 10:35 INDICATION: Bladder cancer follow-up TECHNIQUE: Initial export documents clerk radiograph of the pelvis was performed. There was retrograde administration of Omnipaque 350 mixed with saline contrast into patient's existing Salazar catheter. Fluoroscopic torres ges of the pelvis were obtained. A post-void image was also performed. A total of 29 fluoroscopic torres ges and 2 overhead radiographs were obtained. Fluoroscopy exposure time was 1.6 minutes. FINDINGS: There is a persistent extraluminal leak of bladder contrast arising from the right posterior margin o f the cystourethral anastomosis. The defect measures approximately 11 mm craniocaudally on the obliqu e images. The tip of the Salazar catheter appears to extend through the defect. The extraluminal collec tion of contrast appears to remain loculated and drains along with the bladder with both the bladder and the extraluminal collection of contrast nearly completely decompressed on the postdrainage images . No more remote free intraperitoneal contrast. IMPRESSION: 1. Persistent extraluminal leakage of contrast into a loculated extraluminal cavity posterior to the bladder Reviewed, dictated and finalized at location A. IMPRESSION: 1. Persistent extraluminal leakage of contrast into a loculated extraluminal c avity posterior to the bladder
== END 2024-04-21 10:01 | disposition home or self-care (01) ==
PROVIDERS: PCP Family Medicine; Visit Provider Urology
DX: C61 Malignant neoplasm of prostate (principal)
CPT/HCPCS: 51600; 74430; Q9967

== ENCOUNTER 2024-04-21 14:18 | Inpatient (IN) | payer BC, MEDICARE, SELFPAY ==
[2024-04-21] VITALS (7 sets, daily range): BP systolic 99–142; BP diastolic 62–88; PULSE 91–108; RESP 16–19; TEMP 36.5–36.8; O2SAT 96–100; BMI 35.6
--- NOTE | ~2024-04-21 | CT_ITS ---
EXAMINATION: CT brain wo con DATE: 04/21/2024 15:03 INDICATION: Altered mental status. TECHNIQUE: Computed tomography (CT) of the head was performed without intravenous contrast. The mA wa s adjusted according to patient size. Iterative reconstruction technique was employed. The dose-lengt h product was 681.00 mGy-cm. COMPARISON: Head CT 08/21/2008 FINDINGS: There is no intracranial hemorrhage, acute infarction, or abnormal intracranial mass lesion . The ventricles are normal in size. The orbits are normal. There is mucosal thickening in the parana floyd sinuses. The mastoid air cells are normal. IMPRESSION: 1. Normal brain. Reviewed, dictated and finalized at location A. IMPRESSION: 1. Normal brain.
--- NOTE | ~2024-04-21 | MR_ITS ---
EXAMINATION: MR brain/brain stem wo/w con DATE: 04/22/2024 INDICATION: Cerebral vascular accident. TECHNIQUE: Magnetic resonance imaging (MRI) of the brain and brainstem was performed without and with 20 mL MultiHance intravenous contrast. COMPARISON: Head CT 04/21/2024 FINDINGS: There is no intracranial hemorrhage, acute infarction, or abnormal intracranial mass lesion . There are scattered areas of nonspecific increased T2-weighted signal intensity in the cerebral whi te matter, which is within normal limits for the patient's age. The ventricles are normal in size. Th ere is mild mucosal thickening in the paranasal sinuses. The orbits are normal. The mastoid air cells are normal. IMPRESSION: 1. Normal aging brain. Reviewed, dictated and finalized at location A. IMPRESSION: 1. Normal aging brain.
--- NOTE | ~2024-04-21 | US_ITS ---
EXAMINATION: US carotid duplex BI DATE: 04/21/2024 19:50 INDICATION: Syncope. TECHNIQUE: Grayscale, color Doppler, and pulsed Doppler images of the cervical carotid arteries were obtained. The degree of vessel stenosis is placed in one of the following categories: normal, <50%, 5 0-69%, >=70% but less than near-occlusion, near-occlusion, or total occlusion. Note that percent sten osis relative to normal distal artery lumen diameter is indirectly measured from velocity measurement s as described by Brennan, et al. Radiology 2003; 229:340-346. COMPARISON: Ultrasound 08/21/2008 FINDINGS: RIGHT: The right common carotid artery (CCA) peak systolic velocity (PSV) is 133 cm/s. The right internal ca rotid artery (ICA) PSV is 98 cm/s. The right ICA end-diastolic velocity (EDV) is 34 cm/s. The right I CA/CCA PSV ratio is 0.7. Grayscale and color Doppler images yield an estimate of <50% diameter reduct ion from plaque in the ICA. There is antegrade flow in the right vertebral artery. LEFT: The left CCA PSV is 147 cm/s. The left ICA PSV is 102 cm/s. The left ICA EDV is 30 cm/s. The left ICA /CCA PSV ratio is 0.7. Grayscale and color Doppler images yield an estimate of <50% diameter reductio n from plaque in the ICA. There is antegrade flow in the left vertebral artery. IMPRESSION: 1. <50% stenosis in the right internal carotid artery. 2. <50% stenosis in the left internal carotid artery. Reviewed, dictated and finalized at location A.
--- NOTE | ~2024-04-21 | XR_ITS ---
EXAMINATION: XR chest 1V portable DATE: 04/21/2024 15:11 INDICATION: Transient alteration of awareness. Syncope. TECHNIQUE: A single frontal view of the chest was obtained. COMPARISON: Chest 2 views 04/08/2024, chest CT 04/07/2024 FINDINGS: There is no pneumonia, pleural effusion or pneumothorax. The heart size is normal. IMPRESSION: 1. No acute cardiopulmonary disease. Reviewed, dictated and finalized at location A.
--- NOTE | 2024-04-21 14:25 | ECG_ITS ---
Test Date: 2024-04-21 15:19:08 Measurements Intervals [place] Rate: 99 P: 8 ID: [id number] QRS: 32 QRSD: 137 T: -9 QT: 359 QTc: 461 Interpretive Statements SINUS RHYTHM RIGHT BUNDLE BRANCH BLOCK [120+ ms QRS DURATION, UPRIGHT V1, 40+ ms S IN I/aVL/V4/V5/V6] Compared to ECG 04/07/2024 20:39:23 Sinus tachycardia no longer present Electronically Signed On 04-22-2024 15:29:06 CDT by Alicia Fitzgerald M.D.
[2024-04-21 14:27] LABS: Glucose Point of Care 189 mg/dl (65-105)
--- NOTE | 2024-04-21 14:30 | ED.SYNCOPE ---
HPI - Syncope General Chief Complaint: Syncope <Amisha Weinstein PA-C - Last Filed: 04/22/24 09:56> Stated Complaint: cannot find words and speaking <Amisha Weinstein PA-C - Last Filed: 04/22/24 09:56> Time Seen by Provider: 04/21/24 14:30 <Amisha Weinstein PA-C - Last Filed: 04/22/24 09:56> Focused HPI: This is a 73 year old male that presents to the ER for an episode of alteration in awareness. 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 He slumped in his wheelchair at his appointment. Was not responding to staff. By the time he got down to the ED is now alert and oriented. Has had multiple episodes like this this week. Reports his blood pressure was low at the office. GENERAL: Well-appearing, well-nourished, and in no acute distress. HEAD: Normocephalic, atraumatic. CHEST: Clear to auscultation. ?No respiratory distress. HEART: Regular rate and rhythm.? NEURO: ?Alert and oriented x3. Patient screened in triage and initial orders placed.? ?Additional care and disposition to be based upon?diagnostic testing and treatment. <Amisha Weinstein PA-C - Last Filed: 04/22/24 09:56> Source: patient <Lucho James MD - Last Filed: 04/21/24 19:12> Mode of arrival: wheelchair <Lucho James MD - Last Filed: 04/21/24 19:12> Limitations: no limitations <Lucho James MD - Last Filed: 04/21/24 19:12> History of Present Illness HPI narrative: 73-year-old with a history of prostate CA, DVT right leg on Eliquis, hyperlipidemia, diabetes was brought in from pulmonology office with a syncopal episode. Patient states that he was stocking to the front staff all of sudden he passed out. He was found to be hypertensive in the doctor's office. Patient also reports that this happened to him at his house a week ago. He denies any chest pain or shortness of breath. No history of nausea vomiting or diarrhea. Upon arrival to the ER was hypotensive, alert was able to answer all the questions <Lucho James MD - Last Filed: 04/21/24 19:12> MD complaint: almost passed out <Lucho James MD - Last Filed: 04/21/24 19:12> Prodromal symptoms: none <Lucho James MD - Last Filed: 04/21/24 19:12> Witnessed: Yes - by Other ( office staff and ) <Lucho James MD - Last Filed: 04/21/24 19:12> Context: at rest <Lucho James MD - Last Filed: 04/21/24 19:12> Current symptoms: back to baseline <Lucho James MD - Last Filed: 04/21/24 19:12> Treatments prior to arrival: none <Lucho James MD - Last Filed: 04/21/24 19:12> Related Data Home Medications: Home Medications Medication Instructions Recorded Confirmed cyanocobalamin (vitamin B-12) 1,000 mcg PO DAILY 09/01/21 04/21/24 1,000 mcg tablet atorvastatin 40 mg tablet 40 mg PO HS 03/18/24 04/21/24 lisinopril 10 mg tablet 10 mg PO HS 03/18/24 04/21/24 docusate sodium 100 mg capsule 200 mg PO DAILY 04/21/24 04/21/24 (Colace) empagliflozin 25 mg tablet 25 mg PO HS 04/21/24 04/21/24 (Jardiance) <Amisha Weinstein PA-C - Last Filed: 04/22/24 09:56> Allergies/Adverse Reactions: Allergies Allergy/AdvReac Type Severity Reaction Status Date / Time ciprofloxacin Allergy Intermediate Anaphylaxis Verified 04/21/24 19:52 chlorpheniramine AdvReac Unknown Confusion Verified 04/21/24 19:52 <Amisha Weinstein PA-C - Last Filed: 04/22/24 09:56> Review of Systems Review of Systems: All systems reviewed & are unremarkable except as noted in HPI and below <Lucho James MD - Last Filed: 04/21/24 19:12> Constitutional: Constitutional: Reports no additional constitutional complaints <Lucho James MD - Last Filed: 04/21/24 19:12> Eyes: Eyes: Reports no additional eye complaints <Lucho James MD - Last Filed: 04/21/24 19:12> ENT: Reports system reviewed and no additional complaints, except as documented <Lucho James MD - Last Filed: 04/21/24 19:12> Cardiovascular: Car
--- NOTE | 2024-04-21 15:24 | PC.NURSE ---
blood sugar is 155 at this time
[2024-04-21 15:27] LABS: Glucose Point of Care 155 mg/dl (65-105)
[2024-04-21] MEDS: SODIUM CHLORIDE 0.9% IV 1,000 ML 999 ML IV CONT (15:43)
[2024-04-21 15:54] LABS: Basophils Absolute Auto 0.1 K/mm3 (0.0-0.1); Eosinophils Absolute Auto 0.4 K/mm3 (0-0.3); Eosinophils Percent Auto 4.6 % (0-4.4); Hematocrit 39.2 % (42.0-52.0); Immature Granulocyte Absolute 0.04 K/mm3 (0.00-0.031); Immature Granulocyte Percent A 0.5 % (0-0.5); Lymphocytes Absolute Auto 2.22 K/mm3 (0.9-3.2); Lymphocytes Percent Auto 25.4 % (18.3-44.2); Mean Corpuscular HGB Conc 33.2 g/dl (32-36); Mean Corpuscular Hemoglobin 30.7 pg (26-34); Mean Corpuscular Volume 92.7 fl (80-100); Mean Platelet Volume 9.3 fl (7.4-10.4); Monocytes Absolute Auto 0.8 K/mm3 (0.1-0.6); Monocytes Percent Auto 8.8 % (2.6-8.5); Neutrophils Absolute Auto 5.2 K/mm3 (1.3-6.7); Neutrophils Percent Auto 59.7 % (45.5-73.1); Platelet Count Result 423 k/mm3 (150-375); Red Blood Count 4.23 M/mm3 (4.6-6.20); Red Cell Distribution Width 13.2 % (11.5-14.5); White Blood Count 8.7 K/mm3 (4.5-10.0)
[2024-04-21 16:05] LABS: Lactic Acid Reflex 1.5 mmol/L (0.7-2.0)
[2024-04-21 16:18] LABS: Alanine Aminotransferase 20 U/L (6-50); Albumin Level 3.8 g/dL (3.5-5.1); Alkaline Phosphatase 97 U/L (38-126); Anion Gap 10 mmol/L (4-12); Aspartate Amino Transferase 28 U/L (17-59); Bilirubin,Total 1.1 mg/dL (0.2-1.3); Blood Urea Nitrogen 14 mg/dL (9-20); CRP 2.7 mg/dL (<1.0); Calcium 8.8 mg/dL (8.4-10.2); Carbon Dioxide 26 mmol/L (22-30); Chloride 99 mmol/L (98-107); Estimated CRCL calculation 74 ml/min; Estimated Glomerular Filt Rate > 60; Glucose 145 mg/dL (65-110); Potassium 3.6 mmol/L (3.4-5.0); Sodium 135 mmol/L (137-145)
[2024-04-21 16:25] LABS: Troponin I < 0.012 ng/mL (0.000-0.034)
[2024-04-21 16:29] LABS: INR 1.1; Prothrombin Time 14.2 Seconds (11.1-14.7)
[2024-04-21 16:30] LABS: Partial Thromboplastin Time 28.2 Seconds (22.3-36.8)
--- NOTE | 2024-04-21 18:33 | PM.IMHP ---
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 Patient was found slumped in his wheelchair at his appointment and was not responding by staff. He was found to be hypotensive. reported that this happened about a week ago at the house as well. 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 He keeps saying that he could not talk even though he concentrated really hard to get his words out. He states he had another episode while in the ED that was similar. He denies any fever, chills, nausea, vomiting, diarrhea, abdominal pain, chest pain, shortness a breath, lightheadedness, dizziness, vision changes, headache. Workup in the hospital included a head CT which was negative. Chest x-ray which was negative. EKG was done which shown sinus rhythm with a right bundle branch block with a rate of 99, QTC 461. He was given 1 L of normal saline while in the ED. Review of Systems Review of Systems: All systems reviewed & are unremarkable except as noted in HPI and below Constitutional: Constitutional: Reports as per HPI and Reports no additional constitutional complaints Eyes: Eyes: Reports as per HPI and Reports no additional eye complaints ENT: Reports system reviewed and no additional complaints, except as documented and Reports as per HPI Cardiovascular: Cardiovascular: Reports as per HPI and Reports no additional cardiovascular complaints Respiratory: Respiratory: Reports as per HPI and Reports no additional respiratory complaints Gastrointestinal: Gastrointestinal: Reports as per HPI and Reports no additional gastrointestinal complaints Genitourinary: Genitourinary: Reports no additional male genitourinary complaints and Reports as per HPI Musculoskeletal: Musculoskeletal: Reports no additional musculoskeletal complaints and Reports as per HPI Integumentary/Breasts: Skin/Breast: Reports system reviewed and no additional complaints, except as docu and Reports as per HPI Neurologic: Reports system reviewed and no additional complaints, except as documented and Reports as per HPI Psychiatric: Psychiatric: Reports no additional psychiatric complaints and Reports as per HPI [facility] Past Medical History Medical History (Updated 04/21/24 @ 23:58 by Christine Samayoa, VIVIAN) Arthritis Bilateral carpal tunnel syndrome (10/12/21) bilateral carpal tunnel syndrome documented on EMG and nerve conduction study 10/12/2021. EMG and nerve conduction study on 06/27/2023 with bilateral carpal tunnel syndrome as well as proximal neuropathy. Cholelithiasis (05/21/23) cholelithiasis noted on ultrasound of the abdomen 05/21/2023 with no obstruction. Chronic left shoulder pain COVID-19 (02/14/22) tested positive for COVID 02/18/2022. Diabetic peripheral neuropathy associated with type 2 diabetes mellitus Diastolic dysfunction without heart failure (05/21/23) grade 1 diastolic dysfunction with ejection fraction 65-70%, trace mitral valve regurgitation, trace tricuspid valve regurgitation, no pulmonary hypertension on echo on 05/21/2023. Dyspnea on exertion (~2021) Elevated PSA, less than 10 ng/ml PSA slightly elevated at 4.9 on 05/21/2020. PSA level of 4.92 on 09/27/2022. PSA 6.3 with 17% free PSA on 10/30/2023. Essential hypertension History of colon polyps colonoscopy 2019 with recheck in 5 years Hordeolum externum of right lower eyelid Hyperbilirubinemia Mixed hyperlipidemia total cholesterol 144, triglycerides 154, HDL 53 and LDL 67 on 08/31/2021. Total cholesterol 169, triglyce
--- NOTE | 2024-04-21 20:25 | ADMGEN ---
This patient, Edson Naylor, was admitted to Medical Room 348-01. Patient/family oriented to hospital policies and general routines including ID bracelet, bed and alarms, visiting hours, pain management, procedures, bathroom and other care routines, personal items, smoking policy, room service/diet, and visiting hours. Information on how to activate the Rapid Response Team has been discussed. Patient/Family are encouraged to report perceived risks to care and to ask questions if they do not understand what they are told or what they should do.
[2024-04-21 23:34] LABS: Glucose Point of Care 169 mg/dl (65-105)
[2024-04-22] VITALS (16 sets, daily range): BP systolic 103–121; BP diastolic 55–75; PULSE 80–111; RESP 16–22; TEMP 36.4–36.6; O2SAT 95–100; BMI 35.6
--- NOTE | 2024-04-22 | ECHO_ITS ---
Patient Info Name: Edson Naylor Age: 73 years : 1950 Gender: Male Ht: 74 in Wt: 282 lbs BSA: 2.63 m2 HR: 88 bpm BP: 103 / 61 mmHg Heart Rhythm: Sinus Rhythm Technical Quality: Fair Exam Date: 04/22/2024 3:31 PM Exam Location: Echo Lab Patient Status: Inpatient Admit Date: 04/21/2024 Staff Ordering Physician: Christine Samayoa APRN Balance Screwhead Polisher: Cyn William RDCS Attending Provider: Maia Gaston PA-C Referring Physician: Danita MADDOX; Exam Type: CA echo dop color flow w con Study Info Indications R55 - Syncope and collapse Complete two-dimensional, color flow and Doppler transthoracic echocardiogram is performed with contrast to opacify the left ventricle and to improve the deliniation of the left ventricle endocardial borders. Contrast/Agitated Saline Contrast/Ag. Saline: Definity Amount: 3.00 ml Administered By: Cyn William RDCS Existing IV Access: Yes IV Access Condition: patent with no signs of infiltration Summary 1. Technically difficult echocardiogram because of obesity, definity contrast utilized. 2. Mild left ventricular hypertrophy with vigorous systolic function and grade 1 diastolic noncompliance. 3. Mildly sclerotic aortic valve with well maintained leaflet excursion. 4. Compared with echocardiogram from April of 2023 the findings are unchanged. Left Ventricle Left ventricular chamber dimension is normal. Left ventricular systolic function is normal, estimated at 65-70%. There is mild concentric increased left ventricular wall thickness. The left ventricular diastolic function is grade I diastolic dysfunction. Right Ventricle Right ventricular chamber dimension is normal. Left Atria Left atrial chamber dimension is normal. Right Atria Right atrial chamber dimension is normal. Aortic Valve The aortic valve is trileaflet. There is mild aortic valve sclerosis. Pulmonic Valve The pulmonic valve is not well visualized. Mitral Valve The mitral valve has normal leaflets. Tricuspid Valve The tricuspid valve leaflets are not well visualized. Pericardium/Pleural The pericardium appears normal. Aorta The aortic root size at the sinus of Valsalva is normal. Left Ventricular Outflow Tract Name Value Normal LVOT 2D LVOT Diameter 1.95 cm LVOT Doppler LVOT Peak Gradient 4 mmHg LVOT Mean Gradient 2 mmHg LVOT VTI 19.21 cm LVOT VTI/AV VTI Ratio 0.96 LVOT Stroke Volume 57.51 ml LVOT CO 5.06 l/min LVOT CI 1.93 L/min/m2 Pulmonic Valve Name Value Normal RVOT Doppler RVOT Peak Gradient 1 mmHg PV Doppler PV Peak Gradient 6 mmHg M
[2024-04-22 06:54] LABS: Basophils Absolute Auto 0.1 K/mm3 (0.0-0.1); Basophils Percent Auto 1.4 % (0.2-1.2); Eosinophils Absolute Auto 0.5 K/mm3 (0-0.3); Eosinophils Percent Auto 7.5 % (0-4.4); Hematocrit 37.7 % (42.0-52.0); Immature Granulocyte Absolute 0.04 K/mm3 (0.00-0.031); Immature Granulocyte Percent A 0.6 % (0-0.5); Lymphocytes Absolute Auto 1.84 K/mm3 (0.9-3.2); Lymphocytes Percent Auto 26.2 % (18.3-44.2); Mean Corpuscular HGB Conc 31.8 g/dl (32-36); Mean Corpuscular Volume 94.3 fl (80-100); Mean Platelet Volume 9.3 fl (7.4-10.4); Monocytes Absolute Auto 0.7 K/mm3 (0.1-0.6); Monocytes Percent Auto 10.1 % (2.6-8.5); Neutrophils Absolute Auto 3.8 K/mm3 (1.3-6.7); Neutrophils Percent Auto 54.2 % (45.5-73.1); Platelet Count Result 342 k/mm3 (150-375); Red Cell Distribution Width 13.2 % (11.5-14.5)
--- NOTE | 2024-04-22 07:00 | PM.IMPN ---
Progress Note: A&P Assessment and Plan (1) Syncope: Qualifiers: Syncope type: unspecified Qualified Code(s): R55 - Syncope and collapse Code(s): R55 - Syncope and collapse Status: Acute Assessment and Plan: Patient had syncopal episode while at pulmonology appointment on 04/21. He was sitting in his wheelchair and then slumped over and was found to be hypotensive. reports that this has happened once before at home. Patient states prior to syncopal episode he had trouble getting words out and stated that he was trembling with bilateral hands shaking and jaw twitching. - Keppra 750 mg oral and 1000 mg IV given for loading dose, started on 750 BID - Head CT negative - Carotid doppler: < 50% stenosis BL - Echo ordered - Will get MRI of brain to rule out stroke vs mass, read pending - Will also get EEG considering his symptoms of not being able to talk and the tremors Normal record. At the end of the tracing patient had a generalized seizure while the electrodes were being taken of so the seizure-like activity could not be documented on the EEG but the seizure was witnessed by the auto glass technician as well as the family members. - Chest XR: No acute cardiopulmonary findings - He was given 1 L normal saline while in the ED - Check orthostatic blood pressures Q shift - Continuous cardiac monitoring - Continue neuro checks - Neurology consulted (2) Acute hypotension: Code(s): I95.9 - Hypotension, unspecified Status: Acute Assessment and Plan: Blood pressures were ranging 79/62 to 99/62 initially - BP remain stable in the 100-110s systolic - Patient was given 1 L of normal saline and blood pressure improved - Will check orthostatic blood pressures Q shift - Accurate I&O - Will hold lisinopril for now (3) Dehydration: Code(s): E86.0 - Dehydration Status: Acute Assessment and Plan: See above (4) Type 2 diabetes mellitus: Code(s): E11.9 - Type 2 diabetes mellitus without complications Status: Chronic Assessment and Plan: - Blood sugars ranging 145-155 - Hgb A1C was 6.4 on 10/30/2023 - Will recheck hemoglobin A1c today - Accu checks AC/HS - Hold metformin and Trulicity - Low-dose SSI ordered - hypoglycemic protocol in place - Diabetic diet ordered (5) Prostate cancer: Code(s): C61 - Malignant neoplasm of prostate Status: Chronic Assessment and Plan: Recently diagnosed with prostate cancer and is a patient of Dr. Contreras. Status post robotic assisted radical prostatectomy and bilateral pelvic lymphadenectomy on 03/27/2024. He did have an SHEA that was improved with IV fluids initially postop. He developed a urinoma and had an IR drain placed on 04/04/2024 He recently had a follow up cystogram and had his Salazar catheter removed. Urology consulted to check on IR drain as he was originally scheduled to see tomorrow. Plan DVT ppx: Eliquis Code: Full Disposition: Patient here for eval of syncopal episode. Patient had EEG and had a generalized seizure at the end of the procedure. Per he had 4 similar episodes in the past week where he states he is cold and then starts having bilateral hand shaking, jaw twitching and unable to speak. Patient received 750 mg oral keppra and 1000 mg IV keppra following seizure. Remains on keppra. Neuro following. MRI read pending. 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 Patient is pleasant lying comfortably in bed with at bedside. Patient had just undergone his EEG prior to assessment and was noted
[2024-04-22 07:03] LABS: Alanine Aminotransferase 17 U/L (6-50); Albumin Level 3.4 g/dL (3.5-5.1); Alkaline Phosphatase 92 U/L (38-126); Anion Gap 8 mmol/L (4-12); Aspartate Amino Transferase 23 U/L (17-59); Bilirubin,Total 1.1 mg/dL (0.2-1.3); Blood Urea Nitrogen 12 mg/dL (9-20); Calcium 8.3 mg/dL (8.4-10.2); Carbon Dioxide 26 mmol/L (22-30); Chloride 100 mmol/L (98-107); Estimated CRCL calculation 91 ml/min; Estimated Glomerular Filt Rate > 60; Glucose 129 mg/dL (65-110); Potassium 3.4 mmol/L (3.4-5.0); Sodium 134 mmol/L (137-145)
[2024-04-22] MEDS: APIXABAN 5 MG TABLET PO ×2 (08:20→20:46)
[2024-04-22] MEDS: CYANOCOBALAMIN 1,000 MCG TABLET 1000 MCG PO (08:20)
[2024-04-22] MEDS: DOCUSATE SODIUM 100 MG CAPSULE 200 MG PO (08:20)
[2024-04-22 08:42] LABS: Glucose Point of Care 122 mg/dl (65-105)
--- NOTE | 2024-04-22 09:36 | WPDURCON ---
Assessment and Plan Assessment and plan (1) Prostate cancer: Code(s): C61 - Malignant neoplasm of prostate Status: Chronic Assessment and Plan: Underwent prostatectomy on 03/27/2024. Had IR drainage of urinoma on 04/04/2024. Salazar catheter removed on 04/21/24 as an outpatient and he is voiding without difficulty. Continue to monitor urine output. Hopeful removal of FER drain in the next several days, depending on hospital course. Will continue to monitor. Urology Consult Note HPI Date Seen: 04/22/24 Requesting Physician: Maia Gaston PA-C Primary Care Provider: Will Daniel MD Consult Narrative Narrative: Edson Naylor is a 73 year old male with a history of prostate cancer who underwent robotic assisted radical prostatectomy and bilateral pelvic lymphadenectomy on 03/27/2024. He had a prolonged hospital course during which time he developed pneumonia, DVT, postoperative ileus, and urinoma. These issues resolved and he was discharged on 04/09/2024 with Salazar catheter and FER drain. He was seen in the office by Dr. Contreras on 04/21/2024 after having cystogram completed. He had his Salazar catheter removed with plans to return to the office today for further follow-up. Unfortunately, while at a pulmonology appointment later that afternoon, he had unresponsive episode and presented to the emergency department. He has been admitted for evaluation of syncope and hypotension. He is being seen in consultation for evaluation of FER drain. He has scant output at this time and reports no issues. He has been voiding well since Salazar catheter removal. He does complain of urinary leakage and is using depends but feels that he is emptying his bladder without difficulty. He denies dysuria or hematuria. His appetite is fair. He has no additional concerns at this time. Review of Systems Review of Systems: All systems reviewed & are unremarkable except as noted in HPI and below PMFSH Past Medical History Medical History Arthritis Bilateral carpal tunnel syndrome (10/12/21) bilateral carpal tunnel syndrome documented on EMG and nerve conduction study 10/12/2021. EMG and nerve conduction study on 06/27/2023 with bilateral carpal tunnel syndrome as well as proximal neuropathy. Cholelithiasis (05/21/23) cholelithiasis noted on ultrasound of the abdomen 05/21/2023 with no obstruction. Chronic left shoulder pain COVID-19 (02/14/22) tested positive for COVID 02/18/2022. Diabetic peripheral neuropathy associated with type 2 diabetes mellitus Diastolic dysfunction without heart failure (05/21/23) grade 1 diastolic dysfunction with ejection fraction 65-70%, trace mitral valve regurgitation, trace tricuspid valve regurgitation, no pulmonary hypertension on echo on 05/21/2023. Dyspnea on exertion (~2021) Elevated PSA, less than 10 ng/ml PSA slightly elevated at 4.9 on 05/21/2020. PSA level of 4.92 on 09/27/2022. PSA 6.3 with 17% free PSA on 10/30/2023. Essential hypertension History of colon polyps colonoscopy 2019 with recheck in 5 years Hordeolum externum of right lower eyelid Hyperbilirubinemia Mixed hyperlipidemia total cholesterol 144, triglycerides 154, HDL 53 and LDL 67 on 08/31/2021. Total cholesterol 169, triglycerides 150, HDL 58 and LDL 86 on 01/31/2022. Total cholesterol 165, HDL 58, triglycerides 128, LDL 85 with ratio 2.4 on 04/07/2023. Cholesterol 193, triglycerides 140, HDL 55, LDL 113 with ratio 3.5 on 10/30/2023. Morbid obesity Nocturia Obesity FAHAD on CPAP 10 cm of water pressure with fullface mask. Osteoarthritis of knees, bilateral Paresthesia of upper limb (~05/2021) Polycythemia (09/27/22) hemoglobin slightly elevated at 17.3 on 09/27/2022. Hemoglobin 16.6 on 04/07/2023. Hemoglobin normal at 16.0 on 10/30/2023. Prostate cancer screening PSA 4.9 on 10/21/2019. PSA 4.92 on 09/27/2022. Psoriasis Right medial knee pain Screeni
--- NOTE | 2024-04-22 11:56 | WPDNEURCNPN ---
Assessment and Plan Assessment and plan (1) Type 2 diabetes mellitus: Code(s): E11.9 - Type 2 diabetes mellitus without complications Status: Chronic (2) Diabetic neuropathy: Code(s): E11.40 - Type 2 diabetes mellitus with diabetic neuropathy, unspecified Status: Acute (3) Seizures: Code(s): R56.9 - Unspecified convulsions Status: Acute Plan 1. History of episode of seizure also during the electroencephalogram study here in the hospital had another seizure will be started on the Keppra and will also obtain the MRI of the brain, up until now carotid study has been done which is normal CT scan of the head is normal. Consult date: 04/22/24 HPI: Edson Naylor is a 73 year old male Admitted to the hospital through the emergency room for the complaints of an episode of change in the awareness. Reportedly he was at his feed handler's office slumped in his wheelchair was not responding to the staff and by the time he was brought to the ER he was awake alert and orient. Patient reportedly has had multiple episodes like this in the past patient has ongoing history of carcinoma of the prostate, DVT of the right lower extremity for which he is on Eliquis, diabetes mellitus, he has been taking atorvastatin 40mg at night, lisinopril 10mg at night, Jardiance 25mg at night, he has had bilateral carpal tunnel release along with the proximal neuropathy in the past, he has had COVID also in 2021 and has also been documented to have B12 deficiency and anemia never alcohol intake never substance user. [facility] Past Medical History Medical History Arthritis Bilateral carpal tunnel syndrome (10/12/21) bilateral carpal tunnel syndrome documented on EMG and nerve conduction study 10/12/2021. EMG and nerve conduction study on 06/27/2023 with bilateral carpal tunnel syndrome as well as proximal neuropathy. Cholelithiasis (05/21/23) cholelithiasis noted on ultrasound of the abdomen 05/21/2023 with no obstruction. Chronic left shoulder pain COVID-19 (02/14/22) tested positive for COVID 02/18/2022. Diabetic peripheral neuropathy associated with type 2 diabetes mellitus Diastolic dysfunction without heart failure (05/21/23) grade 1 diastolic dysfunction with ejection fraction 65-70%, trace mitral valve regurgitation, trace tricuspid valve regurgitation, no pulmonary hypertension on echo on 05/21/2023. Dyspnea on exertion (~2021) Elevated PSA, less than 10 ng/ml PSA slightly elevated at 4.9 on 05/21/2020. PSA level of 4.92 on 09/27/2022. PSA 6.3 with 17% free PSA on 10/30/2023. Essential hypertension History of colon polyps colonoscopy 2019 with recheck in 5 years Hordeolum externum of right lower eyelid Hyperbilirubinemia Mixed hyperlipidemia total cholesterol 144, triglycerides 154, HDL 53 and LDL 67 on 08/31/2021. Total cholesterol 169, triglycerides 150, HDL 58 and LDL 86 on 01/31/2022. Total cholesterol 165, HDL 58, triglycerides 128, LDL 85 with ratio 2.4 on 04/07/2023. Cholesterol 193, triglycerides 140, HDL 55, LDL 113 with ratio 3.5 on 10/30/2023. Morbid obesity Nocturia Obesity FAHAD on CPAP 10 cm of water pressure with fullface mask. Osteoarthritis of knees, bilateral Paresthesia of upper limb (~05/2021) Polycythemia (09/27/22) hemoglobin slightly elevated at 17.3 on 09/27/2022. Hemoglobin 16.6 on 04/07/2023. Hemoglobin normal at 16.0 on 10/30/2023. Prostate cancer screening PSA 4.9 on 10/21/2019. PSA 4.92 on 09/27/2022. Psoriasis Right medial knee pain Screening for diabetic retinopathy no diabetic retinopathy or macular degeneration on 05/30/2022. Shortness of breath PFT on 03/03/2022 was normal. Sleep apnea Tachycardia Type 2 diabetes mellitus with hyperglycemia fasting glucose 98 with hemoglobin A1c 6.2 on 08/31/2021 urine microalbumin ratio was 7. Glucose 91 with hemoglobin A1c 5.9 on 01/31/2022. Glucose 113 with hemoglobin A1c 6.3 on
[2024-04-22] MEDS: levETIRAcetam Tablet 250 MG, levETIRAcetam Tablet 500 MG 750 MG PO ×2 (12:01→20:45)
--- NOTE | 2024-04-22 12:15 | P.NEURO_ITS ---
Neurology EEG Report General Information Date of Study: 04/22/24 TEST eeg DIAGNOSIS Reportedly patient had a seizure at the physician's office and another seizure in the emergency room. CONDITION OF RECORDING Awake drowsy and sleep EEG NUMBER [id number] CLINICAL HISTORY history of recurrent seizures EEG DESCRIPTION basic resting occipital frequency consists of low voltage 9 to 11 hertz per 2nd alpha posteriorly admixed with low-voltage 15 to 18 hertz per 2nd beta. Low- voltage beta activity seen diffusely admixed with waxing and waning posterior alpha rhythm during drowsiness. Bilateral symmetrical sleep activity seen during sleep. Hyperventilation not done. Photic stimulation not done. Non paroxysmal. Nonfocal. Non lateralizing. IMPRESSION Normal record. At the end of the tracing patient had a generalized seizure while the electrodes were being taken of so the seizure-like activity could not be documented on the EEG but the seizure was witnessed by the aircraft ordnance technician as well as the family members.
[2024-04-22 12:30] LABS: Glucose Point of Care 170 mg/dl (65-105)
[2024-04-22] MEDS: levETIRAcetam 1000MG/NACL100ML 1,000 MG/100 ML BAG 400 MG IVPB (12:30)
[2024-04-22] MEDS: PERFLUTREN LIPID MICROSPHERES 1.5 ML VIAL DILUTED TO 10 ML TOTAL VOLUME IV PUSH (16:00)
--- NOTE | 2024-04-22 16:21 | IVDEFINITY ---
Prior to administration of IV Definity the patient was educated on the risks and benefits of the imaging enhancing agent including potential adverse side effects. The patient verbalized understanding. Allergies were verified. No exclusion criteria were identified and at least one of the following inclusion criteria were met: 1) physician request, 2) patient technically difficult to image (per the [place] [employer] guidelines of two or more segments not discernable within the apical view), or 3) questionable left ventricular function. ?
[2024-04-22 17:27] LABS: Glucose Point of Care 143 mg/dl (65-105)
[2024-04-22] MEDS: EMPAGLIFLOZIN 25 MG TABLET PO (20:45)
[2024-04-22] MEDS: ATORVASTATIN 40 MG TABLET PO (20:46)
[2024-04-22 21:02] LABS: Glucose Point of Care 192 mg/dl (65-105)
[2024-04-23] VITALS: BP 111/60; PULSE 82; PULSE 87; RESP 18; TEMP 36.5; O2SAT 97
[2024-04-23 04:00] VITALS: BP 130/69; PULSE 83; PULSE 92; RESP 18; TEMP 36.6; O2SAT 100
[2024-04-23 05:56] LABS: Basophils Absolute Auto 0.1 K/mm3 (0.0-0.1); Eosinophils Absolute Auto 0.6 K/mm3 (0-0.3); Eosinophils Percent Auto 8.3 % (0-4.4); Hematocrit 36.4 % (42.0-52.0); Hemoglobin 11.9 g/dL (14.0-18.0); Immature Granulocyte Absolute 0.03 K/mm3 (0.00-0.031); Immature Granulocyte Percent A 0.4 % (0-0.5); Lymphocytes Absolute Auto 2.15 K/mm3 (0.9-3.2); Lymphocytes Percent Auto 29.6 % (18.3-44.2); Mean Corpuscular HGB Conc 32.7 g/dl (32-36); Mean Corpuscular Hemoglobin 30.9 pg (26-34); Mean Corpuscular Volume 94.5 fl (80-100); Mean Platelet Volume 9.3 fl (7.4-10.4); Monocytes Absolute Auto 0.8 K/mm3 (0.1-0.6); Monocytes Percent Auto 10.7 % (2.6-8.5); Neutrophils Absolute Auto 3.6 K/mm3 (1.3-6.7); Platelet Count Result 315 k/mm3 (150-375); Red Blood Count 3.85 M/mm3 (4.6-6.20); Red Cell Distribution Width 13.2 % (11.5-14.5); White Blood Count 7.3 K/mm3 (4.5-10.0)
[2024-04-23 06:09] LABS: Alanine Aminotransferase 16 U/L (6-50); Albumin Level 3.4 g/dL (3.5-5.1); Alkaline Phosphatase 84 U/L (38-126); Anion Gap 9 mmol/L (4-12); Aspartate Amino Transferase 23 U/L (17-59); Bilirubin,Total 0.8 mg/dL (0.2-1.3); Blood Urea Nitrogen 11 mg/dL (9-20); Calcium 8.4 mg/dL (8.4-10.2); Carbon Dioxide 26 mmol/L (22-30); Chloride 102 mmol/L (98-107); Estimated CRCL calculation 91 ml/min; Estimated Glomerular Filt Rate > 60; Glucose 123 mg/dL (65-110); Potassium 3.5 mmol/L (3.4-5.0); Sodium 137 mmol/L (137-145)
--- NOTE | 2024-04-23 06:50 | P.CDI_ITS ---
CDI Query Clarification Request BMI: 35.7 Nutritional Diagnostic Statement: Please refer to the comprehensive nutrition assessment for further information. If you agree with diagnosis of Moderate protein calorie malnutrition related to recent surgery, hospitalization as evidenced by intakes <75% needs ~1 month; weight loss 15%/1 month. Please specify severity if known: * Mild * Moderate * Severe * Other/Unknown <Candie Reddy RN - Last Filed: 04/23/24 06:52> Clarified Diagnosis Clarified Diagnosis: mild <Jelly El APRN - Last Filed: 04/23/24 07:03>
[2024-04-23 07:42] VITALS: O2SAT 96
[2024-04-23 08:00] VITALS: BP 127/74; PULSE 82; RESP 18; TEMP 36.6; O2SAT 100
[2024-04-23 08:05] VITALS: PULSE 73
[2024-04-23] MEDS: APIXABAN 5 MG TABLET PO (08:08)
[2024-04-23] MEDS: CYANOCOBALAMIN 1,000 MCG TABLET 1000 MCG PO (08:08)
[2024-04-23] MEDS: DOCUSATE SODIUM 100 MG CAPSULE 200 MG PO (08:08)
[2024-04-23] MEDS: levETIRAcetam Tablet 250 MG, levETIRAcetam Tablet 500 MG 750 MG PO (08:08)
[2024-04-23 08:37] LABS: Glucose Point of Care 118 mg/dl (65-105)
--- NOTE | 2024-04-23 11:00 | P.PNIM_ITS ---
Progress Note: A&P Assessment and Plan (1) Syncope: Qualifiers: Syncope type: unspecified Qualified Code(s): R55 - Syncope and collapse Code(s): R55 - Syncope and collapse Status: Acute Assessment and Plan: Patient had syncopal episode while at pulmonology appointment on 04/21. He was sitting in his wheelchair and then slumped over and was found to be hypotensive. reports that this has happened once before at home. Patient states prior to syncopal episode he had trouble getting words out and stated that he was trembling with bilateral hands shaking and jaw twitching. - Keppra 750 mg oral and 1000 mg IV given for loading dose, started on 750 BID - Head CT negative - Carotid doppler: < 50% stenosis BL - Echo ordered - Will get MRI of brain to rule out stroke vs mass, read pending - Will also get EEG considering his symptoms of not being able to talk and the tremors Normal record. At the end of the tracing patient had a generalized seizure while the electrodes were being taken of so the seizure-like activity could not be documented on the EEG but the seizure was witnessed by the chief technician x ray as well as the family members. - Chest XR: No acute cardiopulmonary findings - He was given 1 L normal saline while in the ED - Check orthostatic blood pressures Q shift - Continuous cardiac monitoring - Continue neuro checks - Neurology consulted (2) Acute hypotension: Code(s): I95.9 - Hypotension, unspecified Status: Acute Assessment and Plan: Blood pressures were ranging 79/62 to 99/62 initially - BP remain stable in the 100-110s systolic - Patient was given 1 L of normal saline and blood pressure improved - Will check orthostatic blood pressures Q shift - Accurate I&O - Will hold lisinopril for now (3) Dehydration: Code(s): E86.0 - Dehydration Status: Acute Assessment and Plan: See above (4) Type 2 diabetes mellitus: Code(s): E11.9 - Type 2 diabetes mellitus without complications Status: Chronic Assessment and Plan: - Blood sugars ranging 145-155 - Hgb A1C was 6.4 on 10/30/2023 - Will recheck hemoglobin A1c today - Accu checks AC/HS - Hold metformin and Trulicity - Low-dose SSI ordered - hypoglycemic protocol in place - Diabetic diet ordered (5) Prostate cancer: Code(s): C61 - Malignant neoplasm of prostate Status: Chronic Assessment and Plan: Recently diagnosed with prostate cancer and is a patient of Dr. Contreras. Status post robotic assisted radical prostatectomy and bilateral pelvic lymphadenectomy on 03/27/2024. He did have an SHEA that was improved with IV fluids initially postop. He developed a urinoma and had an IR drain placed on 04/04/2024 * He recently had a follow up cystogram and had his Salazar catheter removed. * Urology consulted to check on IR drain as he was originally scheduled to see tomorrow. (6) Seizures: Code(s): R56.9 - Unspecified convulsions Status: Acute Assessment and Plan: - neurology following - started on the Keppra - obtain the MRI of the brain - carotid study has been done which is normal, CT scan of the head is normal - EEG completed- IMPRESSION Normal record. At the end of the tracing patient had a generalized seizure while the electrodes were being taken of so the seizure-like activity could not be documented on the EEG but the seizure was witnessed by the chief technician x ray as well as the family members. Plan DVT ppx: Eliquis Code: Full Disposition: Patient here for eval of syncopal episode. Patient had EEG and had
[2024-04-23 12:00] VITALS: BP 105/57; PULSE 88; RESP 18; TEMP 36.7; O2SAT 98
[2024-04-23 12:20] LABS: Glucose Point of Care 147 mg/dl (65-105)
--- NOTE | 2024-04-23 12:33 | WPDNEURCNPN ---
Consult date: 04/23/24 HPI: Edson Naylor is a 73 year old male with history of type 2 diabetes mellitus, diabetic neuropathy, and seizure. Had a seizure subsequent to the EEG in the emergency room which could not be recorded as the electrodes were completely disconnect, already been started on Keppra discussed with him and his the diagnosis of partial complex seizure with secondary generalization should continue the anticonvulsant as such follow-up with the physician also with Dr. Steiner in 3 months. [facility] Past Medical History Medical History Arthritis Bilateral carpal tunnel syndrome (10/12/21) bilateral carpal tunnel syndrome documented on EMG and nerve conduction study 10/12/2021. EMG and nerve conduction study on 06/27/2023 with bilateral carpal tunnel syndrome as well as proximal neuropathy. Cholelithiasis (05/21/23) cholelithiasis noted on ultrasound of the abdomen 05/21/2023 with no obstruction. Chronic left shoulder pain COVID-19 (02/14/22) tested positive for COVID 02/18/2022. Diabetic peripheral neuropathy associated with type 2 diabetes mellitus Diastolic dysfunction without heart failure (05/21/23) grade 1 diastolic dysfunction with ejection fraction 65-70%, trace mitral valve regurgitation, trace tricuspid valve regurgitation, no pulmonary hypertension on echo on 05/21/2023. Dyspnea on exertion (~2021) Elevated PSA, less than 10 ng/ml PSA slightly elevated at 4.9 on 05/21/2020. PSA level of 4.92 on 09/27/2022. PSA 6.3 with 17% free PSA on 10/30/2023. Essential hypertension History of colon polyps colonoscopy 2019 with recheck in 5 years Hordeolum externum of right lower eyelid Hyperbilirubinemia Mixed hyperlipidemia total cholesterol 144, triglycerides 154, HDL 53 and LDL 67 on 08/31/2021. Total cholesterol 169, triglycerides 150, HDL 58 and LDL 86 on 01/31/2022. Total cholesterol 165, HDL 58, triglycerides 128, LDL 85 with ratio 2.4 on 04/07/2023. Cholesterol 193, triglycerides 140, HDL 55, LDL 113 with ratio 3.5 on 10/30/2023. Morbid obesity Nocturia Obesity FAHAD on CPAP 10 cm of water pressure with fullface mask. Osteoarthritis of knees, bilateral Paresthesia of upper limb (~05/2021) Polycythemia (09/27/22) hemoglobin slightly elevated at 17.3 on 09/27/2022. Hemoglobin 16.6 on 04/07/2023. Hemoglobin normal at 16.0 on 10/30/2023. Prostate cancer screening PSA 4.9 on 10/21/2019. PSA 4.92 on 09/27/2022. Psoriasis Right medial knee pain Screening for diabetic retinopathy no diabetic retinopathy or macular degeneration on 05/30/2022. Shortness of breath PFT on 03/03/2022 was normal. Sleep apnea Tachycardia Type 2 diabetes mellitus with hyperglycemia fasting glucose 98 with hemoglobin A1c 6.2 on 08/31/2021 urine microalbumin ratio was 7. Glucose 91 with hemoglobin A1c 5.9 on 01/31/2022. Glucose 113 with hemoglobin A1c 6.3 on 09/27/2022. Glucose 105 with hemoglobin A1c 6.2 on 04/07/2023. Glucose 120 with hemoglobin A1c 6.4 and microalbumin ratio of 3 on 10/30/2023. Ulnar neuropathy at elbow of right upper extremity (10/12/21) documented on EMG and nerve conduction study 10/12/2021 Vitamin B12 deficiency anemia (08/31/21) level slightly low at 390 with goal greater than 400 with folic acid normal at 11.3 and hemoglobin normal at 16.3 on 08/31/2021 Surgical History Surgical History H/O vasectomy Hx of appendectomy Hx of bilateral mastectomy Hx of tonsillectomy Family History Family History Mother Patient's mother is in good health Alzheimer disease Father Patient's father is , Onset Age: 73 Malignant neoplasm of prostate Sibling Malignant neoplasm of prostate Heart disease Social History Social History Smoking status: Never smoker Second hand tobacco smoke expos
--- NOTE | 2024-04-23 14:11 | PM.DS ---
DS: Admitting Diagnosis Discharge Date 04/23 Admitting Diagnosis syncope DS: Discharge Diagnosis Discharge Diagnosis (1) Syncope: Qualifiers: Syncope type: unspecified Qualified Code(s): R55 - Syncope and collapse Code(s): R55 - Syncope and collapse Status: Acute Assessment and Plan: Patient had syncopal episode while at pulmonology appointment on 04/21. He was sitting in his wheelchair and then slumped over and was found to be hypotensive. reports that this has happened once before at home. Patient states prior to syncopal episode he had trouble getting words out and stated that he was trembling with bilateral hands shaking and jaw twitching. - Keppra 750 mg oral and 1000 mg IV given for loading dose, started on 750 BID - Head CT negative - Carotid doppler: < 50% stenosis BL - Echo ordered - Will get MRI of brain to rule out stroke vs mass, read pending - Will also get EEG considering his symptoms of not being able to talk and the tremors Normal record. At the end of the tracing patient had a generalized seizure while the electrodes were being taken of so the seizure-like activity could not be documented on the EEG but the seizure was witnessed by the senior electronics technician as well as the family members. - Chest XR: No acute cardiopulmonary findings - He was given 1 L normal saline while in the ED - Check orthostatic blood pressures Q shift - Continuous cardiac monitoring - Continue neuro checks - Neurology consulted (2) Acute hypotension: Code(s): I95.9 - Hypotension, unspecified Status: Acute Assessment and Plan: Blood pressures were ranging 79/62 to 99/62 initially - BP remain stable in the 100-110s systolic - Patient was given 1 L of normal saline and blood pressure improved - Will check orthostatic blood pressures Q shift - Accurate I&O - Will hold lisinopril for now (3) Dehydration: Code(s): E86.0 - Dehydration Status: Acute Assessment and Plan: See above (4) Type 2 diabetes mellitus: Code(s): E11.9 - Type 2 diabetes mellitus without complications Status: Chronic Assessment and Plan: - Blood sugars ranging 145-155 - Hgb A1C was 6.4 on 10/30/2023 - Will recheck hemoglobin A1c today - Accu checks AC/HS - Hold metformin and Trulicity - Low-dose SSI ordered - hypoglycemic protocol in place - Diabetic diet ordered (5) Prostate cancer: Code(s): C61 - Malignant neoplasm of prostate Status: Chronic Assessment and Plan: Recently diagnosed with prostate cancer and is a patient of Dr. Contreras. Status post robotic assisted radical prostatectomy and bilateral pelvic lymphadenectomy on 03/27/2024. He did have an SHEA that was improved with IV fluids initially postop. He developed a urinoma and had an IR drain placed on 04/04/2024 He recently had a follow up cystogram and had his Salazar catheter removed. Urology consulted to check on IR drain as he was originally scheduled to see tomorrow. (6) Seizures: Code(s): R56.9 - Unspecified convulsions Status: Acute Assessment and Plan: - neurology following - started on the Keppra - obtain the MRI of the brain - carotid study has been done which is normal, CT scan of the head is normal - EEG completed- IMPRESSION Normal record. At the end of the tracing patient had a generalized seizure while the electrodes were being taken of so the seizure-like activity could not be documented on the EEG but the seizure was witnessed by the senior electronics technician as well as the family members. Plan DVT ppx: Eliquis Code: Full Disposition: Patient here for eval of syncopal episode. Patient had EEG and had a generalized seizure at the end of the procedure. Per he had 4 similar episodes in the past week where he states he is cold and then starts having bilateral hand shaking, jaw twitching and unable to speak. Patient received 750 mg oral keppra and 1000 mg IV keppra following
== END 2024-04-23 14:42 | disposition home or self-care (01) | DRG 315 ==
LOC: ANHED 18:58 → ANH3MED 20:04
PROVIDERS: Nurse Practitioner Acute Care; Physician Assistant; Student in an Organized Health Care Education/Training Program; Admitting Provider Internal Medicine; Emergency Provider Family Medicine; PCP Family Medicine; Visit Provider Nurse Practitioner
DX: I95.9 Hypotension, unspecified (principal); E44.1 Mild protein-calorie malnutrition; E86.0 Dehydration; C61 Malignant neoplasm of prostate; R56.9 Unspecified convulsions; D51.9 Vitamin B12 deficiency anemia, unspecified; D75.1 Secondary polycythemia; E11.42 Type 2 diabetes mellitus with diabetic polyneuropathy; E78.5 Hyperlipidemia, unspecified; E66.01 Morbid (severe) obesity due to excess calories; G47.33 Obstructive sleep apnea (adult) (pediatric); R55 Syncope and collapse; Z90.79 Acquired absence of other genital organ(s); Z86.718 Personal history of other venous thrombosis and embolism; Z79.84 Long term (current) use of oral hypoglycemic drugs; Z79.85 Long-term (current) use of injectable non-insulin antidiabetic drugs; Z79.01 Long term (current) use of anticoagulants; Z86.16 Personal history of COVID-19; Z99.89 Dependence on other enabling machines and devices; Z90.49 Acquired absence of other specified parts of digestive tract; Z68.35 Body mass index [BMI] 35.0-35.9, adult
CPT/HCPCS: 36415; 51600; 70450; 70553; 71045; 74430; 80053; 82948; 83605; 84484; 85025; 85610; 85730; 86140; 93005; 93880; 94002; 95816; 96360; 99285; A9270; A9577; C8929; J1953; J7030; Q9957; Q9967

== ENCOUNTER 2024-04-30 09:27 | Observation (INO) | payer BC, MEDICARE, SELFPAY ==
[2024-04-30] VITALS (33 sets, daily range): BP systolic 89–135; BP diastolic 59–86; PULSE 82–103; RESP 13–26; TEMP 36.1–36.7; O2SAT 96–100; BMI 36.6
--- NOTE | ~2024-04-30 | CT_ITS ---
Non-contrast CT scan of the Abdomen and Pelvis Clinical indication: Hematuria Technique: 2.5 mm axial scans were obtained through the abdomen and pelvis without intravenous or or al contrast. Dose reduction technique was used on this scan by utilizing automated exposure control a nd iterative reconstruction technique. The dose-length product (DLP) was 1562.96 mGy-cm. COMPARISON: 04/07/2024 Findings: Images through the lung bases reveal minimal peripheral chronic interstitial disease. There is no evidence of renal or ureteral calculi. The kidneys and the ureters are nondilated. The liver, spleen, pancreas, and adrenals appear normal. Multiple gallstones are present. There are a therosclerotic calcifications of the aorta. . There is no evidence of bowel obstruction. There is a 7.9 x 4.7 x 5.2 cm peripherally enhancing fluid collection in the anterior pelvis, compatible with abscess (axial image 170 for example). Images through the pelvis were performed. There is no evidence of ascites or lymphadenopathy. There i s air in urinary bladder. Large hematoma within the urinary bladder. Salazar catheter is present with b alloon deployed in the prostatic/bulbar urethra. Impression: 7.9 x 4.7 x 5.2 cm anterior pelvic abscess. This is mildly decreased in size from prior exam. Salazar catheter balloon is inflated in the prostatic/bulbar urethra. Large hematoma present in the uri nary bladder. Cholelithiasis. Reviewed, dictated and finalized at [facility]. Impression: 7.9 x 4.7 x 5.2 cm anterior pelvic abscess. This is mildly decreased in size fr om prior exam. Salazar catheter balloon is inflated in the prostatic/bulbar urethra. Large hemat romario present in the urinary bladder. Cholelithiasis.
--- NOTE | ~2024-04-30 | XR_ITS ---
EXAMINATION: XR chest 1V portable DATE: 04/30/2024 10:08 INDICATION: Syncope and weakness TECHNIQUE: One view COMPARISON: Chest radiograph dated 04/21/2024 FINDINGS: Patient is rotated towards the right. No focal airspace opacities, pulmonary edema, pleural effusion or pneumothorax. Heart size is normal. IMPRESSION: 1. No acute cardiopulmonary disease. Reviewed, dictated and finalized at location A.
--- NOTE | 2024-04-30 09:34 | ECG_ITS ---
Test Date: 2024-04-30 09:39:46 Measurements Intervals [place] Rate: 87 P: 43 NV: 176 QRS: 30 QRSD: 106 T: 29 QT: 363 QTc: 437 Interpretive Statements SINUS RHYTHM INCOMPLETE RIGHT BUNDLE BRANCH BLOCK BORDERLINE ECG Compared to ECG 04/21/2024 15:19:08 Right bundle-branch block no longer present Electronically Signed On 04-30-2024 09:51:02 CDT by Zay Schrader D.O.
--- NOTE | 2024-04-30 09:51 | ED.SYNCOPE ---
HPI - Syncope General Chief Complaint: Syncope <Teresita Villavicencio PA-C - Last Filed: 04/30/24 17:57> Stated Complaint: syncope <Teresita Villavicencio PA-C - Last Filed: 04/30/24 17:57> History of Present Illness HPI narrative: 73-year-old male with history of FAHAD, type 2 diabetes, DVT on Eliquis, hyperlipidemia, prostate cancer s/p robotic assisted radical prostatectomy on 03/27/2024, Diagnosis of partial complex seizure disorder presents to the ED via EMS from his urologist office, Dr. Contreras, due to concerns for seizure vs syncopal episode that occurred today. Patient was having a checkup appointment with Dr. Contreras. States Dr. Contreras began placing a Salazar catheter for hematuria that started yesterday. Patient then states he experienced a lot of pain and does not remember anything after that. States he woke up in noticed Dr. Contreras and lot of staff surrounding him and is concerned he may have had a seizure. EMS was contacted and the patient was transferred to the ED for further evaluation. Upon my evaluation the patient had another seizure. He became very anxious during questioning, his jaw began shaking in his hands began shaking. This lasted approximately 30 seconds. He was arousable during this episode and was not postictal afterwards. He is answering all questions appropriately. His at bedside states that the seizures occur when the patient is anxious or stressed, or he is mad. The patient denies chest pain or shortness of breath, vision changes or focal numbness or weakness, head injury or trauma, abdominal pain, N/ V/D, fever. He is reporting dysuria since the Salazar catheter was placed this morning. He notes that the hematuria started spontaneously last night. he believes he may have a history of kidney stones. Per chart review the patient was diagnosed with partial complex seizure disorder after having a witnessed seizure by the neurologist during an EEG. The leads were discontinued and the seizure was not captured on EEG. He is taking Keppra 750 Q 12 which he states he has been taking as directed. He has not taken his Keppra or Eliquis this morning because he states he normally takes these at 11:00 a.m. <Teresita Villavicencio PA-C - Last Filed: 04/30/24 17:57> Related Data Home Medications: Home Medications Medication Instructions Recorded Confirmed cyanocobalamin (vitamin B-12) 1,000 mcg PO DAILY 09/01/21 04/30/24 1,000 mcg tablet atorvastatin 40 mg tablet 40 mg PO HS 03/18/24 04/30/24 docusate sodium 100 mg capsule 200 mg PO DAILY 04/21/24 04/30/24 (Colace) empagliflozin 25 mg tablet 25 mg PO HS 04/21/24 04/30/24 (Jardiance) <Teresita Villavicencio PA-C - Last Filed: 04/30/24 17:57> Allergies/Adverse Reactions: Allergies Allergy/AdvReac Type Severity Reaction Status Date / Time ciprofloxacin Allergy Intermediate Anaphylaxis Verified 04/30/24 09:33 chlorpheniramine AdvReac Unknown Confusion Verified 04/30/24 09:33 <Teresita Villavicencio PA-C - Last Filed: 04/30/24 17:57> Review of Systems Review of Systems: All systems reviewed & are unremarkable except as noted in HPI and below <Teresita Villavicencio PA-C - Last Filed: 04/30/24 17:57> FORMERLY [facility], [facility] Past Medical History Medical History: Medical History (Updated 04/30/24 @ 15:01 by Carolina Capps APRN) Acute hypotension Acute non-recurrent maxillary sinusitis Adynamic ileus Arthritis Bilateral carpal tunnel syndrome (10/12/21) bilateral carpal tunnel syndrome documented on EMG and nerve conduction study 10/12/2021. EMG and nerve conduction study on 06/27/2023 with bilateral carpal tunnel syndrome as well as proximal neuropathy. Chest heaviness Cholelithiasis (05/21/23) cholelithiasis noted on ultrasound of the abdomen 05/21/2023 with no obstruction. Chronic left shoulder pain Complex partial seizure evolving to generalized seizure (~04/21/24) COVID-19 (02/14/22) tested positive for COVID 02/18/2022. Dehydration D
[2024-04-30] MEDS: SODIUM CHLORIDE 0.9% IV 1,000 ML 999 ML IV CONT (10:06)
[2024-04-30] MEDS: levETIRAcetam Tablet 250 MG, levETIRAcetam Tablet 500 MG 750 MG PO ×2 (10:08→20:59)
[2024-04-30 10:35] LABS: Bacteria Urine Rare /hpf; RBC Urine >100 /hpf (0-2); Squamous Epithelial Cell Urine None Seen /hpf (Few); WBC Urine >100 /hpf (0-3)
[2024-04-30 10:38] LABS: Add Urine Microscopic? YES; Appearance Urine Turbid (Clear); Bilirubin Urine 2+ (Negative); Blood Urine 2+ (Negative); Glucose Urine UA 2+ mg/dL (Negative); Ketones Urine Negative (Negative); Leukocyte Esterase Ur 3+ LEU/UL (Negative); Nitrate Urine Positive (Negative); Protein Urine 2+ mg/dL (Negative); Specific Grav Ur 1.015 (1.001-1.035); Urobilinogen Urine 0.2 mg/dL (<2.0); pH Urine 7.5 (5.0-9.0)
[2024-04-30 10:39] LABS: Basophils Absolute Auto 0.1 K/mm3 (0.0-0.1); Basophils Percent Auto 0.6 % (0.2-1.2); Color Urine Red (Yellow); Eosinophils Absolute Auto 0.4 K/mm3 (0-0.3); Eosinophils Percent Auto 4.7 % (0-4.4); Hematocrit 35.9 % (42.0-52.0); Hemoglobin 11.8 g/dL (14.0-18.0); Immature Granulocyte Absolute 0.19 K/mm3 (0.00-0.031); Lymphocytes Absolute Auto 2.16 K/mm3 (0.9-3.2); Lymphocytes Percent Auto 23.3 % (18.3-44.2); Mean Corpuscular HGB Conc 32.9 g/dl (32-36); Mean Corpuscular Hemoglobin 30.7 pg (26-34); Mean Corpuscular Volume 93.5 fl (80-100); Mean Platelet Volume 9.2 fl (7.4-10.4); Monocytes Absolute Auto 0.8 K/mm3 (0.1-0.6); Monocytes Percent Auto 8.3 % (2.6-8.5); Neutrophils Absolute Auto 5.7 K/mm3 (1.3-6.7); Neutrophils Percent Auto 61.1 % (45.5-73.1); Platelet Count Result 330 k/mm3 (150-375); Red Blood Count 3.84 M/mm3 (4.6-6.20); Red Cell Distribution Width 13.4 % (11.5-14.5); White Blood Count 9.3 K/mm3 (4.5-10.0)
[2024-04-30 10:43] LABS: Alanine Aminotransferase 16 U/L (6-50); Albumin Level 3.7 g/dL (3.5-5.1); Alkaline Phosphatase 94 U/L (38-126); Anion Gap 8 mmol/L (4-12); Aspartate Amino Transferase 23 U/L (17-59); Bilirubin,Total 1.1 mg/dL (0.2-1.3); Blood Urea Nitrogen 11 mg/dL (9-20); Calcium 8.8 mg/dL (8.4-10.2); Carbon Dioxide 26 mmol/L (22-30); Chloride 102 mmol/L (98-107); Estimated Glomerular Filt Rate > 60; Glucose 114 mg/dL (65-110); Potassium 4.2 mmol/L (3.4-5.0); Sodium 136 mmol/L (137-145)
[2024-04-30 10:44] LABS: INR 1.1; Prothrombin Time 14.9 Seconds (11.1-14.7)
[2024-04-30 10:45] LABS: Partial Thromboplastin Time 30.1 Seconds (22.3-36.8)
[2024-04-30 10:52] LABS: NT Pro B Type Natriuretic Pept 71 pg/mL (19.9-100)
--- NOTE | 2024-04-30 11:33 | PC.NURSE ---
Urology in room to replace kelsey that was present when patient arrived to ER. Patient had kelsey catheter placed at urology office this am.
--- NOTE | 2024-04-30 11:54 | PC.NURSE ---
patient started on CBI per urology MD.
--- NOTE | 2024-04-30 11:58 | PC.NURSE ---
pt had [address] way C[address] placed by Dr Contreras
[2024-04-30 12:30] LABS: NT Pro B Type Natriuretic Pept 64 pg/mL (19.9-100)
[2024-04-30 12:33] LABS: Troponin I < 0.012 ng/mL (0.000-0.034)
[2024-04-30] MEDS: PIPERACILLN/TAZ 3.375GM/NS50ML 3.375 GM/50 ML BAG IVPB ×2 (14:34→18:13)
--- NOTE | 2024-04-30 14:36 | PM.IMHP ---
H&P: HPI History of Present Illness Date/Time: 04/30/24 14:36 Chief Complaint: Syncope vs Seizure Narrative: 73 y/o M presents here with syncopal episode vs seizure with PMH of type 2 diabetes, FAHAD, DVT on Eliquis, HLD, prostate cancer s/p prostatectomy on 03/27/2024, and recent diagnosis of partial complex seizure disorder. The patient presents here via EMS from urologist office for further evaluation after patient had a syncopal versus seizure like episode. Patient follows with [facility] for recent proctectomy on 03/27/24 due to prostate cancer. Patient had post-operative complications including urinoma with IR drain placement on 04/04, postoperative SHEA, postoperative ileus, tachycardia started on metoprolol, DVT started on Eliquis, and pneumonia requiring extended hospital stay from 03/27/24-04/09/24. Patient has since had Salazar removed with successful void trial and FER drain removed. 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 During the syncopal episode he had concurrent expressive aphasia, tremor to bilateral hands, and jaw twitching. Head CT negative for acute findings, carotid Doppler showed less than 50% stenosis bilaterally, MRI was unremarkable, and EEG was performed. Patient had normal EEG reading, however when the processing technician was removing the electrodes after the test was completed the patient had seizure-like activity that was witnessed by the processing technician as well as family members. Patient was started on Keppra and diagnosed with partial complex seizures. Today patient was following up with [facility] due to developing hematuria last night (04/29). The patient reports at that the provider was in the process of placing a Salazar catheter when he began to experience a lot of pain. He reports he woke up to staff surrounding him and reported to him they were concerned he had a seizure. Patient denies any recollection of events after the pain started. Patient was then directed to the ED for further evaluation. After arrival, the ED provider witnessed an episode she described as patient becoming very anxious during questioning with subsequent jaw shaking and hands shaking which lasted for 30 seconds. Patient was arousable during this episode and had no confusion or alteration post episode. reported to the ED provider that the seizures have been occurring when patient becomes anxious, stress, or agitated. Patient reports mild bladder discomfort post-CBI initiation and fatigue. Denies headache or dizziness. Initial VS at presentation: 98.1? F, HR 87, RR 21, 105/68, and 100% on RA. ED workup showed: No leukocytosis, hemoglobin 11.8 (at baseline), INR 1.1, sodium 136, creatinine 1.0 and normal GFR, initial troponin negative, UA consistent with UTI. CXR showed no acute cardiopulmonary disease. CT of the abdomen/pelvis showed a 7.9 x 4.7 x 5.2 cm anterior pelvic abscess that is mildly increased in size from prior exam, Salazar catheter balloon is inflated in the prostatic/bulbar urethra, large hematoma present in the urinary bladder, and cholelithiasis. Review of Systems Review of Systems: All systems reviewed & are unremarkable except as noted in HPI and below PMFSH Past Medical History Medical History Acute hypotension Acute non-recurrent maxillary sinusitis Adynamic ileus Arthritis Bilateral carpal tunnel syndrome (10/12/21) bilateral carpal tunnel syndrome documented on EMG and nerve conduction study 10/12/2021. EMG and nerve conduction study on 06/27/2023 with bilateral carpal tunnel syndrome as well as proximal neuropathy. Chest heaviness Cholelithiasis (05/21/23) cholelithiasis noted on ultrasound of the abdomen 05/21/2023 with no obstruction. Chronic left shoulder pain Complex partial seizure evolving to generalized seizure (~04/21/24) COVID-19 (02/14/22) tested positive for COVID 02/18/2022. Dehydration Diabetic neuropat
[2024-04-30 15:46] LABS: Glucose Point of Care 97 mg/dl (65-105)
[2024-04-30 16:09] LABS: Procalcitonin 0.1 ng/mL
--- NOTE | 2024-04-30 16:17 | WPDURCON ---
Assessment and Plan Assessment and plan (1) Gross hematuria: Code(s): R31.0 - Gross hematuria Status: Acute (2) Abdominal fluid collection: Code(s): R18.8 - Other ascites Status: Acute Assessment and Plan: Urethral bleed likely secondary to anticoagulation with a possible urinary tract infection. This seems to have resolved with placement of a urethral catheter and bladder irrigation The abdominal wall fluid collection likely represents either a seroma or hematoma. Clinically, he does not appear to have an wall abscess. Currently, I placement of a abdominal wall drain unless he becomes symptomatic in some fashion Urology Consult Note HPI Date Seen: 04/30/24 Requesting Physician: Alyssa Rich MD Primary Care Provider: Will Daniel MD Consult Narrative Narrative: Edson Naylor is a 73 year old male who is well known to me with a history of complicated robotic prostatectomy 1 month ago. In the immediate postoperative. He developed an anastomotic leak and acute kidney injury that resolved with placement of a pelvic drain and prolonged catheterization. His catheter has now been out several weeks and he is voiding well. In addition to nose immediate problems he later developed a deep venous thrombosis and has been anticoagulated. Presented to the office early this morning with urethral bleeding. With attempted cystoscopy I had difficulty ascertaining whether he had a significant clot in his bladder. During the course of urethral manipulation became hypotensive and unresponsive for brief period of time. He was evaluated in emergency department. CT shows a moderate-sized clot in his bladder. A 3 way catheter was placed in a irrigated some clot with subsequent free flow clear urine. Review of Systems Review of Systems: All systems reviewed & are unremarkable except as noted in HPI and below [facility] Past Medical History Medical History (Updated 04/30/24 @ 15:01 by Carolina Capps, VIVIAN) Acute hypotension Acute non-recurrent maxillary sinusitis Adynamic ileus Arthritis Bilateral carpal tunnel syndrome (10/12/21) bilateral carpal tunnel syndrome documented on EMG and nerve conduction study 10/12/2021. EMG and nerve conduction study on 06/27/2023 with bilateral carpal tunnel syndrome as well as proximal neuropathy. Chest heaviness Cholelithiasis (05/21/23) cholelithiasis noted on ultrasound of the abdomen 05/21/2023 with no obstruction. Chronic left shoulder pain Complex partial seizure evolving to generalized seizure (~04/21/24) COVID-19 (02/14/22) tested positive for COVID 02/18/2022. Dehydration Diabetic neuropathy Diastolic dysfunction without heart failure (05/21/23) grade 1 diastolic dysfunction with ejection fraction 65-70%, trace mitral valve regurgitation, trace tricuspid valve regurgitation, no pulmonary hypertension on echo on 05/21/2023. Dyspnea on exertion (~2021) Elevated PSA, less than 10 ng/ml PSA slightly elevated at 4.9 on 05/21/2020. PSA level of 4.92 on 09/27/2022. PSA 6.3 with 17% free PSA on 10/30/2023. Essential hypertension HAP (hospital-acquired pneumonia) History of colon polyps colonoscopy 2019 with recheck in 5 years Hordeolum externum of right lower eyelid Hyperbilirubinemia Hypertension Hypotension Mixed hyperlipidemia total cholesterol 144, triglycerides 154, HDL 53 and LDL 67 on 08/31/2021. Total cholesterol 169, triglycerides 150, HDL 58 and LDL 86 on 01/31/2022. Total cholesterol 165, HDL 58, triglycerides 128, LDL 85 with ratio 2.4 on 04/07/2023. Cholesterol 193, triglycerides 140, HDL 55, LDL 113 with ratio 3.5 on 10/30/2023. Morbid obesity Nocturia Obesity FAHAD on CPAP 10 cm of water pressure with fullface mask. Osteoarthritis of knees, bilateral Paresthesia of upper limb (~05/2021) Pneumonia Polycythemia (09/27/22) hemoglobin slightly elevated at 17.3 on 09/27/2022. Hemoglobin 16.6 on 04/07/2023. Hemoglobin normal at 16.0 on 10/30/2023
--- NOTE | 2024-04-30 16:40 | ADMGEN ---
This patient, Edson Naylor, was admitted to Medical Room 257-01. Patient/family oriented to hospital policies and general routines including ID bracelet, bed and alarms, visiting hours, pain management, procedures, bathroom and other care routines, personal items, smoking policy, room service/diet, and visiting hours. Information on how to activate the Rapid Response Team has been discussed. Patient/Family are encouraged to report perceived risks to care and to ask questions if they do not understand what they are told or what they should do.
[2024-04-30 17:10] LABS: Glucose Point of Care 86 mg/dl (65-105)
[2024-04-30 19:35] LABS: Glucose Point of Care 149 mg/dl (65-105)
[2024-04-30 20:19] LABS: Hematocrit 36.8 % (42.0-52.0); Hemoglobin 12.2 g/dL (14.0-18.0)
[2024-05-01] VITALS (18 sets, daily range): BP systolic 106–134; BP diastolic 62–73; PULSE 76–106; RESP 16–22; TEMP 35.9–36.9; O2SAT 93–100
[2024-05-01] MEDS: PIPERACILLN/TAZ 3.375GM/NS50ML 3.375 GM/50 ML BAG IVPB ×4 (00:01→17:07)
[2024-05-01] MEDS: ATORVASTATIN 40 MG TABLET PO ×2 (04:18→20:52)
[2024-05-01] MEDS: lisinopriL 10 MG TABLET PO ×2 (04:19→20:53)
[2024-05-01] MEDS: EMPAGLIFLOZIN 25 MG TABLET PO ×2 (04:19→20:52)
[2024-05-01 06:58] LABS: Basophils Absolute Auto 0.1 K/mm3 (0.0-0.1); Basophils Percent Auto 0.8 % (0.2-1.2); Eosinophils Absolute Auto 0.4 K/mm3 (0-0.3); Eosinophils Percent Auto 4.7 % (0-4.4); Hematocrit 36.7 % (42.0-52.0); Hemoglobin 11.7 g/dL (14.0-18.0); Immature Granulocyte Absolute 0.09 K/mm3 (0.00-0.031); Immature Granulocyte Percent A 1.1 % (0-0.5); Lymphocytes Absolute Auto 2.12 K/mm3 (0.9-3.2); Mean Corpuscular HGB Conc 31.9 g/dl (32-36); Mean Corpuscular Hemoglobin 30.2 pg (26-34); Mean Corpuscular Volume 94.6 fl (80-100); Mean Platelet Volume 9.3 fl (7.4-10.4); Monocytes Absolute Auto 0.9 K/mm3 (0.1-0.6); Monocytes Percent Auto 10.1 % (2.6-8.5); Neutrophils Absolute Auto 4.9 K/mm3 (1.3-6.7); Neutrophils Percent Auto 58.3 % (45.5-73.1); Platelet Count Result 312 k/mm3 (150-375); Red Blood Count 3.88 M/mm3 (4.6-6.20); Red Cell Distribution Width 13.6 % (11.5-14.5); White Blood Count 8.5 K/mm3 (4.5-10.0)
--- NOTE | 2024-05-01 07:04 | WPDUROPN2 ---
Progress Note: A&P Assessment and Plan (1) Gross hematuria: Code(s): R31.0 - Gross hematuria Status: Acute (2) Complex partial seizure evolving to generalized seizure: Onset Date: ~04/21/24 Code(s): G40.209 - Localization-related (focal) (partial) symptomatic epilepsy and epileptic syndromes with complex partial seizures, not intractable, without status epilepticus Status: Acute (3) DVT (deep venous thrombosis): Onset Date: ~04/08/24 Qualifiers: DVT location: lower extremity Affected thrombotic vein of extremity: tibial Chronicity: acute Laterality: right Qualified Code(s): I82.441 - Acute embolism and thrombosis of right tibial vein Code(s): I82.409 - Acute embolism and thrombosis of unspecified deep veins of unspecified lower extremity Status: Acute Assessment and Plan: Episode yesterday likely due to spontaneous hematuria as a result of systemic anticoagulation. I suspect he had a vasovagal episode in our office precipitated by urethral manipulation Urine still slightly blood tinged and bladder spasm suggest persistent bladder clot. I will plan cystoscopy with clot evacuation under monitored anesthesia Subjective Subjective Date/Time Seen: 05/01/24 07:04 Interval history: Intermittent bladder spasms overnight and slightly blood-tinged urine suggest residual clot in bladder. Otherwise, feeling well Review of Systems Cardiovascular: Cardiovascular: Denies chest pain, Denies lightheadedness, Denies palpitations and Denies dyspnea Respiratory: Respiratory: Denies dyspnea Gastrointestinal: Gastrointestinal: Denies diarrhea, Denies nausea and Denies vomiting Genitourinary: Genitourinary: Denies hematuria and Denies dysuria Endocrine: Endocrine: Denies palpitations Exam Const: General: no acute distress Resp: Effort & Inspection: normal respiratory effort GI: Inspection: non-distended GI Palp: No abdominal tenderness and No Guarding due to palpation present (GI) Auscultation: normal bowel sounds Urinary Catheter: Urinary Catheter: patent and draining and urine pink Objective Data Vital Signs Vital Signs: Vital Signs - 24 hr 04/30/24 09:31 04/30/24 09:31 04/30/24 09:32 Temperature 98.1 F Pulse Rate 87 88 87 Respiratory Rate 21 H 21 H 21 H Blood Pressure 105/68 105/68 Pulse Oximetry 100 100 100 Oxygen Delivery 04/30/24 09:46 04/30/24 10:15 04/30/24 10:45 Temperature Pulse Rate 90 84 82 Respiratory Rate 19 20 14 Blood Pressure 89/74 L 108/68 99/72 L Pulse Oximetry 100 98 100 Oxygen Delivery 04/30/24 10:46 04/30/24 11:00 04/30/24 11:01 Temperature Pulse Rate 83 85 85 Respiratory Rate 13 16 17 Blood Pressure 106/67 115/70 Pulse Oximetry 97 100 100 Oxygen Delivery 04/30/24 11:15 04/30/24 11:16 04/30/24 11:30 Temperature Pulse Rate 86 87 98 Respiratory Rate 16 13 19 Blood Pressure 115/68 Pulse Oximetry 100 100 99 Oxygen Delivery 04/30/24 11:31 04/30/24 11:42 04/30/24 11:46 Temperature Pulse Rate 94 89 93 Respiratory Rate 22 H 20 26 H Blood Pressure 116/72 116/72 120/86 Pulse Oximetry 100 100 100 Oxygen Delivery 04/30/24 11:47 04/30/24 12:01 04/30/24 12:16 Temperature Pulse Rate 88 89 90 Respiratory Rate 17 22 H 15 Blood Pressure 112/73 116/70 Pulse Oximetry 100 100 98 Oxygen Delivery 04/30/24 14:25 04/30/24 12:17 04/30/24 12:30 Temperature Pulse Rate 98 88 95 Respiratory Rate 20 15 26 H Blood Pressure 120/76 Pulse Oximetry 99 98 100 Oxygen Delivery 04/30/24 12:31 04/30/24 12:45 04/30/24 13:10 Temperature Pulse Rate 94 97 100 Respiratory Rate 18 21 H 20 Blood Pressure 135/74 Pulse Oximetry 100 98 99 Oxygen Delivery 04/30/24 13:20 04/30/24 14:16 04/30/24 14:17 Temperature Pulse Rate 101 H 98 100 Respiratory Rate 25 H 21 H 24 H Blood Pressure 120/76 Pulse Oximetry 98 98 98 Oxygen Delivery 04/30/24 14:3
[2024-05-01 07:10] LABS: Alanine Aminotransferase 15 U/L (6-50); Albumin Level 3.5 g/dL (3.5-5.1); Alkaline Phosphatase 86 U/L (38-126); Anion Gap 9 mmol/L (4-12); Aspartate Amino Transferase 24 U/L (17-59); Blood Urea Nitrogen 10 mg/dL (9-20); CRP 2.1 mg/dL (<1.0); Calcium 8.5 mg/dL (8.4-10.2); Carbon Dioxide 27 mmol/L (22-30); Chloride 100 mmol/L (98-107); Estimated CRCL calculation 83 ml/min; Estimated Glomerular Filt Rate > 60; Glucose 104 mg/dL (65-110); Potassium 3.8 mmol/L (3.4-5.0); Sodium 136 mmol/L (137-145)
--- NOTE | 2024-05-01 07:21 | WPDHPUPDATE1 ---
History and Physical Update Update Date/Time: 05/01/24 07:21 History and Physical has been reviewed, including an updated exam of the patient. There are NO changes in the patient's condition. Risks, benefits, and alternatives have been discussed and questions answered. Patient agrees to proceed with procedure.
[2024-05-01 07:30] LABS: Glucose Point of Care 91 mg/dl (65-105)
[2024-05-01 07:42] LABS: Hemoglobin A1C 6.8 % (<5.7)
[2024-05-01] MEDS: levETIRAcetam Tablet 250 MG, levETIRAcetam Tablet 500 MG 750 MG PO ×2 (07:57→20:52)
[2024-05-01 12:03] LABS: Glucose Point of Care 88 mg/dl (65-105)
[2024-05-01] MEDS: LACTATED RINGERS 1,000 ML 30 ML IV CONT (12:15)
--- NOTE | 2024-05-01 12:59 | P.PNIM_ITS ---
Progress Note: A&P Assessment and Plan (1) Observed seizure-like activity: Code(s): R56.9 - Unspecified convulsions Status: Acute Assessment and Plan: 05/01/24: * CT of the brain negative * MRI of the brain negative * EEG was normal * Continue seizure precaution * Continue Keppra 750 mg twice a day * Neurology consulted * Urology feels that he may have had more of a vasovagal response versus seizure when kelsey was being placed in their office. (2) Gross hematuria: Code(s): R31.0 - Gross hematuria Status: Acute Assessment and Plan: 05/01/24: * Large clot in bladder * Continue CBI * Urology consulted * Cystoscopy today with moderate clot removal, 3 way catheter placed and CBI continued. * Continue to hold Eliquis (3) Abdominal fluid collection: Code(s): R18.8 - Other ascites Status: Acute Assessment and Plan: 05/01/24: * CT abd/pelvis shown a 7.9 x 4.7 x 5.2 cm anterior pelvic abscess. This is mildly decreased in size from prior exam. Kelsey catheter balloon is inflated in the prostatic/bulbar urethra. Large hematoma present in the urinary bladder. Cholelithiasis. * Urology consulted * Cystoscopy did not show abscess (4) Type 2 diabetes mellitus: Qualifiers: Diabetes mellitus complication status: with other specified complication Diabetes mellitus snf insulin use: with terminologist use Qualified Code(s): E11.69 - Type 2 diabetes mellitus with other specified complication; Z79.4 - penitentiary (current) use of insulin Code(s): E11.9 - Type 2 diabetes mellitus without complications Status: Acute Assessment and Plan: 05/01/24: * Blood sugars ranging 88-91 * Hgb A1C 6.8 * Accu checks AC/HS * Low dose SSI ordered * hypoglycemic protocol in place * Diabetic diet ordered * continue to hold Trulicity and Metformin (5) Essential hypertension: Code(s): I10 - Essential (primary) hypertension Status: Acute Assessment and Plan: 05/01/24: * Blood pressure ranging * Continue Lisinopril (6) FAHAD on CPAP: Code(s): G47.33 - Obstructive sleep apnea (adult) (pediatric); Z99.89 - Dependence on other enabling machines and devices Status: Acute Assessment and Plan: 05/01/24: * Continue home Bipap Time Spent With Patient Time with patient: 25 - 35 minutes Subjective Date/time seen: 05/01/24 12:59 Interval history: This is a 73-year-old male who presented to the hospital on 04/30/2024 from his urologist office after having vasovagal versus seizure versus syncopal episode. Workup in the hospital included a CT of the abdomen/pelvis which showed a 7.9 x 4.7 x 5.2 cm anterior pelvic abscess, Kelsey catheter with balloon inflated in the prostatic bulbar urethra, large hematoma present in the urinary bladder, cholelithiasis. Chest x-ray was negative. Recent brain MRI reviewed and was normal. Recent Carotid Doppler study showed less than 50% stenosis in bilateral internal carotid arteries. Recent head CT was negative. Initial labs shown a Hgb 11.8, INR 1.1, Na+ 136, negative troponin. UA revealed red colored urine, turbid appearance, 2+ protein, 2+ glucose, 2+ urine blood, positive nitrates, 2+ bilirubin, 3+ leukocytes, >100 urine RBC, >100 urine WBC, rare bacteria. Urine culture obtained and pending. Last echo reviewed from 04/22/24 which revealed normal LV systolic function with an estimated EF of 65-70%, grade 1 diastolic dysfunction. Urology and Neurology consulted. Patient went for cystoscopy today and had moderate clot removed, three way
--- NOTE | 2024-05-01 12:59 | PM.IMPN ---
Progress Note: A&P Assessment and Plan (1) Observed seizure-like activity: Code(s): R56.9 - Unspecified convulsions Status: Acute Assessment and Plan: 05/01/24: CT of the brain negative MRI of the brain negative EEG was normal Continue seizure precaution Continue Keppra 750 mg twice a day Neurology consulted Urology feels that he may have had more of a vasovagal response versus seizure when kelsey was being placed in their office. (2) Gross hematuria: Code(s): R31.0 - Gross hematuria Status: Acute Assessment and Plan: 05/01/24: Large clot in bladder Continue CBI Urology consulted Cystoscopy today with moderate clot removal, 3 way catheter placed and CBI continued. Continue to hold Eliquis (3) Abdominal fluid collection: Code(s): R18.8 - Other ascites Status: Acute Assessment and Plan: 05/01/24: CT abd/pelvis shown a 7.9 x 4.7 x 5.2 cm anterior pelvic abscess. This is mildly decreased in size from prior exam. Kelsey catheter balloon is inflated in the prostatic/bulbar urethra. Large hematoma present in the urinary bladder. Cholelithiasis. 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 or intermediate school principal insulin use: with halfway use Qualified Code(s): E11.69 - Type 2 diabetes mellitus with other specified complication; Z79.4 - middle or intermediate school principal (current) use of insulin Code(s): E11.9 - Type 2 diabetes mellitus without complications Status: Acute Assessment and Plan: 05/01/24: Blood sugars ranging 88-91 Hgb A1C 6.8 Accu checks AC/HS Low dose SSI ordered hypoglycemic protocol in place Diabetic diet ordered continue to hold Trulicity and Metformin (5) Essential hypertension: Code(s): I10 - Essential (primary) hypertension Status: Acute Assessment and Plan: 05/01/24: Blood pressure ranging Continue Lisinopril (6) FAHAD on CPAP: Code(s): G47.33 - Obstructive sleep apnea (adult) (pediatric); Z99.89 - Dependence on other enabling machines and devices Status: Acute Assessment and Plan: 05/01/24: Continue home Bipap Time Spent With Patient Time with patient: 25 - 35 minutes Subjective Date/time seen: 05/01/24 12:59 Interval history: This is a 73-year-old male who presented to the hospital on 04/30/2024 from his urologist office after having vasovagal versus seizure versus syncopal episode. Workup in the hospital included a CT of the abdomen/pelvis which showed a 7.9 x 4.7 x 5.2 cm anterior pelvic abscess, Kelsey catheter with balloon inflated in the prostatic bulbar urethra, large hematoma present in the urinary bladder, cholelithiasis. Chest x-ray was negative. Recent brain MRI reviewed and was normal. Recent Carotid Doppler study showed less than 50% stenosis in bilateral internal carotid arteries. Recent head CT was negative. Initial labs shown a Hgb 11.8, INR 1.1, Na+ 136, negative troponin. UA revealed red colored urine, turbid appearance, 2+ protein, 2+ glucose, 2+ urine blood, positive nitrates, 2+ bilirubin, 3+ leukocytes, >100 urine RBC, >100 urine WBC, rare bacteria. Urine culture obtained and pending. Last echo reviewed from 04/22/24 which revealed normal LV systolic function with an estimated EF of 65-70%, grade 1 diastolic dysfunction. Urology and Neurology consulted. Patient went for cystoscopy today and had moderate clot removed, three way catheter was placed and CBI was continued. Patient denies any fever, chills, nausea, vomiting, diarrhea, abdominal pain, chest pain, shortness a breath. He does have CBI infusing. is at the bedside. He denies any pain. Review of Systems Review of Systems: All systems reviewed & are unremarkable except as noted in HPI and below Constitutional: Constitutional: Reports as per HPI and Reports no addit
--- NOTE | 2024-05-01 13:18 | WPDANESEPPF ---
Anes - Initial Pre Proc Eval Procedure: Operation Date: 05/01/24 13:15 Proposed Procedures p Cystoscopy, Evacuation Bladder Clot - Terrance Contreras MD Date/Time: 05/01/24 13:18 Surgeon: Alyssa Rich MD Pre Op Diagnosis: syncope versus seizures Patient Data Age: 73 Gender: M Height: 1.88 m Weight: 129.2 kg Last Vital Signs Temp 36.1 C L 05/01/24 04:54 Pulse 85 05/01/24 08:00 Resp 18 05/01/24 04:54 BP 113/64 05/01/24 04:54 Pulse Ox 96 05/01/24 08:00 O2 Del Method Room Air 05/01/24 08:00 Allergies Allergy/AdvReac Type Severity Reaction Status Date / Time ciprofloxacin Allergy Intermediate Anaphylaxis Verified 04/30/24 09:33 chlorpheniramine AdvReac Unknown Confusion Verified 04/30/24 09:33 Home Medications Medication Instructions Recorded Confirmed Type cyanocobalamin (vitamin B-12) 1,000 mcg PO DAILY 09/01/21 04/30/24 History 1,000 mcg tablet metformin 1,000 mg tablet 1,000 mg PO BID #180 tabs 08/07/23 04/30/24 Rx dulaglutide 0.75 mg/0.5 mL 0.75 mg (0.5 mL) subcut WEEKLY #2 02/12/24 04/30/24 Rx subcutaneous pen injector mL (Trulicity) atorvastatin 40 mg tablet 40 mg PO HS 03/18/24 04/30/24 History docusate sodium 100 mg capsule 200 mg PO DAILY 04/21/24 04/30/24 History (Colace) empagliflozin 25 mg tablet 25 mg PO HS 04/21/24 04/30/24 History (Jardiance) apixaban 5 mg tablet (Eliquis) 5 mg PO Q12HR #180 tabs 04/29/24 04/30/24 Rx levetiracetam 750 mg tablet 750 mg PO Q12HR #180 tabs 04/29/24 04/30/24 Rx lisinopril 10 mg tablet 10 mg PO HS #90 tabs 04/29/24 04/30/24 Rx Laboratory Tests 04/30/24 04/30/24 04/30/24 12:03 15:42 17:08 WBC RBC Hgb Hct MCV MCH MCHC RDW Plt Count MPV Immature Gran % (Auto) Neut % (Auto) Lymph % (Auto) [place] % (Auto) Eos % (Auto) Baso % (Auto) Lymph # (Auto) [place] # (Auto) Eos # (Auto) Baso # (Auto) Abs Immat Gran (auto) Absolute Neuts (auto) Absolute Nucleated RBC Nucleated RBC % Sodium Potassium Chloride Carbon Dioxide Anion Gap BUN Creatinine Estim Creat Clear Calc Estimated GFR Glucose POC Capillary Glucose 97 mg/dl 86 mg/dl (65-105) (65-105) Hemoglobin A1c Calcium Total Bilirubin AST ALT Alkaline Phosphatase C-Reactive Protein Total Protein Albumin Procalcitonin 0.1 ng/mL 04/30/24 04/30/24 05/01/24 19:32 20:15 06:11 WBC 8.5 K/mm3 (4.5-10.0) RBC 3.88 L M/mm3 (4.6-6.20) Hgb 12.2 L g/dL 11.7 L g/dL (14.0-18.0) (14.0-18.0) Hct 36.8 L % 36.7 L % (42.0-52.0) (42.0-52.0) MCV 94.6 fl (80-100) MCH 30.2 pg (26-34) MCHC 31.9 L g/dl (32-36) RDW 13.6 % (11.5-14.5) Plt Count 312 k/mm3 (150-375) MPV 9.3 fl (7.4-10.4) Immature Gran % (Auto) 1.1 H % (0-0.5) Neut % (Auto) 58.3 % (45.5-73.1) Lymph % (Auto) 25.0 % (18.3-44.2) [place] % (Auto) 10.1 H % (2.6-8.5) Eos % (Auto) 4.7 H % (0-4.4) Baso % (Auto) 0.8 % (0.2-1.2) Lymph # (Auto) 2.12 K/mm3 (0.9-3.2) [place] # (Auto) 0.9 H K/mm3 (0.1-0.6) Eos # (Auto) 0.4 H K/mm3 (0-0.3) Baso # (Auto) 0.1 K/mm3 (0.0-0.1) Abs Immat Gran (auto) 0.09 H K/mm3 (0.00-0.031) Absolute Neuts (auto) 4.9 K/mm3 (1.3-6.7) Absolute Nucleated RBC 0.000 K/mm3 (0.0-0.012) Nucleated RBC % 0.0 %
[2024-05-01] MEDS: LIDOCAINE HCL 2% GEL UROJET 10 ML PKG MUCOUS MEM (13:55)
--- NOTE | 2024-05-01 14:49 | W.PM.PROC2 ---
Procedure Note - Detailed Date of Procedure 05/01/24 Pre-op Diagnosis Hematuria, clot retention Post-op Diagnosis Other Procedure Performed Cystoscopy, clot evacuation Surgeon Terrance Contreras MD Anesthesia General Description of Procedure Patient is brought to the op suite was prepped draped in routine sterile fashion while in dorsal lithotomy position a 2% xylocaine jelly was introduced intraurethrally and general anesthesia is administered per the anesthesia department. Cystoscopy was undertaken the 19 F rigid cystoscope. Urethra was normal. He has recent removal of his prostate I can see stitches at the anastomosis. The bladder neck appears to be healing nicely. There does appear to be a small, somewhat diverticular like area in the posterior bladder neck. The bladder itself was endoscopically normal without foreign body or neoplasm. With a moderate clot which was easily evacuated through this 19 F catheter. At this point I replaced a [address] catheter over a wire and resume CBI. The patient tolerated the procedure well Urine Output 700 Drains Yes Packing No Pathology None sent Complications No immediate complications
[2024-05-01 15:00] LABS: Glucose Point of Care 81 mg/dl (65-105)
[2024-05-01] MEDS: DOCUSATE SODIUM 100 MG CAPSULE 200 MG PO (16:30)
[2024-05-01] MEDS: CYANOCOBALAMIN 1,000 MCG TABLET 1000 MCG PO (16:31)
[2024-05-01 20:02] LABS: Glucose Point of Care 193 mg/dl (65-105)
[2024-05-01] MEDS: APIXABAN 5 MG TABLET PO (20:52)
[2024-05-02] VITALS: PULSE 99
[2024-05-02] MEDS: PIPERACILLN/TAZ 3.375GM/NS50ML 3.375 GM/50 ML BAG IVPB ×3 (00:55→12:19)
[2024-05-02 04:00] VITALS: PULSE 80
[2024-05-02] MEDS: ACETAMINOPHEN 325 MG TABLET 650 MG PO (05:46)
[2024-05-02 05:51] VITALS: BP 110/67; PULSE 85; RESP 18; TEMP 36.4; O2SAT 97
[2024-05-02 06:46] LABS: Basophils Absolute Auto 0.1 K/mm3 (0.0-0.1); Basophils Percent Auto 0.6 % (0.2-1.2); Eosinophils Percent Auto 0.4 % (0-4.4); Immature Granulocyte Percent A 1.2 % (0-0.5); Lymphocytes Absolute Auto 1.67 K/mm3 (0.9-3.2); Lymphocytes Percent Auto 20.7 % (18.3-44.2); Mean Corpuscular HGB Conc 31.6 g/dl (32-36); Mean Corpuscular Hemoglobin 29.6 pg (26-34); Mean Corpuscular Volume 93.8 fl (80-100); Mean Platelet Volume 9.4 fl (7.4-10.4); Monocytes Absolute Auto 0.6 K/mm3 (0.1-0.6); Monocytes Percent Auto 7.5 % (2.6-8.5); Neutrophils Absolute Auto 5.6 K/mm3 (1.3-6.7); Neutrophils Percent Auto 69.6 % (45.5-73.1); Platelet Count Result 333 k/mm3 (150-375); Red Blood Count 4.05 M/mm3 (4.6-6.20); Red Cell Distribution Width 13.2 % (11.5-14.5); White Blood Count 8.1 K/mm3 (4.5-10.0)
[2024-05-02 06:55] LABS: Alanine Aminotransferase 15 U/L (6-50); Albumin Level 3.7 g/dL (3.5-5.1); Alkaline Phosphatase 85 U/L (38-126); Anion Gap 8 mmol/L (4-12); Aspartate Amino Transferase 23 U/L (17-59); Bilirubin,Total 0.8 mg/dL (0.2-1.3); Blood Urea Nitrogen 11 mg/dL (9-20); Calcium 8.5 mg/dL (8.4-10.2); Carbon Dioxide 27 mmol/L (22-30); Chloride 101 mmol/L (98-107); Estimated CRCL calculation 83 ml/min; Estimated Glomerular Filt Rate > 60; Glucose 117 mg/dL (65-110); Potassium 4.4 mmol/L (3.4-5.0); Sodium 136 mmol/L (137-145)
--- NOTE | 2024-05-02 07:44 | WPDUROPN2 ---
Progress Note: A&P Assessment and Plan (1) Gross hematuria: Code(s): R31.0 - Gross hematuria Status: Acute Assessment and Plan: Comfortable / urine clear. Will stop CBI and plug catheter. Home catheter in-place / plugged. Will plan removal 7-10 days. Urine culture: neg. Discharge anytime from my standpoint. Would recommending continue Eliquis as-is, for now. Home on suppressive Keflex 500mg daily x2 weeks (while catheter in place) Subjective Subjective Date/Time Seen: 05/02/24 07:44 Interval history: Comfortable, urine clear Review of Systems Cardiovascular: Cardiovascular: Denies chest pain, Denies lightheadedness, Denies palpitations and Denies dyspnea Respiratory: Respiratory: Denies dyspnea Gastrointestinal: Gastrointestinal: Denies diarrhea, Denies nausea and Denies vomiting Genitourinary: Genitourinary: Denies hematuria and Denies dysuria Endocrine: Endocrine: Denies palpitations Exam Const: General: no acute distress Resp: Effort & Inspection: normal respiratory effort GI: Inspection: non-distended GI Palp: No abdominal tenderness and No Guarding due to palpation present (GI) Auscultation: normal bowel sounds Urinary Catheter: Urinary Catheter: patent and draining and urine clear Objective Data Vital Signs Vital Signs: Vital Signs - 24 hr 05/01/24 08:00 05/01/24 08:00 05/01/24 12:28 Temperature 97.8 F Pulse Rate 85 90 Respiratory Rate 18 Blood Pressure 117/67 Pulse Oximetry 96 98 Oxygen Delivery Room Air Room Air Oxygen Flow Rate 05/01/24 12:00 05/01/24 14:26 05/01/24 14:40 Temperature 97.8 F Pulse Rate 85 86 82 Respiratory Rate 22 H 18 Blood Pressure 113/72 110/64 Pulse Oximetry 100 93 Oxygen Delivery Simple Face Mask Room Air Oxygen Flow Rate 8 05/01/24 14:55 05/01/24 15:10 05/01/24 16:00 Temperature Pulse Rate 83 89 88 Respiratory Rate 18 20 Blood Pressure 106/70 114/68 Pulse Oximetry 94 94 Oxygen Delivery Room Air Room Air Oxygen Flow Rate 05/01/24 15:45 05/01/24 16:38 05/01/24 16:30 Temperature 96.6 F L 97.0 F L 97.5 F L Pulse Rate 86 89 97 Respiratory Rate 18 17 16 Blood Pressure 126/70 121/66 108/62 Pulse Oximetry 94 96 96 Oxygen Delivery Oxygen Flow Rate 05/01/24 17:30 05/01/24 20:00 05/01/24 20:41 Temperature 97.0 F L 98.4 F Pulse Rate 104 H 104 H 106 H Respiratory Rate 18 20 Blood Pressure 126/64 134/73 Pulse Oximetry 94 97 Oxygen Delivery Oxygen Flow Rate 05/01/24 20:53 05/02/24 00:00 05/01/24 22:50 Temperature Pulse Rate 99 100 Respiratory Rate Blood Pressure Pulse Oximetry 96 Oxygen Delivery Room Air Room Air Oxygen Flow Rate 05/02/24 04:00 05/02/24 03:00 05/02/24 05:51 Temperature 97.5 F L Pulse Rate 80 85 Respiratory Rate 18 Blood Pressure 110/67 Pulse Oximetry 97 Oxygen Delivery Room Air Oxygen Flow Rate Intake/Output Intake/Output: Intake & Output 04/29/24 04/30/24 05/01/24 05/02/24 23:59 23:59 23:59 23:59 Intake Total 1590 4804.5 1060 Output Total 4500 7225 1200 Balance -2910 -2420.5 -140 Meds/Results Medications: Active Medications Generic Name Dose Route Start Last Admin Trade Name Freq PRN Reason Stop Dose Admin Acetaminophen 650 mg 05/02/24 05:25 05/02/24 05:46 Acetaminophen 325 Mg Tablet PO 650 mg Q4H PRN Administration Headache Apixaban 5 mg 05/01/24 09:00 05/01/24 20:52 Apixaban 5 Mg Tablet PO 5 mg Q12HR RANDY Administration Atorvastatin Calcium 40 mg 05/01/24 00:55 05/01/24 20:52 Atorvastatin 40 Mg Tablet PO 40 mg HS RANDY Administration Cyanocobalamin 1,000 mcg 05/01/24 09:00 05/01/24 16:31 Cyanocobalamin 1,000 Mcg Tablet PO 1,000 mcg DAILY RANDY Administration Dextrose 12.5 gm 04/30/24 15:08 Dextrose 50% 25 Gm/50 Ml Syringe IV PUSH PRN PRN Hypoglycemia Protocol Docusate Sodium 200 mg 05/01/24 09:
[2024-05-02 08:00] VITALS: BP 121/73; PULSE 77; RESP 16; O2SAT 100
[2024-05-02 08:00] LABS: Glucose Point of Care 140 mg/dl (65-105)
[2024-05-02] MEDS: levETIRAcetam Tablet 250 MG, levETIRAcetam Tablet 500 MG 750 MG PO (08:34)
[2024-05-02] MEDS: DOCUSATE SODIUM 100 MG CAPSULE 200 MG PO (08:35)
[2024-05-02] MEDS: CYANOCOBALAMIN 1,000 MCG TABLET 1000 MCG PO (08:35)
[2024-05-02] MEDS: APIXABAN 5 MG TABLET PO (08:35)
--- NOTE | 2024-05-02 10:33 | WPDANESPN ---
Anes - Prog Note Post-Op Date/Time: 05/02/24 10:33 Cardiovascular status: normal Respiratory status: normal Airway patency: baseline Mental status: baseline Post-Op hydration status: normal Vital Signs: Last Vital Signs Temp 36.4 C L 05/02/24 05:51 Pulse 77 05/02/24 08:00 Resp 16 05/02/24 08:00 BP 121/73 05/02/24 08:00 Pulse Ox 100 05/02/24 08:00 O2 Del Method Room Air 05/02/24 03:00 O2 Flow Rate 8 05/01/24 14:26 Pain Score (VAS): Patient asleep, no nonverbal signs of pain present at this time. I/O: Intake & Output 05/01/24 05/02/24 05/02/24 23:59 07:59 15:59 Intake Total 290 1060 360 Output Total 400 1200 Balance -110 -140 360 Laboratory Tests 05/02/24 05:55 05/02/24 05:55 05/01/24 05/01/24 05/01/24 11:59 14:58 19:59 WBC RBC Hgb Hct MCV MCH MCHC RDW Plt Count MPV Immature Gran % (Auto) Neut % (Auto) Lymph % (Auto) [place] % (Auto) Eos % (Auto) Baso % (Auto) Lymph # (Auto) [place] # (Auto) Eos # (Auto) Baso # (Auto) Abs Immat Gran (auto) Absolute Neuts (auto) Absolute Nucleated RBC Nucleated RBC % Sodium Potassium Chloride Carbon Dioxide Anion Gap BUN Creatinine Estim Creat Clear Calc Estimated GFR Glucose POC Capillary Glucose 88 81 193 H Calcium Total Bilirubin AST ALT Alkaline Phosphatase Total Protein Albumin 05/02/24 05/02/24 05:55 07:57 WBC 8.1 RBC 4.05 L Hgb 12.0 L Hct 38.0 L MCV 93.8 MCH 29.6 MCHC 31.6 L RDW 13.2 Plt Count 333 MPV 9.4 Immature Gran % (Auto) 1.2 H Neut % (Auto) 69.6 Lymph % (Auto) 20.7 [place] % (Auto) 7.5 Eos % (Auto) 0.4 Baso % (Auto) 0.6 Lymph # (Auto) 1.67 [place] # (Auto) 0.6 Eos # (Auto) 0.0 Baso # (Auto) 0.1 Abs Immat Gran (auto) 0.10 H Absolute Neuts (auto) 5.6 Absolute Nucleated RBC 0.000 Nucleated RBC % 0.0 Sodium 136 L Potassium 4.4 Chloride 101 Carbon Dioxide 27 Anion Gap 8 BUN 11 Creatinine 1.00 Estim Creat Clear Calc 83 Estimated GFR > 60 Glucose 117 H POC Capillary Glucose 140 H Calcium 8.5 Total Bilirubin 0.8 AST 23 ALT 15 Alkaline Phosphatase 85 Total Protein 7.0 Albumin 3.7 Microbiology 04/30/24 10:21 Urine Clean Catch Urine Culture - Final Post-procedural complaints: none Patient Feedback: Patient satisfied with anesthetic care.
[2024-05-02 11:34] LABS: Glucose Point of Care 221 mg/dl (65-105)
[2024-05-02 12:00] VITALS: BP 106/53; PULSE 91; PULSE 93; RESP 18; TEMP 35.8; O2SAT 96
[2024-05-02] MEDS: INSULIN ASPART (*BKC) 100 UNITS/ML SUB-Q (12:00)
--- NOTE | 2024-05-02 12:32 | PM.DS ---
DS: Admitting Diagnosis Discharge Date 05/02/24 Admitting Diagnosis Observed seizure like activity Gross hematuria abdominal fluid collection Type 2 DM essential hypertension FAHAD on CPAP DS: Discharge Diagnosis Discharge Diagnosis (1) Observed seizure-like activity: Code(s): R56.9 - Unspecified convulsions Status: Acute (2) Gross hematuria: Code(s): R31.0 - Gross hematuria Status: Acute (3) Abdominal fluid collection: Code(s): R18.8 - Other ascites Status: Acute (4) Type 2 diabetes mellitus: Qualifiers: Diabetes mellitus complication status: with other specified complication Diabetes mellitus terminal system operator insulin use: with half-way use Qualified Code(s): E11.69 - Type 2 diabetes mellitus with other specified complication; Z79.4 - exterminator helper termite (current) use of insulin Code(s): E11.9 - Type 2 diabetes mellitus without complications Status: Acute (5) Essential hypertension: Code(s): I10 - Essential (primary) hypertension Status: Acute (6) FAHAD on CPAP: Code(s): G47.33 - Obstructive sleep apnea (adult) (pediatric); Z99.89 - Dependence on other enabling machines and devices Status: Acute DS: Summary Hospital Course Reason for hospitalization: Observed seizure like activity Gross hematuria abdominal fluid collection Type 2 DM essential hypertension FAHAD on CPAP Hospital Course: This is a 73-year-old male who presented to the hospital on 04/30/2024 from his urologist office after having vasovagal versus seizure versus syncopal episode. Workup in the hospital included a CT of the abdomen/pelvis which showed a 7.9 x 4.7 x 5.2 cm anterior pelvic abscess, Kelsey catheter with balloon inflated in the prostatic bulbar urethra, large hematoma present in the urinary bladder, cholelithiasis. Chest x-ray was negative. Recent brain MRI reviewed and was normal. Recent Carotid Doppler study showed less than 50% stenosis in bilateral internal carotid arteries. Recent head CT was negative. Initial labs shown a Hgb 11.8, INR 1.1, Na+ 136, negative troponin. UA revealed red colored urine, turbid appearance, 2+ protein, 2+ glucose, 2+ urine blood, positive nitrates, 2+ bilirubin, 3+ leukocytes, >100 urine RBC, >100 urine WBC, rare bacteria. Urine culture obtained and pending. Last echo reviewed from 04/22/24 which revealed normal LV systolic function with an estimated EF of 65-70%, grade 1 diastolic dysfunction. Urology and Neurology consulted. Patient went for cystoscopy today and had moderate clot removed, three way catheter was placed and CBI was continued. 05/02/24: CBI stopped today. Labs reviewed and are unremarkable. Patient is stable for discharge at this time. He will need to complete a full course of Keflex for the next 14 days and then follow up with Urology for catheter removal in 2 weeks. Neuro work up was negative, likely a vasovagal response due to manipulation of his kelsey catheter. Patient will continue Keppra as this was one of his home medications at home. Final diagnosis: gross hematuria, Vasovagal response Status at Discharge Cognitive/behavioral status at discharge: Alert and oriented x3 Functional status at discharge: independent ambulation Overall status at discharge: patient is progressing back to baseline Time Spent with Patient Time attestation: Total time spent providing and/or coordinating discharge services: Time spent: Greater than 30 minutes Exam Narrative: General: In no acute distress, well nourished Cardiac: Normal S1 and S2. RRR, No murmur, gallops or friction rubs, peripheral pulses intact. Respiratory: Lungs clear to auscultation, no adventitious lung sounds, currently on room air Gastrointestinal: soft, non-distended, non-tender, normoactive bowel sounds. : 3 way Kelsey catheter in place clear yellow urine noted Neuro: Alert and oriented x4 DS: Data Data Completed and Pending Completed studies during hospitalizatio
[2024-05-02 12:47] VITALS: O2SAT 96
== END 2024-05-02 16:00 | disposition home or self-care (01) ==
LOC: ANHED 14:19 → ANH2MED 15:24
PROVIDERS: Emergency Medicine; Nurse Practitioner Acute Care; Student in an Organized Health Care Education/Training Program; Urology; Admitting Provider Internal Medicine; Emergency Provider Physician Assistant; PCP Family Medicine; Visit Provider Internal Medicine
PROC: 0TCB8ZZ Extirpation of Matter from Bladder, Via Natural or Artificial Opening Endoscopic (ICD-10-PCS; CPT 52001; principal; 2024-05-01 13:15)
DX: G40.109 Localization-related (focal) (partial) symptomatic epilepsy and epileptic syndromes with simple partial seizures, not intractable, without status epilepticus (principal); R31.0 Gross hematuria; R18.8 Other ascites; I82.441 Acute embolism and thrombosis of right tibial vein; G47.33 Obstructive sleep apnea (adult) (pediatric); E78.5 Hyperlipidemia, unspecified; I11.9 Hypertensive heart disease without heart failure; E11.40 Type 2 diabetes mellitus with diabetic neuropathy, unspecified; E78.2 Mixed hyperlipidemia; D75.1 Secondary polycythemia; D51.3 Other dietary vitamin B12 deficiency anemia; Z79.84 Long term (current) use of oral hypoglycemic drugs; Z85.46 Personal history of malignant neoplasm of prostate; Z79.4 Long term (current) use of insulin; Z79.85 Long-term (current) use of injectable non-insulin antidiabetic drugs; Z79.01 Long term (current) use of anticoagulants
CPT/HCPCS: 52001; 36415; 71045; 74176; 80053; 81001; 82948; 83036; 83735; 83880; 84145; 84484; 85014; 85018; 85025; 85610; 85730; 86140; 87086; 93005; 96361; 96365; 96366; 99285; A9270; C1769; G0378; J1100; J1815; J2250; J2371; J2405; J2543; J2704; J3010; J7030; J7120

== ENCOUNTER 2024-05-04 16:39 | Emergency (ER) | payer BC, SELFPAY ==
[2024-05-04 16:45] VITALS: BP 120/87; PULSE 103; RESP 20; TEMP 36.3; O2SAT 99
[2024-05-04 18:34] VITALS: BP 117/77; PULSE 93; RESP 23; O2SAT 100
[2024-05-04 19:26] LABS: Basophils Absolute Auto 0.1 K/mm3 (0.0-0.1); Basophils Percent Auto 0.8 % (0.2-1.2); Eosinophils Absolute Auto 0.5 K/mm3 (0-0.3); Eosinophils Percent Auto 5.1 % (0-4.4); Hematocrit 42.8 % (42.0-52.0); Immature Granulocyte Absolute 0.13 K/mm3 (0.00-0.031); Immature Granulocyte Percent A 1.3 % (0-0.5); Lymphocytes Absolute Auto 2.67 K/mm3 (0.9-3.2); Lymphocytes Percent Auto 26.9 % (18.3-44.2); Mean Corpuscular HGB Conc 32.7 g/dl (32-36); Mean Corpuscular Hemoglobin 30.2 pg (26-34); Mean Corpuscular Volume 92.4 fl (80-100); Mean Platelet Volume 9.5 fl (7.4-10.4); Monocytes Absolute Auto 0.8 K/mm3 (0.1-0.6); Monocytes Percent Auto 8.2 % (2.6-8.5); Neutrophils Absolute Auto 5.7 K/mm3 (1.3-6.7); Neutrophils Percent Auto 57.7 % (45.5-73.1); Platelet Count Result 402 k/mm3 (150-375); Red Blood Count 4.63 M/mm3 (4.6-6.20); Red Cell Distribution Width 13.5 % (11.5-14.5); White Blood Count 9.9 K/mm3 (4.5-10.0)
[2024-05-04 19:39] LABS: Anion Gap 14 mmol/L (4-12); Blood Urea Nitrogen 11 mg/dL (9-20); Calcium 9.3 mg/dL (8.4-10.2); Carbon Dioxide 25 mmol/L (22-30); Chloride 99 mmol/L (98-107); Estimated Glomerular Filt Rate > 60; Glucose 106 mg/dL (65-110); Potassium 3.6 mmol/L (3.4-5.0); Sodium 138 mmol/L (137-145)
[2024-05-04 19:45] LABS: Appearance Urine Turbid (Clear); Color Urine Red (Yellow); pH Urine 6.5 (5.0-9.0)
[2024-05-04 19:46] LABS: Blood Urine 3+ (Negative); Glucose Urine UA 2+ mg/dL (Negative); Ketones Urine Negative (Negative); Protein Urine 3+ mg/dL (Negative)
[2024-05-04 19:47] LABS: Add Urine Microscopic? YES; Bilirubin Urine Negative (Negative); Leukocyte Esterase Ur 1+ LEU/UL (Negative); Nitrate Urine Negative (Negative); Urobilinogen Urine 0.2 mg/dL (<2.0)
[2024-05-04 19:48] LABS: RBC Urine >100 /hpf (0-2); Squamous Epithelial Cell Urine Rare /hpf (Few)
[2024-05-04 19:49] LABS: Bacteria Urine Trace /hpf
[2024-05-04 20:23] VITALS: BP 138/74; PULSE 93; RESP 18; O2SAT 97
--- NOTE | 2024-05-04 21:11 | ED.MALEGU ---
HPI - Male Genitourinary General Chief complaint: Urogenital-Male Stated complaint: kelsey not draining Time Seen by Provider: 05/04/24 19:03 History of Present Illness HPI Narrative: Patient noticed that his Kelsey stopped draining early afternoon, and then that there was urine coming around it. Related Data Home Medications Medication Instructions Recorded Confirmed cyanocobalamin (vitamin B-12) 1,000 mcg PO DAILY 09/01/21 04/30/24 1,000 mcg tablet atorvastatin 40 mg tablet 40 mg PO HS 03/18/24 04/30/24 docusate sodium 100 mg capsule 200 mg PO DAILY 04/21/24 04/30/24 (Colace) empagliflozin 25 mg tablet 25 mg PO HS 04/21/24 04/30/24 (Jardiance) Allergies Allergy/AdvReac Type Severity Reaction Status Date / Time ciprofloxacin Allergy Intermediate Anaphylaxis Verified 04/30/24 09:33 chlorpheniramine AdvReac Unknown Confusion Verified 04/30/24 09:33 Review of Systems Review of Systems: All systems reviewed & are unremarkable except as noted in HPI and below [facility] Past Medical History Medical History Acute hypotension Acute non-recurrent maxillary sinusitis Adynamic ileus Arthritis Bilateral carpal tunnel syndrome (10/12/21) bilateral carpal tunnel syndrome documented on EMG and nerve conduction study 10/12/2021. EMG and nerve conduction study on 06/27/2023 with bilateral carpal tunnel syndrome as well as proximal neuropathy. Chest heaviness Cholelithiasis (05/21/23) cholelithiasis noted on ultrasound of the abdomen 05/21/2023 with no obstruction. Chronic left shoulder pain Complex partial seizure evolving to generalized seizure (~04/21/24) COVID-19 (02/14/22) tested positive for COVID 02/18/2022. Dehydration Diabetic neuropathy Diastolic dysfunction without heart failure (05/21/23) grade 1 diastolic dysfunction with ejection fraction 65-70%, trace mitral valve regurgitation, trace tricuspid valve regurgitation, no pulmonary hypertension on echo on 05/21/2023. Dyspnea on exertion (~2021) Elevated PSA, less than 10 ng/ml PSA slightly elevated at 4.9 on 05/21/2020. PSA level of 4.92 on 09/27/2022. PSA 6.3 with 17% free PSA on 10/30/2023. Essential hypertension HAP (hospital-acquired pneumonia) History of colon polyps colonoscopy 2019 with recheck in 5 years Hordeolum externum of right lower eyelid Hyperbilirubinemia Hypertension Hypotension Mixed hyperlipidemia total cholesterol 144, triglycerides 154, HDL 53 and LDL 67 on 08/31/2021. Total cholesterol 169, triglycerides 150, HDL 58 and LDL 86 on 01/31/2022. Total cholesterol 165, HDL 58, triglycerides 128, LDL 85 with ratio 2.4 on 04/07/2023. Cholesterol 193, triglycerides 140, HDL 55, LDL 113 with ratio 3.5 on 10/30/2023. Morbid obesity Nocturia Obesity FAHAD on CPAP 10 cm of water pressure with fullface mask. Osteoarthritis of knees, bilateral Paresthesia of upper limb (~05/2021) Pneumonia Polycythemia (09/27/22) hemoglobin slightly elevated at 17.3 on 09/27/2022. Hemoglobin 16.6 on 04/07/2023. Hemoglobin normal at 16.0 on 10/30/2023. Prostate cancer screening PSA 4.9 on 10/21/2019. PSA 4.92 on 09/27/2022. Psoriasis Right medial knee pain Screening for diabetic retinopathy no diabetic retinopathy or macular degeneration on 05/30/2022. Seizures Shortness of breath PFT on 03/03/2022 was normal. Sleep apnea Syncope Tachycardia Type 2 diabetes mellitus Ulnar neuropathy at elbow of right upper extremity (10/12/21) documented on EMG and nerve conduction study 10/12/2021 Vitamin B12 deficiency anemia (08/31/21) level slightly low at 390 with goal greater than 400 with folic acid normal at 11.3 and hemoglobin normal at 16.3 on 08/31/2021 Surgical History Surgical History H/O vasectomy History of prostate surgery Hx of appendectomy Hx of bilateral mastectomy Hx of tonsillectomy Family History Family History (Reviewed
--- NOTE | 2024-05-04 23:30 | PC.NURSE ---
Report received from JEREMÍAS Kim. Assumed care of patient at this time.
[2024-05-04 23:31] VITALS: BP 135/81; PULSE 91; RESP 17; O2SAT 97
--- NOTE | 2024-05-04 23:33 | PC.NURSE ---
Called patients Caryn, to inform of patients discharge and need of change of clothes. Caryn stated she will be on her way soon with a change of clothes.
[2024-05-04 23:49] VITALS: BP 135/81; PULSE 96; RESP 20; O2SAT 97
== END 2024-05-05 00:44 | disposition home or self-care (01) ==
PROVIDERS: Emergency Provider Emergency Medicine; PCP Family Medicine
DX: T83.9XXA Unspecified complication of genitourinary prosthetic device, implant and graft, initial encounter (principal); R31.9 Hematuria, unspecified; M19.90 Unspecified osteoarthritis, unspecified site; E11.40 Type 2 diabetes mellitus with diabetic neuropathy, unspecified; I11.0 Hypertensive heart disease with heart failure; I50.9 Heart failure, unspecified; G47.30 Sleep apnea, unspecified; G40.909 Epilepsy, unspecified, not intractable, without status epilepticus; Y84.6 Urinary catheterization as the cause of abnormal reaction of the patient, or of later complication, without mention of misadventure at the time of the procedure
CPT/HCPCS: 36415; 51700; 80048; 81001; 85025; 87086; 99283

== ENCOUNTER 2024-11-26 08:31 | Outpatient (CLI) | payer BC, SELFPAY ==
--- OUTSIDE RECORDS SUMMARY | 2024-11-26 08:45 | XMS_ITS | Continuity of Care Document ---
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 Medication Details Route Status Patient Instructions Prescription Expires Prescription Number Last Dispense Date Ordering Provider Order Date Order Qty Source atorvastati n 20 mg tablet 20 mg, Oral, Daily, # 90 EA, 3 total refill(s ), Hard Stop Oral (given by mouth) Discont inued 11/02/2023 4 2023 90.0 Ambulat ory Pharmac y atorvastati n 20 mg tablet See Instruct ions, # 90 EA, 2 total refill(s ), Acute Complet ed 06/18/2023 3 2022 90.0 Ambulat ory Pharmac y atorvastati n 40 mg tablet 40 mg, Oral, # 90 EA, 3 total refill(s ), Hard Stop Oral (given by mouth) Complet ed 11/01/2024 4 2024 90.0 Ambulat ory Pharmac y dulaglutide 0.75 mg/0.5 mL pen [4EA=2mL] See Instruct charisma, SubCutan eous, # 2 mL, 11 total refill(s ), Hard Stop Notes: refriger ate SubCut aneous (under the skin) Ordered 02/11/2025 5 2024 2.0 Ambulat ory Pharmac y Eliquis 5 mg tablet 5 mg, Oral, every 12 hr, # 180 EA, 0 total refill(s ), Hard Stop Oral (given by mouth) Complet ed 07/29/2024 4 2023 180.0 Ambulat ory Pharmac y isosorbide mononitrate ER 30 mg/24 hour tablet See Instruct ions, # 30 EA, 7 total refill(s ), Acute Complet ed 08/09/2023 3 2022 30.0 Ambulat ory Pharmac y isosorbide mononitrate ER 30 mg/24 hour tablet See Instruct ions, # 90 EA, 3 total refill(s ), Hard Stop Complet ed 08/22/2024 4 2023 90.0 Ambulat ory Pharmac y Jardiance 25 mg tablet 25 mg, Oral, Daily, # 90 EA, 3 total refill(s ), Hard Stop Oral (given by mouth) Ordered 03/17/2025 4 2023 90.0 Ambulat ory Pharmac y Jardiance 25 mg tablet See dose instruct ions in comments , # 90 EA, 3 total refill(s ), Acute Complet ed 01/01/2024 4 2023 90.0 Ambulat ory Pharmac y levETIRAcet am [xlcare] 750 mg tablet 750 mg, Oral, every 12 hr, # 180 EA, 3 total refill(s ), Hard Stop Oral (given by mouth) Ordered 04/29/2025 4 2023 180.0 Ambulat ory Pharmac y lisinopril 10 mg tablet 10 mg, Oral, every day at bedtime, # 90 EA, 3 total refill(s ), Hard Stop Oral (given by mouth) Ordered 04/29/2025 4 2023 90.0 Ambulat ory Pharmac y lisinopril 10 mg tablet 10 mg, Oral, Daily, # 90 EA, 3 total refill(s ), Hard Stop Oral (given by mouth) Complet ed 04/10/2024 4 2023 90.0 Ambulat ory Pharmac y metFORMIN 1000 mg tablet 1000 mg, Oral, BID, # 180 EA, 3 total refill(s ), Hard Stop Oral (given by mouth) Complet ed 08/06/2024 4 2023 180.0 Ambulat ory Pharmac y metFORMIN 1000 mg tablet 1000 mg, Oral, BID, # 180 EA, 3 total refill(s ), Hard Stop Oral (given by mouth) Ordered 09/18/2025 5 2024 180.0 Ambulat ory Pharmac y Trulicity Pen 0.75 mg/0.5 mL [4EA=2mL] See Instruct ions, # 2 mL, 11 total refill(s ), Hard Stop Complet ed 03/04/2024 4 2023 2.0 Ambulat ory Pharmac y Allergies, Adverse Reactions, Alerts Combined list of allergies from Department of Defense and Veterans Affairs facilities. It does not include entries that were removed or entered in error. Substance Category Reaction Severity Reaction type Status Date Reported Comments Source Cipro Drug allergy Active pt ended up in the hospital lost of breath.. Ambulatory Pharmacy Immunizations Combined list of available immunizations from the Department of Defense and Veterans Affairs facilities. Immunization Series Date Given Administered By Site Reaction Lot Number CVX Code Drug Eastern Philosophy Professor Status Comments Source influenza virus vaccine, whole virus 2000 [id number] t Arm [id number] 16 sanofi pasteur complet ed influenza virus vaccine, whole virus 07/05/01 Given Ambulat ory Pharmac y influenza virus vaccine, whole virus 2000 [id number] sanofi pasteur complet ed influenza virus vaccine, whole virus 07/05/01 Given Ambulat ory Pharmac y Procedures Combined list of: 1) Procedures from Department of Veterans Affairs facilities going back up to thelast 18 months, not all [place] non-surgical procedures are included; 2) All procedures from the Department of Defense facilities. Procedure Procedure Type Code Date Perfomer Comments Sourc e No data available for this section Ambulatory P harmacy Assessment and Plan Combined list of future care activities from Department of Defense and Veterans Affairs facilities (e.g., assessment and plan notes, appointments, orders, and referrals). Additional future care activities may be listed in the Plan of Care section. Result Assessment and Plan Date Source Assessment and Plan No data available for this section 11/26/2024 Ambulatory Pharmacy Functional Status Combined list of recent functional and cognitive assessments recorded at [facility] [place] Functional [place] Measurement (FIM) Scale: 1 = Total Assistance (Subject = 0% +), 2 = Maximal Assistance (Subject = 25% +), 3 = Moderate Assistance (Subject = 50% +), 4 = Minimal Assistance (Subject = 75% +), 5 = Supervision, 6 = Modified [place] (Device), 7 = Complete [place] (Timely, Safely). Assessment Date/Time Source Assessment Type Assessment Skill Assessment Score Assessment Details No data available for this section
--- OUTSIDE RECORDS SUMMARY | 2024-11-26 08:45 | XMS_ITS | Clinical Summary ---
Author Organization [facility] Address [address] [place] [address] Care Team Providers Care Beer Brewer Name Role Phone Will Daniel MD Primary Care Provider [phone] Allergies Active Allergy Reactions Criticality Noted Date Comments Ciprofloxacin Hives High 01/30/2019 pt ended up in the hospital lost of breath.. Medications fluocinonide (LIDEX) 0.05 % ointment as needed 2 01/20/2019 Active TRULICITY 0.75 mg/0.5 mL pen injector once a week 3 01/20/2019 Active metFORMIN (GLUMETZA) 1,000 mg 24 hr tablet Take 1 tablet (1,000 mg total) by mouth 2 (two) times a day with meals Active aspirin 81 mg enteric coated tablet Take 1 tablet (81 mg total) by mouth daily Active atorvastatin (LIPITOR) 40 mg tablet Take 1 tablet (40 mg total) by mouth daily 06/26/2020 Active Jardiance 25 mg tablet Take 1 tablet (25 mg total) by mouth daily 09/21/2021 Active lisinopriL (PRINIVIL,ZESTRI L) 10 mg tablet Take 1 tablet (10 mg total) by mouth daily 05/02/2023 Active isosorbide mononitrate ER (IMDUR) 30 mg 24 hr tablet Take 1 tablet (30 mg total) by mouth daily 90 tablet 3 08/23/2023 Active ibuprofen (ADVIL,MOTRIN) 800 mg tablet Take 1 tablet (800 mg total) by mouth 3 (three) times a day as needed for pain 05/31/2023 Active Active Problems Problem Noted Date Diagnosed Date Primary osteoarthritis of left knee 01/25/2023 Primary osteoarthritis of left hip 01/25/2023 Diabetes mellitus 12/15/2014 Obesity 10/01/2012 Obstructive sleep apnea syndrome 10/01/2012 Hyperlipidemia 10/01/2012 Family History Medical History Relation Name Comments No Known Problems Mother Relation Name Status Comments Mother Social History Tobacco Use Types Packs/Day Years Used Date Smoking Tobacco: Never Smokeless Tobacco: Never Personal Safety Answer Date Recorded Getting School Help Needed Not on file 08/08 Sex and Gender Information Value Date Recorded Sex Assigned at Not on file 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 Gender Identity Not on file Sexual Orientation Not on file Obstetrics History Last Filed Vital Signs Vital Sign Reading Time Taken Comments Blood Pressure 130/80 11/27/2023 1:11 PM CDT Pulse 94 11/27/2023 1:11 PM CDT Temperature 36.5 C (97.7 F) 07/08/2020 4:08 PM MACHINE WELDER Respiratory Rate - - Oxygen Saturation 95% 11/27/2023 1:11 PM CDT Inhaled Oxygen Concentration - - Weight 138.1 kg (304 lb 6.4 oz) 11/27/2023 1:11 PM CDT Height 188 cm (6' 2 ) 11/27/2023 1:11 PM CDT Body Mass Index 39.08 11/27/2023 1:11 PM CDT Plan of Treatment Health Maintenance Due Date Last Done Comments Albumin Creatinine Ratio, Urine 1950 Colon Cancer Screening-Colonoscopy 1950 Depression Screening 1950 Fall Risk Assessment 1950 Hemoglobin A1C 1950 Hepatitis C Screening 1950 eGFR 1950 Dilated Eye Exam 1950 Foot Exam 1950 Lipid Panel 1950 DTaP/Tdap/Td Vaccine (1 - Tdap) 1961 Hepatitis B Screening 1968 Zoster Vaccine (1 of 2) 2000 Well Visit 65+ 2015 Covid-19 Vaccine (4 - 2023-2 5 season) 2024 09/01/2021, 11/30/2020, 11/08/2020 Influenza Vaccine (Season Ended) 2025 06/17/2021, 06/23/2020, 06/15/2018, Additional history exists Pneumococcal vaccine 65+ Completed 06/15/2018, 04/[address] [place] [address] [email or web address] [id number] [email or web address] [address] [place] [address] [employer] CHO[place] Care Teams Beer Brewer Relationship Specialty Start Date End Date Will Daniel MD [address] [address] PCP - General Family Medicine 12/16/18
--- OUTSIDE RECORDS SUMMARY | 2024-11-26 08:45 | XMS_ITS | Referral Summary ---
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 Gender Identity Not on file Sexual Orientation Not on file Last Filed Vital Signs Vital Sign Reading Time Taken Comments Blood Pressure 130/80 11/27/2023 1:11 PM CDT Pulse 94 11/27/2023 1:11 PM CDT Temperature 36.5 C (97.7 F) 07/08/2020 4:08 PM HYDRAULIC STRAINER OPERATOR Respiratory Rate - - Oxygen Saturation 95% 11/27/2023 1:11 PM CDT Inhaled Oxygen Concentration - - Weight 138.1 kg (304 lb 6.4 oz) 11/27/2023 1:11 PM CDT Height 188 cm (6' 2 ) 11/27/2023 1:11 PM CDT Body Mass Index 39.08 11/27/2023 1:11 PM CDT Plan of Treatment Not [place] [address] [facility] [facility] MEDICARE [address] [place] [address] [address] Care Teams Marker Shipments Relationship Specialty Start Date End Date Will Daniel MD [address] [address] PCP - General Family Medicine 12/16/18
--- OUTSIDE RECORDS SUMMARY | 2024-11-26 08:45 | XMS_ITS | Continuity of Care Document ---
Author Organization [facility] Address [address] [place] [address] Phone Care Team Providers Care Wellness Coordinator Name Role Phone Megha Fall MD Unavailable Unavailable Procedures Procedure Date EKG Interpretation Advance Directives Directive Yes / No Effective Date File Name No Information Encounters Encounter Description Practice Location Reason(s) For Visit Diagnoses Date Provider Providers Copied on Encounter [facility], [address], [place], [place], [id number], tel:[phone] [facility] No Information [address] [facility] [place]. [address], [place], [place], [id number] , [place]. tel:[phone] Referring Provider: Kayleigh Fisher, [facility] [place], [address]. tel:[phone] Family History Family Member Type Diagnosis Age At Onset No Information Payers Payer name Insurance type Covered republican ID Authoryana lacey(s) [facility] [id number] Social History Type Description Quantity Date Captured [...]
--- NOTE | 2024-11-26 11:30 | NEURO_ITS ---
Impression: # Complains of imbalance and gait dysfunction. known diabetic ? # Axonal sensorimotor neuropathy proximally and distally. ? # Needle/EMG exam reveals neurogenic changes but no fibs. ? # Clinical correlation recommended. Nerve Conduction Studies Anti Sensory Summary Table ?Stim Site NR Peak (ms) P-T Amp (?V) Site1 Site2 Delta-P (ms) Dist (cm) Gamal (m/s) Left Sup Fibular Anti Sensory (Ant Lat Mall)??? NO RESPONSE 14 cm NR 14 cm Ant Lat Mall 16.0 Right Sup Fibular Anti Sensory (Ant Lat Mall)??? NO RESPONSE 14 cm NR 14 cm Ant Lat Mall 16.0 Left Sural Anti Sensory (Lat Mall)??? NO RESPONSE Calf NR Calf Lat Mall 16.0 Right Sural Anti Sensory (Lat Mall)??? NO RESPONSE Calf NR Calf Lat Mall 16.0 Motor Summary Table ?Stim Site NR Onset (ms) O-P Amp (mV) Site1 Site2 Delta-0 (ms) Dist (cm) Gamal (m/s) Left Peroneal Motor (Vastus Med) Ankle ? 5.5 1.0 Popit Ankle 13.4 45.0 34 Popit ? 18.9 0.8 Right Peroneal Motor (Vastus Med) Ankle ? 5.2 0.7 Popit Ankle 13.4 43.0 32 Popit ? 18.6 0.9 Left Tibial Motor (Abd Shah Brev) Ankle ? 4.9 0.3 Knee Ankle 12.5 47.0 38 Knee ? 17.4 0.3 Right Tibial Motor (Abd Shah Brev) Ankle ? 4.5 0.5 Knee Ankle 14.9 46.0 31 Knee ? 19.4 0.5 F Wave Studies ?NR F-Lat (ms) L-R F-Lat (ms) Left Peroneal (Mrkrs) (EDB) ? 73.96 1.33 Right Peroneal (Mrkrs) (EDB) ? 72.63 1.33 Left Tibial (Mrkrs) (Abd Hallucis)??? NO RESPONSE NR Right Tibial (Mrkrs) (Abd Hallucis) ? 78.71 EMG ?Side Muscle Nerve Root Ins Act Fibs Amp Dur Recrt Comment Right AntTibialis Dp Br Fibular L4-5 Nml Nml Incr >12ms +1 Right Gastroc Tibial S1-2 Nml Nml Incr >12ms +1 Right Fibularis Long Sup Br Fibular L5-S1 Nml Nml Incr >12ms +1 Right Flex Dig Long Tibial L5-S2 Nml Nml Incr >12ms +1 Right Ext Dig Brev Dp Br Fibular L5, S1 Nml Nml Incr >12ms +2 Right QuadratusFem QuadFemoris L4-5, S1 Nml Nml Incr >12ms +1 Left AntTibialis Dp Br Fibular L4-5 Nml Nml Incr >12ms +1 Left Gastroc Tibial S1-2 Nml Nml Incr >12ms +1 Left Fibularis Long Sup Br Fibular L5-S1 Nml Nml Incr >12ms +1 Left Flex Dig Long Tibial L5-S2 Nml Nml Incr >12ms +1 Left Ext Dig Brev Dp Br Fibular L5, S1 Nml Nml Incr >12ms +2 Left QuadratusFem QuadFemoris L4-5, S1 Nml Nml Incr >12ms +1 MTDD
== END 2024-11-26 08:32 | disposition home or self-care (01) ==
LOC: ANHNEURO 08:32
PROVIDERS: PCP Family Medicine; Visit Provider Student in an Organized Health Care Education/Training Program
DX: G62.9 Polyneuropathy, unspecified (principal)
CPT/HCPCS: 95886; 95910

== ENCOUNTER 2025-06-02 11:29 | Outpatient (CLI) | payer BC, SELFPAY ==
--- OUTSIDE RECORDS SUMMARY | 2019-04-07 19:00 | XMS_ITS | Continuity of Care Document ---
Author Organization [facility] Address [address] [place] [address] Phone Care Team Providers Care Transportation Officer Name Role Phone Megha Fall MD Unavailable Unavailable Procedures Procedure Date EKG Interpretation Advance Directives Directive Yes / No Effective Date File Name No Information Encounters Encounter Description Practice Location Reason(s) For Visit Diagnoses Date Provider Providers Copied on Encounter [facility], [address], [place], [place], [id number], tel:[phone] [facility] No Information 9 E[facility] [place]. [address], [place], [place], [id number] , [place]. tel:[phone] Referring Provider: Kayleigh Fisher, [facility] [place], [address]. tel:[phone] Family History Family Member Type Diagnosis Age At Onset No Information Payers Payer name Insurance type Covered green party ID Authoryana lacey(s) [facility] [id number] Social History Type Description Quantity Date Captured [...]
--- NOTE | ~2025-06-02 | XR_ITS ---
EXAMINATION: XR toe 4th LT min 2V, 06/02/2025 11:55 CDT HISTORY: M79.675 - Pain in left toe(s) COMPARISON: No comparisons available. Findings: There is a nondisplaced fracture involving the proximal aspect of the proximal phalanx fourth digit. No significant degenerative changes. Soft tissues unremarkable. Impression: Fracture detailed above Reviewed, dictated and finalized at location P. Impression: Fracture detailed above
--- OUTSIDE RECORDS SUMMARY | 2025-06-02 12:47 | XMS_ITS | Clinical Summary ---
Author Organization [facility] Address [address] [place] [address] Care Team Providers Care Business Economist Name Role Phone Will Daniel MD Primary Care Provider [phone] Allergies Active Allergy Reactions Criticality Noted Date Comments Ciprofloxacin Hives High 01/30/2019 pt ended up in the hospital lost of breath.. Medications fluocinonide (LIDEX) 0.05 % ointment as needed 2 01/20/2019 Active TRULICITY 0.75 mg/0.5 mL pen injector once a week 3 01/20/2019 Active metFORMIN (GLUCOPHAGE) 1,000 mg tablet Take 1 tablet (1,000 mg total) [...] day as needed for pain 05/31/2023 Active levETIRAcetam (KEPPRA) 1,000 mg tablet Take 1 tablet (1,000 mg total) by mouth 2 (two) times a day 11/27/2024 Active cyanocobalamin (Vitamin B-12) 1,000 mcg sublingual tablet Take 1 tablet (1,000 mcg total) by mouth daily Active Active Problems Problem Noted Date Diagnosed Date Primary osteoarthritis of left knee 01/25/2023 Primary osteoarthritis of left hip 01/25/2023 Diabetes mellitus 12/15/2014 Obesity 10/01/2012 Obstructive sleep apnea syndrome 10/01/2012 Hyperlipidemia 10/01/2012 Encounters Date Type Department Care Team Description 05/13/2025 Telephone [facility] Medicine Cardiology [address] [place] [address] [place] [address] Silver Argueta MD PhD cardiac clearance from Last 3 Months Family History Medical History Relation Name Comments No Known Problems Mother Relation Name Status Comments Mother Social History Tobacco Use Types Packs/Day Years Used Date Smoking Tobacco: Never Smokeless Tobacco: Never Sex and Gender Information Value Date Recorded Sex Assigned at Not on file 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 Gender Identity Not on file Sexual Orientation Not on file Obstetrics History Last Filed Vital Signs Vital Sign Reading Time Taken Comments Blood Pressure 117/73 11/27/2024 1:31 PM CDT Pulse 85 11/27/2024 1:31 PM CDT Temperature 36.5 C (97.7 F) 07/08/2020 4:08 PM ASSOCIATE PROFESSOR OF MUSIC Respiratory Rate - - Oxygen Saturation 100% 11/27/2024 1:31 PM CDT Inhaled Oxygen Concentration - - Weight 128.2 kg (282 lb 9.6 oz) 11/27/2024 1:31 PM CDT Height 188 cm (6' 2) 11/27/2024 1:31 PM CDT Body Mass Index 36.28 11/27/2024 1:31 PM CDT Plan of Treatment Health Maintenance [...] Visit 65+ 2015 Covid-19 Vaccine (4 - 2024-2 6 season) 2025 09/01/2021, 11/30/2020, 11/08/2020 Influenza Vaccine (#1) 2025 , 06/23/2020, 06/15/2018, Additional history exists Pneumococcal vaccine 65+ Completed 06/15/2018, 04/[address] [place] [address] [employer] [place] [address] [place] [address] [employer] [place]ESS CHOICE [place] Care Teams Business Economist Relationship Specialty Start Date End Date Will Daniel MD [address] [address] PCP - General Family Medicine 12/16/18
== END 2025-06-02 11:30 | disposition home or self-care (01) ==
PROVIDERS: PCP Family Medicine; Visit Provider Nurse Practitioner Family
DX: M79.675 Pain in left toe(s) (principal)
CPT/HCPCS: 73660

== ENCOUNTER 2025-08-12 03:53 | Day surgery (SDC) | payer BC, MEDICARE, OTHER, SELFPAY ==
--- OUTSIDE RECORDS SUMMARY | 2019-04-07 18:00 | XMS_ITS | Continuity of Care Document ---
Author Organization [facility] Address [address] [place] [address] Phone Care Team Providers Care Medical Office Clerk Name Role Phone Megha Fall MD Unavailable Unavailable Procedures Procedure Date EKG Interpretation Advance Directives Directive Yes / No Effective Date File Name No Information Encounters Encounter Description Practice Location Reason(s) For Visit Diagnoses Date Provider Providers Copied on Encounter [facility], [address], [place], [place], [id number], tel:[phone] [address] [facility] No Information 9 [facility] [place]. [address], [place], [place], [id number] , [place]. tel:[phone] Referring Provider: Kayleigh Fisher, [facility] [place], [address]. tel:[phone] Family History Family Member Type Diagnosis Age At Onset No Information Payers Payer name Insurance type Covered libertarian ID Authoryana lacey(s) [facility] [id number] Social History Type Description Quantity Date Captured Comments Sex Male Smoking Status No Information Chief Complaint And Reason For Visit No Information Reason For Referral Reason For Referral No Information History Of Present Illness Encounter Date Complaint History Of Prese nt Illness No Information Functional Status Date Functional Assessmen t No Information Instructions Date Instruction Additional Infor mation No Information Assessments Type Assessment Date No Information Patient Care Teams Name Effective Dates (start - stop) Status Members No Information
[2025-07-22 15:12] VITALS: BMI 38.5
--- OUTSIDE RECORDS SUMMARY | 2025-08-12 03:57 | XMS_ITS | Clinical Summary ---
Author Organization [facility] Address [address] [place] [address] Care Team Providers Care Director Hair Name Role Phone Will Daniel MD Primary Care Provider [phone] [phone] Allergies Active Allergy Reactions Criticality Noted Date [...] Type Department Care Team Description 05/13/[address] 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 Gender Identity Not on file Sexual Orientation Not on file Last Filed Vital Signs Vital Sign Reading Time Taken Comments Blood Pressure 117/73 11/27/2024 1:31 PM CDT Pulse 85 11/27/2024 1:31 PM CDT Temperature 36.5 C (97.7 F) 07/08/2020 4:08 PM FINANCIAL AGENT Respiratory Rate - - Oxygen Saturation 100% [...] Pneumococcal vaccine 65+ Completed 06/15/2018, 04/28 [place] [address] [employer] [place] [employer] [place] [id number] [employer] [place] [id number] [employer] [place] Care Teams Director Hair Relationship Specialty Start Date End Date Will Daniel MD [address] [address] PCP - General Family Medicine 12/16/18
[2025-08-12 11:23] VITALS: BP 144/78; PULSE 93; RESP 16; TEMP 36.5; O2SAT 94; BMI 38.5
[2025-08-12] MEDS: LACTATED RINGERS 1,000 ML 150 ML IV CONT (11:36)
--- NOTE | 2025-08-12 12:14 | WPDANESEPPF ---
Anes - Initial Pre Proc Eval Procedure: Operation Date: 08/12/25 13:00 Proposed Procedures p Screening Colonoscopy - Steven Reina MD Date/Time: 08/12/25 12:14 Surgeon: Steven Reina MD Pre Op Diagnosis: Encounter for screening for malignant neoplasm of Patient Data Age: 75 Gender: M Height: 1.88 m Weight: 136.2 kg Last Vital Signs Temp 97.7 F 08/12/25 11:23 Pulse 93 08/12/25 11:23 Resp 16 08/12/25 11:23 BP 144/78 H 08/12/25 11:23 Pulse Ox 94 08/12/25 11:23 O2 Del Method Room Air 08/12/25 11:23 Allergies Allergy/AdvReac Type Severity Reaction Status Date / Time ciprofloxacin Allergy Intermediate Anaphylaxis Verified 08/12/25 11:21 chlorpheniramine AdvReac Unknown Confusion Verified 08/12/25 11:21 Home Medications ?Medication ?Instructions ?Recorded ?Confirmed ?Type cyanocobalamin (vitamin B-12) 1,000 mcg PO DAILY 09/01/21 08/12/25 History 1,000 mcg tablet docusate sodium 100 mg capsule 200 mg PO DAILY 04/21/24 07/22/25 History (Colace) fluocinonide 0.05 % topical 1 applic topical BID #60 grams 06/11/24 07/22/25 Rx ointment metformin 1,000 mg tablet 1,000 mg PO BID #180 tabs 09/18/24 08/12/25 Rx atorvastatin 40 mg tablet 40 mg PO HS #90 tabs 12/01/24 08/12/25 Rx levetiracetam 1,000 mg tablet 1,000 mg PO Q12H #180 tabs 12/16/24 08/12/25 Rx (Keppra) dulaglutide 0.75 mg/0.5 mL 0.75 mg (0.5 mL) subcut WEEKLY #2 02/17/25 08/12/25 Rx subcutaneous pen injector mL (Trulicity) empagliflozin 25 mg tablet 25 mg PO HS #90 tabs 05/29/25 08/12/25 Rx (Jardiance) lisinopril 10 mg tablet 10 mg PO HS #90 tabs 05/29/25 08/12/25 Rx aspirin 81 mg tablet,delayed 81 mg PO DAILY 07/22/25 08/12/25 History release (Adult Aspirin Regimen) Laboratory Tests 08/12/25 11:30 POC Capillary Glucose 122 H mg/dl (65-105) Patient hx anesthesia problems: none Family hx anesthesia problems: none Results Review: All pre-operative results and documents have been reviewed as part of the pre-operative evaluation. [facility] Past Medical History Medical History Pain in toe of left foot Polyneuropathy EMG and nerve conduction study on 11/26/2024 with axonal sensory motor proximal and distal neuropathy. Seizure disorder Loss of consciousness Depression BMI 33.0-33.9,adult Abdominal fluid collection Abnormal finding on urinalysis Gross hematuria Observed seizure-like activity Complex partial seizure evolving to generalized seizure (~04/21/24) Seizures Diabetic neuropathy Dehydration Acute hypotension Syncope Hypotension Tachycardia HAP (hospital-acquired pneumonia) Adynamic ileus Hypertension SHEA (acute kidney injury) Cholelithiasis (05/21/23) cholelithiasis noted on ultrasound of the abdomen 05/21/2023 with no obstruction. Diastolic dysfunction without heart failure (05/21/23) grade 1 diastolic dysfunction with ejection fraction 65-70%, trace mitral valve regurgitation, trace tricuspid valve regurgitation, no pulmonary hypertension on echo on 05/21/2023. Hyperbilirubinemia Pneumonia Essential hypertension Polycythemia (09/27/22) hemoglobin slightly elevated at 17.3 on 09/27/2022. Hemoglobin 16.6 on 04/07/2023. Hemoglobin normal at 16.0 on 10/30/2023. Hemoglobin normal at 14.0 on 05/04/2023. Dyspnea on exertion (~2021) Screening for diabetic retinopathy no diabetic retinopathy or macular degeneration on 05/30/2022. Chest heaviness COVID-19 (02/14/22) tested positive for COVID 02/18/2022. Acute non-recurrent maxillary sinusitis Shortness of breath PFT on 03/03/2022 was normal. Obesity Ulnar neuropathy at elbow of right upper extremity (10/12/21) documented on EMG and nerve conduction study 10/12/2021 Bilateral carpal tunnel syndrome (10/12/21) bilateral carpal tunnel syndrome documented on EMG and nerve conduction study 10/12/2021. EMG and nerve conduction study on 06/27/2023 with bilateral carpal tunnel syndrome as well as proximal neuropathy. Vitamin B12 deficiency anemia (08/31/21) level slightly low at 390 with goal greater than 400 with folic acid normal at 11.3 and hemoglobin normal at 16.3 on 08/31/2021 Paresthesia of upper limb (~05/2021) Chronic left shoulder pain Elevated PSA, less than 10 ng/ml PSA slightly elevated at 4.9 on 05/21/2020. PSA level of 4.92 on 09/27/2022. PSA 6.3 with 17% free PSA on 10/30/2023. Hordeolum externum of right lower eyelid Mixed hyperlipidemia total cholesterol 144, triglycerides 154, HDL 53 and LDL 67 on 08/31/2021. Total cholesterol 169, triglycerides 150, HDL 58 and LDL 86 on 01/31/2022. Total cholesterol 165, HDL 58, triglycerides 128, LDL 85 with ratio 2.4 on 04/07/2023. Cholesterol 193, triglycerides 140, HDL 55, LDL 113 with ratio 3.5 on 10/30/2023. Nocturia Prostate cancer screening PSA 4.9 on 10/21/2019. PSA 4.92 on 09/27/2022. Right medial knee pain History of colon polyps colonoscopy 2019 with recheck in 5 years Psoriasis Osteoarthritis of knees, bilateral Morbid obesity FAHAD on CPAP 10 cm of water pressure with fullface mask. Arthritis Sleep apnea Surgical History Surgical History History of prostate surgery Hx of tonsillectomy H/O vasectomy Hx of bilateral mastectomy Hx of appendectomy Family History Family History Mother Patient's mother is in good health Alzheimer disease Father Patient's father is , Onset Age: 73 Malignant neoplasm of prostate Sibling Malignant neoplasm of prostate Heart disease Social History Social History Smoking status: Never smoker Second hand tobacco smoke exposure: Yes Alcohol intake: never Substance use: never Substance use type: does not use Lack of Transportation: No Lack of Food: Never True Current Housing: I Have Housing Concerned About Future Housing: No Difficulty Paying Gas/Electric Bills: No Difficulty Paying for Meds: No Currently Unemployed: No Education: Bachelor's Degree Difficulty w/ Childcare or Family Care: No Living arrangements: with family Additional living arrangements comments: Gender identity (if verbalized by the patient): Male Spiritual care concerns: No Anes - Eval Final PreProcedure Day of Procedure 08/12/25 12:14 Patient weight: obese Lungs: normal air movement Airway: Mallampati scale class II Neurological: alert and oriented Last oral intake: >/= 8 hours ASA classification: III Emergent: no Anesthetic plan: proceed Anesthesia type and monitoring: general GIVS and standard monitoring Results Review: All pre-operative results and documents have been reviewed as part of the pre-operative evaluation. HTN, hyperlipidemia, FAHAD on CPAP, DM fsbs 122, seizure 1 year ago, on meds since. Informed Consent: The patient's anesthetic plan and its attendant risks and benefits were discussed with the patient/family/POA. Questions were solicited and answers provided to the satisfaction of the patient/family/POA.
--- NOTE | 2025-08-12 13:23 | PM.IMHP2 ---
H&P: HPI History of Present Illness Date/Time: 08/12/25 13:23 Chief Complaint: History of colon polyps Narrative: The patient has a history of colonic polyps, the last colonoscopy was approximately 5 years ago. Review of Systems Review of Systems: All systems reviewed & are unremarkable except as noted in HPI and below PMFSH Past Medical History Medical History Pain in toe of left foot Polyneuropathy EMG and nerve conduction study on 11/26/2024 with axonal sensory motor proximal and distal neuropathy. Seizure disorder Loss of consciousness Depression BMI 33.0-33.9,adult Abdominal fluid collection Abnormal finding on urinalysis Gross hematuria Observed seizure-like activity Complex partial seizure evolving to generalized seizure (~04/21/24) Seizures Diabetic neuropathy Dehydration Acute hypotension Syncope Hypotension Tachycardia HAP (hospital-acquired pneumonia) Adynamic ileus Hypertension SHEA (acute kidney injury) Cholelithiasis (05/21/23) cholelithiasis noted on ultrasound of the abdomen 05/21/2023 with no obstruction. Diastolic dysfunction without heart failure (05/21/23) grade 1 diastolic dysfunction with ejection fraction 65-70%, trace mitral valve regurgitation, trace tricuspid valve regurgitation, no pulmonary hypertension on echo on 05/21/2023. Hyperbilirubinemia Pneumonia Essential hypertension Polycythemia (09/27/22) hemoglobin slightly elevated at 17.3 on 09/27/2022. Hemoglobin 16.6 on 04/07/2023. Hemoglobin normal at 16.0 on 10/30/2023. Hemoglobin normal at 14.0 on 05/04/2023. Dyspnea on exertion (~2021) Screening for diabetic retinopathy no diabetic retinopathy or macular degeneration on 05/30/2022. Chest heaviness COVID-19 (02/14/22) tested positive for COVID 02/18/2022. Acute non-recurrent maxillary sinusitis Shortness of breath PFT on 03/03/2022 was normal. Obesity Ulnar neuropathy at elbow of right upper extremity (10/12/21) documented on EMG and nerve conduction study 10/12/2021 Bilateral carpal tunnel syndrome (10/12/21) bilateral carpal tunnel syndrome documented on EMG and nerve conduction study 10/12/2021. EMG and nerve conduction study on 06/27/2023 with bilateral carpal tunnel syndrome as well as proximal neuropathy. Vitamin B12 deficiency anemia (08/31/21) level slightly low at 390 with goal greater than 400 with folic acid normal at 11.3 and hemoglobin normal at 16.3 on 08/31/2021 Paresthesia of upper limb (~05/2021) Chronic left shoulder pain Elevated PSA, less than 10 ng/ml PSA slightly elevated at 4.9 on 05/21/2020. PSA level of 4.92 on 09/27/2022. PSA 6.3 with 17% free PSA on 10/30/2023. Hordeolum externum of right lower eyelid Mixed hyperlipidemia total cholesterol 144, triglycerides 154, HDL 53 and LDL 67 on 08/31/2021. Total cholesterol 169, triglycerides 150, HDL 58 and LDL 86 on 01/31/2022. Total cholesterol 165, HDL 58, triglycerides 128, LDL 85 with ratio 2.4 on 04/07/2023. Cholesterol 193, triglycerides 140, HDL 55, LDL 113 with ratio 3.5 on 10/30/2023. Nocturia Prostate cancer screening PSA 4.9 on 10/21/2019. PSA 4.92 on 09/27/2022. Right medial knee pain History of colon polyps colonoscopy 2019 with recheck in 5 years Psoriasis Osteoarthritis of knees, bilateral Morbid obesity FAHAD on CPAP 10 cm of water pressure with fullface mask. Arthritis Sleep apnea Surgical History Surgical History History of prostate surgery Hx of tonsillectomy H/O vasectomy Hx of bilateral mastectomy Hx of appendectomy Family History Family History Mother Patient's mother is in good health Alzheimer disease Father Patient's father is , Onset Age: 73 Malignant neoplasm of prostate Sibling Malignant neoplasm of prostate Heart disease Social History Social History Smoking status: Never smoker Second hand tobacco smoke exposure: Yes Alcohol intake: never Substance use: never Substance use type: does not use Lack of Transportation: No Lack of Food: Never True Current Housing: I Have Housing Concerned About Future Housing: No Difficulty Paying Gas/Electric Bills: No Difficulty Paying for Meds: No Currently Unemployed: No Education: Bachelor's Degree Difficulty w/ Childcare or Family Care: No Living arrangements: with family Additional living arrangements comments: Gender identity (if verbalized by the patient): Male Spiritual care concerns: No Meds Home Medications and Allergies Home Medications ?Medication ?Instructions ?Recorded ?Confirmed ?Type cyanocobalamin (vitamin B-12) 1,000 mcg PO DAILY 09/01/21 08/12/25 History 1,000 mcg tablet docusate sodium 100 mg capsule 200 mg PO DAILY 04/21/24 07/22/25 History (Colace) fluocinonide 0.05 % topical 1 applic topical BID #60 grams 06/11/24 07/22/25 Rx ointment metformin 1,000 mg tablet 1,000 mg PO BID #180 tabs 09/18/24 08/12/25 Rx atorvastatin 40 mg tablet 40 mg PO HS #90 tabs 12/01/24 08/12/25 Rx levetiracetam 1,000 mg tablet 1,000 mg PO Q12H #180 tabs 12/16/24 08/12/25 Rx (Keppra) dulaglutide 0.75 mg/0.5 mL 0.75 mg (0.5 mL) subcut WEEKLY #2 02/17/25 08/12/25 Rx subcutaneous pen injector mL (Trulicity) empagliflozin 25 mg tablet 25 mg PO HS #90 tabs 05/29/25 08/12/25 Rx (Jardiance) lisinopril 10 mg tablet 10 mg PO HS #90 tabs 05/29/25 08/12/25 Rx aspirin 81 mg tablet,delayed 81 mg PO DAILY 07/22/25 08/12/25 History release (Adult Aspirin Regimen) Allergies Allergy/AdvReac Type Severity Reaction Status Date / Time ciprofloxacin Allergy Intermediate Anaphylaxis Verified 08/12/25 11:21 chlorpheniramine AdvReac Unknown Confusion Verified 08/12/25 11:21 Vital Signs Vital Signs - 24 hr 08/12/25 11:23 Temperature 97.7 F Pulse Rate 93 Respiratory Rate 16 Blood Pressure 144/78 H Pulse Oximetry 94 Oxygen Delivery Room Air Exam Const: General: cooperative and healthy appearing Resp: Effort & Inspection: normal respiratory effort and able to speak in complete sentences Auscultation: clear to auscultation bilaterally Cardio: Rate: regular rate Rhythm: regular rhythm GI: Inspection: normal to inspection GI Palp: No No hepatosplenomegaly present Auscultation: normal bowel sounds Rectal Exam: deferred Skin: General skin exam: normal color Psych: Appearance: grossly normal Mental Status: mental status grossly normal Assessment and Plan Assessment and plan (1) History of colon polyps: Code(s): Z86.010 - Personal history of colon polyps Status: Acute Assessment and Plan: The patient is deemed a good candidate for the procedure. Consent signed. Will proceed. Prior Studies I have reviewed the following patient records and this information was taken into consideration when formulating the assessment and plan.: previous labs, previous ER visits, previous hospitalizations and previous clinic visits
[2025-08-12] MEDS: SIMETHICONE ORAL SUSPENSION 20 MG/0.3 ML 30 ML BOTTLE 0.6 ML IRRIGATION (13:34)
[2025-08-12 13:45] VITALS: BP 115/56; PULSE 88; RESP 24; O2SAT 94
--- NOTE | 2025-08-12 13:45 | S_PTH ---
PATIENT: Edson Naylor LOC: RUI #:[id number] AGE/SX: 75/M ROOM: RE08/12/[address]: Steven Reina MD : [id number] BED: DIS: 08/12/2025 SPEC #: [id number] RECD: 08/12/25 14:27 STATUS: LEXI REMeagan #: [id number] ZAIN: 08/12/25 13:[address]: Steven Reina DEPT: [facility] [place] Surgical RECD BY: Catarina Rojas ENTERED: 08/12/25 14:28 SP TYPE: Surgical OTHR DR: Will Daniel MD Tissues: A - Colon Polypectomy B - Rectal Polyp Procedures: Hematoxylin and Eosin Stain Gross and Microscopic Level 4
[2025-08-12 13:55] VITALS: BP 97/63; PULSE 86; RESP 24; O2SAT 93
[2025-08-12 14:05] VITALS: BP 113/76; PULSE 85; RESP 22; O2SAT 95
== END 2025-08-12 14:18 | disposition home or self-care (01) ==
PROVIDERS: PCP Family Medicine; Referring Provider Family Medicine; Visit Provider Internal Medicine Gastroenterology
PROC: 0DJD8ZZ Inspection of Lower Intestinal Tract, Via Natural or Artificial Opening Endoscopic (ICD-10-PCS; CPT 45378; principal; 2025-08-12 13:00)
DX: Z12.11 Encounter for screening for malignant neoplasm of colon (principal); K63.5 Polyp of colon; K62.1 Rectal polyp; K64.8 Other hemorrhoids; K57.30 Diverticulosis of large intestine without perforation or abscess without bleeding; E78.2 Mixed hyperlipidemia; E11.42 Type 2 diabetes mellitus with diabetic polyneuropathy; I11.9 Hypertensive heart disease without heart failure; E53.8 Deficiency of other specified B group vitamins; M17.0 Bilateral primary osteoarthritis of knee; G47.33 Obstructive sleep apnea (adult) (pediatric); G60.8 Other hereditary and idiopathic neuropathies; G40.909 Epilepsy, unspecified, not intractable, without status epilepticus; F32.A Depression, unspecified; I95.9 Hypotension, unspecified; R00.0 Tachycardia, unspecified; N17.9 Acute kidney failure, unspecified; E80.6 Other disorders of bilirubin metabolism; G89.29 Other chronic pain; M25.512 Pain in left shoulder; L40.9 Psoriasis, unspecified; M19.90 Unspecified osteoarthritis, unspecified site; E66.9 Obesity, unspecified; Z68.38 Body mass index [BMI] 38.0-38.9, adult; Z79.82 Long term (current) use of aspirin; Z79.84 Long term (current) use of oral hypoglycemic drugs; Z79.85 Long-term (current) use of injectable non-insulin antidiabetic drugs; Z99.89 Dependence on other enabling machines and devices; Z98.890 Other specified postprocedural states; Z90.13 Acquired absence of bilateral breasts and nipples; Z80.42 Family history of malignant neoplasm of prostate; Z82.49 Family history of ischemic heart disease and other diseases of the circulatory system
CPT/HCPCS: 45385; 82948; 88305; J2003; J2704; J7120